=== PATIENT | male | born 1955 | race Caucasian/White ===

== ENCOUNTER 2019-09-29 13:28 | Outpatient (RCR) | payer MEDICARE, OTHER ==
[2019-09-24 11:40] LABS: BASOPHILS # (AUTO) 0.1 10^3/uL (0.0-0.1); BASOPHILS % (AUTO) 1 % (0-10); EOSINOPHILS # (AUTO) 0.4 10^3/uL (0.0-0.3); EOSINOPHILS % (AUTO) 4 % (0-10); HEMATOCRIT 41 % (40-54); HEMOGLOBIN 13.6 G/DL (13.3-17.7); LYMPHOCYTES # (AUTO) 1.7 X 10^3 (1.0-4.0); LYMPHOCYTES % (AUTO) 19 % (12-44); MEAN CORPUSCULAR HEMOGLOBIN 30 PG (25-34); MEAN CORPUSCULAR HGB CONC 33 G/DL (32-36); MEAN CORPUSCULAR VOLUME 91 FL (80-99); MEAN PLATELET VOLUME 9.2 FL (7.4-10.4); MONOCYTES # (AUTO) 0.7 X 10^3 (0.0-1.0); MONOCYTES % (AUTO) 8 % (0-12); NEUTROPHILS # (AUTO) 6.1 X 10^3 (1.8-7.8); NEUTROPHILS % (AUTO) 69 % (42-75); PLATELET COUNT 297 10^3/uL (130-400); RED CELL DISTRIBUTION WIDTH 13.4 % (10.0-14.5); WHITE BLOOD COUNT 8.9 10^3/uL (4.3-11.0)
[2019-09-24 12:05] LABS: ALANINE AMINOTRANSFERASE 25 U/L (0-55); ALBUMIN 3.8 GM/DL (3.2-4.5); ALKALINE PHOSPHATASE 77 U/L (40-136); BILIRUBIN,TOTAL 0.5 MG/DL (0.1-1.0); BUN/CREATININE RATIO 14; CALCIUM 9.1 MG/DL (8.5-10.1); CARBON DIOXIDE 26 MMOL/L (21-32); CHLORIDE 103 MMOL/L (98-107); CREATININE SERUM 0.88 MG/DL (0.60-1.30); GFR ESTIMATED > 60; GLUCOSE 97 MG/DL (70-105); POTASSIUM 4.1 MMOL/L (3.6-5.0); SODIUM 135 MMOL/L (135-145); TOTAL PROTEIN 7.2 GM/DL (6.4-8.2)
[~2019-09-29 13:28] MED LIST: ALBU8.5H4 IH; ALBUTEROL INHALER; AMOX-358 PO; ATEN-158 PO; BENZ200C25 PO; CEFD300C PO; IPRA4AER IH; LEVO500T69 PO; LISI10TA PO; MOME13HF2 IH; PRD20T PO
== END 2019-12-23 | disposition home or self-care (01) ==
LOC: ONC 13:28
PROVIDERS: ATTEND Internal Medicine Hematology & Oncology
DX: C34.11 Malignant neoplasm of upper lobe, right bronchus or lung (principal); J43.8 Other emphysema; I10 Essential (primary) hypertension; E03.9 Hypothyroidism, unspecified; Z79.899 Other long term (current) drug therapy; Z87.891 Personal history of nicotine dependence
CPT/HCPCS: 80053; 82378; 85025; 99213; 99214

== ENCOUNTER 2020-03-20 11:40 | Inpatient (IN) | payer MEDICARE, OTHER ==
[2020-03-20] VITALS (11 sets, daily range): BP systolic 93–126; BP diastolic 71–111
[~2020-03-20] VITALS: Ht 187.9 cm; Wt 97.2 kg
[2020-03-20] MEDS ORDERED: NS IV 1000 ML 1,000 ML IV ONE (12:26)
[2020-03-20] MEDS ORDERED: NS IV 1000 ML 1,000 ML IV SCH (12:26)
--- NOTE | 2020-03-20 12:39 | ED Syncope ---
General Stated Complaint: FALL - HEAD LAC Source of Information: Patient Exam Limitations: No Limitations History of Present Illness Date Seen by Provider: Mar 20, 2020 Time Seen by Provider: 12:10 Initial Comments The patient presents to ER by private conveyance from home with chief complaint that he was finishing up at the breakfast table when he stood up and passed out falling striking his right frontal forehead. He was only out for less than a minute according to his family. He has a history of atrial flutter paroxysmal type. He is not on blood thinners. He does take atenolol. He is not on Cardizem or other beta blockers. He has not been sick with anything but he is undergoing immunotherapy with his oncologist at [facility] for non-small cell lung cancer on the right side. He has a distant history of bowel resections for multiple flat polyps that were noncancerous. He denies any dysuria fever chills cough shortness of breath but he is having some pain in his right side midaxillary line ribs. The patient is a history of COPD and is presently on steroids for the past 10 days. Allergies and Home Medications Allergies Coded Allergies: No Known Drug Allergies (Unverified , 08/05/13) Home Medications Albuterol Sulfate 8.5 Gm Hfa.aer.ad, 8.5 GM IH QID Prescribed by: RYAN HESS on 08/05/132030 Atenolol 50 Mg Tab, 75 MG PO BID, (Reported) Cefdinir 300 Mg Capsule, 600 MG PO DAILY, (Reported) Ipratropium/Albuterol Sulfate 4 Gm Aer.w.adap, 4 GM IH Q6H, (Reported) Lisinopril 10 Mg Tablet, 10 MG PO BID, (Reported) Mometasone/Formoterol 13 Gm Hfa.aer.ad, 13 GM IH BID, (Reported) Prednisone 20 Mg Tab, 40 MG PO DAILY Prescribed by: RYAN HESS on 08/05/132030 Patient Home Medication List Home Medication List Reviewed: Yes Review of Systems Constitutional: No chills, No diaphoresis EENTM: No ear discharge, No ear pain Respiratory: No cough, No short of breath, No wheezing Cardiovascular: see HPI, chest pain; No edema, No Hx of Intervention, No palpitations; syncope Gastrointestinal: No abdominal pain, No constipation, No diarrhea, No nausea Genitourinary: No discharge, No dysuria Musculoskeletal: No back pain, No joint pain Skin: see HPI All Other Systems Reviewed Negative Unless Noted: Yes Past Bmncopw-Ghqssp-Ytiogq Hx Patient Social History Alcohol Use: Denies Use Recreational Drug Use: No Smoking Status: Never a Smoker Recent Foreign Travel: No Contact w/Someone Who Travel: No Immunizations Up To Date Date of Pneumonia Vaccine: Jun 15, 2009 Date of Influenza Vaccine: Apr 21, 2014 Past Medical History Abdominal COPD Hypertension Reproductive Disorders: No Polyps Hyperthyroidism Adverse Reaction/Blood Tranf: No Family Medical History COPD Physical Exam Vital Signs Vital Signs - First Documented 03/20/20 12:11 Temp 36.4 Pulse 152 Resp 18 B/P (MAP) 103/88 (93) Pulse Ox 98 Capillary Refill : Height, Weight, BMI Height: 6'2.00" Weight: 230lbs. 0.0oz. 104.883200ls; BMI Method:Stated General Appearance: No Apparent Distress, WD/WN HEENT: PERRL/EOMI, TMs Normal, Normal ENT Inspection, Pharynx Normal; No Moist Mucous Membranes (mildly dry); Other (negative for hemotympanum, joshua sign or raccoon eyes. Small abrasion and 1 cm hematoma over the right frontal forehead/scalp) Neck: Full Range of Motion, Normal Inspection, Non Tender, Supple Cardiovascular: Regular Rate, Rhythm, No Edema, Normal Peripheral Pulses Respiratory: Chest Non Tender, Lungs Clear, Normal Breath Sounds, No Accessory Muscle Use, No Respiratory Distress Gastrointestinal: Normal Bowel Sounds, No Organomegaly, Non Tender, Soft Back: Normal Inspection, No Vertebral Tenderness Extremities: Normal Capillary Refill, Normal Inspection, Normal Range of Motion, Non Tender, No Calf Tenderness Neurologic/Psychiatric: Alert, Oriented x3, No Motor/Sensory Deficits, Normal Mood/Affect Cranial Nerves: Normal Hearing, Normal Speech, PERRL Motor/Sensory: No Motor Deficit, No Sensory Deficit Skin: Other (superficial abrasion and hematoma 1-2 cm over her right forehead) Progress/Results/Core Measures Results/Orders Lab Results Laboratory Tests Test 03/20/20 12:27 03/20/20 14:17 Range/Units White Blood Count 21.6 H 4.3-11.0 10^3/uL Red Blood Count 4.41 4.35-5.85 10^6/uL Hemoglobin 13.8 13.3-17.7 G/DL Hematocrit 41 40-54 % Mean Corpuscular Volume 93 80-99 FL Mean Corpuscular Hemoglobin 31 25-34 PG Mean Corpuscular Hemoglobin Concent 34 32-36 G/DL Red Cell Distribution Width 12.7 10.0-14.5 % Platelet Count 266 130-400 10^3/uL Mean Platelet Volume 9.4 7.4-10.4 FL Neutrophils (%) (Auto) 90 H 42-75 % Lymphocytes (%) (Auto) 4 L 12-44 % Monocytes (%) (Auto) 7 0-12 % Eosinophils (%) (Auto) 0 0-10 % Basophils (%) (Auto) 0 0-10 % Neutrophils # (Auto) 19.3 H 1.8-7.8 X 10^3 Lymphocytes # (Auto) 0.8 L 1.0-4.0 X 10^3 Monocytes # (Auto) 1.4 H 0.0-1.0 X 10^3 Eosinophils # (Auto) 0.0 0.0-0.3 10^3/uL Basophils # (Auto) 0.0 0.0-0.1 10^3/uL Neutrophils % (Manual) 86 % Lymphocytes % (Manual) 2 % Monocytes % (Manual) 12 % Blood Morphology Comment NORMAL Sodium Level 135 135-145 MMOL/L Potassium Level 4.0 3.6-5.0 MMOL/L Chloride Level 101 98-107 MMOL/L Carbon Dioxide Level 21 21-32 MMOL/L Anion Gap 13 5-14 MMOL/L Blood Urea Nitrogen 27 H 7-18 MG/DL Creatinine 0.99 0.60-1.30 MG/DL Estimat Glomerular Filtration Rate > 60 BUN/Creatinine Ratio 27 Glucose Level 204 H 70-105 MG/DL Calcium Level 9.0 8.5-10.1 MG/DL Corrected Calcium 9.4 8.5-10.1 MG/DL Total Bilirubin 0.5 0.1-1.0 MG/DL Aspartate Amino Transf (AST/SGOT) 19 5-34 U/L Alanine Aminotransferase (ALT/SGPT) 27 0-55 U/L Alkaline Phosphatase 53 40-136 U/L Troponin I 0.034 H <0.028 NG/ML B-Type Natriuretic Peptide 642.5 H <100.0 PG/ML Total Protein 6.3 L 6.4-8.2 GM/DL Albumin 3.5 3.2-4.5 GM/DL Urine Color YELLOW Urine Clarity CLEAR Urine pH 6.0 5-9 Urine Specific Harrison 1.015 L 1.016-1.022 Urine Protein NEGATIVE NEGATIVE Urine Glucose (UA) TRACE H NEGATIVE Urine Ketones NEGATIVE NEGATIVE Urine Nitrite NEGATIVE NEGATIVE Urine Bilirubin NEGATIVE NEGATIVE Urine Urobilinogen 1.0 < = 1.0 MG/DL Urine Leukocyte Esterase NEGATIVE NEGATIVE Urine RBC (Auto) NEGATIVE NEGATIVE Urine RBC NONE /HPF Urine WBC NONE /HPF Urine Squamous Epithelial Cells RARE /HPF Urine Crystals NONE /LPF Urine Bacteria NEGATIVE /HPF Urine Casts NONE /LPF Urine Mucus SMALL H /LPF Urine Culture Indicated NO My Orders Orders - HUNG MISHRA Ct Head/Cervical Spine Wo (03/20/20 12:12) Troponin I (03/20/20 12:26) Ekg Tracing (03/20/20 12:26) Ed Iv/Invasive Line Start (03/20/20 12:26) Monitor-Rhythm Ecg Trace Only (03/20/20 12:) Cbc With Automated Diff (03/20/20 12:26) Comprehensive Metabolic Panel (03/20/20 12:26) BNP (03/20/20 12:) Ua Culture If Indicated (03/20/20 12:26) Ed Iv/Invasive Line Start (03/20/20 12:26) Ns Iv 1000 Ml (Sodium Chloride 0.9%) (03/20/20 12:26) Ns Iv 1000 Ml (Sodium Chloride 0.9%) (03/20/20 12:26) Diltiazem Injection (Cardizem Injection) (03/20/20 12:30) Diltiazem Drip Pre-Mix (Cardizem Drip Pr (03/20/20 12:30) Manual Differential (03/20/20 12:27) Ribs/Unilateral With Chest (03/20/20 12:26) Amiodarone Injection (Cordarone Injectio (03/20/20 14:45) Amiodarone Injection (Cordarone Injectio (03/20/20 14:45) Medications Given in ED Current Medications Medications Dose Ordered Sig/Silvana Route Start Time Stop Time Status Last Admin Dose Admin Sodium Chloride 1,000 ml @ 0 mls/hr Q0M ONCE IV 03/20/20 12:26 03/20/20 12:29 DC 03/20/20 12:44 1,000 MLS/HR Vital Signs/I&O 03/20/20 12:11 Temp 36.4 Pulse 152 Resp 18 B/P (MAP) 103/88 (93) Pulse Ox 98 Progress Progress Note #1: Time: 12:32 Progress Note 2 L of fluids, ribs x-ray, CT of the head and C-spine, labs urinalysis and Cardizem for his A. fib with RVR. Progress Note #2: Time: 14:36 Progress Note It's felt that the elevated white count is probably due to the prednisone. Progress Note #3: Time: 14:48 Progress Note Patient says that he had to be on amiodarone for short while after his partial bowel resections and a flutter. This caused a goiter and he had have a steroid taken out so he does not want to be on amiodarone. Discussed this with Dr. Quintero he says just keep him on the Cardizem drip. Initial ECG Impression Date: Mar 20, 2020 Initial ECG Impression Time: 12:14 Initial ECG Rate: 136 Initial ECG Rhythm: A Fib/Flutter Initial ECG Intervals: QT (530) Initial ECG Impression: Atrial Fibrillation w/RVR Comment Atrial flutter with rapid ventricular response. Right bundle prieto block. Diagnostic Imaging Diagonstic Imaging: Xray Plain Films/CT/US/NM/MRI: chest (right ribs) Comments NAME: SARA IRIZARRY [facility] REC#: [id number] PT STATUS: REG ER : 1955 PHYSICIAN: HUNG MISHRA MD ADMIT DATE: 03/20/20/ER Signed Date of Exam:03/20/20 RIBS/UNILATERAL WITH CHEST Patient History: Fall. Anterior rib pain.. Technique: 4 views of the chest and right ribs. Comparison: 09/25/2014. FINDINGS: No acute displaced right-sided rib fractures are seen. Patchy opacities are seen in the right upper lobe. A left port is seen with the tip overlying the low SVC. No large pleural effusion or pneumothorax. The cardiac silhouette is unremarkable. IMPRESSION: 1. No acute displaced right-sided rib fractures. 2. Patchy opacities in the right upper lobe, which may represent infection or atelectasis. 3. Left port with the tip overlying the low SVC. Dictated by: Dictated on workstation # [id number] Dict: 03/20/20 1320 Trans: 03/20/20 1327 [facility] [id number] Interpreted by: STUART ORO DO Electronically signed by: STUART ORO DO 03/20/20 1327 Reviewed: Reviewed by Me Diagonstic Imaging: CT Plain Films/CT/US/NM/MRI: c-spine, head Comments [facility] [place] NAME: SARA IRIZARRY [facility] REC#: [id number] PT STATUS: REG ER : 1955 PHYSICIAN: HUNG MISHRA MD ADMIT DATE: 03/20/20/ER Signed Date of Exam:03/20/20 CT HEAD/CERVICAL SPINE WO PROCEDURE: CT head and CT cervical spine without contrast. TECHNIQUE: Multiple contiguous axial images were obtained through the brain and cervical spine without the use of intravenous contrast. Sagittal and coronal reformations through the cervical spine were then performed. Auto Exposure Controls were utilized during the CT exam to meet ALARA standards for radiation dose reduction. INDICATION: Dizziness. Syncope. Fell and hit forehead. Scalp contusion. Neck pain. COMPARISON: None. FINDINGS: CT head: No large acute territorial ischemia, mass, or hemorrhage. No midline shift or mass effect. Decreased attenuation is seen in the periventricular and subcortical white matter. The ventricles and cortical sulci are prominent. The basilar cisterns are patent and unremarkable. The calvarium is intact. The visualized paranasal sinuses are clear. CT cervical spine: No acute fracture or dislocation is seen in the cervical spine. No focal osseous lesions. Vertebral body heights are well-maintained. The craniocervical junction is well-maintained. Moderate degenerative changes are seen in the cervical spine with disc osteophyte complexes and uncovertebral arthropathy. Soft tissues of the neck are unremarkable. IMPRESSION: 1. No hemorrhage or focal intra-axial mass. No CT evidence of large acute territorial ischemia. 2. No acute fracture or dislocation in the cervical spine. 3. Generalized parenchymal volume loss with chronic microvascular disease. Dictated by: Dictated on workstation # [id number] Dict: 03/20/20 1312 Trans: 03/20/20 1327 [facility] [id number] Interpreted by: STUART ORO DO Electronically signed by: STUART ORO DO 03/20/20 1327 Reviewed: Reviewed by Me Departure Communication (Admissions) Time/Spoke to Admitting Phy: 14:40 Discussed the case with Dr. Lynn and she agrees to admit the patient on amiodarone and Cardizem drip under the consult of cardiology, Dr. Quintero. She agrees with continuing prednisone starting Eliquis and getting labs. Time/Spoke to Consulting Phy: 14:31 Dr. Quintero would like anticoagulation, 2-D echo in the morning and a bolus of amiodarone and amiodarone drip overnight. He would plan to cardiovert if the patient does not typically cardiovert overnight. Impression Primary Impression: Atrial flutter with rapid ventricular response Additional Impression: History of lung cancer in adulthood Disposition: ADMITTED INPATIENT Condition: Stable Admissions Decision to Admit Reason: Admit from ER (General) Decision to Admit/Date: Mar 20, 2020 Time/Decision to Admit Time: 13:00 HUNG MISHRA Mar 20, 2020 12:39
[2020-03-20 12:42] LABS: BASOPHILS % (AUTO) 0 % (0-10); EOSINOPHILS % (AUTO) 0 % (0-10); HEMATOCRIT 41 % (40-54); HEMOGLOBIN 13.8 G/DL (13.3-17.7); LYMPHOCYTES # (AUTO) 0.8 X 10^3 (1.0-4.0); LYMPHOCYTES % (AUTO) 4 % (12-44); MEAN CORPUSCULAR HEMOGLOBIN 31 PG (25-34); MEAN CORPUSCULAR HGB CONC 34 G/DL (32-36); MEAN CORPUSCULAR VOLUME 93 FL (80-99); MEAN PLATELET VOLUME 9.4 FL (7.4-10.4); MONOCYTES # (AUTO) 1.4 X 10^3 (0.0-1.0); MONOCYTES % (AUTO) 7 % (0-12); NEUTROPHILS # (AUTO) 19.3 X 10^3 (1.8-7.8); NEUTROPHILS % (AUTO) 90 % (42-75); PLATELET COUNT 266 10^3/uL (130-400); WHITE BLOOD COUNT 21.6 10^3/uL (4.3-11.0)
--- NOTE | 2020-03-20 12:44 | NUR ---
FLUIDS STARTED GOING HOLD CARDIZEM DUE TO B/P SYSTOLIC 80 AND 90 Addendum: 03/20/20 at 1318 by PMCCLURE PATIENT TALKING WITH AND UDATING HER.
[2020-03-20 12:52] LABS: ALBUMIN 3.5 GM/DL (3.2-4.5); CHLORIDE 101 MMOL/L (98-107); SODIUM 135 MMOL/L (135-145)
[2020-03-20 12:55] LABS: GLUCOSE 204 MG/DL (70-105); TOTAL PROTEIN 6.3 GM/DL (6.4-8.2)
[2020-03-20 12:56] LABS: CARBON DIOXIDE 21 MMOL/L (21-32); LYMPHOCYTES % (MANUAL) 2 %; MONOCYTES % (MANUAL) 12 %; NEUTROPHILS % (MANUAL) 86 %; RBC MORPH NORMAL
[2020-03-20 12:57] LABS: BILIRUBIN,TOTAL 0.5 MG/DL (0.1-1.0)
[2020-03-20 12:58] LABS: ALKALINE PHOSPHATASE 53 U/L (40-136); CREATININE SERUM 0.99 MG/DL (0.60-1.30); GFR ESTIMATED > 60
[2020-03-20 12:59] LABS: BUN/CREATININE RATIO 27
[2020-03-20 13:01] LABS: ALANINE AMINOTRANSFERASE 27 U/L (0-55)
--- NOTE | 2020-03-20 13:22 | Diagnostic Imaging Report ---
PROCEDURE: CT head and CT cervical spine without contrast. TECHNIQUE: Multiple contiguous axial images were obtained through the brain and cervical spine without the use of intravenous contrast. Sagittal and coronal reformations through the cervical spine were then performed. Auto Exposure Controls were utilized during the CT exam to meet ALARA standards for radiation dose reduction. INDICATION: Dizziness. Syncope. Fell and hit forehead. Scalp contusion. Neck pain. COMPARISON: None. FINDINGS: CT head: No large acute territorial ischemia, mass, or hemorrhage. No midline shift or mass effect. Decreased attenuation is seen in the periventricular and subcortical white matter. The ventricles and cortical sulci are prominent. The basilar cisterns are patent and unremarkable. The calvarium is intact. The visualized paranasal sinuses are clear. CT cervical spine: No acute fracture or dislocation is seen in the cervical spine. No focal osseous lesions. Vertebral body heights are well-maintained. The craniocervical junction is well-maintained. Moderate degenerative changes are seen in the cervical spine with disc osteophyte complexes and uncovertebral arthropathy. Soft tissues of the neck are unremarkable. IMPRESSION: 1. No hemorrhage or focal intra-axial mass. No CT evidence of large acute territorial ischemia. 2. No acute fracture or dislocation in the cervical spine. 3. Generalized parenchymal volume loss with chronic microvascular disease. Dictated by: Dictated on workstation # [id number]
--- NOTE | 2020-03-20 13:24 | Diagnostic Imaging Report ---
Patient History: Fall. Anterior rib pain.. Technique: 4 views of the chest and right ribs. Comparison: 09/25/2014. FINDINGS: No acute displaced right-sided rib fractures are seen. Patchy opacities are seen in the right upper lobe. A left port is seen with the tip overlying the low SVC. No large pleural effusion or pneumothorax. The cardiac silhouette is unremarkable. IMPRESSION: 1. No acute displaced right-sided rib fractures. 2. Patchy opacities in the right upper lobe, which may represent infection or atelectasis. 3. Left port with the tip overlying the low SVC. Dictated by: Dictated on workstation # [id number]
[2020-03-20] MEDS: dilTIAZem DRIP PRE-MIX 125 ML IV SCH ×2 (13:25→22:15)
[2020-03-20 14:23] LABS: BILIRUBIN,URINE NEGATIVE (NEGATIVE); CLARITY,URINE CLEAR; COLOR,URINE YELLOW; GLUCOSE, URINE (UA) TRACE (NEGATIVE); KETONES,URINE NEGATIVE (NEGATIVE); LEUKOCYTE ESTERASE ,URINE NEGATIVE (NEGATIVE); NITRITE,URINE NEGATIVE (NEGATIVE); PROTEIN,URINE NEGATIVE (NEGATIVE)
[2020-03-20 14:43] LABS: BACTERIA,URINE NEGATIVE /HPF; SQUAMOUS EPITHELIAL CELL,UR RARE /HPF
[2020-03-20] MEDS ORDERED: AMIODARONE INJECTION 450 MG in D5W IV SOLUTION (EXCEL) 250 ML IV SCH (14:45)
[2020-03-20] MEDS ORDERED: AMIODARONE INJECTION 150 MG in D5W 100 ML IVPB 100 ML IV ONE ×2 (14:45→19:30)
--- NOTE | 2020-03-20 14:57 | NUR ---
PATIENT WNATS TO BE TRANSFER TO TO ONOCLOGY
--- NOTE | 2020-03-20 14:58 | NUR ---
DR MISHRA TO ROOM TO TALK WITH PATIENT.
--- NOTE | 2020-03-20 15:12 | NUR ---
DR TALKED TO PATIENT AND WILL STAY.
[2020-03-20] MEDS ORDERED: LACTATED RINGERS 1,000 ML IV ONE (15:25)
[2020-03-20] MEDS ORDERED: ACETAMINOPHEN 500 MG TAB (TYLENOL) PO PRN (15:45)
[2020-03-20] MEDS: LACTATED RINGERS 1,000 ML IV SCH ×2 (16:04→22:14)
[2020-03-20] MEDS ORDERED: RT-ALBUTEROL/IPRATROPIUM 3 ML (DUONEB) VIAL INH PRN (16:45)
--- NOTE | 2020-03-20 19:01 | Consultation-Cardiology ---
HPI-Cardiology Cardiology Consultation: Date of Consultation 03/20/20 Date of Admission Attending Physician Tisha Lynn MD Admitting Physician No,Local Physician Consulting Physician Navjot QUINTERO MD HPI: Time Seen by a Provider: 19:01 Chief Complaint: Syncope This is a 65-year-old gentleman who presented with syncope. Brief episode. He has history of atrial fibrillation/flutter. He also has history of possible hypertension on atenolol. Patient has previous history of smoking but quit quite a few years ago. He does have history of COPD. He has been diagnosed with non-small cell lung cancer in July 2019. He is on immunotherapy. Pertinent family history is negative. He does not remember whether he had any chest pain or shortness of breath before he passed out. He was sitting on the breakfast table and hit the floor. No jerky movements noted by the . Patient became conscious within a minute. Review of Systems-Cardiology Review of Systems Constitutional: As described under HPI; No As described under HPI, No no symptoms reported, No chills, No fever, No lightheadedness Eyes: No As described under HPI, No no symptoms reported, No blindness, No blurred vision, No contact lenses, No drainage, No decreased acuity, No foreign body sensation, No pain, No vision change Ears/Nose/Throat: No As described under HPI, No no symptoms reported, No chronic hearing loss, No ear discharge, No ear pain, No nasal drainage, No ulcerations Respiratory: No no symptoms reported; As described under HPI; No As described under HPI, No cough, No orthopnea, No shortness of breath, No SOB with excertion Cardiovascular: No no symptoms reported; As described under HPI; No As described under HPI, No chest pain, No edema, No irregular heart rate, No lightheadedness, No palpitations; syncope Gastrointestinal: No no symptoms reported, No As described under HPI, No abdomen distended, No abdominal pain, No blood streaked bowels, No constipation, No diarrhea, No nausea, No vomiting, No stool coloration changes Genitourinary: No As described under HPI, No burning, No dysuria, No discharge, No frequency, No flank pain, No hematuria, No urgency Skin: No rash, No skin related problems, No ulcerations Psychiatric/Neurological: No anxiety, No depression, No seizure, No focal weakness, No syncope Hematologic: No bleeding abnormalities All Other Systems Reviewed Negative Unless Noted: Yes HNV-Smrmem-Qerzod Hx Patient Social History Alcohol Use: Denies Use Recreational Drug Use: No Smoking Status: Former Smoker Recent Foreign Travel: No Recent Infectious Disease Expo: No Hospitalization with Isolation: Denies Physical Abuse Screen: No Sexual Abuse: No Immunizations Up To Date Date of Pneumonia Vaccine: Jun 15, 2009 Date of Influenza Vaccine: Apr 21, 2014 Past Medical History PMH As described under Assessment. Allergies and Home Medications Allergies Coded Allergies: No Known Drug Allergies (Unverified , 08/05/13) Home Medications Albuterol Sulfate 8.5 Gm Hfa.aer.ad, 8.5 GM IH QID Prescribed by: RYAN HESS on 08/05/132030 Atenolol 50 Mg Tab, 75 MG PO BID, (Reported) Cefdinir 300 Mg Capsule, 600 MG PO DAILY, (Reported) Ipratropium/Albuterol Sulfate 4 Gm Aer.w.adap, 4 GM IH Q6H, (Reported) Lisinopril 10 Mg Tablet, 10 MG PO BID, (Reported) Mometasone/Formoterol 13 Gm Hfa.aer.ad, 13 GM IH BID, (Reported) Prednisone 20 Mg Tab, 40 MG PO DAILY Prescribed by: RYAN HESS on 08/05/132030 Patient Home Medication List Home Medication List Reviewed: Yes Physical Exam-Cardiology Physical Exam Vital Signs/I&O 03/21/20 03/21/20 03/21/20 03/21/20 04:00 04:00 04:00 05:00 Temp 36.4 Pulse 140 138 Resp 29 B/P (MAP) 114/87 (96) 106/93 (97) Pulse Ox 95 94 O2 Delivery Room Air Room Air Room Air 03/21/20 03/21/20 03/21/20 03/21/20 06:00 07:00 07:24 08:00 Temp 36.8 Pulse 138 140 138 Resp 10 15 B/P (MAP) 119/77 (91) 109/76 (87) Pulse Ox 94 96 O2 Delivery Room Air Room Air Room Air 03/21/20 03/21/20 03/21/20 03/21/20 08:00 09:00 10:00 10:05 Pulse 90 54 Resp 21 6 B/P (MAP) 111/96 (101) 110/103 (105) 104/73 (83) Pulse Ox 96 95 98 O2 Delivery Room Air Room Air Room Air Room Air 03/21/20 03/21/20 03/21/20 03/21/20 11:00 11:12 11:13 12:00 Temp 36.8 36.8 Pulse 57 57 55 Resp 14 18 B/P (MAP) 118/79 (92) 114/80 (91) Pulse Ox 97 96 94 O2 Delivery Room Air Room Air FiO2 21 03/21/20 03/21/20 12:06 14:49 Pulse Ox 98 O2 Delivery Room Air Room Air 03/21/20 00:00 Intake Total 4228 ml Output Total 2000 ml Balance 2228 ml Capillary Refill : Less Than 3 Seconds Constitutional: appears stated age, AAO x 3; No apparent distress; well- developed, well-nourished HEENT: PERRL; No discharge; hearing is well preserved, oral hygience is good; No ulceration, No xanthelasmas are seen Neck: No carotid bruit; carotid pulses are 2 + bilaterally Respiratory: chest is bilaterally symmetric, lungs clear to auscultation Cardiovascular: irregularly irregular, tachycardia, S1 and S2 Gastrointestinal: soft, audible bowel sounds; No spleenomegaly Rectal: deferred Extremities: normal range of motion, non-tender, normal inspection; No clubbing, No cyanosis; no lower extremity edema bilateral; No significant edema Neurologic/Psychiatric: no motor/sensory deficits, alert, normal mood/affect, oriented x 3, power is 5/5 both on sides Skin: normal color, warm/dry; No rash, No ulcerations Data Review Labs Laboratory Tests 03/20/20 18:06: Troponin I 0.032H 03/21/20 01:22: Troponin I < 0.028, White Blood Count 16.4H, Red Blood Count 4.16L, Hemoglobin 13.1L, Hematocrit 39L, Mean Corpuscular Volume 93, Mean Corpuscular Hemoglobin 32, Mean Corpuscular Hemoglobin Concent 34, Red Cell Distribution Width 12.5, Platelet Count 246, Mean Platelet Volume 9.2, Neutrophils (%) (Auto) 90H, Lymphocytes (%) (Auto) 5L, Monocytes (%) (Auto) 6, Eosinophils (%) (Auto) 0, Basophils (%) (Auto) 0, Neutrophils # (Auto) 14.7H, Lymphocytes # (Auto) 0.7L, Monocytes # (Auto) 1.0, Eosinophils # (Auto) 0.0, Basophils # (Auto) 0.0, Sodium Level 133L, Potassium Level 4.2, Chloride Level 101, Carbon Dioxide Level 21, Anion Gap 11, Blood Urea Nitrogen 25H, Creatinine 0.91, Estimat Glomerular Filtr ation Rate > 60, BUN/Creatinine Ratio 27, Glucose Level 258H, Calcium Level 8.5, Phosphorus Level 3.9, Magnesium Level 2.0, Procalcitonin 0.03, Thyroid Stimulating Hormone (TSH) 0.37 03/21/20 11:11: Glucometer 128H ECG Impression ECG Comment Typical atrial flutter A/P-Cardiology Assessment/Admission Diagnosis Atrial fibrillation with RVR, Typical atrial flutter, Syncope, Borderline positive troponin, Non-small cell lung cancer Plan Atrial fibrillation with RVR, amiodarone infusion, Cardizem infusion. If patient does not convert to sinus rhythm, consider transesophageal echocardiogram assisted cardioversion. Informed consent taken. 1 percent risk of stroke in 1 percent risk of 45 damage was discussed and accepted by the patient if required. Patient will also be started on Eliquis therapy. Typical atrial flutter, typical atrial flutter ablation is recommended. We will arrange it as an outpatient. Syncope, unclear etiology. Due to borderline positive troponin, coronary angiography is recommended to rule out significant CAD. Also will need an event monitor. Also could be related to either very slow atrial fibrillation or atrial fibrillation with rapid ventricular rate. Borderline positive troponin, coronary angiography is recommended. Non-small cell lung cancer, we will defer to the oncologist. I'm told by the patient that the prognosis is reasonable. Thank you for your consultation. Please call me if you have any questions. Diana Quintero MD, FACP, FACC, FSCAI, FHRS, CCDS Interventional Cardiology Cardiac Electrophysiology Vascular Medicine and Endovascular Interventions Clinical Quality Measures DVT/VTE Risk/Contraindication: Risk Factor Score Per Nursin RFS Level Per Nursing on Admit: 4+=Very High Navjot QUINTERO MD Mar 20, 2020 19:01
[2020-03-20] MEDS ORDERED: D5W 100 ML IVPB 100 ML IV ONE (19:29)
[2020-03-20] MEDS ORDERED: AMIODARONE (OMNICELL DRIP KIT) 150 MG/3 ML IV ONE (19:30)
[2020-03-20] MEDS ORDERED: D5W IV SOLUTION (EXCEL) 250 ML IV ONE (19:45)
[2020-03-20] MEDS ORDERED: AMIODARONE 450 MG/9 ML (CORDARONE) VIAL IV ONE (19:45)
[2020-03-20] MEDS: AMIODARONE INJECTION 450 MG in D5W IV SOLUTION (EXCEL) 250 ML IV SCH (19:59)
[2020-03-20] MEDS: APIXABAN 5 MG (ELIQUIS) TABLET PO SCH (20:34)
[2020-03-20] MEDS: ATENOLOL 50 MG (TENORMIN) TAB PO SCH (20:34)
[2020-03-20] MEDS: RT-ALBUTEROL/IPRATROPIUM 3 ML (DUONEB) VIAL INH SCH ×2 (21:50→21:57)
--- NOTE | 2020-03-20 22:00 | NUR ---
VICTOR HUGO and Dr. Quintero notified of patient's heart rate maintaining in the 140s. Will await orders and continue to monitor.
[2020-03-21] VITALS (15 sets, daily range): BP systolic 97–129; BP diastolic 73–103
[2020-03-21] MEDS ORDERED: meTOprolol 5 MG/5 ML (LOPRESSOR) VIAL ONE (00:28)
--- NOTE | 2020-03-21 00:30 | NUR ---
EICU notified of patient's heart rate continuing in the 140s. Patient's only complaint is tiredness. Orders receive.
[2020-03-21] MEDS ORDERED: meTOprolol 5 MG/5 ML (LOPRESSOR) VIAL IV ONE (00:45)
[2020-03-21] MEDS ORDERED: PHENYLEPHRINE INJECTION 10 MG in NS (IVPB) 250 ML IV SCH (01:15)
--- NOTE | 2020-03-21 01:15 | NUR ---
Patient's blood pressure decreased after IV lopressor given. EICU doctor placed orders to keep blood pressure up. Will continue to monitor.
[2020-03-21 01:36] LABS: BASOPHILS % (AUTO) 0 % (0-10); EOSINOPHILS % (AUTO) 0 % (0-10); HEMATOCRIT 39 % (40-54); HEMOGLOBIN 13.1 G/DL (13.3-17.7); LYMPHOCYTES # (AUTO) 0.7 X 10^3 (1.0-4.0); LYMPHOCYTES % (AUTO) 5 % (12-44); MEAN CORPUSCULAR HEMOGLOBIN 32 PG (25-34); MEAN CORPUSCULAR HGB CONC 34 G/DL (32-36); MEAN CORPUSCULAR VOLUME 93 FL (80-99); MEAN PLATELET VOLUME 9.2 FL (7.4-10.4); MONOCYTES % (AUTO) 6 % (0-12); NEUTROPHILS # (AUTO) 14.7 X 10^3 (1.8-7.8); NEUTROPHILS % (AUTO) 90 % (42-75); PLATELET COUNT 246 10^3/uL (130-400); WHITE BLOOD COUNT 16.4 10^3/uL (4.3-11.0)
[2020-03-21 01:47] LABS: CHLORIDE 101 MMOL/L (98-107); POTASSIUM 4.2 MMOL/L (3.6-5.0); SODIUM 133 MMOL/L (135-145)
[2020-03-21 01:48] LABS: CALCIUM 8.5 MG/DL (8.5-10.1)
[2020-03-21 01:49] LABS: GLUCOSE 258 MG/DL (70-105)
[2020-03-21 01:50] LABS: CARBON DIOXIDE 21 MMOL/L (21-32)
[2020-03-21 01:52] LABS: PHOSPHORUS 3.9 MG/DL (2.3-4.7)
[2020-03-21 01:53] LABS: BUN/CREATININE RATIO 27; CREATININE SERUM 0.91 MG/DL (0.60-1.30); GFR ESTIMATED > 60
[2020-03-21] MEDS: RT-ALBUTEROL/IPRATROPIUM 3 ML (DUONEB) VIAL INH SCH ×3 (02:17→14:49)
[2020-03-21] MEDS: AMIODARONE INJECTION 450 MG in D5W IV SOLUTION (EXCEL) 250 ML IV SCH (04:18)
[2020-03-21] MEDS ORDERED: LEVOTHYROXINE 100 MCG (LEVOTHROID) TAB PO SCH (06:30)
[2020-03-21] MEDS: dilTIAZem DRIP PRE-MIX 125 ML IV SCH (06:30)
[2020-03-21] MEDS: LACTATED RINGERS 1,000 ML IV SCH ×2 (06:30→07:59)
[2020-03-21] MEDS ORDERED: predniSONE 20 MG TAB PO SCH (07:00)
--- NOTE | 2020-03-21 08:06 | Diagnostic Imaging Report ---
INDICATION: Dyspnea. Comparison made with prior examination from 03/20/2020. FINDINGS: There is cardiomegaly. There is persistent right suprahilar atelectasis and/or pneumonitis. There is no pleural effusion or pneumothorax. The mediastinum is unremarkable. IMPRESSION: Right suprahilar and upper lobe atelectasis and/or pneumonitis. Cardiomegaly. Dictated by: Dictated on workstation # [id number]
--- NOTE | 2020-03-21 08:08 | History & Physical-Hospitalist ---
History of Present Illness HPI/Chief Complaint patient is a 65-year-old male with a past medical history of stage II colon cancer, COPD, atrial fibrillation, hypertension, hypothyroidism presented to the ER due to syncope. He was sitting at his kitchen table drinking coffee and reading when he suddenly passed out. He had no prodromal symptoms. He has history of atrial fibrillation for which he takes atenolol. He has not had issues with this since he had abdominal surgery years ago but did require cardioversion. He states when he fell he hit his head and his ribs. His only pain today is his ribs where he fell. Cranial LC emergency room he was found to be in atrial flutter with rapid ventricular rate. He was admitted to the ICU on a Cardizem and amiodarone drip. This morning he has no specific complaints other than his rib pain. Source: patient, family Exam Limitations: no limitations Date Seen 03/21/20 Time Seen by a Provider: 08:03 Attending Physician Lori Lynn MD PCP No,Local Physician Referring Physician Date of Admission Mar 20, 2020 at 14:32 Home Medications & Allergies Home Medications Reviewed patient Home Medication Reconciliation performed by pharmacy medication reconciliations reliability technician and/or nursing. Patients Allergies have been reviewed. Allergies Allergies Coded Allergies No Known Drug Allergies (Unverified08/05/13) Past Obxwrfl-Qfmjof-Sjgokg Hx Past Med/Social Hx: Reviewed Nursing Past Med/Soc Hx Patient Social History Marrital Status: Employed/Student: retired Alcohol Use: Denies Use Recreational Drug Use: No Smoking Status: Former Smoker Physical Abuse Screen: No Sexual Abuse: No Recent Foreign Travel: No Contact w/other who traveled: No Recent Hopitalizations: No Recent Infectious Disease Expo: No Immunizations Up To Date Pediatric: No Date of Pneumonia Vaccine: Jun 15, 2009 Date of Influenza Vaccine: Apr 21, 2014 Seasonal Allergies Seasonal Allergies: Yes Past Medical History Surgeries: Abdominal port placement Respiratory: COPD Currently Using CPAP: Yes Currently Using BIPAP: No Cardiac: Hypertension Reproductive: No Gastrointestinal: Polyps Endocrine: Hypothyroidsim Cancer: Lung Did You Recieve Any Treatments: Yes What Type of Treatment Did You: Chemotherapy, Radiation Cancer: Currently on immunotherapy tx History of Blood Disorders: No Adverse Reaction to Blood [place]: No Family History Reviewed Nursing Family Hx COPD Review of Systems Constitutional: No chills, No fever EENTM: nose congestion Respiratory: short of breath, wheezing Cardiovascular: No chest pain; palpitations, syncope Musculoskeletal: other (rib pain) Skin: no symptoms reported Psychiatric/Neurological: No Symptoms Reported Physical Exam Physical Exam Vital Signs Vital Signs - First Documented 03/20/20 03/20/20 12:11 14:57 Temp 36.4 Pulse 152 Resp 18 B/P (MAP) 103/88 (93) Pulse Ox 98 O2 Delivery Room Air Capillary Refill : Less Than 3 Seconds Height, Weight, BMI Height: 6'2.00" Weight: 230lbs. 0.0oz. 104.984035tn; 28.04 BMI Method:Stated General Appearance: No Apparent Distress, WD/WN HEENT: PERRL/EOMI, Moist Mucous Membranes Neck: Normal Inspection, Supple Respiratory: No Accessory Muscle Use, No Respiratory Distress, Decreased Breath Sounds; No Wheezing Cardiovascular: No JVD, Normal Peripheral Pulses (ableit tachycardiac), Irregularly Irregular, Tachycardia Gastrointestinal: Normal Bowel Sounds, Non Tender, Soft Extremity: Normal Capillary Refill, No Calf Tenderness, No Pedal Edema Neurologic/Psychiatric: Alert, Oriented x3, Normal Mood/Affect Skin: Normal Color, Warm/Dry, Other (2-3cm thin laceration just above right eyebrow) Results Results/Procedures Labs Laboratory Tests 03/20/20 12:27 03/21/20 01:22 Patient resulted labs reviewed. Imaging: Reviewed Imaging Report Imaging [facility], [place] NAME: SARA IRIZARRY [facility] REC#: [id number] PT STATUS: REG ER : 1955 PHYSICIAN: HUNG MISHRA MD ADMIT DATE: 03/20/20/ER Signed Date of Exam:03/20/20 CT HEAD/CERVICAL SPINE WO PROCEDURE: CT head and CT cervical spine without contrast. TECHNIQUE: Multiple contiguous axial images were obtained through the brain and cervical spine without the use of intravenous contrast. Sagittal and coronal reformations through the cervical spine were then performed. Auto Exposure Controls were utilized during the CT exam to meet ALARA standards for radiation dose reduction. INDICATION: Dizziness. Syncope. Fell and hit forehead. Scalp contusion. Neck pain. COMPARISON: None. FINDINGS: CT head: No large acute territorial ischemia, mass, or hemorrhage. No midline shift or mass effect. Decreased attenuation is seen in the periventricular and subcortical white matter. The ventricles and cortical sulci are prominent. The basilar cisterns are patent and unremarkable. The calvarium is intact. The visualized paranasal sinuses are clear. CT cervical spine: No acute fracture or dislocation is seen in the cervical spine. No focal osseous lesions. Vertebral body heights are well-maintained. The craniocervical junction is well-maintained. Moderate degenerative changes are seen in the cervical spine with disc osteophyte complexes and uncovertebral arthropathy. Soft tissues of the neck are unremarkable. IMPRESSION: 1. No hemorrhage or focal intra-axial mass. No CT evidence of large acute territorial ischemia. 2. No acute fracture or dislocation in the cervical spine. 3. Generalized parenchymal volume loss with chronic microvascular disease. Dictated by: Dictated on workstation # [id number] Dict: 03/20/20 1312 Trans: 03/20/20 1327 [facility] [id number] Interpreted by: STUART ORO DO Electronically signed by: STUART ORO DO 03/20/20 1327 [facility], [place] NAME: SARA IRIZARRY [facility] REC#: [id number] PT STATUS: REG ER : 1955 PHYSICIAN: HUNG MISHRA MD ADMIT DATE: 03/20/20/ER Signed Date of Exam:03/20/20 RIBS/UNILATERAL WITH CHEST Patient History: Fall. Anterior rib pain.. Technique: 4 views of the chest and right ribs. Comparison: 09/25/2014. FINDINGS: No acute displaced right-sided rib fractures are seen. Patchy opacities are seen in the right upper lobe. A left port is seen with the tip overlying the low SVC. No large pleural effusion or pneumothorax. The cardiac silhouette is unremarkable. IMPRESSION: 1. No acute displaced right-sided rib fractures. 2. Patchy opacities in the right upper lobe, which may represent infection or atelectasis. 3. Left port with the tip overlying the low SVC. Dictated by: Dictated on workstation # [id number] Dict: 03/20/20 1320 Trans: 03/20/20 132 [facility] [id number] Interpreted by: STUART ORO DO Electronically signed by: STUART ORO DO 03/20/207 Assessment/Plan Admission Diagnosis Atrial flutter with RVR Admission Status: Inpatient Order (span 2 midnights) Reason for Inpatient Admission: see below Assessment and Plan Atrial flutter with RVR HTN Continue on Cardizem and amiodarone gtt as tolerated Was put on phenylephrine overnight due to hypotension Plan for cardiac cath and cardioversion today per RN Continue eliquis for stroke ppx Check TSH Hold home atenolol 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 COPD Rib pain s/p fall Follows with [facility] Was on immunotherapy but on hold due to URI symptoms Continue steroids (prednisone 40mg) Will consult pulm Rib X-ray negative for acute fracture IS ordered WIll check procal given elevated WBCs Hypothyroidism Continue home Synthroid Check TSH DVT ppx: Already on Eliquis Diagnosis/Problems Diagnosis/Problems (1) Atrial flutter with rapid ventricular response Status: Acute (2) COPD (chronic obstructive pulmonary disease) Status: Chronic Qualifiers: COPD type: unspecified COPD Qualified Codes: J44.9 - Chronic obstructive pulmonary disease, unspecified (3) Rib pain on right side Status: Acute (4) Essential (primary) hypertension Status: Chronic (5) Hyperglycemia Status: Acute (6) Hypothyroidism Status: Chronic Qualifiers: Hypothyroidism type: postoperative Qualified Codes: E89.0 - Postprocedural hypothyroidism (7) Syncope and collapse Status: Acute (8) Former tobacco use Status: Chronic (9) History of lung cancer in adulthood Status: Acute Clinical Quality Measures DVT/VTE Risk/Contraindication: Risk Factor Score Per Nursin RFS Level Per Nursing on Admit: 4+=Very High LORI LYNN MD Mar 21, 2020 08:08
[2020-03-21] MEDS ORDERED: UMECLIDINIUM BROMIDE (INCRUSE ELLIPTA) 7'S IH SCH (08:42)
[2020-03-21] MEDS: APIXABAN 5 MG (ELIQUIS) TABLET PO SCH (10:35)
[2020-03-21] MEDS: ATENOLOL 50 MG (TENORMIN) TAB PO SCH (10:35)
[2020-03-21] MEDS: inSUlin ASPART (NovoLOG) 1 UNIT/0.01 ML (CHARGE PER UNIT) SC SCH ×2 (11:27→18:13)
[2020-03-21] MEDS ORDERED: LIDOCAINE 1% INJ 20 ML 20 ML VIAL ONE (11:57)
[2020-03-21] MEDS ORDERED: MIDAZOLAM 5 MG/5 ML (VERSED) VIAL ONE (11:58)
[2020-03-21] MEDS ORDERED: NS IV 1000 ML 1,000 ML ONE (11:58)
[2020-03-21] MEDS ORDERED: fentaNYL INJECTION 100 MCG/2 ML AMP ONE (11:58)
[2020-03-21] MEDS ORDERED: HEParin (CATH LAB) 2,000 ML IV ONE (12:02)
[2020-03-21] MEDS ORDERED: NITRO DRIP 25000 MCG/D5W 250 ML IV ONE (12:26)
[2020-03-21] MEDS ORDERED: HEParin 1000 UNIT/ML (10ML VIAL) FOR BOLUS ONE (12:26)
[2020-03-21] MEDS ORDERED: VERAPAMIL 5 MG/2 ML (CALAN) VIAL IV ONE (12:26)
[2020-03-21] MEDS ORDERED: RT-ALBUTEROL/IPRATROPIUM 3 ML (DUONEB) VIAL INH PRN (13:00)
[2020-03-21] MEDS ORDERED: NS IV 1000 ML 1,000 ML IV SCH (13:07)
--- NOTE | 2020-03-21 13:07 | Cardiac Procedure Note-CS/ASA ---
Pre-Procedure Note Pre-Op Procedure Note H&P Reviewed The H&P was reviewed, patient examined and no changes noted. Date H&P Reviewed: Mar 21, 2020 Time H&P Reviewed: 12:00 Conscious Sedation Pre-Proced Time 12:00 ASA Score 3 For ASA 3 and 4: Consider anesthesia and medical clearance. Also, for patients with a history of failed moderate sedation consider anesthesia. Airway Lungs Heart ASA score ASA 1: a normal healthy patient ASA 2: a patient with a mild systemic disease (mid diabetes, controlled hypertension, obesity ASA 3: a patient with a severe systemic disease that limits activity (angina, COPD, prior Myocardial infarction) ASA 4: a patient with an incapacitating disease that is a constant threat to life (CHF, renal failure) ASA 5: a moribund patient not expected to survive 24 hrs. (ruptured aneurysm) ASA 6: a declared brain- patient whose organs are being harvested. For emergent operations, add the letter E after the classification Mallampati Classification Grade 1 Sedation Plan Analgesia, Amnesia, Plan communicated to team members, Discussed options with patient/fam, Discussed risks with patient/fam The patient is an appropriate candidate to undergo the planned procedure, sedation, and anesthesia. The patient immediately re-assessed prior to indication. Navjot HERNANDEZ MD Mar 21, 2020 13:07
--- NOTE | 2020-03-21 13:07 | Coronary Angiography Report ---
Coronary Angiography Report DATE OF PROCEDURE: 03/21/20 INDICATION: Syncope, borderline positive troponin. PREOPERATIVE DIAGNOSIS: Syncope, borderline positive troponin. POSTOPERATIVE DIAGNOSIS: One-vessel CAD in a small branch vessel. PCI not indicated. HISTORY: This is a 65-year-old gentleman who presented with syncope and borderline positive troponin. Atrial fibrillation/atrial flutter. History of non-small cell lung cancer. Previous history of active smoking. History of COPD. Therefore, the patient was scheduled for coronary angiography. PROCEDURES PERFORMED: 1.Coronary angiography. 2.Left heart catheterization. 3. Aortic arch angiogram; medical necessity: To rule out aortic aneurysm and dissection in a patient with no significant CAD. COMPLICATIONS: None. SPECIMENS: None. ESTIMATED BLOOD LOSS: 10 mL ANESTHESIA: Conscious sedation ANTICOAGULATION: IV heparin CONTRAST: 57 mL. FLUOROSCOPY: 4.6 minutes. FLOUROSCOPY DOSE: 566 mgy. PROCEDURE DETAILS: The patient is a 65 male and was brought to the laborer [place] after informed consent was taken. All the risks and complications were explained in detail; this included the risk of bleeding, vascular damage, stroke, MN and even . The patient was draped and prepped in the usual sterile fashion. Access was gained in the right radial artery with a 6 [place] sheath. Coronary angiography, aortic arch angiogram and left heart catheterization was performed with the [place] catheter. FINDINGS: 1.Left main: Patent. 2.LAD: Slow flow noted in all vessels. A small first diagonal artery has moderate to severe ostial disease. However diameter of this vessel is less than 1.5 mm. 3.Left circumflex artery: Mild disease noted. Slow flow noted. 4.RCA: Minimal disease. Slow flow noted. 5.Left heart catheterization: LV pressure 82/9 mmHg. LVEDP 17 mmHg. Aortic pressure 86/61 mmHg. borderline LV function with no wall motion abnormalities. No gradient across the aortic valve. 6. Aortic arch angiogram: No aortic aneurysm or dissection. Patent proximal segments of great arteries. CONCLUSIONS: 1. Small single vessel branch artery disease with diameter < 1.5mm - no suitable for PCI. 2. Slow flow noted in all three major arteries. NTG not given due to low BP. Diana Quintero MD, FACP, FACC, [facility] Interventional Cardiology Navjot QUINTERO MD Mar 21, 2020 13:07
[2020-03-21] MEDS ORDERED: PATIENT MAY USE OWN MEDS, ALL PO SCH (13:15)
--- NOTE | 2020-03-21 14:59 | Cardiology Progress Note ---
Cardiology SOAP Progress Note Subjective: Patient converted to sinus rhythm overnight. Objective: I&O/Vital Signs 03/21/20 03/21/20 03/21/20 03/21/20 04:00 04:00 04:00 05:00 Temp 36.4 Pulse 140 138 Resp 29 B/P (MAP) 114/87 (96) 106/93 (97) Pulse Ox 95 94 O2 Delivery Room Air Room Air Room Air 03/21/20 03/21/20 03/21/20 03/21/20 06:00 07:00 07:24 08:00 Temp 36.8 Pulse 138 140 138 Resp 10 15 B/P (MAP) 119/77 (91) 109/76 (87) Pulse Ox 94 96 O2 Delivery Room Air Room Air Room Air 03/21/20 03/21/20 03/21/20 03/21/20 08:00 09:00 10:00 10:05 Pulse 90 54 Resp 21 6 B/P (MAP) 111/96 (101) 110/103 (105) 104/73 (83) Pulse Ox 96 95 98 O2 Delivery Room Air Room Air Room Air Room Air 03/21/20 03/21/20 03/21/20 03/21/20 11:00 11:12 11:13 12:00 Temp 36.8 36.8 Pulse 57 57 55 Resp 14 18 B/P (MAP) 118/79 (92) 114/80 (91) Pulse Ox 97 96 94 O2 Delivery Room Air Room Air FiO2 21 03/21/20 03/21/20 12:06 14:49 Pulse Ox 98 O2 Delivery Room Air Room Air 03/21/20 00:00 Intake Total 4228 ml Output Total 2000 ml Balance 2228 ml Weight (Pounds): 230 Weight (Ounces): 0.0 Weight (Calculated Kilograms): 104.795804 Constitutional: AAO x 3 Respiratory: chest is bilaterally symmetric, lungs clear to auscultation Cardiovascular: regular rate-rhythm, S1 and S2 Gastrointestional: soft, audible bowel sounds Extremities: normal range of motion, non-tender, normal inspection, no lower extremity edema bilateral Neurologic/Psychiatric: no motor/sensory deficits, alert, normal mood/affect, oriented x 3 Skin: normal color, warm/dry Results/Procedures: Labs Laboratory Tests 03/20/20 18:06: Troponin I 0.032H 9/7/20 01:22: Troponin I < 0.028, White Blood Count 16.4H, Red Blood Count 4.16L, Hemoglobin 1 3.1L, Hematocrit 39L, Mean Corpuscular Volume 93, Mean Corpuscular Hemoglobin 32, Mean Corpuscular Hemoglobin Concent 34, Red Cell Distribution Width 12.5, Platelet Count 246, Mean Platelet Volume 9.2, Neutrophils (%) (Auto) 90H, Lymphocytes (%) (Auto) 5L, Monocytes (%) (Auto) 6, Eosinophils (%) (Auto) 0, Basophils (%) (Auto) 0, Neutrophils # (Auto) 14.7H, Lymphocytes # (Auto) 0.7L, Monocytes # (Auto) 1.0, Eosinophils # (Auto) 0.0, Basophils # (Auto) 0.0, Sodium Level 133L, Potassium Level 4.2, Chloride Level 101, Carbon Dioxide Level 21, Anion Gap 11, Blood Urea Nitrogen 25H, Creatinine 0.91, Estimat Glomerular Filtration Rate > 60, BUN/Creatinine Ratio 27, Glucose Level 258H, Calcium Level 8.5, Phosphorus Level 3.9, Magnesium Level 2.0, Procalcitonin 0.03, Thyroid Stimulating Hormone (TSH) 0.37 03/21/20 11:11: Glucometer 128H A/P: Assessment/Dx: Atrial fibrillation with RVR, Typical atrial flutter, Syncope, Borderline positive troponin, Non-small cell lung cancer Plan: Atrial fibrillation with RVR, amiodarone infusion, Cardizem infusion. Converted to sinus rhythm. Change Cardizem to by mouth, Cardizem CD 120 mg daily. DC amiodarone. Patient will also be started on Eliquis therapy. Typical atrial flutter, typical atrial flutter ablation is recommended. We will arrange it as an outpatient. Syncope, unclear etiology. Due to borderline positive troponin, coronary angiography is recommended to rule out significant CAD. Also will need an event monitor. Also could be related to either very slow atrial fibrillation or atrial fibrillation with rapid ventricular rate. Borderline positive troponin, coronary angiography is recommended. Non-small cell lung cancer, we will defer to the oncologist. I'm told by the patient that the prognosis is reasonable. Thank you for your consultation. Please call me if you have any questions. Diana Quintero MD, FACP, FACC, FSCAI, FHRS, CCDS Interventional Cardiology Cardiac Electrophysiology Vascular Medicine and Endovascular Interventions Navjot QUINTERO MD Mar 21, 2020 14:59
--- NOTE | 2020-03-21 17:10 | NUR ---
DR HERNANDEZ NOTIFIED THIS NURSE THAT THE PT MAY GO HOME TONIGHT AFTER HE RECOVERS FROM POST CATH. THIS NURSE UPDATED HIM ON PT CONDITION. THIS NURSE CLARIFIED WITH DR HERNANDEZ WHICH HOME MEDICATIONS HE WOULD LIKE THE PT GOING HOME ON. SEE MED REC. PT IS TO FOLLOW UP WITH DR HERNANDEZ SATURDAY. FOLLOW UP FAX SENT.
--- NOTE | 2020-03-21 17:15 | NUR ---
THIS NURSE NOTIFIED DR LATASHA HERNANDEZ IS OKAY WITH PT DC TONIGHT. THIS NURSE PUT IN MEDICATION ORDERS PER DR HERNANDEZ. DR PAGAN IS OKAY WITH DC. DR PAGAN WILL PUT IN DC ORDER.
[2020-03-21] MEDS ORDERED: APIX5TAB PO ×3 (17:27→19:28)
[2020-03-21] MEDS ORDERED: DILT120C82 PO ×3 (17:27→19:28)
[2020-03-21] MEDS ORDERED: AMLO5TAB9 PO (18:31)
[2020-03-21] MEDS ORDERED: TIOT4MIS2 IH (18:31)
[2020-03-21] MEDS ORDERED: LEVO100T7 PO (18:31)
[2020-03-21] MEDS ORDERED: BUDE10.2 IH (18:31)
[2020-03-21] MEDS ORDERED: PRD50T PO (18:39)
--- NOTE | 2020-03-21 18:40 | NUR ---
THIS NURSE NOTIFIED DR PAGAN MED REC IS UPDATED PER PT.
--- NOTE | 2020-03-21 18:45 | Discharge Inst-Simple/Standard ---
Discharge Inst-Standard Discharge Medications New, Converted or Re-Newed RX: Transmitted to Pharmacy Patient Instructions/Follow Up Plan of Care/Instructions/FU: Please continue to take your medications as written. [facility] and with Dr Quintero on Saturday as scheduled to follow up this hospital stay. Activity as Tolerated: Yes Discharge Diet: Cardiac Diet Return to The Hospital For: Chest pain, palpitations, shortness of breath, syncope, fever, if you feel you are getting worse. Planned Outpatient Orders/Ref. Pneu Vac Indicated: Yes LORI PAGAN MD Mar 21, 2020 18:45
--- NOTE | 2020-03-21 19:15 | NUR ---
THIS NURSE EDUCATED PT ON DISCHARGE INSTRUCTIONS AND HOME MEDICATIONS. PT STATED UNDERSTANDING.
== END 2020-03-21 17:40 | disposition home or self-care (01) | DRG 287 ==
LOC: EDUNIT# 11:40 → ER 11:41 → ICU 14:32
PROVIDERS: ADMIT Family Medicine; ATTEND Family Medicine
PROC: 4A023N7 Measurement of Cardiac Sampling and Pressure, Left Heart, Percutaneous Approach (ICD-10-PCS; principal; 2020-03-21)
PROC: B2111ZZ Fluoroscopy of Multiple Coronary Arteries using Low Osmolar Contrast (ICD-10-PCS; 2020-03-21)
PROC: B3101ZZ Fluoroscopy of Thoracic Aorta using Low Osmolar Contrast (ICD-10-PCS; 2020-03-21)
DX: I48.91 Unspecified atrial fibrillation (principal); C34.90 Malignant neoplasm of unspecified part of unspecified bronchus or lung; J44.9 Chronic obstructive pulmonary disease, unspecified; I10 Essential (primary) hypertension; E03.9 Hypothyroidism, unspecified; R07.81 Pleurodynia; R73.9 Hyperglycemia, unspecified; I25.10 Atherosclerotic heart disease of native coronary artery without angina pectoris; R55 Syncope and collapse; I48.3 Typical atrial flutter; Z87.891 Personal history of nicotine dependence
CPT/HCPCS: 36221; 36415; 70450; 71045; 71101; 72125; 80048; 80053; 81000; 82962; 83735; 83880; 84100; 84145; 84443; 84484; 85007; 85025; 85027; 87081; 93005; 93041; 93306; 93458; 94640; 94664

== ENCOUNTER 2020-03-24 08:30 | Day surgery (SDC) | payer MEDICARE, OTHER ==
[2020-03-24] VITALS (18 sets, daily range): BP systolic 106–159; BP diastolic 68–92
[~2020-03-24] VITALS: Ht 187 cm; Wt 104.0 kg
[2020-03-24 07:41] LABS: HEMOGLOBIN 13.5 G/DL (13.3-17.7); MEAN PLATELET VOLUME 9.1 FL (7.4-10.4); WHITE BLOOD COUNT 20.3 10^3/uL (4.3-11.0)
[2020-03-24 08:08] LABS: ALANINE AMINOTRANSFERASE 36 U/L (0-55); ALBUMIN 3.6 GM/DL (3.2-4.5); ALKALINE PHOSPHATASE 60 U/L (40-136); BILIRUBIN,TOTAL 0.5 MG/DL (0.1-1.0); BUN/CREATININE RATIO 26; CALCIUM 8.9 MG/DL (8.5-10.1); CARBON DIOXIDE 25 MMOL/L (21-32); CHLORIDE 104 MMOL/L (98-107); CREATININE SERUM 0.85 MG/DL (0.60-1.30); GFR ESTIMATED > 60; GLUCOSE 157 MG/DL (70-105); POTASSIUM 3.6 MMOL/L (3.6-5.0); SODIUM 138 MMOL/L (135-145); TOTAL PROTEIN 6.6 GM/DL (6.4-8.2)
[~2020-03-24 08:30] MED LIST changes: +AMLO5TAB9 PO; +APIX5TAB PO; +BUDE10.2 IH; +DILT120C82 PO; +HEParin (CATH LAB) 2,000 ML IV ONE; +ISOPROTERENOL 0.2 MG/D5W 50 ML IV ONE; +LEVO100T7 PO; +LIDOCAINE 1% INJ 20 ML 20 ML VIAL ONE; +MIDAZOLAM 2 MG/2 ML (VERSED) VIAL ONE; +NS IV 1000 ML 1,000 ML IV SCH; +NS IV 1000 ML 1,000 ML ONE; +ONDANSETRON 4 MG/2 ML (SDV) Z0FRAN ONE; +PRD50T PO; +ROCURONIUM 10 MG/ML 5 ML SYRINGE IV ONE; +TIOT4MIS2 IH; +fentaNYL INJECTION 100 MCG/2 ML AMP ONE; +proPOfol 200 MG/20 ML (DIPRIVAN) VIAL IV ONE
[2020-03-24 08:40] LABS: INR 1.5 (0.8-1.4); PROTHROMBIN TIME PATIENT 18.2 SEC (12.2-14.7)
[2020-03-24 08:41] LABS: PARTIAL THROMBOPLASTIN TIME > 200 SEC (24-35)
[2020-03-24] MEDS ORDERED: ROCURONIUM 10 MG/ML 5 ML SYRINGE IV ONE (09:20)
[2020-03-24] MEDS ORDERED: NS IV 1000 ML 1,000 ML ONE (10:24)
[2020-03-24] MEDS ORDERED: SEVOFLURANE (ULTANE) 15 ML INHAL SOLN ONE (10:28)
[2020-03-24] MEDS ORDERED: GLYCOPYRROLATE 0.2 MG/ML (ROBINUL) 2 ML VIAL ONE (10:39)
[2020-03-24] MEDS ORDERED: NEOSTIGMINE 3 MG/3 ML VIAL ONE (10:39)
[2020-03-24] MEDS ORDERED: HYDROmorphone 2 MG/ML VIAL (DILAUDID) IV ONE (11:00)
[2020-03-24] MEDS ORDERED: ONDANSETRON 4 MG/2 ML (SDV) Z0FRAN IVP PRN (11:00)
--- NOTE | 2020-03-24 11:08 | Electrophysiology Procedure ---
EP Procedure typical atrial flutter ablation operative report DATE OF SERVICE:03/24/20 CARDIAC ALODIZE MACHINE OPERATOR: Diana Quintero MD, [facility] INDICATION: Typical atrial flutter, paroxysmal atrial fibrillation PREOPERATIVE DIAGNOSIS: typical atrial flutter, paroxysmal atrial fibrillation POSTOPERATIVE DIAGNOSES: successful typical atrial flutter ablation. HISTORY: this is a 65-year-old gentleman who presented with typical atrial flutter, atrial fibrillation and RVR. The patient is planned for comprehensive EP study and ablation. PROCEDURE PERFORMED: 1. Comprehensive EP study with induction. 2. Fluoroscopy. 3. left atrial pacing and recording. 4. Drug infusion. 5. Ablation of typical atrial flutter. 6. Comprehensive 3D mapping with the carto system. COMPLICATION: None. ESTIMATED BLOOD LOSS: 10 mL. CONTRAST USED: None. FLUOROSCOPY TIME: 6.1 minutes. FLUOROSCOPY DOSE: 104 mgy. SPECIMENS: None. ANESTHESIA: Done by our anesthesia colleagues. ANTICOAGULATION: uninterrupted oral anticoagulation. PROCEDURE IN DETAIL: After informed consent was taken, the patient was brought to the EP lab. Anesthesia was provided by our anesthesia colleagues. The patient was draped and prepped in the usual sterile fashion. The patient presented to the EP lab in sinus rhythm. Access was gained in the right femoral vein with a 6-Cymraes and an 8-Cymraes sheath. High right atrial catheter was an ablation catheter and the CS catheter were also placed. A comprehensive EP study was done including left atrial pacing and recording. Typical atrial flutter was not induced with rapid atrial pacing with and without Isuprel infusion. left atrial pacing and recording ruled out left lateral bypass tract. Dual AV rony physiology was demonstrated. However no echoes or SVT Was induced. A 3D electroanatomic mapping was donewith the carto system. Ablation was performed in the cavotricuspid isthmus.CS pacing and pacing from the ablation catheter at different positions on the lateral side of the ablation line were used to verify bidirectional block. We then waited for 30 minutes and rechecked and confirmed bidirectional block.Isuprel was given post-procedure, however, we could not induce atrial flutter.The patienttolerated the procedure well and did not have any complication. The patientleft the lab in sinus rhythm. Total ablation time was 809 seconds. MEASUREMENTS/EP STUDY: AA interval 688 ms, AH interval 49 milliseconds, HIV interval 51 ms, WA interval 187 ms, QRS duration 52 ms, QT interval 369 ms, R-R interval 783 ms, atrial ERP 600/290ms, Retrograde ERP 600/320 ms, AV Wenckebach from left atrium was 340 ms, AV Wenckebach from right atrium was 330 ms, Retrograde Wenckebach was 420 ms. On Isuprel infusion: Atrial ERP was 500/270 ms, Retrograde ERP was 500/290 ms, AV Wenckebach 300 ms, Retrograde Wenckebach 340 ms. PLAN: The patient will be observed overnight and will be discharged home tomorrow with precise followup instructions. Diana Quintero MD, [facility] Cardiac Electrophysiology Navjot QUINTERO MD Mar 24, 2020 11:08
[2020-03-24] MEDS ORDERED: PATIENT MAY USE OWN MEDS, ALL PO SCH (11:15)
[2020-03-24] MEDS: NS IV 1000 ML 1,000 ML IV SCH ×2 (12:20→16:32)
--- NOTE | 2020-03-24 12:52 | NUR ---
VITAL SIGN MACHINE'S BATTERY MALFUNCTIONED DURING Q15 MIN VITAL SIGNS, UNABLE TO OBTAIN VS PREVIOUSLY TAKEN.
[2020-03-25] VITALS: BP 117/74
[2020-03-25 03:18] VITALS: BP 128/79
[2020-03-25 03:35] LABS: HEMOGLOBIN 11.3 G/DL (13.3-17.7); MEAN PLATELET VOLUME 9.4 FL (7.4-10.4); WHITE BLOOD COUNT 15.8 10^3/uL (4.3-11.0)
[2020-03-25 03:47] LABS: CHLORIDE 104 MMOL/L (98-107); POTASSIUM 4.1 MMOL/L (3.6-5.0); SODIUM 134 MMOL/L (135-145)
[2020-03-25 03:48] LABS: GLUCOSE 200 MG/DL (70-105)
[2020-03-25 03:50] LABS: CARBON DIOXIDE 20 MMOL/L (21-32)
[2020-03-25 03:52] LABS: CREATININE SERUM 0.76 MG/DL (0.60-1.30); GFR ESTIMATED > 60
[2020-03-25 03:53] LABS: BUN/CREATININE RATIO 29
--- NOTE | 2020-03-25 07:01 | Anesthesia-General Post-Op ---
General Patient Condition Mental Status/LOC: Same as Preop Cardiovascular: Satisfactory Nausea/Vomiting: Absent Respiratory: Satisfactory Pain: Controlled Complications: Absent Post Op Complications Complications None Follow Up Care/Instructions Patient Instructions None needed. Anesthesia/Patient Condition Patient Condition Patient is doing well, no complaints, stable vital signs, no apparent adverse anesthesia problems. No complications reported per nursing. D/C home per [facility] Criteria: Yes SURINDER CRAIG CRNA Mar 25, 2020 07:01
[2020-03-25 08:00] VITALS: BP 133/85
[2020-03-25] MEDS: NS IV 1000 ML 1,000 ML IV SCH (09:23)
--- NOTE | 2020-03-25 11:29 | Discharge Inst-Post CATH ---
Discharge Inst-CATH/EP Problems Reviewed?: Yes Final Diagnosis Typical atrial flutter, successful ablation Post Cardiac Cath/EP D/C Inst Follow Up/Plan Follow up in two weeks <b>CARDIAC CATH/EP PROCEDURE DISCHARGE INSTRUCTIONS</b> ACTIVITY * Go Home directly and rest. * Limit activity of the leg (or wrist if it was used) for 7 days including aerobics, swimming, jogging, bicycling, etc. * Restrict stair-climbing for 7 days if possible, if not, climb up with your non-cath leg, then bring together on the same step. * Avoid lifting, pushing, pulling or excessive movement of the affected extremity for 7 days. * Customary sexual activity may be resumed after 2 days-use caution not to use a position that strains or causes pain to the affected extremity. * No driving for 24 hours. * NO SMOKING. * Avoid straining for bowel movements for 7 days. * Gentle walking on level ground is allowed. * Returning to work will depend on the type of procedure and the results. Your doctor will discuss this with you. CALL YOUR DOCTOR FOR ANY OF THE FOLLOWING: *If bleeding from the puncture site occurs- Apply gentle pressure to site with clean cloth and call your doctor or EMS. * If a knot or lump forms under the skin, increases in size, or causes pain. * If bruising appears to be worsening or moving further down your leg instead of disappearing. * Temperature above 101 F. CARE OF YOUR GROIN INCISION; * Bruising or purple discoloration of the skin near the puncture site is common. * You may shower only, no bathtub bathing for 5 days. Be careful to avoid slipping as your leg may feel stiff. * If a closure device was used on your femoral artery, please see the attached guide regarding care of the device and your leg. * Leave dressing on FOR 24 hours. CARE OF YOUR WRIST INCISION; * Bruising or purple discoloration of the skin near the puncture site is common. * You may shower. * DO NOT submerge wrist. * Leave dressing on FOR 24 hours. Navjot HERNANDEZ MD Mar 25, 2020 11:29 am
--- NOTE | 2020-03-25 11:29 | Cardiology Discharge Summary ---
Diagnosis/Chief Complaint Date of Admission 03/24/2020 Date of Discharge 03/25/2020 Admission Diagnosis Typical atrial flutter, paroxysmal atrial fibrillation Final/Discharge Diagnosis Typical atrial flutter, paroxysmal atrial fibrillation, successful typical atrial flutter ablation Chief Complaint/HPI Chief Complaint/HPI This is a 65-year-old gentleman with history of paroxysmal atrial fibrillation. Typical atrial flutter. Discharge Summary Procedures Successful typical atrial flutter ablation. Discharge Physical Examination Normal cardiovascular examination Hospital Course Was the Problem List Reviewed?: Yes Unremarkable. Discussion & Recommendations Discussion Discharge took over 30 minutes to complete. The procedure was discussed at length with the patient and family. Future plan was discussed. Discharge instructions were discussed including restrictions. Patient will continue on all medications. I'll follow-up in 2 weeks. Follow up appt.: Dr. Quintero in 2 weeks. Dicharge Diet: Cardiac Diet Activity as Tolerated: Yes Home Medications Reviewed patient Home Medication Reconciliation performed by pharmacy medication reconciliations electroplating technician and/or nursing. Patients Allergies have been reviewed. Discharge Home Medications: Reviewed and agree with Discharge Medication list on patient's Discharge Instruction sheet Condition at discharge Stable. Instructions to patient/family Discussed with the patient and family. Navjot QUINTERO MD Mar 25, 2020 11:29
[2020-03-25 12:00] VITALS: BP 138/83
== END 2020-03-25 12:30 | disposition home or self-care (01) ==
LOC: CATH 08:30 → CSD 11:43 → CATH 03-25 12:30
PROVIDERS: ATTEND Internal Medicine Interventional Cardiology
DX: I48.3 Typical atrial flutter (principal); I48.0 Paroxysmal atrial fibrillation; I10 Essential (primary) hypertension; I25.10 Atherosclerotic heart disease of native coronary artery without angina pectoris; G47.33 Obstructive sleep apnea (adult) (pediatric); J44.9 Chronic obstructive pulmonary disease, unspecified; E03.9 Hypothyroidism, unspecified; C34.90 Malignant neoplasm of unspecified part of unspecified bronchus or lung; Z79.51 Long term (current) use of inhaled steroids; Z79.899 Other long term (current) drug therapy; Z87.891 Personal history of nicotine dependence
CPT/HCPCS: 80048; 80053; 85027 ×2; 85610; 85730; 87081; 93005 ×2; 93613; 93653; C1730 ×3; C1732; C1894 ×3; 36415

== ENCOUNTER 2020-04-05 19:08 | Inpatient (IN) | payer MEDICARE, OTHER ==
[~2020-04-05] VITALS: Ht 187.9 cm; Wt 101.2 kg
[2020-04-05] VITALS (8 sets, daily range): BP systolic 86–114; BP diastolic 67–93
[~2020-04-05 19:08] MED LIST changes: -HEParin (CATH LAB) 2,000 ML IV ONE; -ISOPROTERENOL 0.2 MG/D5W 50 ML IV ONE; -LIDOCAINE 1% INJ 20 ML 20 ML VIAL ONE; -MIDAZOLAM 2 MG/2 ML (VERSED) VIAL ONE; -NS IV 1000 ML 1,000 ML IV SCH; -NS IV 1000 ML 1,000 ML ONE; -ONDANSETRON 4 MG/2 ML (SDV) Z0FRAN ONE; -ROCURONIUM 10 MG/ML 5 ML SYRINGE IV ONE; -fentaNYL INJECTION 100 MCG/2 ML AMP ONE; -proPOfol 200 MG/20 ML (DIPRIVAN) VIAL IV ONE
[2020-04-05] MEDS ORDERED: ASPIRIN 325 MG (5 GR) TABLET ONE (19:25)
[2020-04-05] MEDS ORDERED: dilTIAZem DRIP PRE-MIX 125 ML IV ONE (19:26)
[2020-04-05] MEDS ORDERED: NS IV 1000 ML 1,000 ML IV SCH ×2 (19:27→20:09)
[2020-04-05] MEDS ORDERED: ASPIRIN 81 MG CHEW (CHILDREN'S ASA) PO ONE (19:30)
[2020-04-05] MEDS ORDERED: dilTIAZem DRIP PRE-MIX 125 ML IV SCH (19:30)
--- NOTE | 2020-04-05 19:40 | NUR ---
VERBAL ORDER READ BACK TO TITRATE IV CARDIZEM BY 5MG EVERY [address] HENSLEY UP TO 20 MG /HR.
[2020-04-05 19:42] LABS: BASOPHILS % (AUTO) 0 % (0-10); EOSINOPHILS % (AUTO) 0 % (0-10); HEMATOCRIT 41 % (40-54); HEMOGLOBIN 13.7 g/dL (13.3-17.7); LYMPHOCYTES # (AUTO) 0.4 10^3/uL (1.0-4.0); LYMPHOCYTES % (AUTO) 3 % (12-44); MEAN CORPUSCULAR HEMOGLOBIN 31 pg (25-34); MEAN CORPUSCULAR HGB CONC 33 g/dL (32-36); MEAN CORPUSCULAR VOLUME 94 fL (80-99); MEAN PLATELET VOLUME 9.2 fL (9.0-12.2); MONOCYTES # (AUTO) 0.5 10^3/uL (0.0-1.0); MONOCYTES % (AUTO) 5 % (0-12); NEUTROPHILS # (AUTO) 10.2 10^3/uL (1.8-7.8); NEUTROPHILS % (AUTO) 91 % (42-75); PLATELET COUNT 181 10^3/uL (130-400); WHITE BLOOD COUNT 11.2 10^3/uL (4.3-11.0)
[2020-04-05 19:58] LABS: INR 1.1 (0.8-1.4); PROTHROMBIN TIME PATIENT 14.4 SEC (12.2-14.7)
[2020-04-05 20:00] LABS: BAND NEUTROPHILS 1 %; BASOPHILS % (MANUAL) 0 %; EOSINOPHILS % (MANUAL) 0 %; LYMPHOCYTES % (MANUAL) 2 %; MONOCYTES % (MANUAL) 4 %; NEUTROPHILS % (MANUAL) 93 %
[2020-04-05 20:01] LABS: RBC MORPH NORMAL
[2020-04-05 20:05] LABS: ALANINE AMINOTRANSFERASE 19 U/L (0-55); ALBUMIN 3.3 GM/DL (3.2-4.5); ALKALINE PHOSPHATASE 88 U/L (40-136); BILIRUBIN,TOTAL 0.5 MG/DL (0.1-1.0); BUN/CREATININE RATIO 27; CALCIUM 8.2 MG/DL (8.5-10.1); CARBON DIOXIDE 22 MMOL/L (21-32); CHLORIDE 100 MMOL/L (98-107); CREATINE KINASE 26 U/L (30-200); CREATININE SERUM 0.91 MG/DL (0.60-1.30); GFR ESTIMATED > 60; GLUCOSE 369 MG/DL (70-105); MAGNESIUM 1.9 MG/DL (1.6-2.4); POTASSIUM 4.1 MMOL/L (3.6-5.0); SODIUM 134 MMOL/L (135-145); TOTAL PROTEIN 5.7 GM/DL (6.4-8.2)
[2020-04-05] MEDS ORDERED: DIGOXIN 0.25 MG/ML (LANOXIN) 2 ML AMP IV ONE (20:15)
[2020-04-05] MEDS ORDERED: FUROSEMIDE 40 MG/4 ML INJ (LASIX) IVP ONE (20:15)
[2020-04-05 20:25] LABS: CREATINE KINASE MB 1.2 NG/ML (<6.6); TSH (THYROID ANALYZER) 0.76 UIU/ML (0.35-4.94)
[2020-04-05] MEDS ORDERED: AMIODARONE (OMNICELL DRIP KIT) 150 MG/3 ML IV ONE (20:42)
[2020-04-05] MEDS ORDERED: AMIODARONE INJECTION 150 MG in D5W 100 ML IVPB 100 ML IV ONE (20:45)
--- NOTE | 2020-04-05 20:55 | ED Cardiac General ---
History of Present Illness General Chief Complaint: Cardiac/General Problems Stated Complaint: IRREGULAR HEART BEAT Nursing Triage Note: C/O IRREGULAR HEART BEAT AND RAPID OFF AND ON RATE, CAUSING SOME ADDITIONAL SHORTNESS OF BREATH. DENIES CHEST PAIN AT THIS TIME. RECENT CARDIAC STENTS AND ABLATION. Source: patient History of Present Illness Date Seen by Provider: Apr 05, 2020 Time Seen by Provider: 19:17 Initial Comments PT ARRIVES VIA POV FROM HOME STATES HIS HEART HAS BEEN BEATING IRREGULARLY AND FAST ALL WEEKEND STATES HE HAS HAD INCREASED SHORTNESS OF BREATH TODAY PT HAS ALSO HAD LEG SWELLING TODAY WELL NO CHEST PAIN NO SWEATS NO DIZZINESS OR SYNCOPE NO GI SYMPTOMS NO FEVER OR COUGH PT WAS RECENTLY DX WITH PNEUMONITIS, AND IS ON A TAPERING DOSE OF PREDNISONE SINCE 03/22/20. NO ANTIBIOTICS COVID TESTING WAS NEGATIVE LATE FEBRUARY. NO KNOWN SICK CONTACTS OR EXPOSURE TO COVID- PT HAS NON-SMALL CELL LUNG CANCER--IS BEING TREATED AT BY DR. HERNÁNDEZ. HAD BEEN ON IMMUNOTHERAPY, BUT THAT IS CURRENTLY BEING HELD. PT HAS HISTORY OF ATRIAL FIBRILLATION AND HAD A SUCCESSFUL CARDIAC ABLATION PROCEDURE DONE BY DR. HERNANDEZ ON 03/24/20, AND HAD A CARDIAC CATH 03/21/20--NO INTERVENTION PT IS ON ELIQUIS 5 MG BID, ATENOLOL 75 MG BID, DILTIAZEM 120 MG DAILY, LISINOPRIL 10 MG BID PT PCP: DR. MITTAL PARACHUTE ACCESSORIES ATTACHER: DR. HERNANDEZ Allergies and Home Medications Allergies Coded Allergies: No Known Drug Allergies (Unverified , 08/05/13) Home Medications Albuterol Sulfate 8.5 Gm Hfa.aer.ad, 8.5 GM IH QID Prescribed by: RYAN HESS on 08/05/132030 Apixaban 5 Mg Tablet, 5 MG PO BID Prescribed by: LORI PAGAN on 03/21/201927 Atenolol 50 Mg Tab, 75 MG PO BID, (Reported) Budesonide/Formoterol Fumarate 10.2 Gm Hfa.aer.ad, 1 PUFF IH BID, (Reported) Diltiazem HCl 120 Mg Cap.er.24h, 120 MG PO DAILY Prescribed by: LORI PAGAN on 03/21/201927 Levothyroxine Sodium 100 Mcg Tablet, 100 MCG PO DAILY, (Reported) Lisinopril 10 Mg Tablet, 10 MG PO BID, (Reported) Prednisone 50 Mg Tab, 100 MG PO DAILY, (Reported) Tiotropium [place] 4 Gm Mist.inhal, 2 PUFF IH DAILY, (Reported) Patient Home Medication List Home Medication List Reviewed: Yes Review of Systems Review of Systems Constitutional: no symptoms reported; No diaphoresis, No dizziness, No fever EENTM: No Symptoms Reported; No Nose Congestion, No Throat Pain Respiratory: See HPI; Denies Cough; Shortness of Air Cardiovascular: See HPI; Denies Chest Pain; Edema, Irregular Heart Rate; Denies Lightheadedness; Palpitations; Denies Syncope Gastrointestinal: No Symptoms Reported; Denies Abdominal Pain, Denies Nausea, Denies Vomiting Genitourinary: No Symptoms Reported Musculoskeletal: see HPI (LEG SWELLING) Skin: no symptoms reported Psychiatric/Neurological: No Symptoms Reported Endocrine: No Symptoms Reported Hematologic/Lymphatic: No Symptoms Reported Past Irvhpph-Rvtxwi-Eqetdh Hx Patient Social History Alcohol Use: Denies Use Recreational Drug Use: No Smoking Status: Former Smoker Type Used: Cigarettes Recent Foreign Travel: No Contact w/Someone Who Travel: No Recent Infectious Disease Expo: No Recent Hopitalizations: No Physical Abuse: No Sexual Abuse: No Mistreated: No Fear: No Immunizations Up To Date Tetanus Booster (TDap): Unknown PED Vaccines UTD: No Date of Pneumonia Vaccine: Jun 15, 2009 Date of Influenza Vaccine: Apr 21, 2014 Seasonal Allergies Seasonal Allergies: Yes Past Medical History Surgeries: Yes (COLON RESECTION/COLOSTOMY/TAKEDOWN;PORT L CHEST;C- SCOPES;CARDIAC ABLATION) Abdominal, Bowel Surgery, Cardiac, Coronary Stent, Thyroidectomy Respiratory: Yes (NON-SMALL CELL LUNG CANCER) COPD Currently Using CPAP: Yes (PT USES CPAP AT HOME ) Currently Using BIPAP: No Cardiac: Yes (DVT L ARM 09/2019 POST PORT PLACEMENT;AFIB/FLUTTER-S/P ABLATION 03/24/20) Atrial Fibrillation, Deep Vein Thrombosis, Hypertension, Irregular Heartbeat Neurological: No Reproductive Disorders: No Genitourinary: No Gastrointestinal: Yes (COLON RESECTION/COLOSTOMY/TAKEDOWN FOR BENIGN POLYPS) Polyps Musculoskeletal: No Endocrine: Yes (THYROIDECTOMY FOR BENIGN DISEASE) Hypothyroidsim HEENT: No Cancer: Yes (NON-SMALL CELL LUNG CANCER DX 07/2019--HAS BEEN ON IMMUNOTHERAPY) Lung Did You Recieve Any Treatments: Yes What Type of Treatment Did You: Chemotherapy, Radiation Psychosocial: No Integumentary: No Blood Disorders: No Adverse Reaction/Blood Tranf: No Family Medical History COPD SOCIAL HISTORY: -ETOH--DENIES -DRUGS--DENIES -SMOKING--SMOKED 1 PPD--QUIT A FEW YEARS AGO PAST SURGICAL HISTORY: -COLON RESECTION FOR MULTIPLE BENIGN POLYPS, REQUIRED COLOSTOMY AND LATER TAKEDOWN -THYROIDECTOMY FOR BENIGN GOITER -CARDIAC CATH 03/21/20--NO INTERVENTION. SLOW FLOW IN ALL VESSELS. SMALL FIRST DIAGONAL ARTERY HAS MODERATE TO SEVERE OSTIAL DISEASE--NOT AMENABLE TO INTERVENTION -CARDIAC ABLATION FOR ATRIAL FIBRILLATION 03/24/20 -MULTIPLE COLONOSCOPIES -PORT LEFT CHEST Physical Exam Vital Signs Vital Signs - First Documented 04/05/20 19:15 Temp 36.4 Pulse 110 Resp 22 B/P (MAP) 121/93 (102) Pulse Ox 96 Capillary Refill : Less Than 3 Seconds Height, Weight, BMI Height: 6'2.00" Weight: 230lbs. 0.0oz. 104.768465el; 29.00 BMI Method:Stated General Appearance: No Apparent Distress, WD/WN, Other (DOES NOT APPEAR TO BE IN ANY DISCOMFORT OR DISTRESS. 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 Norm as Tested Skin: Normal Color, Warm/Dry Progress/Results/Core Measures Results/Orders Lab Results Laboratory Tests Test 04/05/20 19:30 Range/Units White Blood Count 11.2 H 4.3-11.0 10^3/uL Red Blood Count 4.40 4.30-5.52 10^6/uL Hemoglobin 13.7 13.3-17.7 g/dL Hematocrit 41 40-54 % Mean Corpuscular Volume 94 80-99 fL Mean Corpuscular Hemoglobin 31 25-34 pg Mean Corpuscular Hemoglobin Concent 33 32-36 g/dL Red Cell Distribution Width 13.4 10.0-14.5 % Platelet Count 181 130-400 10^3/uL Mean Platelet Volume 9.2 9.0-12.2 fL Immature Granulocyte % (Auto) 1 % Neutrophils (%) (Auto) 91 H 42-75 % Lymphocytes (%) (Auto) 3 L 12-44 % Monocytes (%) (Auto) 5 0-12 % Eosinophils (%) (Auto) 0 0-10 % Basophils (%) (Auto) 0 0-10 % Neutrophils # (Auto) 10.2 H 1.8-7.8 10^3/uL Lymphocytes # (Auto) 0.4 L 1.0-4.0 10^3/uL Monocytes # (Auto) 0.5 0.0-1.0 10^3/uL Eosinophils # (Auto) 0.0 0.0-0.3 10^3/uL Basophils # (Auto) 0.0 0.0-0.1 10^3/uL Immature Granulocyte # (Auto) 0.1 0.0-0.1 10^3/uL Neutrophils % (Manual) 93 % Lymphocytes % (Manual) 2 % Monocytes % (Manual) 4 % Eosinophils % (Manual) 0 % Basophils % (Manual) 0 % Band Neutrophils 1 % Blood Morphology Comment NORMAL Prothrombin Time 14.4 12.2-14.7 SEC INR Comment 1.1 0.8-1.4 Activated Partial Thromboplast Time 45 H 24-35 SEC Sodium Level 134 L 135-145 MMOL/L Potassium Level 4.1 3.6-5.0 MMOL/L Chloride Level 100 98-107 MMOL/L Carbon Dioxide Level 22 21-32 MMOL/L Anion Gap 12 5-14 MMOL/L Blood Urea Nitrogen 25 H 7-18 MG/DL Creatinine 0.91 0.60-1.30 MG/DL Estimat Glomerular Filtration Rate > 60 BUN/Creatinine Ratio 27 Glucose Level 369 H 70-105 MG/DL Calcium Level 8.2 L 8.5-10.1 MG/DL Corrected Calcium 8.8 8.5-10.1 MG/DL Magnesium Level 1.9 1.6-2.4 MG/DL Total Bilirubin 0.5 0.1-1.0 MG/DL Aspartate Amino Transf (AST/SGOT) 9 5-34 U/L Alanine Aminotransferase (ALT/SGPT) 19 0-55 U/L Alkaline Phosphatase 88 40-136 U/L Total Creatine Kinase 26 L 30-200 U/L Creatine Kinase MB 1.2 <6.6 NG/ML Myoglobin 20.1 10.0-92.0 NG/ML Troponin I 0.034 H <0.028 NG/ML B-Type Natriuretic Peptide 561.6 H <100.0 PG/ML Total Protein 5.7 L 6.4-8.2 GM/DL Albumin 3.3 3.2-4.5 GM/DL Beta-Hydroxybutyrate (Chem panel) 0.17 0.00-0.27 MMOL/L TSH [place] Testing 0.76 0.35-4.94 UIU/ML My Orders Orders - SHIRA HENSLEY DO Ed Iv/Invasive Line Start (04/05/20 19:17) Ekg Tracing (04/05/20:) O2 (04/05/20:) Monitor-Rhythm Ecg Trace Only (04/05/20:) Chest 1 View, Ap/Pa Only (04/05/20 19:17) BNP (04/05/20 19:17) Cbc With Automated Diff (04/05/20:) Comprehensive Metabolic Panel (04/05/20:) Creatine Kinase (04/05/20:17) Creatine Kinase Mb (04/05/20:17) Magnesium (04/05/20:17) Protime With Inr (04/05/20:) Partial Thromboplastin Time (04/05/20:17) Thyroid Analyzer (04/05/20:17) Myoglobin Serum (04/05/20:17) Troponin I (04/05/20 19:17) Aspirin Chewable Tablet (Baby Aspirin Ch (04/05/20 19:30) Diltiazem Injection (Cardizem Injection) (04/05/20 19:30) Diltiazem Drip Pre-Mix (Cardizem Drip Pr (04/05/20 19:30) Ed Iv/Invasive Line Start (04/05/20 19:27) Ns Iv 1000 Ml (Sodium Chloride 0.9%) (04/05/20 19:27) Aspirin Tablet (Aspirin Tablet) (04/05/20 19:25) Diltiazem Drip Pre-Mix (Cardizem Drip Pr (04/05/20 19:26) Diltiazem Injection (Cardizem Injection) (04/05/20 19:26) Manual Differential (04/05/20 19:30) Ed Iv/Invasive Line Start (04/05/20 20:09) Ns Iv 1000 Ml (Sodium Chloride 0.9%) (04/05/20 20:09) Digoxin Injection (Lanoxin Injection) (04/05/20 20:15) Furosemide Injection (Lasix Injection) (04/05/20 20:15) Amiodarone Injection (Cordarone Injectio (04/05/20 20:45) Amiodarone Injection (Cordarone Injectio (04/05/20 20:45) Hemoglobin A1c (04/05/20 20:35) Beta Hydroxybutyrate (04/05/20 20:35) Amiodarone For Bolus (Cordarone Bolus) (04/05/20 20:42) Medications Given in ED Current Medications Medications Dose Ordered Sig/Silvana Route Start Time Stop Time Status Last Admin Dose Admin Amiodarone HCl 150 mg STK-MED ONCE IV 04/05/20 20:42 04/05/20 20:48 DC 04/05/20 20:50 150 MG Aspirin 324 mg ONCE ONCE PO 04/05/20 19:30 04/05/20 19:31 DC 04/05/20 19:39 324 MG Digoxin 0.25 mg ONCE ONCE IV 04/05/20 20:15 04/05/20 20:16 DC 04/05/20 20:16 0.25 MG Diltiazem HCl 20 mg ONCE ONCE IVP 04/05/20 19:30 04/05/20 19:31 DC 04/05/20 19:39 20 MG Furosemide 40 mg ONCE ONCE IVP 04/05/20 20:15 04/05/20 20:16 DC 04/05/20 20:25 40 MG Vital Signs/I&O 04/05/20 04/05/20 04/05/20 04/05/20 19:15 19:40 19:50 20:05 Temp 36.4 Pulse 110 152 130 137 Resp 22 B/P (MAP) 121/93 (102) 106/68 (81) 106/88 (94) 86/67 (73) Pulse Ox 96 04/05/20 04/05/20 04/05/20 04/05/20 20:15 20:25 20:50 21:00 Pulse 140 144 140 130 Resp 17 B/P (MAP) 103/92 (96) 105/86 (92) 105/94 112/92 Pulse Ox 95 04/06/20 00:00 Intake Total 1000 ml Output Total 800 ml Balance 200 ml Blood Pressure Mean: 92 Progress Progress Note : Progress Note GIVEN ASPIRIN GIVEN CARDIZEM BOLUS AND THEN PLACED ON CARDIZEM DRIP--NO IMPROVEMENT IN HEART RATE--DID CAUSE BP DROP, BUT GIVEN FLUIDS AND BP UP TO > 100 SYSTOLIC GIVEN DOSE OF DIGOXIN IV--NO CHANGE IN HEART RATE GIVEN AMIODARONE BOLUS AND PLACED ON DRIP--NO IMPROVEMENT IN HEART RATE. RATE REMAINED IN 120-140'S Initial ECG Impression Date: Apr 05, 2020 Initial ECG Impression Time: 19:21 Initial ECG Rate: 140 Initial ECG Rhythm: A Fib/Flutter (WITH RVR; RBBB, LAFB) Initial ECG Impression: Atrial Fibrillation w/RVR Initial ECG Comparisson: Unchanged Diagnostic Imaging Comments CXR-PER RADIOLOGIST REPORT FINDINGS: There is a left-sided port catheter with tip at the level of the cavoatrial junction. Heart size and mediastinal contours are unchanged. There is masslike appearing right upper lobe consolidation which is again noted and essentially unchanged. There is no identified pneumothorax. There is no large pleural effusion. IMPRESSION: 1. Masslike consolidation in the right upper lobe which is unchanged since the recent study on March 21, 2020. This potentially could relate to malignancy or other alveolar consolidative process. Further evaluation with CT chest with intravenous contrast is recommended if this is not of known etiology. Reviewed: Reviewed by Me Departure Communication (Admissions) 2025--SPOKE WITH DR. HERNANDEZ, ORDERS NOTED TO ADD AMIODARONE. WILL DO CARDIOVERSION TOMRROW IF PT DOES NOT CONVERT TONIGHT 2030--SPOKE WITH DR. RICHARDS, HOSPITALIST, ACCEPTS PT FOR ADMIT. Impression Primary Impression: Atrial fibrillation with rapid ventricular response Additional Impressions: CHF (congestive heart failure) Hyperglycemia Lung cancer RECENT PNEUMONITIS ON STEROID THERAPY COPD (chronic obstructive pulmonary disease) Disposition: ADMITTED INPATIENT Condition: Stable Admissions Decision to Admit Reason: Admit from ER (General) Decision to Admit/Date: Apr 05, 2020 Time/Decision to Admit Time: 20:30 Departure-Patient Inst. Referrals: ELLIE MITTAL DO (PCP/Family) Primary Care Physician SHIRA HENSLEY DO Apr 05, 2020 20:55
[2020-04-05] MEDS: AMIODARONE INJECTION 450 MG in D5W IV SOLUTION (EXCEL) 250 ML IV SCH (20:59)
--- NOTE | 2020-04-05 21:10 | Diagnostic Imaging Report ---
EXAMINATION: Chest radiograph, portable AP view. DATE: 04/05/2020 8:59 PM hours. INDICATION: 55-year-old male, palpitations. Shortness of breath. COMPARISON: March 21, 2020. FINDINGS: There is a left-sided port catheter with tip at the level of the cavoatrial junction. Heart size and mediastinal contours are unchanged. There is masslike appearing right upper lobe consolidation which is again noted and essentially unchanged. There is no identified pneumothorax. There is no large pleural effusion. IMPRESSION: 1. Masslike consolidation in the right upper lobe which is unchanged since the recent study on March 21, 2020. This potentially could relate to malignancy or other alveolar consolidative process. Further evaluation with CT chest with intravenous contrast is recommended if this is not of known etiology. Dictated by: Dictated on workstation # [id number]
--- NOTE | 2020-04-05 21:14 | NUR ---
AMIDERONE STARTED IN LEFT PORT, CARDIZEM AND SALINE MOVED TO 20 GUAGE IN LEFT AC
[2020-04-05] MEDS ORDERED: CATHETER FLUSH 10 ML SYR IV PRN (22:45)
[2020-04-06] VITALS (12 sets, daily range): BP systolic 96–124; BP diastolic 72–110
[2020-04-06 02:17] LABS: BASOPHILS % (AUTO) 0 % (0-10); EOSINOPHILS % (AUTO) 0 % (0-10); HEMATOCRIT 40 % (40-54); LYMPHOCYTES # (AUTO) 0.4 10^3/uL (1.0-4.0); LYMPHOCYTES % (AUTO) 4 % (12-44); MEAN CORPUSCULAR HEMOGLOBIN 31 pg (25-34); MEAN CORPUSCULAR HGB CONC 33 g/dL (32-36); MEAN CORPUSCULAR VOLUME 94 fL (80-99); MEAN PLATELET VOLUME 9.1 fL (9.0-12.2); MONOCYTES # (AUTO) 0.6 10^3/uL (0.0-1.0); MONOCYTES % (AUTO) 6 % (0-12); NEUTROPHILS # (AUTO) 8.4 10^3/uL (1.8-7.8); NEUTROPHILS % (AUTO) 89 % (42-75); PLATELET COUNT 171 10^3/uL (130-400); WHITE BLOOD COUNT 9.4 10^3/uL (4.3-11.0)
[2020-04-06 02:21] LABS: ALBUMIN 3.1 GM/DL (3.2-4.5); CHLORIDE 99 MMOL/L (98-107); POTASSIUM 3.5 MMOL/L (3.6-5.0); SODIUM 133 MMOL/L (135-145)
[2020-04-06 02:22] LABS: CALCIUM 7.5 MG/DL (8.5-10.1)
[2020-04-06 02:23] LABS: GLUCOSE 305 MG/DL (70-105)
[2020-04-06 02:24] LABS: TOTAL PROTEIN 5.4 GM/DL (6.4-8.2)
[2020-04-06 02:25] LABS: BILIRUBIN,TOTAL 0.6 MG/DL (0.1-1.0); CARBON DIOXIDE 23 MMOL/L (21-32)
[2020-04-06 02:27] LABS: ALKALINE PHOSPHATASE 78 U/L (40-136); CREATININE SERUM 0.85 MG/DL (0.60-1.30); GFR ESTIMATED > 60; PHOSPHORUS 3.2 MG/DL (2.3-4.7)
[2020-04-06 02:28] LABS: BUN/CREATININE RATIO 26
[2020-04-06 02:30] LABS: ALANINE AMINOTRANSFERASE 17 U/L (0-55); MAGNESIUM 1.8 MG/DL (1.6-2.4)
[2020-04-06] MEDS ORDERED: AMIODARONE 450 MG/9 ML (CORDARONE) VIAL IV ONE (05:04)
[2020-04-06] MEDS ORDERED: D5W IV SOLUTION (EXCEL) 250 ML IV ONE (05:05)
--- NOTE | 2020-04-06 05:08 | Pulmonary Consultation ---
History of Present Illness History of Present Illness Date Seen by Provider: Apr 06, 2020 Time Seen by Provider: 04:59 Date of Admission History of Present Illness 65yo with hx of NSCLC presented to ED secondary to palpitations, LE edema, and worsening SOB. Denied CP. Denies f/NS/C. Pt admitted to ICU with cardiology consult. Allergies and Home Medications Allergies Coded Allergies: No Known Drug Allergies (Unverified , 08/05/13) Home Medications Albuterol Sulfate 8.5 Gm Hfa.aer.ad, 8.5 GM IH QID Prescribed by: RYAN HESS on 08/05/132030 Apixaban 5 Mg Tablet, 5 MG PO BID Prescribed by: LORI PAGAN on 03/21/201927 Atenolol 50 Mg Tab, 75 MG PO BID, (Reported) Budesonide/Formoterol Fumarate 10.2 Gm Hfa.aer.ad, 1 PUFF IH BID, (Reported) Diltiazem HCl 120 Mg Cap.er.24h, 120 MG PO DAILY Prescribed by: LORI PAGAN on 03/21/201927 Levothyroxine Sodium 100 Mcg Tablet, 100 MCG PO DAILY, (Reported) Lisinopril 10 Mg Tablet, 10 MG PO BID, (Reported) Prednisone 50 Mg Tab, 100 MG PO DAILY, (Reported) Tiotropium [place] 4 Gm Mist.inhal, 2 PUFF IH DAILY, (Reported) Past Xbqicxk-Keeior-Ztrsbu Hx Patient Social History Alcohol Use: Denies Use Recreational Drug Use: No Smoking Status: Former Smoker Type Used: Cigarettes Recent Foreign Travel: No Contact w/Someone Who Travel: No Recent Infectious Disease Expo: No Recent Hopitalizations: No Physical Abuse: No Sexual Abuse: No Mistreated: No Fear: No Immunizations Up To Date Tetanus Booster (TDap): Unknown PED Vaccines UTD: No Date of Pneumonia Vaccine: Jun 15, 2009 Date of Influenza Vaccine: Apr 21, 2014 Seasonal Allergies Seasonal Allergies: Yes Past Medical History Surgeries: Yes (COLON RESECTION/COLOSTOMY/TAKEDOWN;PORT L CHEST;C- SCOPES;CARDIAC ABLATION) Abdominal, Bowel Surgery, Cardiac, Coronary Stent, Thyroidectomy Respiratory: Yes (NON-SMALL CELL LUNG CANCER) COPD Currently Using CPAP: Yes (PT USES CPAP AT HOME ) Currently Using BIPAP: No Cardiac: Yes (DVT L ARM 09/2019 POST PORT PLACEMENT;AFIB/FLUTTER-S/P ABLATION 03/24/20) Atrial Fibrillation, Deep Vein Thrombosis, Hypertension, Irregular Heartbeat Neurological: No Reproductive Disorders: No Genitourinary: No Gastrointestinal: Yes (COLON RESECTION/COLOSTOMY/TAKEDOWN FOR BENIGN POLYPS) Polyps Musculoskeletal: No Endocrine: Yes (THYROIDECTOMY FOR BENIGN DISEASE) Hypothyroidsim HEENT: No Cancer: Yes (NON-SMALL CELL LUNG CANCER DX 07/2019--HAS BEEN ON IMMUNOTHERAPY) Lung Did You Recieve Any Treatments: Yes What Type of Treatment Did You: Chemotherapy, Radiation Psychosocial: No Integumentary: No Blood Disorders: No Adverse Reaction/Blood Tranf: No Family Medical History COPD SOCIAL HISTORY: -ETOH--DENIES -DRUGS--DENIES -SMOKING--SMOKED 1 PPD--QUIT A FEW YEARS AGO PAST SURGICAL HISTORY: -COLON RESECTION FOR MULTIPLE BENIGN POLYPS, REQUIRED COLOSTOMY AND LATER TAKEDOWN -THYROIDECTOMY FOR BENIGN GOITER -CARDIAC CATH 03/21/20--NO INTERVENTION. SLOW FLOW IN ALL VESSELS. SMALL FIRST DIAGONAL ARTERY HAS MODERATE TO SEVERE OSTIAL DISEASE--NOT AMENABLE TO INTERVENTION -CARDIAC ABLATION FOR ATRIAL FIBRILLATION 03/24/20 -MULTIPLE COLONOSCOPIES -PORT LEFT CHEST Review of Systems Time Seen by Provider: 05:08 Constitutional: Weakness, Malaise; No: Fever, Chills, Sweats, Other Eyes: No: Pain, Vision change, Conjunctivae inflammation, Eyelid inflammation, Other, Redness ENT: No: Ear pain, Ear discharge, Nose pain, Nose discharge, Nose congestion, Mouth pain, Mouth swelling, Throat pain, Throat swelling, Other Respiratory: Cough, Dry, Shortness of breath, SOB with excertion; No: Wheezing, Hemoptysis, Pleuritic Pain, Sputum, Wheezing, Other Cardiovascular: Palpitations, Paroxysmal Noc. Dyspnea; No: Chest Pain, Orthopnea, Edema, Lt Headedness, Other Gastrointestinal: No: Nausea, Vomiting, Abdominal Pain, Diarrhea, Constipation, Melena, Hematochezia, Other Genitourinary: No Dysuria, No Frequency, No Incontinence, No Hematuria, No Retention, No Other Musculoskeletal: No: other, neck pain, shoulder pain, arm pain, back pain, hand pain, leg pain, foot pain Sepsis Event Evaluation Height, Weight, BMI Height: 6'2.00" Weight: 230lbs. 0.0oz. 104.161799ea; 28.49 BMI Method:Stated Exam Exam Vital Signs Date Time Temp Pulse Resp B/P (MAP) Pulse Ox O2 Delivery O2 Flow Rate FiO2 04/06/20 03:00 128 101/90 (94) 96 Room Air 04/06/20 02:00 118 106/75 (85) 96 Room Air 04/06/20 01:00 122 04/06/20 01:00 122 20 100/74 (83) 95 Room Air 04/06/20 00:35 46 04/06/20 00:30 125 105/73 (84) 96 Room Air 04/06/20 00:00 36.3 04/05/20 23:00 133 16 101/79 (86) 96 Room Air 04/05/20 22:05 149 14 114/93 (100) 97 Room Air 04/05/20 22:00 97 Room Air 04/05/20 21:51 67 04/05/20 21:45 36.0 144 20 97 Room Air 04/05/20 21:43 121 101/87 (92) 96 Room Air 04/05/20 21:00 130 17 112/92 95 04/05/20 20:50 140 105/94 04/05/20 20:25 144 105/86 (92) 04/05/20 20:15 140 103/92 (96) 04/05/20 20:05 137 86/67 (73) 04/05/20 19:50 130 106/88 (94) 04/05/20 19:40 152 106/68 (81) 04/05/20 19:15 36.4 110 22 121/93 (102) 96 I & O 04/06/20 07:00 Intake Total 1200 ml Output Total 1900 ml Balance -700 ml Height & Weight Height: 6'2.00" Weight: 230lbs. 0.0oz. 104.874909br; 28.49 BMI Method:Stated General Appearance: No Apparent Distress, WD/WN, Other (DOES NOT APPEAR TO BE IN ANY DISCOMFORT OR DISTRESS. TALKS NON-STOP AT GREAT LENGTH) Neck: Full Range of Motion, Normal Inspection, Non Tender, Supple; No JVD Respiratory: Normal Breath Sounds, No Accessory Muscle Use, No Respiratory Distress Cardiovascular: No JVD, No Murmur, Normal Peripheral Pulses, Irregularly Irregular, Tachycardia Capillary Refill: Less Than 3 Seconds Extremity: Normal Capillary Refill, Normal Range of Motion, Non Tender, No Calf Tenderness, Pedal Edema (1+ BILATERALLLY) Neurologic/Psychiatric: Alert, Oriented x3, No Motor/Sensory Deficits, Normal Mood/Affect, early childhood II-XII Norm as Tested Skin: Normal Color, Warm/Dry Results Lab Laboratory Tests 04/05/20 19:30 04/06/20 01:57 Assessment/Plan Assessment/Plan Afib RVR -Amiodarone gtt -Cardiology following Lung cancer COPD -[facility] -LEONARDO Sanderson DO Apr 06, 2020 05:08
[2020-04-06] MEDS ORDERED: POTASSIUM CL 10MEQ/50ML IVPB 100 ML IV ONE (05:09)
[2020-04-06] MEDS: AMIODARONE INJECTION 450 MG in D5W IV SOLUTION (EXCEL) 250 ML IV SCH (05:19)
[2020-04-06] MEDS: NS IV 1000 ML 1,000 ML IV SCH ×2 (05:19→05:29)
[2020-04-06] MEDS: POTASSIUM CL 10MEQ/50ML IVPB 50 ML IV SCH ×2 (05:28→06:50)
[2020-04-06] MEDS ORDERED: KCL 20 MEQ TAB (K-DUR) PO SCH (06:00)
[2020-04-06] MEDS ORDERED: POTASSIUM CL 10MEQ/50ML IVPB 50 ML IV SCH (06:00)
[2020-04-06] MEDS ORDERED: inSUlin ASPART (NovoLOG) 1 UNIT/0.01 ML (CHARGE PER UNIT) SC SCH (06:00)
[2020-04-06] MEDS ORDERED: MAGNESIUM 1 GM/100 ML IVPB 100 ML IV SCH (06:00)
[2020-04-06] MEDS ORDERED: dilTIAZem DRIP 125 MG/125 ML DRIP IV SCH (07:00)
[2020-04-06] MEDS ORDERED: AMIODARONE 450 MG/250 ML D5W EXCEL IV SCH ×2 (07:00)
[2020-04-06] MEDS ORDERED: FUROSEMIDE 40 MG/4 ML INJ (LASIX) IV SCH (07:00)
--- NOTE | 2020-04-06 07:42 | History & Physical-Hospitalist ---
History of Present Illness HPI/Chief Complaint Pt is a 65yoCM with a PMH of non small cell lung cancer, a-fib s/p recent ablation, hypothyroidism who presented to the ER due to irregular heart rate and lower extremity edema. He states that his symptoms started around 4-5 days ago but that it would improve with rest so he tried to manage it that way. Yesterday he noticed that his legs were swollen and he was actually unable to get his boots off. When he got home from work she was able to get them off and brought him to the ER. He was found to be in a-fib with RVR and was admitted to the ICU. This morning he reports feeling better but knows his heart is still "being squirrelly." Source: patient Exam Limitations: no limitations Date Seen 04/06/20 Time Seen by a Provider: 07:42 Attending Physician Adrienne Giron MD PCP Brett Galan DO Referring Physician Date of Admission Apr 05, 2020 at 21:14 Home Medications & Allergies Home Medications Reviewed patient Home Medication Reconciliation performed by pharmacy medication reconciliations business office technician and/or nursing. Patients Allergies have been reviewed. Allergies Allergies Coded Allergies No Known Drug Allergies (Unverified08/05/13) Past Pxrfhri-Uexbdv-Zcqjxq Hx Past Med/Social Hx: Reviewed Nursing Past Med/Soc Hx Patient Social History Marrital Status: Alcohol Use: Denies Use Recreational Drug Use: No Smoking Status: Former Smoker Type Used: Cigarettes Recent Foreign Travel: No Contact w/other who traveled: No Recent Hopitalizations: No Recent Infectious Disease Expo: No Immunizations Up To Date Tetanus Booster (TDap): Unknown Pediatric: No Date of Pneumonia Vaccine: Jun 15, 2009 Date of Influenza Vaccine: Apr 21, 2014 Seasonal Allergies Seasonal Allergies: Yes Past Medical History Surgeries: Abdominal, Bowel Surgery, Cardiac, Coronary Stent, Thyroidectomy port placement Respiratory: COPD Currently Using CPAP: Yes (PT USES CPAP AT HOME ) Currently Using BIPAP: No Cardiac: Atrial Fibrillation, Deep Vein Thrombosis, Hypertension, Irregular Heartbeat Reproductive: No Gastrointestinal: Polyps Endocrine: Hypothyroidsim Cancer: Lung Did You Recieve Any Treatments: Yes What Type of Treatment Did You: Chemotherapy, Radiation History of Blood Disorders: No Adverse Reaction to Blood [place]: No Family History Reviewed Nursing Family Hx COPD SOCIAL HISTORY: -ETOH--DENIES -DRUGS--DENIES -SMOKING--SMOKED 1 PPD--QUIT A FEW YEARS AGO PAST SURGICAL HISTORY: -COLON RESECTION FOR MULTIPLE BENIGN POLYPS, REQUIRED COLOSTOMY AND LATER TAKEDOWN -THYROIDECTOMY FOR BENIGN GOITER -CARDIAC CATH 03/21/20--NO INTERVENTION. SLOW FLOW IN ALL VESSELS. SMALL FIRST DIAGONAL ARTERY HAS MODERATE TO SEVERE OSTIAL DISEASE--NOT AMENABLE TO INTERVENTION -CARDIAC ABLATION FOR ATRIAL FIBRILLATION 03/24/20 -MULTIPLE COLONOSCOPIES -PORT LEFT CHEST Review of Systems Constitutional: No chills, No fever Respiratory: dyspnea on exertion, short of breath Cardiovascular: edema, Hx of Intervention, palpitations Gastrointestinal: No abdominal pain, No constipation, No nausea, No vomiting Genitourinary: No dysuria, No frequency Musculoskeletal: no symptoms reported Skin: no symptoms reported Psychiatric/Neurological: No Symptoms Reported Physical Exam Physical Exam Vital Signs Vital Signs - First Documented 04/05/20 04/05/20 19:15 21:43 Temp 36.4 Pulse 110 Resp 22 B/P (MAP) 121/93 (102) Pulse Ox 96 O2 Delivery Room Air Capillary Refill : Less Than 3 Seconds Height, Weight, BMI Height: 6'2.00" Weight: 230lbs. 0.0oz. [id number]; 28.49 BMI Method:Stated General Appearance: No Apparent Distress, WD/WN HEENT: PERRL/EOMI, Moist Mucous Membranes Respiratory: Lungs Clear, No Respiratory Distress Cardiovascular: Regular Rate, Rhythm, No Murmur Gastrointestinal: Normal Bowel Sounds, Non Tender, Soft Neurologic/Psychiatric: Alert, Oriented x3 Skin: Normal Color, Warm/Dry Results Results/Procedures Labs Laboratory Tests 04/05/20 19:30 04/06/20 01:57 Patient resulted labs reviewed. Imaging: Reviewed Imaging Report Imaging [facility] [place] NAME: SARA IRIZARRY [facility] REC#: [id number] PT STATUS: REG ER : 1955 PHYSICIAN: SHIRA HENSLEY DO ADMIT DATE: 04/05/20/ER Signed Date of Exam:04/05/20 CHEST 1 VIEW, AP/PA ONLY EXAMINATION: Chest radiograph, portable AP view. DATE: 04/05/2020 8:59 PM hours. INDICATION: 55-year-old male, palpitations. Shortness of breath. COMPARISON: March 21, 2020. FINDINGS: There is a left-sided port catheter with tip at the level of the cavoatrial junction. Heart size and mediastinal contours are unchanged. There is masslike appearing right upper lobe consolidation which is again noted and essentially unchanged. There is no identified pneumothorax. There is no large pleural effusion. IMPRESSION: 1. Masslike consolidation in the right upper lobe which is unchanged since the recent study on March 21, 2020. This potentially could relate to malignancy or other alveolar consolidative process. Further evaluation with CT chest with intravenous contrast is recommended if this is not of known etiology. Dictated by: Dictated on workstation # [id number] Dict: 04/05/202099 Trans: 04/05/202111 [facility] [id number] Interpreted by: VINCENT FERNANDES MD Electronically signed by: VINCENT FERNANDES MD 04/05/202111 Assessment/Plan Admission Diagnosis A-fib with RVR Admission Status: Inpatient Order (span 2 midnights) Assessment and Plan Atrial flutter with RVR HTN Acutely decompensated heart failure Continue on Cardizem and amiodarone gtt as tolerated Cardiology consulted, appreciate recs Continue eliquis for stroke ppx Continue Lasix Monitor i/os 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 COPD Rib pain s/p fall Follows with [facility] Was on immunotherapy but on hold currently Continue steroids (prednisone 20mg taper) IS ordered Hypothyroidism Continue home Synthroid DVT ppx: Already on Eliquis Clinical Quality Measures DVT/VTE Risk/Contraindication: Risk Factor Score Per Nursin RFS Level Per Nursing on Admit: 4+=Very High LORI PAGAN MD Apr 06, 2020 07:42
--- NOTE | 2020-04-06 07:48 | Diagnostic Imaging Report ---
INDICATION: Atrial fibrillation Upright chest shows normal heart size and vascularity. There remains right suprahilar density with some volume loss and/or scarring in the right upper lobe similar to the 04/05/2020 study. The right lower lung and the left lung are clear. There is no effusion or pneumothorax. Port-A-Cath tip is in the superior vena cava right atrial junction region. IMPRESSION: Stable chest. Dictated by: Dictated on workstation # [id number]
[2020-04-06] MEDS ORDERED: predniSONE 20 MG TAB PO NR (08:15)
[2020-04-06] MEDS ORDERED: PATIENT MAY USE OWN MEDS, ALL MC SCH (08:15)
[2020-04-06] MEDS ORDERED: APIXABAN 5 MG (ELIQUIS) TABLET PO SCH (09:30)
[2020-04-06] MEDS ORDERED: DRONEDARONE TABLET 400 MG TABLET PO SCH (12:30)
[2020-04-06] MEDS ORDERED: dilTIAZem120 MG (CARDIZEM CD) CAP PO SCH (12:30)
[2020-04-06] MEDS ORDERED: NPPH15OP OU (12:47)
[2020-04-06] MEDS ORDERED: APIX5TAB PO ×2 (12:47→15:35)
[2020-04-06] MEDS ORDERED: DILT-27 PO ×2 (12:47→15:35)
[2020-04-06] MEDS ORDERED: RT-ALBUINH INH (12:47)
[2020-04-06] MEDS ORDERED: LISI10TA2 PO (12:47)
[2020-04-06] MEDS ORDERED: ATEN50TA PO (12:47)
[2020-04-06] MEDS ORDERED: PRD20T PO (12:47)
--- NOTE | 2020-04-06 12:48 | NUR ---
SPOKE WITH THE PT (HAS HIS HOME MEDS IN THE ROOM) AND WENT THRU THE EXT MED HISTORY TO COMPLETE THE MED REC PREDNISONE- PT IS ON A TAPER DOSE AND IS CURRENTLY TAKING 20MG ONCE DAILY FOR 5 MORE DAYS (PT HAS ALREADY BEEN TAKING FOR 2 DAYS AND TO COMPLETE THIS PART OF THE TAPER REQUIRES A TOTAL OF 7 DAYS). AFTER 20MG DAILY X 7 DAYS IS COMPLETE THE PT WILL START TAKING 5MG DAILY X 7 DAYS AMLODIPINE IS LISTED ON THE EXT MED HISTORY HOWEVER THAT MED HAS BEEN DISCONTINUED OTC MEDS: NAPHCON DROPS
[2020-04-06] MEDS ORDERED: HEParin (CENTRAL IV FLUSH) 500 UNIT/5 ML SYR IV ONE (15:30)
[2020-04-06] MEDS ORDERED: DRON400T2 PO (15:35)
[2020-04-06] MEDS ORDERED: DRONEDARONE TABLET 400 MG TABLET PO ONE (16:27)
--- NOTE | 2020-04-06 16:48 | NUR ---
PT DISCHARGED TO HOME WITH NIGHT DOSE OF MULTAQ PATIENT PHARMACY DID NOT HAVE MED TO GIVE HIM FOR TONIGHT. PORT PACKED WITH HEPARIN. EVENT MONITOR IN PLACE BY [facility].
--- NOTE | 2020-04-06 17:19 | Consultation-Cardiology ---
HPI-Cardiology Cardiology Consultation: Date of Consultation 04/06/20 Date of Admission Attending Physician Adrienne Giron MD Admitting Physician Brett Galan DO Consulting Physician Navjot QUINTERO MD HPI: Time Seen by a Provider: 12:00 This is a 65-year-old gentleman with history of mild CAD. Typical atrial flutter, status post atrial flutter ablation on 03/24/2020. Paroxysmal atrial fibrillation. Non-small cell lung cancer being treated at . He presents with complains of palpitations and irregular heart rhythm. More shortness of breath. He denied chest pain, dizziness, syncope, near-syncope. Recent history of pneumonitis requiring prednisone. Coronary angiography on 03/21/2020. No PCI recommended. Patient is on oral anticoagulation. Patient denies active smoking. Pertinent family history is negative. Review of Systems-Cardiology Review of Systems Constitutional: As described under HPI; No As described under HPI, No no symptoms reported, No chills, No fever, No lightheadedness Eyes: No As described under HPI, No no symptoms reported, No blindness, No blurred vision, No contact lenses, No drainage, No decreased acuity, No foreign body sensation, No pain, No vision change Ears/Nose/Throat: No As described under HPI, No no symptoms reported, No chronic hearing loss, No ear discharge, No ear pain, No nasal drainage, No ulcerations Respiratory: No no symptoms reported; As described under HPI; No As described under HPI, No cough, No orthopnea, No shortness of breath, No SOB with excertion Cardiovascular: No no symptoms reported; As described under HPI; No As described under HPI, No chest pain, No edema, No irregular heart rate, No lightheadedness; palpitations Gastrointestinal: No no symptoms reported, No As described under HPI, No abdomen distended, No abdominal pain, No blood streaked bowels, No constipation, No diarrhea, No nausea, No vomiting, No stool coloration changes Genitourinary: No As described under HPI, No burning, No dysuria, No discharge, No frequency, No flank pain, No hematuria, No urgency Skin: No rash, No skin related problems, No ulcerations Psychiatric/Neurological: No anxiety, No depression, No seizure, No focal weakness, No syncope Hematologic: No bleeding abnormalities BDG-[id number]-Hqbdiv Hx Patient Social History Marrital Status: Alcohol Use: Denies Use Recreational Drug Use: No Smoking Status: Former Smoker Type Used: Cigarettes Recent Foreign Travel: No Recent Infectious Disease Expo: No Immunizations Up To Date Tetanus Booster (TDap): Unknown Date of Pneumonia Vaccine: Jun 15, 2009 Date of Influenza Vaccine: Apr 21, 2014 Past Medical History PMH As described under Assessment. Allergies and Home Medications Allergies Coded Allergies: No Known Drug Allergies (Unverified , 08/05/13) Home Medications Albuterol Sulfate 1 Puff Puff, 2 PUFF INH Q4H PRN for SHORTNESS OF BREATH, (Reported) Apixaban 5 Mg Tablet, 5 MG PO BID, (Reported) Atenolol 50 Mg Tablet, 75 MG PO BID, (Reported) TAKES 1 & OF A 50MG TAB Budesonide/Formoterol Fumarate 10.2 Gm Hfa.aer.ad, 1 PUFF IH BID, (Reported) Diltiazem HCl 120 Mg Cap.er.24h, 120 MG PO DAILY, (Reported) Dronedarone HCl 400 Mg Tablet, 400 MG PO BID, (Reported) Levothyroxine Sodium 100 Mcg Tablet, 100 MCG PO DAILY, (Reported) Lisinopril 10 Mg Tablet, 10 MG PO BID, (Reported) Naphazoline/Pheniramine 15 Ml Soln, 2 DROPS OU PRN PRN for DRY EYES, (Reported) Prednisone 20 Mg Tab, 20 MG PO DAILY, (Reported) ON A TAPER DOSE- HAS 1 DAY LEFT OF THIS DOSE AND THEN WILL TAKE 5MG X 7 DAYS Tiotropium [place] 4 Gm Mist.inhal, 2 PUFF IH DAILY, (Reported) Patient Home Medication List Home Medication List Reviewed: Yes Physical Exam-Cardiology Physical Exam Vital Signs/I&O Capillary Refill : Less Than 3 Seconds Constitutional: appears stated age; No apparent distress; well-developed, well- nourished HEENT: PERRL; No discharge; hearing is well preserved, oral hygience is good; No ulceration, No xanthelasmas are seen Neck: No carotid bruit; carotid pulses are 2 + bilaterally Respiratory: chest is bilaterally symmetric, lungs clear to auscultation Cardiovascular: irregularly irregular, S1 and S2 Gastrointestinal: soft, audible bowel sounds; No spleenomegaly Extremities: normal range of motion, non-tender, normal inspection; No clubbing, No cyanosis; no lower extremity edema bilateral; No significant edema Neurologic/Psychiatric: no motor/sensory deficits, alert, normal mood/affect, oriented x 3, power is 5/5 both on sides Skin: No rash, No ulcerations Data Review Labs Microbiology 04/05/20 MRSA Screen - Final, Complete MRSA not isolated ECG Impression ECG Initial ECG Impression: Atrial Fibrillation w/RVR A/P-Cardiology Assessment/Admission Diagnosis Mild CAD, Typical atrial flutter, recent ablation, Atrial fibrillation with rapid ventricular rate, Non-small cell lung cancer, Acute diastolic congestive heart failure Plan Mild CAD, no active issues. Typical atrial flutter, recent ablation, no recurrence. Atrial fibrillation with rapid ventricular rate, converted to sinus rhythm. On Xarelto. Non-small cell lung cancer, oncologist at . Acute diastolic congestive heart failure, no florid congestive heart failure. Echocardiogram. Thank you for your consultation. Please call me if you have any questions. Diana Quintero MD, FACP, FACC, FSCAI, FHRS, CCDS Interventional Cardiology Cardiac Electrophysiology Vascular Medicine and Endovascular Interventions Clinical Quality Measures DVT/VTE Risk/Contraindication: Risk Factor Score Per Nursin RFS Level Per Nursing on Admit: 4+=Very High Navjot QUINTERO MD Apr 06, 2020 17:19
[2020-04-07] MEDS ORDERED: predniSONE 20 MG TAB PO SCH (07:00)
--- NOTE | 2020-04-08 15:37 | Physician Query Clarification ---
PQ-CHF Specificity Admission Date: Apr 05, 2020 at 21:14 Discharge Date: Apr 06, 2020 at 15:44 The medical record reflects the following clinical scenario: History/Risk Factors: HTN, CHF, AFIB Clinical Findings: BUN 25, Creatinine .91 Treatment: IV Lasix Question: Can you further specify the acuity &/or type of CHF per the clinical indicators above? Please document a response in the Progress Notes or Discharge Summary. 1. Acuity: Acute, Chronic or Acute on Chronic 2. Type: Systolic, Diastolic or Systolic & Diastolic 3. Unspecified: CHF cannot be further specified regarding type or acuity 4. Other, with explanation of clinical findings 5. Clinically undetermined, no explanation for clinical findings PHYSICIAN RESPONSE Acuity: Acute on Chronic Type: Systolic Please remember a lack of response to the above will prompt a phone page by CDI/Coding staff. In responding to this query, please exercise your independent professional judgment. The purpose of this communication is to more accurately reflect the complexity of your patients condition. The fact that a question is asked does not imply that any particular answer is desired or expected. Thank you for your timely response to this clarification. Requestors name: Celeste THIS PHYSICIAN QUERY FORM IS A PERMANENT PART OF THE MEDICAL RECORD CELESTE WHITLEY Apr 08, 2020 15:37 LORI PAGAN MD Apr 08, 2020 21:10
== END 2020-04-06 15:44 | disposition home or self-care (01) | DRG 308 ==
LOC: EDUNIT# 19:08 → ER 19:09 → ICU 21:14
PROVIDERS: ADMIT Internal Medicine; ATTEND Internal Medicine
DX: I48.92 Unspecified atrial flutter (principal); I50.23 Acute on chronic systolic (congestive) heart failure; C34.90 Malignant neoplasm of unspecified part of unspecified bronchus or lung; I11.0 Hypertensive heart disease with heart failure; I48.91 Unspecified atrial fibrillation; J44.9 Chronic obstructive pulmonary disease, unspecified; E89.0 Postprocedural hypothyroidism; R73.9 Hyperglycemia, unspecified; R07.81 Pleurodynia; W19.XXXA Unspecified fall, initial encounter; Z95.5 Presence of coronary angioplasty implant and graft; Z86.718 Personal history of other venous thrombosis and embolism; Z86.010 Personal history of colon polyps; Z92.21 Personal history of antineoplastic chemotherapy; Z92.3 Personal history of irradiation; Z87.891 Personal history of nicotine dependence; Z79.01 Long term (current) use of anticoagulants; Z87.01 Personal history of pneumonia (recurrent)
CPT/HCPCS: 36415; 71045; 80053; 82010; 82550; 82553; 82962; 83036; 83735; 83874; 83880; 84100; 84443; 84484; 85007; 85025; 85027; 85610; 85730; 87081; 93005; 93041; 93306

== ENCOUNTER 2020-04-06 15:48 | Outpatient (RCR) | payer MEDICARE, OTHER ==
[~2020-04-06 15:48] MED LIST changes: +AMLO-250 PO; -AMLO5TAB9 PO; +ATEN50TA PO; +DILT-27 PO; +DRON400T2 PO; +LISI10TA2 PO; +NPPH15OP OU; +RT-ALBUINH INH
[2020-04-12] MEDS ORDERED: APIX5TAB PO (10:08)
[2020-04-12] MEDS ORDERED: DILT-27 PO (10:08)
[2020-04-12] MEDS ORDERED: DRON400T2 PO (10:08)
[2020-04-12] MEDS ORDERED: LEVO100T7 PO (10:09)
== END 2020-07-05 ==
LOC: CARD 15:48
PROVIDERS: ATTEND Internal Medicine Interventional Cardiology
DX: I48.21 Permanent atrial fibrillation (principal)

== ENCOUNTER 2020-04-11 10:51 | Inpatient (IN) | payer MEDICARE, OTHER ==
[~2020-04-11] VITALS: Ht 187.9 cm; Wt 102.0 kg
[~2020-04-11 10:51] MED LIST changes: -AMLO-250 PO; +AMLO5TAB9 PO
[2020-04-11 11:50] LABS: BASOPHILS % (AUTO) 0 % (0-10); EOSINOPHILS % (AUTO) 0 % (0-10); HEMATOCRIT 41 % (40-54); HEMOGLOBIN 13.7 g/dL (13.3-17.7); LYMPHOCYTES # (AUTO) 0.3 10^3/uL (1.0-4.0); LYMPHOCYTES % (AUTO) 3 % (12-44); MEAN CORPUSCULAR HEMOGLOBIN 31 pg (25-34); MEAN CORPUSCULAR HGB CONC 33 g/dL (32-36); MEAN CORPUSCULAR VOLUME 92 fL (80-99); MONOCYTES # (AUTO) 0.5 10^3/uL (0.0-1.0); MONOCYTES % (AUTO) 5 % (0-12); NEUTROPHILS # (AUTO) 8.7 10^3/uL (1.8-7.8); NEUTROPHILS % (AUTO) 91 % (42-75); PLATELET COUNT 156 10^3/uL (130-400); WHITE BLOOD COUNT 9.6 10^3/uL (4.3-11.0)
--- NOTE | 2020-04-11 11:50 | ED General ---
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 SOB increased today. Nursing Sepsis Screen: Possible Severe Sepsis Risk Source of Information: Patient Exam Limitations: No Limitations History of Present Illness Date Seen by Provider: Apr 11, 2020 Time Seen by Provider: 11:18 Initial Comments Here with report of fever that started last night as well as shortness of air that has worsened today. Patient does have history of lung cancer and currently is on immunotherapy but had to stop due to pneumonitis. Lung cancer mixed relate d to asbestos exposure but also did have 25 year smoking history and does have COPD. Denies any COVID contacts but does have to go between [facility] [place] or [facility]. States he does not stop anywhere and only is going between home and the centers for cancer treatment. Has had multiple COVID test due to the therapy and all have been negative. Aside from cough, shortness of air and fever, patient has no upper respiratory symptoms or body aches. Does feel fatigued but may be related to the cancer and cancer therapy. Timing/Duration: 24 Hours Severity: Moderate Associated Systoms: No Chest Pain; Cough, Fever/Chills; No Headaches, No Nausea/Vomiting; Shortness of Air, Weakness Allergies and Home Medications Allergies Coded Allergies: No Known Drug Allergies (Unverified , 08/05/13) Home Medications Albuterol Sulfate 1 Puff Puff, 2 PUFF INH Q4H PRN for SHORTNESS OF BREATH, (Reported) 1 PUFF = 90 MCG Apixaban 5 Mg Tablet, 5 MG PO BID Prescribed by: WYATT BARCLAY on 04/06/201534 Atenolol 50 Mg Tablet, 75 MG PO BID, (Reported) TAKES 1 & OF A 50MG TAB Budesonide/Formoterol Fumarate 10.2 Gm Hfa.aer.ad, 1 PUFF IH BID, (Reported) Diltiazem HCl 120 Mg Cap.er.24h, 120 MG PO DAILY Prescribed by: WYATT BARCLAY on 04/06/201534 Dronedarone HCl 400 Mg Tablet, 400 MG PO BID Prescribed by: WYATT BARCLAY on 04/06/201534 Levothyroxine Sodium 100 Mcg Tablet, 100 MCG PO DAILY, (Reported) Lisinopril 10 Mg Tablet, 10 MG PO BID, (Reported) Naphazoline/Pheniramine 15 Ml Soln, 2 DROPS OU PRN PRN for DRY EYES, (Reported) Prednisone 20 Mg Tab, 20 MG PO DAILY, (Reported) ON A TAPER DOSE- HAS 5 DAYS LEFT OF THIS DOSE Tiotropium Effie 4 Gm Mist.inhal, 2 PUFF IH DAILY, (Reported) Patient Home Medication List Home Medication List Reviewed: Yes Review of Systems Review of Systems Constitutional: see HPI; No chills; fever, malaise EENTM: No nose congestion, No throat pain Respiratory: cough, short of breath Cardiovascular: No chest pain, No edema Gastrointestinal: No abdominal pain, No nausea, No vomiting Genitourinary: No dysuria, No pain Musculoskeletal: no symptoms reported Skin: No change in color, No lesions Psychiatric/Neurological: See HPI; Denies Headache Hematologic/Lymphatic: No Symptoms Reported All Other Systems Reviewed Negative Unless Noted: Yes Past Tsqljfu-Rlexux-Rxqcln Hx Past Med/Social Hx: Reviewed Nursing Past Med/Soc Hx Patient Social History Alcohol Use: Denies Use Recreational Drug Use: No Smoking Status: Former Smoker Type Used: Cigarettes Recent Foreign Travel: No Contact w/Someone Who Travel: No Recent Infectious Disease Expo: No Recent Hopitalizations: No Immunizations Up To Date Tetanus Booster (TDap): Unknown PED Vaccines UTD: No Date of Pneumonia Vaccine: Jun 15, 2009 Date of Influenza Vaccine: Apr 21, 2014 Seasonal Allergies Seasonal Allergies: Yes Past Medical History Surgeries: Yes (COLON RESECTION/COLOSTOMY/[place];PORT L CHEST;C- SCOPES;CARDIAC ABLATION) Abdominal, Bowel Surgery, Cardiac, Coronary Stent, Thyroidectomy Respiratory: Yes (NON-SMALL CELL LUNG CANCER) COPD Currently Using CPAP: Yes (PT USES CPAP AT HOME ) Currently Using BIPAP: No Cardiac: Yes (DVT L ARM 09/2019 POST PORT PLACEMENT;AFIB/FLUTTER-S/P ABLATION 03/24/20) Atrial Fibrillation, Deep Vein Thrombosis, Hypertension, Irregular Heartbeat Neurological: No Reproductive Disorders: No Genitourinary: No Gastrointestinal: Yes (COLON RESECTION/COLOSTOMY/TAKEDOWN FOR BENIGN POLYPS) Polyps Musculoskeletal: No Endocrine: Yes (THYROIDECTOMY FOR BENIGN DISEASE) Hypothyroidsim HEENT: No Cancer: Yes (NON-SMALL CELL LUNG CANCER DX 07/2019--HAS BEEN ON IMMUNOTHERAPY) Lung Did You Recieve Any Treatments: Yes What Type of Treatment Did You: Chemotherapy, Radiation Psychosocial: No Integumentary: No Blood Disorders: No Adverse Reaction/Blood Tranf: No Family Medical History Reviewed Nursing Family Hx COPD SOCIAL HISTORY: -ETOH--DENIES -DRUGS--DENIES -SMOKING--SMOKED 1 PPD--QUIT A FEW YEARS AGO PAST SURGICAL HISTORY: -COLON RESECTION FOR MULTIPLE BENIGN POLYPS, REQUIRED COLOSTOMY AND LATER TAKEDOWN -THYROIDECTOMY FOR BENIGN GOITER -CARDIAC CATH 03/21/20--NO INTERVENTION. SLOW FLOW IN ALL VESSELS. SMALL FIRST DIAGONAL ARTERY HAS MODERATE TO SEVERE OSTIAL DISEASE--NOT AMENABLE TO INTERVENTION -CARDIAC ABLATION FOR ATRIAL FIBRILLATION 03/24/20 -MULTIPLE COLONOSCOPIES -PORT LEFT CHEST Physical Exam-Suspected Sepsis Physical Exam Vital Signs Vital Signs - First Documented 04/11/20 13:07 Temp 36.6 O2 Flow Rate 2.00 Capillary Refill : Less Than 3 Seconds Blood Pressure Mean: 96 Height, Weight, BMI Height: 6'2.00" Weight: 230lbs. 0.0oz. 104.512578od; 28.00 BMI Method:Stated General Appearance: No Apparent Distress, WD/WN HEENT: PERRL/EOMI, Pharynx Normal Neck: Non Tender, Supple Respiratory: No Respiratory Distress, Crackles (bilateral bases) Cardiovascular: Regular Rate, Rhythm, No Murmur Gastrointestinal: Non Tender, Soft Back: Normal Inspection, No CVA Tenderness, No Vertebral Tenderness Extremity: Normal Range of Motion, Non Tender Neurologic/Psychiatric: Alert, Oriented x3 Skin: normal color, warm/dry Focused Exam Lactate Level 04/11/20 11:35: Lactic Acid Level 1.05 Lactic Acid Level Laboratory Tests Test 04/11/20 11:35 Lactic Acid Level 1.05 MMOL/L (0.50-2.00) Progress/Results/Core Measures Suspected Sepsis Recent Fever Within 48 Hours: Yes Infection Criteria Present: Suspected New Infection New/Unexplained Altered Menta: No Sepsis Screen: Possible Severe Sepsis Risk SIRS Temperature: Pulse: 74 Respiratory Rate: 22 Laboratory Tests 04/11/20 11:35: White Blood Count 9.6 Blood Pressure 125 /81 Mean: 96 04/11/20 11:35: Lactic Acid Level 1.05 Laboratory Tests 04/11/20 11:35: Creatinine 0.82, INR Comment 1.4, Platelet Count 156, Total Bilirubin 1.5H Results/Orders Lab Results Laboratory Tests Test 04/11/20 11:35 04/11/20 11:59 04/11/20 13:00 Range/Units White Blood Count 9.6 4.3-11.0 10^3/uL Red Blood Count 4.47 4.30-5.52 10^6/uL Hemoglobin 13.7 13.3-17.7 g/dL Hematocrit 41 40-54 % Mean Corpuscular Volume 92 80-99 fL Mean Corpuscular Hemoglobin 31 25-34 pg Mean Corpuscular Hemoglobin Concent 33 32-36 g/dL Red Cell Distribution Width 13.4 10.0-14.5 % Platelet Count 156 130-400 10^3/uL Mean Platelet Volume 9.0 9.0-12.2 fL Immature Granulocyte % (Auto) 1 % Neutrophils (%) (Auto) 91 H 42-75 % Lymphocytes (%) (Auto) 3 L 12-44 % Monocytes (%) (Auto) 5 0-12 % Eosinophils (%) (Auto) 0 0-10 % Basophils (%) (Auto) 0 0-10 % Neutrophils # (Auto) 8.7 H 1.8-7.8 10^3/uL Lymphocytes # (Auto) 0.3 L 1.0-4.0 10^3/uL Monocytes # (Auto) 0.5 0.0-1.0 10^3/uL Eosinophils # (Auto) 0.0 0.0-0.3 10^3/uL Basophils # (Auto) 0.0 0.0-0.1 10^3/uL Immature Granulocyte # (Auto) 0.1 0.0-0.1 10^3/uL Neutrophils % (Manual) 90 % Lymphocytes % (Manual) 2 % Monocytes % (Manual) 1 % Eosinophils % (Manual) 1 % Basophils % (Manual) 0 % Band Neutrophils 6 % Blood Morphology Comment NORMAL Prothrombin Time 17.2 H 12.2-14.7 SEC INR Comment 1.4 0.8-1.4 Activated Partial Thromboplast Time 36 H 24-35 SEC Sodium Level 131 L 135-145 MMOL/L Potassium Level 3.8 3.6-5.0 MMOL/L Chloride Level 98 98-107 MMOL/L Carbon Dioxide Level 23 21-32 MMOL/L Anion Gap 10 5-14 MMOL/L Blood Urea Nitrogen 15 7-18 MG/DL Creatinine 0.82 0.60-1.30 MG/DL Estimat Glomerular Filtration Rate > 60 BUN/Creatinine Ratio 18 Glucose Level 178 H 70-105 MG/DL Lactic Acid Level 1.05 0.50-2.00 MMOL/L Calcium Level 8.6 8.5-10.1 MG/DL Corrected Calcium 9.1 8.5-10.1 MG/DL Total Bilirubin 1.5 H 0.1-1.0 MG/DL Aspartate Amino Transf (AST/SGOT) 17 5-34 U/L Alanine Aminotransferase (ALT/SGPT) 23 0-55 U/L Alkaline Phosphatase 69 40-136 U/L C-Reactive Protein High Sensitivity 8.09 H 0.00-0.50 MG/DL Total Protein 6.2 L 6.4-8.2 GM/DL Albumin 3.4 3.2-4.5 GM/DL Urine Color YELLOW Urine Clarity CLEAR Urine pH 6.5 5-9 Urine Specific [place] 1.020 1.016-1.022 Urine Protein NEGATIVE NEGATIVE Urine Glucose (UA) TRACE H NEGATIVE Urine Ketones TRACE H NEGATIVE Urine Nitrite NEGATIVE NEGATIVE Urine Bilirubin NEGATIVE NEGATIVE Urine Urobilinogen 4.0 < = 1.0 MG/DL Urine Leukocyte Esterase NEGATIVE NEGATIVE Urine RBC (Auto) TRACE-I NEGATIVE Urine RBC 10-25 H /HPF Urine WBC RARE /HPF Urine Squamous Epithelial Cells RARE /HPF Urine Crystals NONE /LPF Urine Bacteria NEGATIVE /HPF Urine Casts NONE /LPF Urine Mucus NEGATIVE /LPF Urine Culture Indicated NO My Orders Orders - MISAEL TAMAYO MD Cbc With Automated Diff (04/11/20 11:27) Comprehensive Metabolic Panel (04/11/20 11:27) Blood Culture (04/11/20 11:27) Sputum Culture (04/11/20 11:27) Urinalysis (04/11/20 11:27) Urine Culture (04/11/20 11:27) Protime With Inr (04/11/20 11:27) Partial Thromboplastin Time (04/11/20 11:27) Chest 1 View, Ap/Pa Only (04/11/20 11:27) Ed Iv/Invasive Line Start (04/11/20 11:27) Vital Signs Adult Sepsis Patie Q15M (04/11/20 11:27) O2 (04/11/20 11:27) Remove Rings In Anticipation O (04/11/20 11:27) Lactic Acid Analyzer (04/11/20 11:27) Hs C Reactive Protein (04/11/20 11:27) Coronavirus Sars-Cov-2 So 2019 (04/11/20 11:27) Manual Differential (04/11/20 11:35) Lactated Ringers (Lr 1000 Ml Iv Solution (04/11/20 12:54) Cefepime Injection (Maxipime Injection) (04/11/20 13:15) Medications Given in ED Current Medications Medications Dose Ordered Sig/Silvana Route Start Time Stop Time Status Last Admin Dose Admin Cefepime HCl 1000 mg/Sterile Water 10 ml @ 200 mls/hr ONCE ONCE IV 04/11/20 13:15 04/11/20 13:17 DC 04/11/20 13:14 200 MLS/HR Lactated Ringer's 1,000 ml @ 0 mls/hr Q0M ONCE IV 04/11/20 12:54 04/11/20 12:55 DC 04/11/20 13:06 1,000 MLS/HR Vital Signs/I&O 04/11/20 04/11/20 04/11/20 04/11/20 11:09 11:09 11:35 13:07 Temp 36.6 Pulse 74 74 78 Resp 22 22 20 B/P (MAP) 125/81 (96) 125/81 116/88 (97) Pulse Ox 93 93 97 93 O2 Delivery Room Air Nasal Cannula Nasal Cannula O2 Flow Rate 2.00 Capillary Refill : Less Than 3 Seconds Blood Pressure Mean: 96 Progress Note : Progress Note Seen and evaluated. Concerns for pneumonia. Sepsis protocol initiated. We will go ahead and get COVID swab due to travel history. Monitor patient. 1225: Patient does have x-ray findings that appears stable but I do believe that there is concerns for pneumonia given the fever and his history. We're pending UA. I have discussed the case with Dr. Dawkins. He accepts patient for admission, inpatient status for concern for pneumonia. If UA is positive it will be treated with the same antibiotics. We will initiate cefepime 1 g IV after UA complete. 1315: UA obtained. Cefepime 1 g IV being administered. Admit, inpatient status. Patient agrees with plan. Diagnostic Imaging Diagonstic Imaging: Xray Plain Films/CT/US/NM/MRI: chest Comments [facility]. [place], [place] NAME: SARA IRIZARRY [employer] REC#: [id number] PT STATUS: REG ER : 1955 PHYSICIAN: MISAEL TAMAYO MD ADMIT DATE: 04/11/20/ER Draft Date of Exam:04/11/20 CHEST 1 VIEW, AP/PA ONLY Portable erect AP chest at 1215 hours. INDICATION: Shortness of breath. FINDINGS: The heart size is within normal limits and stable when compared to 04/06/2020. The abnormal density involving the right upper lung seen on the prior study is again evident and not significantly changed. The lungs are otherwise generally clear. The mediastinum is not widened. The osseous structures are intact. The left-sided central venous catheter noted on the prior exam is unchanged in position. There is now an electronic device overlying the left upper lung. IMPRESSION: Aside from the presence of the new electronic device overlying the left upper lung, there has been no significant change since the prior study. A follow-up exam would be recommended for continued evaluation. Dictated on workstation # [id number] Dict: 04/11/20 1212 Trans: 04/11/20 1216 [id number] Interpreted by: MISTI SON MD Electronically signed by: Reviewed: Reviewed by Me Departure Communication (Admissions) Time/Spoke to Admitting Phy: 12:25 Impression Primary Impression: Pneumonia Qualified Codes: J18.9 - Pneumonia, unspecified organism Additional Impressions: Person under investigation for severe acute respiratory syndrome coronavirus 2 (SARS-CoV-2) infection Lung cancer Qualified Codes: C34.11 - Malignant neoplasm of upper lobe, right bronchus or lung Disposition: ADMITTED INPATIENT Condition: Stable Admissions Decision to Admit Reason: Admit from ER (General) Decision to Admit/Date: Apr 11, 2020 Time/Decision to Admit Time: 12:25 Departure-Patient Inst. Referrals: ELLIE MITTAL DO (PCP/Family) Primary Care Physician MISAEL TAMAYO MD Apr 11, 2020 11:50
[2020-04-11 11:59] LABS: ALBUMIN 3.4 GM/DL (3.2-4.5); CHLORIDE 98 MMOL/L (98-107); POTASSIUM 3.8 MMOL/L (3.6-5.0); SODIUM 131 MMOL/L (135-145)
[2020-04-11 12:01] LABS: CALCIUM 8.6 MG/DL (8.5-10.1)
[2020-04-11 12:02] LABS: GLUCOSE 178 MG/DL (70-105); INR 1.4 (0.8-1.4); PROTHROMBIN TIME PATIENT 17.2 SEC (12.2-14.7); TOTAL PROTEIN 6.2 GM/DL (6.4-8.2)
[2020-04-11 12:03] LABS: CARBON DIOXIDE 23 MMOL/L (21-32)
[2020-04-11 12:04] LABS: BILIRUBIN,TOTAL 1.5 MG/DL (0.1-1.0)
[2020-04-11 12:05] LABS: ALKALINE PHOSPHATASE 69 U/L (40-136); CREATININE SERUM 0.82 MG/DL (0.60-1.30); GFR ESTIMATED > 60
[2020-04-11 12:06] LABS: BUN/CREATININE RATIO 18
[2020-04-11 12:08] LABS: ALANINE AMINOTRANSFERASE 23 U/L (0-55)
--- NOTE | 2020-04-11 12:16 | Diagnostic Imaging Report ---
Portable erect AP chest at 1215 hours. INDICATION: Shortness of breath. FINDINGS: The heart size is within normal limits and stable when compared to 04/06/2020. The abnormal density involving the right upper lung seen on the prior study is again evident and not significantly changed. The lungs are otherwise generally clear. The mediastinum is not widened. The osseous structures are intact. The left-sided central venous catheter noted on the prior exam is unchanged in position. There is now an electronic device overlying the left upper lung. IMPRESSION: Aside from the presence of the new electronic device overlying the left upper lung, there has been no significant change since the prior study. A follow-up exam would be recommended for continued evaluation. Dictated by: Dictated on workstation # [id number]
[2020-04-11 12:35] LABS: BAND NEUTROPHILS 6 %; BASOPHILS % (MANUAL) 0 %; EOSINOPHILS % (MANUAL) 1 %; LYMPHOCYTES % (MANUAL) 2 %; MONOCYTES % (MANUAL) 1 %; NEUTROPHILS % (MANUAL) 90 %; RBC MORPH NORMAL
--- NOTE | 2020-04-11 12:40 | NUR ---
distribution engineering technologist at bedside for 2nd BC. pt still unable to urinate.
[2020-04-11] MEDS ORDERED: LACTATED RINGERS 1,000 ML IV ONE (12:54)
[2020-04-11 13:07] VITALS: BP 116/88
[2020-04-11] MEDS ORDERED: CEFEPIME INJECTION 1,000 MG in WATER (STERILE) FOR INJECTION 10 ML IV ONE (13:15)
[2020-04-11 13:16] LABS: BILIRUBIN,URINE NEGATIVE (NEGATIVE); CLARITY,URINE CLEAR; COLOR,URINE YELLOW; GLUCOSE, URINE (UA) TRACE (NEGATIVE); KETONES,URINE TRACE (NEGATIVE); LEUKOCYTE ESTERASE ,URINE NEGATIVE (NEGATIVE); NITRITE,URINE NEGATIVE (NEGATIVE); PH,URINE 6.5 (5-9); PROTEIN,URINE NEGATIVE (NEGATIVE)
[2020-04-11 13:35] LABS: BACTERIA,URINE NEGATIVE /HPF; SQUAMOUS EPITHELIAL CELL,UR RARE /HPF; WBC,URINE RARE /HPF
--- NOTE | 2020-04-11 13:59 | NUR ---
Report to Agued[facility] ALAN[facility] 4th floor.
--- NOTE | 2020-04-11 14:00 | NUR ---
SARA IRIZARRY Richie admitted to room 424-1, with an admitting diagnosis of pna, lung cancer, on 04/11/20 from [facility] ED via wheelchair, accompanied by staff. SARA IRIZARRY introduced to surroundings, call light, bed controls, phone, TV, temperature control, lights, meal times, smoking policy, visitor policy, side rail policy, bathrooms and showers. Patient Rights given to patient in the handbook. SARA IRIZARRY verbalizes understanding that [facility] is not responsible for the loss or damage to any personal effects or valuables that are kept in the patients possession during their hospitalization. The following Patient Care Plans were discussed with the patient: Discharge Planning, pain management, dehydration, and medications. SARA IRIZARRY verbalizes understanding of Interdisciplinary Patient Education. Patient and/or family were informed about the Rapid Response Team and its purpose.
[2020-04-11] MEDS ORDERED: CATHETER FLUSH 10 ML SYR IV PRN (14:30)
[2020-04-11] MEDS ORDERED: ONDANSETRON 4 MG/2 ML (SDV) Z0FRAN IV PRN ×2 (14:30→17:15)
[2020-04-11 14:38] VITALS: BP 125/76
[2020-04-11] MEDS ORDERED: ONDANSETRON 4 MG/2 ML (SDV) Z0FRAN IVP PRN (15:15)
[2020-04-11 15:36] VITALS: BP 112/73
[2020-04-11 16:28] VITALS: BP 125/81
[2020-04-11] MEDS ORDERED: RT-ALBUTEROL INHALER HFA (VENTOLIN HFA) 18 GM IH PRN (16:45)
[2020-04-11] MEDS ORDERED: ENOXAPARIN 40 MG/0.4 ML (LOVENOX) SYR SC SCH ×2 (17:00→17:30)
[2020-04-11] MEDS ORDERED: BISACODYL 10 MG SUPP (DULCOLAX) PR PRN (17:15)
[2020-04-11] MEDS ORDERED: MELATONIN 3 MG TABLET PO PRN (17:15)
[2020-04-11] MEDS ORDERED: polyethylene glycoL POWDER 17 GM (MIRALAX) PACK PO PRN (17:15)
[2020-04-11] MEDS ORDERED: ONDANSETRON 4 MG (ZOFRAN) ORAL DISSOLVE TAB PO PRN (17:15)
[2020-04-11] MEDS ORDERED: diphenhydrAMINE 25 MG TAB (BENADRYL) PO PRN (17:15)
[2020-04-11] MEDS ORDERED: ACETAMINOPHEN 325 MG TABLET PO PRN (17:15)
[2020-04-11] MEDS ORDERED: ANTACID SUSP 30 ML UDC (MYLANTA) PO PRN (17:15)
[2020-04-11 19:04] VITALS: BP 107/70
[2020-04-11] MEDS: CEFEPIME 1,000 MG/SWFI 10 ML IV PUSH IV SCH ×2 (20:09)
[2020-04-11] MEDS: inSUlin ASPART (NovoLOG) 1 UNIT/0.01 ML (CHARGE PER UNIT) SC SCH (20:23)
[2020-04-11] MEDS: DOCUSATE SODIUM 100 MG (COLACE) CAP PO SCH (20:25)
[2020-04-11] MEDS: SENNOSIDES 8.6 MG (SENOKOT) TAB PO SCH (20:25)
[2020-04-11] MEDS: CATHETER FLUSH 10 ML SYR IV SCH (21:52)
[2020-04-11] MEDS: RT-ALBUTEROL INHALER HFA (VENTOLIN HFA) 18 GM IH SCH (22:10)
[2020-04-12] MEDS: RT-ALBUTEROL INHALER HFA (VENTOLIN HFA) 18 GM IH SCH ×4 (00:53→10:33)
[2020-04-12 01:14] VITALS: BP 115/77
[2020-04-12] MEDS: CEFEPIME 1,000 MG/SWFI 10 ML IV PUSH IV SCH ×4 (01:18→08:25)
[2020-04-12 03:03] VITALS: BP 122/85
[2020-04-12 05:34] LABS: BASOPHILS % (AUTO) 0 % (0-10); EOSINOPHILS % (AUTO) 0 % (0-10); HEMATOCRIT 38 % (40-54); HEMOGLOBIN 12.8 g/dL (13.3-17.7); LYMPHOCYTES # (AUTO) 0.3 10^3/uL (1.0-4.0); LYMPHOCYTES % (AUTO) 3 % (12-44); MEAN CORPUSCULAR HEMOGLOBIN 31 pg (25-34); MEAN CORPUSCULAR HGB CONC 34 g/dL (32-36); MEAN CORPUSCULAR VOLUME 91 fL (80-99); MEAN PLATELET VOLUME 8.8 fL (9.0-12.2); MONOCYTES # (AUTO) 0.2 10^3/uL (0.0-1.0); MONOCYTES % (AUTO) 2 % (0-12); NEUTROPHILS # (AUTO) 7.9 10^3/uL (1.8-7.8); NEUTROPHILS % (AUTO) 93 % (42-75); PLATELET COUNT 132 10^3/uL (130-400); WHITE BLOOD COUNT 8.5 10^3/uL (4.3-11.0)
[2020-04-12 05:57] LABS: ALBUMIN 3.2 GM/DL (3.2-4.5); CHLORIDE 102 MMOL/L (98-107); POTASSIUM 4.1 MMOL/L (3.6-5.0); SODIUM 133 MMOL/L (135-145)
[2020-04-12 05:59] LABS: CALCIUM 8.5 MG/DL (8.5-10.1)
[2020-04-12 06:00] LABS: GLUCOSE 255 MG/DL (70-105); TOTAL PROTEIN 5.7 GM/DL (6.4-8.2)
[2020-04-12 06:01] LABS: CARBON DIOXIDE 23 MMOL/L (21-32)
[2020-04-12 06:02] LABS: BILIRUBIN,TOTAL 0.7 MG/DL (0.1-1.0)
[2020-04-12 06:03] LABS: ALKALINE PHOSPHATASE 70 U/L (40-136); CREATININE SERUM 0.76 MG/DL (0.60-1.30); GFR ESTIMATED > 60
[2020-04-12 06:04] LABS: BUN/CREATININE RATIO 17
[2020-04-12 06:06] LABS: ALANINE AMINOTRANSFERASE 22 U/L (0-55)
[2020-04-12] MEDS: CATHETER FLUSH 10 ML SYR IV SCH (06:08)
[2020-04-12] MEDS: inSUlin ASPART (NovoLOG) 1 UNIT/0.01 ML (CHARGE PER UNIT) SC SCH ×2 (06:10→11:16)
--- NOTE | 2020-04-12 06:20 | NUR ---
Notified Dr. Stuart that Pt Covid screen negative, new orders to take out of isolation.
[2020-04-12 08:00] VITALS: BP 137/81
[2020-04-12] MEDS: SENNOSIDES 8.6 MG (SENOKOT) TAB PO SCH ×2 (08:25→09:46)
[2020-04-12] MEDS: DOCUSATE SODIUM 100 MG (COLACE) CAP PO SCH ×2 (08:25→09:46)
[2020-04-12] MEDS ORDERED: amLODIPine 5 MG (NORVASC) TAB PO ONE (09:45)
[2020-04-12] MEDS ORDERED: UMECLIDINIUM BROMIDE (INCRUSE ELLIPTA) 7'S IH SCH (09:49)
[2020-04-12] MEDS: predniSONE 20 MG TAB PO ONE ×2 (09:59→10:31)
[2020-04-12] MEDS ORDERED: APIX5TAB PO (10:08)
[2020-04-12] MEDS ORDERED: DILT-27 PO (10:08)
[2020-04-12] MEDS ORDERED: DRON400T2 PO (10:08)
[2020-04-12] MEDS ORDERED: LEVO100T7 PO (10:09)
--- NOTE | 2020-04-12 10:11 | NUR ---
SPOKE WITH THE PT (HIS MEDS ARE IN THE ROOM) AND WENT THRU THE EXT MED HISTORY TO COMPLETE THE MED REC PT WAS ABLE TO TELL ME HOW/WHEN HE TAKES EACH MED- HIS INFORMATION MATCHED THE EXT MED HISTORY/BOTTLES PT IS ON A PREDNISONE TAPER- HE ONLY HAS 1 DAY LEFT OF THE 20MG AND THEN WILL DECREASE DOWN TO 5MG X 7 DAYS OTC MEDS: NAPHCON-A
[2020-04-12 12:00] VITALS: BP 123/62
[2020-04-12 13:15] VITALS: BP 123/62
--- NOTE | 2020-04-12 13:15 | NUR ---
SARA IRIZARRY demonstrates understanding of discharge instructions and accurately returns instructions upon questioning. Copy of Post-Discharge Instructions and Medication Discharge Instructions given to PT. SARA IRIZARRY is able to manage continuing needs after discharge. Patients belongings returned to PT. Skin dry and intact; no breakdown noted. Patient discharged from 424-1 on at 1315. SARA IRIZARRY left floor via WC, accompanied by STAFF.
--- NOTE | 2020-04-12 13:22 | Discharge Summary ---
Discharge Summary Hospital Course Was the Problem List Reviewed?: Yes Problems/Dx: (1) Pneumonitis Status: Acute (2) Shortness of breath Status: Acute Hospital Course Date of Admission: Apr 11, 2020 at 13:29 Admission Diagnosis : Pneumonia Family Physician/Provider: Ellie Galan DO Date of Discharge: 04/12/20 Discharge Diagnosis: Pneumonitis Hospital Course: Geo Hernandez is a 65-year-old male with past medical history of non-small cell lung cancer stage III s/p radiation and recently undergoing Nivolumab immunotherapy who presented with shortness of breath. He was recently diagnosed with pneumonitis which was thought to be due to the immunotherapy or possibly the radiation. He was started on high-dose steroids and is currently completing a steroid taper. He was tested for COVID-19 and was negative. His workup revealed no evidence of pneumonia. He was initially requiring a small amount of supplemental oxygen but this requirement resolved. His case is discussed with his oncologist, Dr. Tomas, who recommended performing a CT chest and giving Solu-Medrol/prednisone 2 mg/kg if his presentation was due to worsening pneumonitis. Further imaging and increased steroid dosing was deferred as his clinical status stabilized. He should follow-up with Dr. Tomas in about a week. Labs and Pending Lab Test: Laboratory Tests 04/11/20 20:19: Glucometer 320H 04/12/20 05:25: White Blood Count 8.5, Red Blood Count 4.16L, Hemoglobin 12.8L, Hematocrit 38L, Mean Corpuscular Volume 91, Mean Corpuscular Hemoglobin 31, Mean Corpuscular Hemoglobin Concent 34, Red Cell Distribution Width 13.0, Platelet Count 132, Mean Platelet Volume 8.8L, Immature Granulocyte % (Auto) 1, Neutrophils (%) (Auto) 93H, Lymphocytes (%) (Auto) 3L, Monocytes (%) (Auto) 2, Eosinophils (%) (Auto) 0, Basophils (%) (Auto) 0, Neutrophils # (Auto) 7.9H, Lymphocytes # (Auto) 0.3L, Monocytes # (Auto) 0.2, Eosinophils # (Auto) 0.0, Basophils # (Auto) 0.0, Immature Granulocyte # (Auto) 0.1, Sodium Level 133L, Potassium Level 4.1, Chloride Level 102, Carbon Dioxide Level 23, Anion Gap 8, Blood Urea Nitrogen 13, Creatinine 0.76, Estimat Glomerular Filtration Rate > 60, BUN/Creatinine Ratio 17, Glucose Level 255H, Calcium Level 8.5, Corrected Calcium 9.1, Total Bilirubin 0.7, Aspartate Amino Transf (AST/SGOT) 12, Alanine Aminotransferase (ALT/SGPT) 22, Alkaline Phosphatase 70, Total Protein 5.7L, Albumin 3.2, Procalcitonin 0.04 04/12/20 10:57: Glucometer 245H Microbiology 04/11/20 Urine Culture - Final, Complete 3 or more isolates Home Meds Active Reported Levothyroxine Sodium 100 Mcg Tablet 100 Mcg PO DAILY Eliquis (Apixaban) 5 Mg Tablet 5 Mg PO BID Diltiazem 24Hr ER (Diltiazem HCl) 120 Mg Cap.er.24h 120 Mg PO DAILY Multaq (Dronedarone HCl) 400 Mg Tablet 400 Mg PO BID Naphcon-A Eye Drops (Naphazoline/Pheniramine) 15 Ml Soln 2 Drops OU PRN PRN Ventolin Hfa (Albuterol Sulfate) 1 Puff Puff 2 Puff INH Q4H PRN Atenolol 50 Mg Tablet 75 Mg PO BID TAKES 1 & OF A 50MG TAB Lisinopril 10 Mg Tablet 10 Mg PO BID Prednisone 20 Mg Tab 20 Mg PO DAILY 5 Days ON A TAPER DOSE- HAS 1 DAY LEFT OF THIS DOSE AND THEN WILL TAKE 5MG X 7 DAYS Symbicort 160-4.5 Mcg Inhaler (Budesonide/Formoterol Fumarate) 10.2 Gm Hfa.aer.ad 1 Puff IH BID Spiriva Respimat 2.5MCG/ACTUATION (Tiotropium Frederica) 4 Gm Mist.inhal 2 Puff IH DAILY Assessment/Pt Instructions Take medications as prescribed. Continue her taper of steroids. Follow-up with your oncologist, Dr. Tomas. Discharge Planning: <30 minutes discharge planning Discharge Instructions Discharge Diet: No Restrictions Activity as Tolerated: Yes Discharge Physical Examination Vital Signs Vital Signs Date Time Temp Pulse Resp B/P (MAP) Pulse Ox O2 Delivery O2 Flow Rate FiO2 04/12/20 12:00 36.4 57 16 123/62 (82) 94 Nasal Cannula 2.00 04/11/20 16:28 21 General Appearance: No Apparent Distress, WD/WN Respiratory: Lungs Clear, Normal Breath Sounds, No Respiratory Distress Cardiovascular: Regular Rate, Rhythm, No Edema, No Murmur Gastrointestinal: Normal Bowel Sounds, Non Tender, Soft Extremity: Normal Inspection, Non Tender, No Pedal Edema Neurologic/Psychiatric: Alert, Oriented x3, No Motor/Sensory Deficits, Normal Mood/Affect Allergies: Coded Allergies: No Known Drug Allergies (Unverified , 08/05/13) Copy Copies To 1: ELLIE GALAN DO Discharge Summary Date of Admission Apr 11, 2020 at 13:29 Date of Discharge Discharge Date: Apr 12, 2020 Discharge Time: 13:20 Admission Diagnosis Pneumonia Discharge Diagnosis (1) Pneumonitis Status: Acute (2) Shortness of breath Status: Acute Clinical Quality Measures DVT/VTE Risk/Contraindication: Risk Factor Score Per Nursin RFS Level Per Nursing on Admit: 4+=Very High CONNIE DUNN MD Apr 12, 2020 13:20
[2020-04-12] MEDS ORDERED: RIVAROXABAN 20 MG TABLET (XARELTO) PO SCH (17:00)
[2020-04-13] MEDS ORDERED: predniSONE 20 MG TAB PO SCH (07:00)
[2020-04-13] MEDS ORDERED: amLODIPine 5 MG (NORVASC) TAB PO SCH (09:00)
--- NOTE | 2020-04-15 07:54 | Physician Query Clarification ---
PQ-Further Specificity Admission/Discharge Admission Date: Apr 11, 2020 at 13:29 Discharge Date: Apr 12, 2020 at 13:15 Dr. Dunn, The medical record reflects the following clinical scenario: History/Risk Factors: RUL Lung Ca, COPD, Atrial fibrillation Clinical Findings: Fever 36.0, SOB, WBC 9.6, His workup revealed no evidence of pneumonia. Treatment: IV Cefepime, Albuterol, IV Decadron, Prednisone PO Question: Can you further specify pneumonitis per the clinical indicators above? Please document a response in the Progress Notes or Discharge Summary. 1. pneumonitis d/t Nivolumab immunotherapy 2. pneumonitis as stated (codes to pneumonia) 3. Other, with explanation of the clinical findings. 4. Clinically undetermined, no explanation for the clinical findings. PHYSICIAN RESPONSE Can you specify per above: 1 Please remember a lack of response to the above will prompt a phone page by CDI/Coding staff. In responding to this query, please exercise your independent professional judgment. The purpose of this communication is to more accurately reflect the complexity of your patients condition. The fact that a question is asked does not imply that any particular answer is desired or expected. Thank you for your timely response to this clarification. Requestors name: Junie THIS PHYSICIAN QUERY FORM IS A PERMANENT PART OF THE MEDICAL RECORD JUNIE GALINDO Apr 15, 2020 07:54 CONNIE DUNN MD Apr 25, 2020 16:16
== END 2020-04-12 13:15 | disposition home or self-care (01) | DRG 206 ==
LOC: EDUNIT# 10:51 → ER 10:53 → 4TH 13:29
PROVIDERS: ADMIT Internal Medicine; ATTEND Internal Medicine
DX: J70.4 Drug-induced interstitial lung disorders, unspecified (principal); C34.11 Malignant neoplasm of upper lobe, right bronchus or lung; T45.1X5A Adverse effect of antineoplastic and immunosuppressive drugs, initial encounter; I48.91 Unspecified atrial fibrillation; J44.9 Chronic obstructive pulmonary disease, unspecified; Z20.828 Contact with and (suspected) exposure to other viral communicable diseases; Z87.891 Personal history of nicotine dependence; Z95.5 Presence of coronary angioplasty implant and graft; Z86.718 Personal history of other venous thrombosis and embolism; E89.0 Postprocedural hypothyroidism; Z90.49 Acquired absence of other specified parts of digestive tract
CPT/HCPCS: 36415; 71045; 80053; 81000; 82962; 83605; 84145; 85007; 85025; 85027; 85610; 85730; 86141; 87040; 87088; 87635; 94640; 94664; 94760; 96374

== ENCOUNTER 2020-12-20 12:35 | Observation (INO) | payer MEDICARE, OTHER ==
[~2020-12-20] VITALS: Ht 187.9 cm; Wt 92.9 kg
[~2020-12-20 12:35] MED LIST changes: +AMLO-250 PO; -AMLO5TAB9 PO; -DRON400T2 PO; +DRON400T6 PO; -LISI10TA2 PO; +LISI10TA25 PO
--- NOTE | 2020-12-20 12:55 | ED Cardiac General ---
History of Present Illness General Chief Complaint: Cardiac/General Problems Stated Complaint: POSSIBLE HEART ATTACK Nursing Triage Note: PT TO ED IN WHEELCHAIR, SENT FROM DR. GALAN'S OFFICE. PT'S REPORTS LOW BP TODAY, WEAKNESS AND NEAR SYNCOPAL EPISODE. PT DENIES CHEST PAIN. REPORTS LOW URINARY OUTPUT TODAY. Source: patient, family, old records Exam Limitations: no limitations History of Present Illness Date Seen by Provider: Dec 20, 2020 Time Seen by Provider: 12:35 Initial Comments This is a 65-year-old male who presented to the ER via POV with his spouse per his primary care physician Dr. Galan. States that he woke this morning and felt very weak, sweaty, and almost passed out at home. He presented to his primary care provider office for complaints and was referred to the emergency department for further workup due to orthostatic hypotension and subtle EKG changes. At this time he is denying chest pain, diaphoresis, shortness of breath, nausea, vomiting. States that he had a TURP procedure couple weeks ago by Dr. Nova in [place]. States that he has been off his Eliquis for 2 to 3 weeks for the procedure. However, this morning he noted a little bit of blood in his catheter bag and has not had any output out. States that his output over the past couple days has been mathew yellow. States that he did have a infection post procedure and was hospitalized for 3 days. However has been doing well since. Concern is also for another urinary tract infection. He denies fever, chills, flank pain, suprapubic pain. States feels like he needs to urinate. Allergies and Home Medications Allergies Coded Allergies: chlorthalidone (Verified Allergy, Unknown, 12/20/20) DIZZINESS Home Medications Albuterol Sulfate 1 Puff Puff, 2 PUFF INH Q4H PRN for SHORTNESS OF BREATH, (Reported) Apixaban 5 Mg Tablet, 5 MG PO BID, (Reported) Atenolol 50 Mg Tablet, 75 MG PO BID, (Reported) TAKES 1 & OF A 50MG TAB Budesonide/Formoterol Fumarate 10.2 Gm Hfa.aer.ad, 1 PUFF IH BID, (Reported) Diltiazem HCl 120 Mg Cap.er.24h, 120 MG PO DAILY, (Reported) Dronedarone HCl 400 Mg Tablet, 400 MG PO BID, (Reported) Levothyroxine Sodium 100 Mcg Tablet, 100 MCG PO DAILY, (Reported) Lisinopril 10 Mg Tablet, 10 MG PO BID, (Reported) Naphazoline/Pheniramine 15 Ml Soln, 2 DROPS OU PRN PRN for DRY EYES, (Reported) Prednisone 20 Mg Tab, 20 MG PO DAILY, (Reported) ON A TAPER DOSE- HAS 1 DAY LEFT OF THIS DOSE AND THEN WILL TAKE 5MG X 7 DAYS Tiotropium [place] 4 Gm Mist.inhal, 2 PUFF IH DAILY, (Reported) Patient Home Medication List Home Medication List Reviewed: Yes Review of Systems Review of Systems Constitutional: No chills; diaphoresis, dizziness; No fever EENTM: See HPI Respiratory: No Symptoms Reported Cardiovascular: No Symptoms Reported Gastrointestinal: No Symptoms Reported Genitourinary: See HPI Musculoskeletal: no symptoms reported Skin: other (pale ) Psychiatric/Neurological: No Symptoms Reported Endocrine: No Symptoms Reported Hematologic/Lymphatic: No Symptoms Reported Past Ppcrazq-Xsspql-Dmvjkf Hx Patient Social History Alcohol Use: Denies Use Type Used: Cigarettes Former Smoker, Quit: Mar 20, 2020 2nd Hand Smoke Exposure: No Recent Infectious Disease Expo: No Recent Hopitalizations: No Immunizations Up To Date Tetanus Booster (TDap): Unknown PED Vaccines UTD: No Date of Pneumonia Vaccine: Jun 15, 2009 Date of Influenza Vaccine: Apr 21, 2014 Seasonal Allergies Seasonal Allergies: Yes Past Medical History Surgeries: Yes (COLON RESECTION/COLOSTOMY/TAKEDOWN;PORT L CHEST;C- SCOPES;CARDIAC ABLATION) Abdominal, Bowel Surgery, Cardiac, Coronary Stent, Thyroidectomy Respiratory: Yes (NON-SMALL CELL LUNG CANCER) COPD Currently Using CPAP: Yes (PT USES CPAP AT HOME ) Currently Using BIPAP: No Cardiac: Yes (DVT L ARM 09/2019 POST PORT PLACEMENT;AFIB/FLUTTER-S/P ABLATION 03/24/20) Atrial Fibrillation, Deep Vein Thrombosis, Hypertension, Irregular Heartbeat Neurological: No Reproductive Disorders: No Sexually Transmitted Disease: No HIV/AIDS: No Genitourinary: No Gastrointestinal: Yes (COLON RESECTION/COLOSTOMY/[place]KEDOWN FOR BENIGN POLYPS) Polyps Musculoskeletal: No Endocrine: Yes (THYROIDECTOMY FOR BENIGN DISEASE) Hypothyroidsim HEENT: No Cancer: Yes (NON-SMALL CELL LUNG CANCER DX 07/2019--HAS BEEN ON IMMUNOTHERAPY) Lung Did You Recieve Any Treatments: Yes What Type of Treatment Did You: Chemotherapy, Radiation Psychosocial: No Integumentary: No Blood Disorders: No Adverse Reaction/Blood Tranf: No Family Medical History COPD SOCIAL HISTORY: -ETOH--DENIES -DRUGS--DENIES -SMOKING--SMOKED 1 PPD--QUIT A FEW YEARS AGO PAST SURGICAL HISTORY: -COLON RESECTION FOR MULTIPLE BENIGN POLYPS, REQUIRED COLOSTOMY AND LATER TAKEDOWN -THYROIDECTOMY FOR BENIGN GOITER -CARDIAC CATH 03/21/20--NO INTERVENTION. SLOW FLOW IN ALL VESSELS. SMALL FIRST DIAGONAL ARTERY HAS MODERATE TO SEVERE OSTIAL DISEASE--NOT AMENABLE TO INTERVENTION -CARDIAC ABLATION FOR ATRIAL FIBRILLATION 03/24/20 -MULTIPLE COLONOSCOPIES -PORT LEFT CHEST Physical Exam Vital Signs Vital Signs - First Documented 12/20/20 12:38 Temp 36.1 Pulse 70 Resp 12 B/P (MAP) 133/80 (97) Pulse Ox 97 O2 Delivery Room Air Capillary Refill : Less Than 3 Seconds Height, Weight, BMI Height: 6'2.00" Weight: 230lbs. 0.0oz. [id number]; 26.00 BMI Method:Stated General Appearance: No Apparent Distress, WD/WN HEENT: PERRL/EOMI, Normal ENT Inspection, Pharynx Normal Neck: Full Range of Motion, Normal Inspection Respiratory: Lungs Clear, Normal Breath Sounds, No Accessory Muscle Use, No Respiratory Distress Cardiovascular: Regular Rate, Rhythm, No Edema, No Murmur, Normal Peripheral Pulses Gastrointestinal: Normal Bowel Sounds, No Organomegaly, Distended, Tenderness, Other (suprapubic tenderness ) Neurologic/Psychiatric: Alert, Oriented x3, No Motor/Sensory Deficits, Normal Mood/Affect Skin: Warm/Dry, Pallor; No Rash Focused Exam Lactate Level 12/20/20 12:50: Lactic Acid Level 3.42*H Lactic Acid Level Laboratory Tests Test 12/20/20 12:50 Lactic Acid Level 3.42 MMOL/L (0.50-2.00) *H Progress/Results/Core Measures Results/Orders Lab Results Laboratory Tests Test 12/20/20 12:50 12/20/20 13:49 Range/Units White Blood Count 7.4 4.3-11.0 10^3/uL Red Blood Count 3.41 L 4.30-5.52 10^6/uL Hemoglobin 9.8 L 13.3-17.7 g/dL Hematocrit 31 L 40-54 % Mean Corpuscular Volume 91 80-99 fL Mean Corpuscular Hemoglobin 29 25-34 pg Mean Corpuscular Hemoglobin Concent 32 32-36 g/dL Red Cell Distribution Width 14.7 H 10.0-14.5 % Platelet Count 166 130-400 10^3/uL Mean Platelet Volume 9.0 9.0-12.2 fL Immature Granulocyte % (Auto) 0 % Neutrophils (%) (Auto) 84 H 42-75 % Lymphocytes (%) (Auto) 7 L 12-44 % Monocytes (%) (Auto) 8 0-12 % Eosinophils (%) (Auto) 0 0-10 % Basophils (%) (Auto) 0 0-10 % Neutrophils # (Auto) 6.2 1.8-7.8 10^3/uL Lymphocytes # (Auto) 0.5 L 1.0-4.0 10^3/uL Monocytes # (Auto) 0.6 0.0-1.0 10^3/uL Eosinophils # (Auto) 0.0 0.0-0.3 10^3/uL Basophils # (Auto) 0.0 0.0-0.1 10^3/uL Immature Granulocyte # (Auto) 0.0 0.0-0.1 10^3/uL Neutrophils % (Manual) 90 % Lymphocytes % (Manual) 4 % Monocytes % (Manual) 3 % Eosinophils % (Manual) 2 % Basophils % (Manual) 1 % Band Neutrophils 0 % Elliptocytes SLIGHT Prothrombin Time 14.6 12.2-14.7 SEC INR Comment 1.1 0.8-1.4 Activated Partial Thromboplast Time 29 24-35 SEC Sodium Level 137 135-145 MMOL/L Potassium Level 3.6 3.6-5.0 MMOL/L Chloride Level 102 98-107 MMOL/L Carbon Dioxide Level 21 21-32 MMOL/L Anion Gap 14 5-14 MMOL/L Blood Urea Nitrogen 16 7-18 MG/DL Creatinine 0.81 0.60-1.30 MG/DL Estimat Glomerular Filtration Rate > 60 BUN/Creatinine Ratio 20 Glucose Level 130 H 70-105 MG/DL Lactic Acid Level 3.42 *H 0.50-2.00 MMOL/L Calcium Level 9.0 8.5-10.1 MG/DL Corrected Calcium 9.4 8.5-10.1 MG/DL Magnesium Level 1.7 1.6-2.4 MG/DL Total Bilirubin 0.6 0.1-1.0 MG/DL Aspartate Amino Transf (AST/SGOT) 13 5-34 U/L Alanine Aminotransferase (ALT/SGPT) 14 0-55 U/L Alkaline Phosphatase 67 40-136 U/L Myoglobin 58.8 10.0-92.0 NG/ML Troponin I < 0.028 <0.028 NG/ML Total Protein 6.0 L 6.4-8.2 GM/DL Albumin 3.5 3.2-4.5 GM/DL Urine Color YELLOW Urine Clarity CLEAR Urine pH 7.0 5-9 Urine Specific [place] 1.020 1.016-1.022 Urine Protein 3+ H NEGATIVE Urine Glucose (UA) NEGATIVE NEGATIVE Urine Ketones 1+ H NEGATIVE Urine Nitrite POSITIVE H NEGATIVE Urine Bilirubin NEGATIVE NEGATIVE Urine Urobilinogen 2.0 < = 1.0 MG/DL Urine Leukocyte Esterase 2+ H NEGATIVE Urine RBC (Auto) 3+ H NEGATIVE Urine RBC TNTC H /HPF Urine WBC 2-5 /HPF Urine Crystals NONE /LPF Urine Bacteria NEGATIVE /HPF Urine Casts NONE /LPF Urine Mucus NEGATIVE /LPF Urine Culture Indicated CULTURE PENDING My Orders Orders - ROSLYN TORRES HAND SPRAY OPERATOR Cbc With Automated Diff (12/20/20 12:46) Magnesium (12/20/20 12:46) Chest 1 View, Ap/Pa Only (12/20/20 12:46) Ekg Tracing (12/20/20 12:46) Comprehensive Metabolic Panel (12/20/20 12:46) Myoglobin Serum (12/20/20 12:46) Protime With Inr (12/20/20 12:46) Partial Thromboplastin Time (12/20/20 12:46) O2 (12/20/20 12:46) Ed Iv/Invasive Line Start (12/20/20 12:46) Troponin I (12/20/20 12:46) Blood Culture (12/20/20 12:46) Urinalysis (12/20/20 12:46) Urine Culture (12/20/20 12:46) Lactic Acid Analyzer (12/20/20 12:46) Urinary Catheter: Hand Irrigat (12/20/20 12:46) Manual Differential (12/20/20 12:50) Lidocaine 2% (Urojet) (Xylocaine Urojet) (12/20/20 13:30) Lactated Ringers (Lr 1000 Ml Iv Solution (12/20/20 13:30) Medications Given in ED Current Medications Medications Dose Ordered Sig/Silvana Route Start Time Stop Time Status Last Admin Dose Admin Lactated Ringer's 1,000 ml @ 0 mls/hr Q0M ONCE IV 12/20/20 13:30 12/20/20 13:32 DC 12/20/20 13:53 1,000 MLS/HR Lidocaine HCl 10 ml ONCE ONCE TOP 12/20/20 13:30 12/20/20 13:31 DC 12/20/20 13:22 10 ML Vital Signs/I&O 12/20/20 12:38 Temp 36.1 Pulse 70 Resp 12 B/P (MAP) 133/80 (97) Pulse Ox 97 O2 Delivery Room Air Blood Pressure Mean: 97 Progress Progress Note : Progress Note Patient examined and in no acute distress. No active chest pain. States that he has an urgent need to urinate and has not been able to urinate. Orders placed to irrigate Manriquez catheter as he likely has a blood clot preventing him from emptying. Additionally does have history of urinary tract infection and risk of infection due to catheter. With his recent syncope and hypotension orders placed for cardiac work-up and sepsis work-up. Call Dr. Nova's office as nurses were able to instill sterile water but not able to aspirate any urine or water instilled. Spoke with nurse Sandoval and states that Dr. Nova will be acceptable with us replacing with a [address]. Nursing staff able to place w/o issue. Immediate return of dark red urine, apx. 1000ml immediate output, with multiple clots. Labs reviewed. Elevated lactic at 3.42.Orders given for 2 L LR and CBI in ED, repeat lactic. Will order Rocephin 1gm IV q24 hours for UTI. Discussed case with Dr. Brady, requested nursing staff to hand irrigate Manriquez catheter as needed blood clots. Reviewed plan of care with patient and spouse, both are agreeable with plan. Initial ECG Impression Date: Dec 20, 2020 Initial ECG Impression Time: 12:35 Initial ECG Rate: 66 Initial ECG Rhythm: Normal Sinus Initial ECG Intervals SR, rate 66. RBBB and LAFB. Initial ECG Impression: Normal Initial ECG Comparisson: Unchanged Diagnostic Imaging Diagonstic Imaging: Xray Plain Films/CT/US/NM/MRI: chest Comments [facility] [place], [place] NAME: SARA IRIZARRY [facility] REC#: [id number] PT STATUS: REG ER : 1955 PHYSICIAN: ROSLYN TORRES HAND SPRAY OPERATOR ADMIT DATE: 12/20/20/ER Draft Date of Exam:12/20/20 CHEST 1 VIEW, AP/PA ONLY Portable erect AP chest at 114 hours. INDICATION: Chest pain. FINDINGS: The heart size is within normal limits and stable when compared to 04/11/2020. The previous study did note an area of abnormal density involving the right upper lobe. On this exam, the right upper lobe does seem better aerated. However, there is some thickening of the superior mediastinum on the right. There also appears to be a band of atelectasis/scar formation overlying the right hilum. The lungs are otherwise clear. The osseous structures are intact. The central venous catheter seen previously is again evident. However, the radiopaque electronic device overlying the left upper lung noted on the prior study are no longer evident. IMPRESSION: 1. The appearance of the chest has improved as the right upper lung does seem better aerated. However, there does seem to be thickening of the superior mediastinum on the right. If further imaging is desired, then CT chest would be recommended. 2. There is no acute cardiopulmonary abnormality noted otherwise. Dictated on workstation # [id number] Dict: 12/20/20 1313 Trans: 12/20/20 1327 [id number] Interpreted by: MISTI SON MD Electronically signed by: Reviewed: Other (Has history of right lung cancer.) Departure Communication (Admissions) Time/Spoke to Admitting Phy: 13:57 Dr. Dawkins Time/Spoke to Consulting Phy: 13:51 Dr. Brady. Request repeat CBC in the morning and nursing staff to hand irrigate as needed blood clots. Impression Primary Impression: Complication, blocked Manriquez catheter Additional Impressions: Gross hematuria History of transurethral resection of prostate UTI (urinary tract infection) Disposition: 09 ADMITTED INPATIENT Condition: Stable Admissions Decision to Admit Reason: Admit from ER (General) Decision to Admit/Date: Dec 20, 2020 Time/Decision to Admit Time: 13:48 Departure-Patient Inst. Referrals: ELLIE GALAN DO (PCP/Family) Primary Care Physician ROSLYN TORRES APRN Dec 20, 2020 12:55
[2020-12-20 13:01] LABS: BASOPHILS % (AUTO) 0 % (0-10); EOSINOPHILS % (AUTO) 0 % (0-10); HEMATOCRIT 31 % (40-54); HEMOGLOBIN 9.8 g/dL (13.3-17.7); LYMPHOCYTES # (AUTO) 0.5 10^3/uL (1.0-4.0); LYMPHOCYTES % (AUTO) 7 % (12-44); MEAN CORPUSCULAR HEMOGLOBIN 29 pg (25-34); MEAN CORPUSCULAR HGB CONC 32 g/dL (32-36); MEAN CORPUSCULAR VOLUME 91 fL (80-99); MONOCYTES # (AUTO) 0.6 10^3/uL (0.0-1.0); MONOCYTES % (AUTO) 8 % (0-12); NEUTROPHILS # (AUTO) 6.2 10^3/uL (1.8-7.8); NEUTROPHILS % (AUTO) 84 % (42-75); PLATELET COUNT 166 10^3/uL (130-400); WHITE BLOOD COUNT 7.4 10^3/uL (4.3-11.0)
[2020-12-20 13:14] LABS: ALBUMIN 3.5 GM/DL (3.2-4.5); CHLORIDE 102 MMOL/L (98-107); POTASSIUM 3.6 MMOL/L (3.6-5.0); SODIUM 137 MMOL/L (135-145)
[2020-12-20 13:15] LABS: INR 1.1 (0.8-1.4); PROTHROMBIN TIME PATIENT 14.6 SEC (12.2-14.7)
[2020-12-20 13:17] LABS: GLUCOSE 130 MG/DL (70-105)
[2020-12-20 13:18] LABS: BILIRUBIN,TOTAL 0.6 MG/DL (0.1-1.0); CARBON DIOXIDE 21 MMOL/L (21-32)
[2020-12-20 13:20] LABS: ALKALINE PHOSPHATASE 67 U/L (40-136); CREATININE SERUM 0.81 MG/DL (0.60-1.30); GFR ESTIMATED > 60
[2020-12-20 13:21] LABS: BUN/CREATININE RATIO 20
[2020-12-20 13:23] LABS: ALANINE AMINOTRANSFERASE 14 U/L (0-55); MAGNESIUM 1.7 MG/DL (1.6-2.4)
--- NOTE | 2020-12-20 13:28 | Diagnostic Imaging Report ---
Portable erect AP chest at 114 hours. INDICATION: Chest pain. FINDINGS: The heart size is within normal limits and stable when compared to 04/11/2020. The previous study did note an area of abnormal density involving the right upper lobe. On this exam, the right upper lobe does seem better aerated. However, there is some thickening of the superior mediastinum on the right. There also appears to be a band of atelectasis/scar formation overlying the right hilum. The lungs are otherwise clear. The osseous structures are intact. The central venous catheter seen previously is again evident. However, the radiopaque electronic device overlying the left upper lung noted on the prior study are no longer evident. IMPRESSION: 1. The appearance of the chest has improved as the right upper lung does seem better aerated. However, there does seem to be thickening of the superior mediastinum on the right. If further imaging is desired, then CT chest would be recommended. 2. There is no acute cardiopulmonary abnormality noted otherwise. Dictated by: Dictated on workstation # [id number]
[2020-12-20 13:30] LABS: BAND NEUTROPHILS 0 %; BASOPHILS % (MANUAL) 1 %; ELLIPT/OVALOCYTES SLIGHT; EOSINOPHILS % (MANUAL) 2 %; LYMPHOCYTES % (MANUAL) 4 %; MONOCYTES % (MANUAL) 3 %; NEUTROPHILS % (MANUAL) 90 %
[2020-12-20] MEDS ORDERED: LIDOCAINE UROJET 2% GEL 10 ML PKG TOP ONE (13:30)
[2020-12-20] MEDS ORDERED: LACTATED RINGERS 1,000 ML IV ONE ×2 (13:30→14:45)
[2020-12-20 13:54] LABS: BILIRUBIN,URINE NEGATIVE (NEGATIVE); CLARITY,URINE CLEAR; COLOR,URINE YELLOW; GLUCOSE, URINE (UA) NEGATIVE (NEGATIVE); KETONES,URINE 1+ (NEGATIVE); LEUKOCYTE ESTERASE ,URINE 2+ (NEGATIVE); NITRITE,URINE POSITIVE (NEGATIVE); PROTEIN,URINE 3+ (NEGATIVE)
[2020-12-20 14:02] LABS: BACTERIA,URINE NEGATIVE /HPF; RBC,URINE TNTC /HPF
[2020-12-20] MEDS ORDERED: ONDANSETRON 4 MG/2 ML (SDV) Z0FRAN IV PRN (16:45)
[2020-12-20] MEDS ORDERED: CATHETER FLUSH 10 ML SYR IV PRN (17:00)
[2020-12-20] MEDS ORDERED: ACETAMINOPHEN 325 MG TABLET PO PRN (17:00)
[2020-12-20] MEDS: LACTATED RINGERS 1,000 ML IV SCH (17:41)
[2020-12-20] MEDS ORDERED: MELATONIN 3 MG TABLET PO PRN (18:15)
[2020-12-20] MEDS ORDERED: diphenhydrAMINE 25 MG TAB (BENADRYL) PO PRN (18:15)
[2020-12-20] MEDS ORDERED: ANTACID SUSP 30 ML UDC (MYLANTA) PO PRN (18:15)
[2020-12-20] MEDS ORDERED: MILK OF MAGNESIA 400 MG/5 ML 30 ML UDC PO PRN (18:15)
[2020-12-20] MEDS ORDERED: polyethylene glycoL POWDER 17 GM (MIRALAX) PACK PO PRN (18:15)
[2020-12-20 19:57] VITALS: BP 139/74
[2020-12-21 00:11] VITALS: BP 129/78
[2020-12-21 04:34] LABS: BASOPHILS % (AUTO) 1 % (0-10); EOSINOPHILS % (AUTO) 0 % (0-10); HEMATOCRIT 29 % (40-54); HEMOGLOBIN 9.1 g/dL (13.3-17.7); LYMPHOCYTES # (AUTO) 0.6 10^3/uL (1.0-4.0); LYMPHOCYTES % (AUTO) 9 % (12-44); MEAN CORPUSCULAR HEMOGLOBIN 29 pg (25-34); MEAN CORPUSCULAR HGB CONC 32 g/dL (32-36); MEAN CORPUSCULAR VOLUME 91 fL (80-99); MEAN PLATELET VOLUME 8.9 fL (9.0-12.2); MONOCYTES # (AUTO) 0.6 10^3/uL (0.0-1.0); MONOCYTES % (AUTO) 10 % (0-12); NEUTROPHILS # (AUTO) 4.9 10^3/uL (1.8-7.8); NEUTROPHILS % (AUTO) 80 % (42-75); PLATELET COUNT 165 10^3/uL (130-400); WHITE BLOOD COUNT 6.1 10^3/uL (4.3-11.0)
[2020-12-21 04:35] VITALS: BP 134/74
[2020-12-21 04:46] LABS: ALBUMIN 3.2 GM/DL (3.2-4.5); CHLORIDE 105 MMOL/L (98-107); POTASSIUM 3.3 MMOL/L (3.6-5.0); SODIUM 140 MMOL/L (135-145)
[2020-12-21 04:47] LABS: CALCIUM 8.4 MG/DL (8.5-10.1)
[2020-12-21 04:48] LABS: GLUCOSE 92 MG/DL (70-105); TOTAL PROTEIN 5.4 GM/DL (6.4-8.2)
[2020-12-21 04:50] LABS: BILIRUBIN,TOTAL 0.5 MG/DL (0.1-1.0); CARBON DIOXIDE 25 MMOL/L (21-32)
[2020-12-21 04:52] LABS: ALKALINE PHOSPHATASE 54 U/L (40-136); GFR ESTIMATED > 60
[2020-12-21 04:53] LABS: BUN/CREATININE RATIO 16
[2020-12-21 04:55] LABS: ALANINE AMINOTRANSFERASE 13 U/L (0-55)
[2020-12-21] MEDS: LACTATED RINGERS 1,000 ML IV SCH ×2 (06:35→15:00)
[2020-12-21 07:10] VITALS: BP 140/81
[2020-12-21] MEDS ORDERED: AMIO200T6 PO (10:54)
[2020-12-21] MEDS ORDERED: TMSL.4C PO (10:54)
[2020-12-21] MEDS ORDERED: METO-333 PO (10:54)
[2020-12-21] MEDS ORDERED: MONT10TA32 PO (10:54)
[2020-12-21] MEDS ORDERED: POLY17PO6 PO (10:54)
[2020-12-21] MEDS ORDERED: ATOR10TA66 PO (10:54)
[2020-12-21] MEDS ORDERED: METF-397 PO (10:54)
[2020-12-21] MEDS ORDERED: GUAI-365 PO (10:54)
--- NOTE | 2020-12-21 11:26 | History & Physical-Hospitalist ---
History of Present Illness HPI/Chief Complaint Geo Hernandez is a 65-year-old male with past medical history of hypertension, hyperlipidemia, type 2 diabetes mellitus, hypothyroidism, COPD, lung cancer, BPH status post TURP, who presented with urinary retention. Upon arrival to the ER his Manriquez was found to be blocked. It was replaced and he had gross hematuria. He was started on continuous bladder irrigation. He was admitted to the hospitalist service and urology will consult. Upon my examination, he has no complaints or concerns. He denies fevers and chills. He denies shortness of breath and cough. He denies chest pain. He denies abdominal pain, nausea, vomiting, and diarrhea. Source: patient Exam Limitations: no limitations Date Seen 12/21/20 Time Seen by a Provider: 09:45 Attending Physician Connie Dunn MD PCP Brett Galan DO Referring Physician Date of Admission Dec 20, 2020 at 14:06 Home Medications & Allergies Home Medications Reviewed patient Home Medication Reconciliation performed by pharmacy medication reconciliations science technicians and/or nursing. Patients Allergies have been reviewed. Allergies Allergies Coded Allergies chlorthalidone (Verified Allergy, Unknown, 12/20/20) DIZZINESS Past Xtdsvux-Yxeeyf-Duxrnv Hx Patient Social History Tobacco Use?: No Smoking Status: Never a Smoker Use of E-Cig and/or Vaping dev: No Substance use?: No Alcohol Use?: No Pt feels they are or have been: No Immunizations Up To Date Date of Influenza Vaccine: Apr 21, 2014 Tetanus Booster (TDap): Unknown Hepatitis A: No Hepatitis B: No PED Vaccines UTD: No Date of Pneumonia Vaccine: Jun 15, 2009 Seasonal Allergies Seasonal Allergies: Yes Current Status Advance Directives: No Communicates: Verbally Primary Language: Citizen Of [place] Preferred Spoken Language: Citizen Of [place] Is interpretation needed?: No Sensory deficits: Vision impairment Implanted or Applied Medical D: None Past Medical History Surgeries: Abdominal, Bowel Surgery, Cardiac, Coronary Stent, Thyroidectomy COPD Currently Using CPAP: Yes (PT USES CPAP AT HOME ) Currently Using BIPAP: No Atrial Fibrillation, Deep Vein Thrombosis, Hypertension, Irregular Heartbeat Sexually Transmitted Disease: No HIV/AIDS: No Prostate Problems Polyps Hypothyroidsim Lung Did You Recieve Any Treatments: Yes What Type of Treatment Did You: Chemotherapy, Radiation Blood Disorders: No Adverse Reaction/Blood Tranf: No Family Medical History COPD SOCIAL HISTORY: -ETOH--DENIES -DRUGS--DENIES -SMOKING--SMOKED 1 PPD--QUIT A FEW YEARS AGO PAST SURGICAL HISTORY: -COLON RESECTION FOR MULTIPLE BENIGN POLYPS, REQUIRED COLOSTOMY AND LATER TAKEDOWN -THYROIDECTOMY FOR BENIGN GOITER -CARDIAC CATH 03/21/20--NO INTERVENTION. SLOW FLOW IN ALL VESSELS. SMALL FIRST DIAGONAL ARTERY HAS MODERATE TO SEVERE OSTIAL DISEASE--NOT AMENABLE TO INTERVENTION -CARDIAC ABLATION FOR ATRIAL FIBRILLATION 03/24/20 -MULTIPLE COLONOSCOPIES -PORT LEFT CHEST Review of Systems Constitutional: no symptoms reported EENTM: no symptoms reported Respiratory: no symptoms reported Cardiovascular: no symptoms reported Gastrointestinal: no symptoms reported Genitourinary: no symptoms reported Musculoskeletal: no symptoms reported Skin: no symptoms reported Psychiatric/Neurological: No Symptoms Reported Physical Exam Physical Exam Vital Signs Vital Signs - First Documented 12/20/20 12:38 Temp 36.1 Pulse 70 Resp 12 B/P (MAP) 133/80 (97) Pulse Ox 97 O2 Delivery Room Air Capillary Refill : Less Than 3 Seconds Height, Weight, BMI Height: 6'2.00" Weight: 230lbs. 0.0oz. [id number]; 26.31 BMI Method:Stated General Appearance: No Apparent Distress, WD/WN HEENT: PERRL/EOMI, Pharynx Normal Neck: Normal Inspection, Supple Respiratory: Lungs Clear, Normal Breath Sounds, No Respiratory Distress Cardiovascular: Regular Rate, Rhythm, No Edema, No Murmur Gastrointestinal: Normal Bowel Sounds, Non Tender, Soft Extremity: Normal Inspection, Non Tender, No Pedal Edema Neurologic/Psychiatric: Alert, Oriented x3, No Motor/Sensory Deficits, Normal Mood/Affect Skin: Normal Color, Warm/Dry Results Results/Procedures Labs Laboratory Tests 12/20/20 12:50 12/21/20 04:25 Patient resulted labs reviewed. Imaging: Reviewed Imaging Report Assessment/Plan Admission Diagnosis Urinary retention Admission Status: Observation Assessment and Plan Urinary retention Manriquez catheter blocked Gross hematuria BPH s/p TURP Lactic acidosis Urology consulted Continuous bladder irrigation IV fluids Hgb stable UA with yeast Give one dose of Fluconazole Diagnosis/Problems Diagnosis/Problems (1) Urinary retention Status: Acute (2) Complication, blocked Manriquez catheter Status: Acute (3) Gross hematuria Status: Acute (4) BPH (benign prostatic hyperplasia) Status: Chronic (5) History of transurethral resection of prostate Status: Chronic CONNIE DUNN MD Dec 21, 2020 11:26
[2020-12-21 11:50] VITALS: BP 131/65
--- NOTE | 2020-12-21 13:17 | CONSULTATION REPORT ---
DATE OF SERVICE: 12/21/2020 ATTENDING PHYSICIAN: , hospitalist. SUMMARY: After reviewing the patient's record, interviewing him, this is a 65-year-old white man who recently had a TURP by Dr. Nova in [place] for urinary retention and history of prostatitis. Surgery was complicated with episodes of retention, also hematuria, also urinary tract infections and he presented to the emergency room yesterday, was catheter secondary to hematuria and clots. This was replaced. ER called me and I told them to put a 3-way catheter and starts CBI, continuous irrigation and to do hand irrigation p.r.n. The patient also was given a choice to go home, but he elected to be admitted, which is the proper way. His urine today is still bloody, but the CBI is not running and apparently the nurses got instructed to just do hand irrigation, probably lack of communication between different departments. Patient is not on Eliquis anymore with his hematuria episodes, but he is taking aspirin every day. IMPRESSION: Gross hematuria post-TURP. PLAN: 1. Resume CBI to clear with hand irrigation p.r.n. 2. Hold aspirin. 3. Manage accordingly. Job ID: [id number] DocumentID: [id number] Dictated Date: 12/21/2020 08:48:46 Nut Roaster Date: 12/21/2020 13:16:23 Dictated By: JUANCHO TOBAR MD
[2020-12-21] MEDS ORDERED: RT-ALBUTEROL SULF 2.5 MG/3 ML PRE-MIX VIAL INH PRN (15:15)
[2020-12-21] MEDS ORDERED: polyethylene glycoL POWDER 17 GM (MIRALAX) PACK PO PRN (15:15)
[2020-12-21] MEDS ORDERED: [UNRECOGNIZED DRUG - OTHER] PO SCH (15:15)
[2020-12-21 16:00] VITALS: BP 157/80
[2020-12-21 20:13] VITALS: BP 142/68
[2020-12-21] MEDS: TAMSULOSIN 0.4 MG (FLOMAX) CAP PO SCH (20:21)
[2020-12-21] MEDS: guaiFENesin (MUCINEX) 600 MG TAB PO SCH (20:21)
[2020-12-21] MEDS: MONTELUKAST 10 MG (SINGULAIR) TAB PO SCH (20:21)
[2020-12-21] MEDS: metFORMIN 500 MG (GLUCOPHAGE) TAB PO SCH (20:21)
[2020-12-21] MEDS: meTOprolol TARTRATE 25 MG (LOPRESSOR) TABLET PO SCH (20:21)
[2020-12-21] MEDS ORDERED: NON-FORMULARY MEDICATION 1 EA EA (Budesonide/Formoterol Fumarate (Symbicort 160-4.5 Mcg In IH SCH (21:00)
[2020-12-21] MEDS: RT--FLUTICASONE/SALMETEROL 232-14 (AIRDUO RespiCLICK) IH SCH (21:10)
[2020-12-22 00:27] VITALS: BP 136/70
[2020-12-22] MEDS: LACTATED RINGERS 1,000 ML IV SCH (02:33)
[2020-12-22 04:13] VITALS: BP 146/78
[2020-12-22] MEDS: UMECLIDINIUM BROMIDE (INCRUSE ELLIPTA) 7'S IH SCH (06:33)
[2020-12-22] MEDS: RT--FLUTICASONE/SALMETEROL 232-14 (AIRDUO RespiCLICK) IH SCH ×2 (06:33→20:41)
[2020-12-22 08:22] VITALS: BP 122/63
[2020-12-22] MEDS: AMIODARONE 200 MG (CORDARONE) TAB PO SCH (09:03)
[2020-12-22] MEDS: metFORMIN 500 MG (GLUCOPHAGE) TAB PO SCH ×2 (09:03→20:41)
[2020-12-22] MEDS: LEVOTHYROXINE 100 MCG (LEVOTHROID) TAB PO SCH (09:03)
[2020-12-22] MEDS: ATORVASTATIN 10 MG TABLET PO SCH (09:03)
[2020-12-22] MEDS: guaiFENesin (MUCINEX) 600 MG TAB PO SCH ×2 (09:03→20:41)
[2020-12-22] MEDS: fluCOnazole (DIFLUCAN) 100 MG TAB PO SCH (09:03)
[2020-12-22] MEDS: meTOprolol TARTRATE 25 MG (LOPRESSOR) TABLET PO SCH ×2 (09:04→20:41)
[2020-12-22 09:27] LABS: BASOPHILS % (AUTO) 0 % (0-10); EOSINOPHILS % (AUTO) 0 % (0-10); HEMATOCRIT 29 % (40-54); HEMOGLOBIN 9.2 g/dL (13.3-17.7); LYMPHOCYTES # (AUTO) 0.5 10^3/uL (1.0-4.0); LYMPHOCYTES % (AUTO) 10 % (12-44); MEAN CORPUSCULAR HEMOGLOBIN 29 pg (25-34); MEAN CORPUSCULAR HGB CONC 31 g/dL (32-36); MEAN CORPUSCULAR VOLUME 91 fL (80-99); MEAN PLATELET VOLUME 9.3 fL (9.0-12.2); MONOCYTES # (AUTO) 0.6 10^3/uL (0.0-1.0); MONOCYTES % (AUTO) 11 % (0-12); NEUTROPHILS # (AUTO) 4.4 10^3/uL (1.8-7.8); NEUTROPHILS % (AUTO) 79 % (42-75); PLATELET COUNT 164 10^3/uL (130-400); WHITE BLOOD COUNT 5.6 10^3/uL (4.3-11.0)
[2020-12-22 09:47] LABS: BUN/CREATININE RATIO 10; CALCIUM 8.4 MG/DL (8.5-10.1); CARBON DIOXIDE 26 MMOL/L (21-32); CHLORIDE 105 MMOL/L (98-107); CREATININE SERUM 0.86 MG/DL (0.60-1.30); GFR ESTIMATED > 60; GLUCOSE 140 MG/DL (70-105); MAGNESIUM 1.6 MG/DL (1.6-2.4); POTASSIUM 3.3 MMOL/L (3.6-5.0); SODIUM 138 MMOL/L (135-145)
--- NOTE | 2020-12-22 10:17 | Progress Note - Urology ---
Progress Note-Urology Progress Notes/Assess & Plan Progress/Assessment & Plan URINE CLEARING. IF TOMORROW, LINDY AND CLEAR, WE WILL DC ALLEN AND GIVE TOV Final Diagnosis GROSS HEMATURIA JUANCHO TOBAR MD Dec 22, 2020 10:17
--- NOTE | 2020-12-22 11:27 | Progress Note - Hospitalist ---
Subjective HPI/CC On Admission Date Seen by Provider: Dec 22, 2020 Time Seen by Provider: 09:40 Geo Hernandez is a 65-year-old male with past medical history of hypertension, hyperlipidemia, type 2 diabetes mellitus, hypothyroidism, COPD, lung cancer, BPH status post TURP, who presented with urinary retention. Upon arrival to the ER his Manriquez was found to be blocked. It was replaced and he had gross hematuria. He was started on continuous bladder irrigation. He was admitted to the hospitalist service and urology will consult. Upon my examination, he has no complaints or concerns. He denies fevers and chills. He denies shortness of breath and cough. He denies chest pain. He denies abdominal pain, nausea, vomiting, and diarrhea. Subjective/Events-last exam He is feeling well today. He denies any lightheadedness or dizziness. He denies any chest pain or shortness of breath. He has no other complaints or concerns. Focused Exam Lactate Level 12/20/20 15:25: Lactic Acid Level 3.09*H 12/20/20 18:30: Lactic Acid Level 2.69*H 12/20/20 20:50: Lactic Acid Level 1.68 Objective Exam Vital Signs Vital Signs Date Time Temp Pulse Resp B/P (MAP) Pulse Ox O2 Delivery O2 Flow Rate FiO2 12/22/20 08:22 36.9 69 20 122/63 (82) 95 Room Air Capillary Refill : Less Than 3 Seconds General Appearance: No Apparent Distress, WD/WN Respiratory: Lungs Clear, Normal Breath Sounds, No Respiratory Distress Cardiovascular: Regular Rate, Rhythm, No Edema, No Murmur Gastrointestinal: Normal Bowel Sounds, Non Tender, Soft Extremity: Normal Inspection, Non Tender, No Pedal Edema Neurologic/Psychiatric: Alert, Oriented x3, No Motor/Sensory Deficits, Normal Mood/Affect Skin: Normal Color, Warm/Dry Results/Procedures Lab Laboratory Tests 12/22/20 09:10 Patient resulted labs reviewed. Imaging: Reviewed Imaging Report Assessment/Plan Assessment and Plan Assess & Plan/Chief Complaint Urinary retention Manriquez catheter blocked Gross hematuria BPH s/p TURP Urology consulted Continuous bladder irrigation IV fluids Hgb stable UA with yeast Started on Fluconazole Lactic acidosis, resolved Diagnosis/Problems Diagnosis/Problems (1) Urinary retention Status: Acute (2) Complication, blocked Manriquez catheter Status: Acute (3) Gross hematuria Status: Acute (4) BPH (benign prostatic hyperplasia) Status: Chronic (5) History of transurethral resection of prostate Status: Chronic CONNIE DUNN MD Dec 22, 2020 11:27
[2020-12-22 11:41] VITALS: BP 138/80
[2020-12-22] MEDS: MAGNESIUM 1 GM/100 ML IVPB 100 ML IV SCH ×3 (12:24→14:46)
[2020-12-22] MEDS ORDERED: KCL 20 MEQ TAB (K-DUR) PO NR (14:00)
[2020-12-22 15:45] VITALS: BP 126/76
[2020-12-22 19:41] VITALS: BP 122/69
[2020-12-22] MEDS: TAMSULOSIN 0.4 MG (FLOMAX) CAP PO SCH (20:41)
[2020-12-22] MEDS: MONTELUKAST 10 MG (SINGULAIR) TAB PO SCH (20:41)
[2020-12-23 00:13] VITALS: BP 131/80
[2020-12-23 03:47] VITALS: BP 139/74
[2020-12-23 08:00] VITALS: BP 152/78
[2020-12-23] MEDS: guaiFENesin (MUCINEX) 600 MG TAB PO SCH (08:37)
[2020-12-23] MEDS: fluCOnazole (DIFLUCAN) 100 MG TAB PO SCH (08:37)
[2020-12-23] MEDS: AMIODARONE 200 MG (CORDARONE) TAB PO SCH (08:37)
[2020-12-23] MEDS: ATORVASTATIN 10 MG TABLET PO SCH (08:37)
[2020-12-23] MEDS: meTOprolol TARTRATE 25 MG (LOPRESSOR) TABLET PO SCH (08:37)
[2020-12-23] MEDS: metFORMIN 500 MG (GLUCOPHAGE) TAB PO SCH (08:38)
[2020-12-23] MEDS: LEVOTHYROXINE 100 MCG (LEVOTHROID) TAB PO SCH (08:38)
--- NOTE | 2020-12-23 09:47 | Progress Note - Urology ---
Progress Note-Urology Progress Notes/Assess & Plan Progress/Assessment & Plan URINE CLEAR. DC ALLEN, REINSERT IF UNABLE TO VOID. MAY DISCHARGE ONCE THAT IS ACHIEVED AND FOLOOW UP WITH DR BLOUNT Final Diagnosis GROSS HEMATURIA JUANCHO TOBAR MD Dec 23, 2020 09:47
[2020-12-23] MEDS: RT--FLUTICASONE/SALMETEROL 232-14 (AIRDUO RespiCLICK) IH SCH (11:05)
[2020-12-23] MEDS: UMECLIDINIUM BROMIDE (INCRUSE ELLIPTA) 7'S IH SCH (11:05)
[2020-12-23 12:13] VITALS: BP 137/78
--- NOTE | 2020-12-23 12:47 | Discharge Summary ---
Discharge Summary Hospital Course Problems/Dx: (1) Urinary retention Status: Acute (2) Complication, blocked Dean catheter Status: Acute (3) Gross hematuria Status: Acute (4) BPH (benign prostatic hyperplasia) Status: Chronic (5) History of transurethral resection of prostate Status: Chronic Hospital Course Date of Admission: Dec 20, 2020 at 14:06 Admission Diagnosis : Urinary retention due to blocked dean catheter, gross hematuria Family Physician/Provider: Ellie Galan DO Date of Discharge: 12/23/20 Discharge Diagnosis: Urinary retention due to blocked dean catheter, gross hematuria Hospital Course: Geo Hernandez is a 65-year-old male with past medical history of BPH status post TURP with chronic indwelling Dean catheter who presented with urinary retention. His Dean catheter was replaced and he had gross hematuria but his obstruction was resolved. Urology was consulted and he was placed on continuous bladder irrigation. His urine cleared and the bladder irrigation was discontinued. He was discharged home in stable condition. He will follow up with his urologist. Labs and Pending Lab Test: Microbiology 12/20/20 Urine Culture - Final, Complete YEAST 12/20/20 Blood Culture - Preliminary, Resulted No growth Home Meds Active Reported Miralax (Polyethylene Glycol 3350) 17 Gm Powd.pack 17 Gm PO DAILY PRN Mucinex D ER 1,200-120 mg Tab (Guaifenesin/Pseudoephedrne HCl) 1 Each Tab.er.12h 1 Each PO Q12H Amiodarone HCl 200 Mg Tablet 400 Mg PO DAILY TAKES 2 (200MG)TABS Flomax (Tamsulosin HCl) 0.4 Mg Cap 0.8 Mg PO HS TAKES 2 (0.4MG) CAPS Atorvastatin Calcium 10 Mg Tablet 10 Mg PO DAILY Metoprolol Tartrate 25 Mg Tablet 12.5 Mg PO BID TAKES OF A 25MG TAB Montelukast Sodium 10 Mg Tablet 10 Mg PO HS Metformin HCl 500 Mg Tablet 500 Mg PO BID Levothyroxine Sodium 100 Mcg Tablet 100 Mcg PO DAILY Ventolin Hfa (Albuterol Sulfate) 1 Puff Puff 2 Puff INH Q4H PRN Symbicort 160-4.5 Mcg Inhaler (Budesonide/Formoterol Fumarate) 10.2 Gm Hfa.aer.ad 2 Puff IH BID Spiriva Respimat 2.5MCG/ACTUATION (Tiotropium [place]) 4 Gm Mist.inhal 2 Puff IH DAILY Assessment/Pt Instructions Take medications as prescribed. Follow-up with your urologist. Return with worsening symptoms. Discharge Planning: <30 minutes discharge planning Discharge Instructions Discharge Diet: No Restrictions Activity as Tolerated: Yes Consultations Urology Discharge Physical Examination Vital Signs Vital Signs Date Time Temp Pulse Resp B/P (MAP) Pulse Ox O2 Delivery O2 Flow Rate FiO2 12/23/20 08:00 36.2 67 20 152/78 (102) 94 Room Air General Appearance: No Apparent Distress, WD/WN Respiratory: Lungs Clear, Normal Breath Sounds, No Respiratory Distress Cardiovascular: Regular Rate, Rhythm, No Edema, No Murmur Gastrointestinal: Normal Bowel Sounds, Non Tender, Soft Extremity: Normal Inspection, Non Tender, No Pedal Edema Skin: Normal Color, Warm/Dry Neurologic/Psychiatric: Alert, Oriented x3, No Motor/Sensory Deficits, Normal Mood/Affect Allergies: Coded Allergies: chlorthalidone (Verified Allergy, Unknown, 12/20/20) DIZZINESS Copy Copies To 1: ELLIE GALAN DO Discharge Summary Date of Admission Dec 20, 2020 at 14:06 Date of Discharge Discharge Date: Dec 23, 2020 Discharge Time: 12:46 Admission Diagnosis Urinary retention Consults/Procedures Consulations Urology Discharge Diagnosis Urinary retention Dean catheter blocked Gross hematuria BPH s/p TURP (1) Urinary retention Status: Acute (2) Complication, blocked Dean catheter Status: Acute (3) Gross hematuria Status: Acute (4) BPH (benign prostatic hyperplasia) Status: Chronic (5) History of transurethral resection of prostate Status: Chronic CONNIE DUNN MD Dec 23, 2020 12:46
== END 2020-12-23 14:25 | disposition home or self-care (01) ==
LOC: EDUNIT# 12:35 → ER 12:36 → 4TH 14:06 → UNDODISOB 12-22 16:15
PROVIDERS: ADMIT Internal Medicine; ATTEND Internal Medicine
DX: R31.0 Gross hematuria (principal); T83.098A Other mechanical complication of other urinary catheter, initial encounter; R33.8 Other retention of urine; I48.91 Unspecified atrial fibrillation; I10 Essential (primary) hypertension; I95.1 Orthostatic hypotension; I82.409 Acute embolism and thrombosis of unspecified deep veins of unspecified lower extremity; E03.9 Hypothyroidism, unspecified; Z85.118 Personal history of other malignant neoplasm of bronchus and lung; Z92.21 Personal history of antineoplastic chemotherapy; Z92.3 Personal history of irradiation; N39.0 Urinary tract infection, site not specified; Z90.79 Acquired absence of other genital organ(s); Z79.890 Hormone replacement therapy; Z79.899 Other long term (current) drug therapy; Z87.891 Personal history of nicotine dependence; Z90.89 Acquired absence of other organs
CPT/HCPCS: 51702; 71045; 80048; 80053 ×2; 81000; 83605; 83735 ×2; 83874; 84484; 85007; 85025 ×2; 85027; 85610; 85730; 87040; 87088; 93005; 94640 ×3; 94760; 96360; 96361; 99284; G0378; 36415

== ENCOUNTER 2020-12-25 21:18 | Emergency (ER) | payer MEDICARE, OTHER ==
[~2020-12-25] VITALS: Ht 183 cm; Wt 92.9 kg
[~2020-12-25 21:18] MED LIST changes: +AMIO200T6 PO; +ATOR10TA66 PO; +GUAI-365 PO; +METF-397 PO; +METO-333 PO; +MONT10TA32 PO; +POLY17PO6 PO; +TMSL.4C PO
--- NOTE | 2020-12-25 21:44 | ED GU-Male ---
General Chief Complaint: - Urinary Stated Complaint: CLOGGED CATHETER Nursing Triage Note: patient reports not having output since 1600 with indwelling allen Source: patient History of Present Illness Date Seen by Provider: Dec 25, 2020 Time Seen by Provider: 21:35 Initial Comments PT ARRIVES VIA POV FROM HOME WITH PT WITH BLOCKED ALLEN CATHETER PT HAS HAD ALLEN IN PLACE SINCE SEPTEMBER HAS HAD ONGOING ISSUES WITH CATHETER GETTING BLOCKED, AND WAS ADMITTED 12/20- 12/23/20 FOR THE SAME AND HAD CONTINUOUS BLADDER IRRIGATION AT THAT TIME, URINE CULTURE GREW OUT YEAST. PT STATES HE HAD ONE OR POSSIBLY 2 PILLS OF DIFLUCAN WHILE IN HOSPITAL, BUT WAS NOT DISMISSED HOME WITH ANY PRESCRIPTIONS PT STATES THAT THE CATHETER WAS BLOCKED THIS AM, BUT SPONTANEOUSLY GOT "UNCLOGGED" AND WAS DRAINING FINE EMPTIED THE BAG AROUND 1600, AND HAD APPROXIMATELY 1 LITER AT THAT TIME IN THE BAG. HOWEVER, IT HAS NOT DRAINED SINCE THEN NO FEVER NO NAUSEA/VOMITING PT HAS HAD PRIOR TURP, HAS HAD FREQUENT UTI'S AND RENAL FAILURE IN THE PAST SEES DR. BLOUNT, IN [place], FOR UROLOGY. NEXT APPOINTMENT IS 01/04/21 Allergies and Home Medications Allergies Coded Allergies: chlorthalidone (Verified Allergy, Unknown, 12/20/20) DIZZINESS Home Medications Albuterol Sulfate 1 Puff Puff, 2 PUFF INH Q4H PRN for SHORTNESS OF BREATH, (Reported) Amiodarone HCl 200 Mg Tablet, 400 MG PO DAILY, (Reported) TAKES 2 (200MG)TABS Atorvastatin Calcium 10 Mg Tablet, 10 MG PO DAILY, (Reported) Budesonide/Formoterol Fumarate 10.2 Gm Hfa.aer.ad, 2 PUFF IH BID, (Reported) Fluconazole 200 Mg Tablet, 200 MG PO DAILY Prescribed by: SHIRA HENSLEY on 12/25/202146 Guaifenesin/Pseudoephedrne HCl 1 Each Tab.er.12h, 1 EACH PO Q12H, (Reported) Levothyroxine Sodium 100 Mcg Tablet, 100 MCG PO DAILY, (Reported) Metformin HCl 500 Mg Tablet, 500 MG PO BID, (Reported) Metoprolol Tartrate 25 Mg Tablet, 12.5 MG PO BID, (Reported) TAKES OF A 25MG TAB Montelukast Sodium 10 Mg Tablet, 10 MG PO HS, (Reported) Polyethylene Glycol 3350 17 Gm Powd.pack, 17 GM PO DAILY PRN for CONSTIPATION- 2ND LINE, (Reported) Tamsulosin HCl 0.4 Mg Cap, 0.8 MG PO HS, (Reported) TAKES 2 (0.4MG) CAPS Tiotropium [place] 4 Gm Mist.inhal, 2 PUFF IH DAILY, (Reported) Patient Home Medication List Home Medication List Reviewed: Yes Review of Systems Review of Systems Constitutional: no symptoms reported Gastrointestinal: see HPI, abdominal pain Genitourinary: see HPI Past Fyxohwq-Msglog-Alsgpv Hx Past Med/Social Hx: Reviewed and Corrections made Patient Social History Alcohol Use: Denies Use Type Used: Cigarettes Former Smoker, Quit: Mar 20, 2020 2nd Hand Smoke Exposure: No Recent Infectious Disease Expo: No Recent Hopitalizations: No Immunizations Up To Date Tetanus Booster (TDap): Unknown PED Vaccines UTD: No Date of Pneumonia Vaccine: Jun 15, 2009 Date of Influenza Vaccine: Apr 21, 2014 Seasonal Allergies Seasonal Allergies: Yes Past Medical History Surgeries: Yes (COLON RESECTION/COLOSTOMY/TAKEDOWN;PORT L CHEST;C- SCOPES;CARDIAC ABLATION) Abdominal, Bowel Surgery, Cardiac, Coronary Stent, Thyroidectomy Respiratory: Yes (NON-SMALL CELL LUNG CANCER) COPD Currently Using CPAP: Yes (PT USES CPAP AT HOME ) Currently Using BIPAP: No Cardiac: Yes (DVT L ARM 09/2019 POST PORT PLACEMENT;AFIB/FLUTTER-S/P ABLATION 03/24/20) Atrial Fibrillation, Deep Vein Thrombosis, Hypertension, Irregular Heartbeat Neurological: No Reproductive Disorders: No Sexually Transmitted Disease: No HIV/AIDS: No Genitourinary: Yes (TURP) Prostate Problems, Renal Failure, UTI-Chronic Gastrointestinal: Yes (COLON RESECTION/COLOSTOMY/TAKEDOWN FOR BENIGN POLYPS) Polyps Musculoskeletal: No Endocrine: Yes (THYROIDECTOMY FOR BENIGN DISEASE) Hypothyroidsim HEENT: No Cancer: Yes (NON-SMALL CELL LUNG CANCER DX 07/2019--HAS BEEN ON IMMUNOTHERAPY) Lung Did You Recieve Any Treatments: Yes What Type of Treatment Did You: Chemotherapy, Radiation Psychosocial: No Integumentary: No Blood Disorders: No Adverse Reaction/Blood Tranf: No Family Medical History COPD SOCIAL HISTORY: -ETOH--DENIES -DRUGS--DENIES -SMOKING--SMOKED 1 PPD--QUIT A FEW YEARS AGO PAST SURGICAL HISTORY: -COLON RESECTION FOR MULTIPLE BENIGN POLYPS, REQUIRED COLOSTOMY AND LATER TAKEDOWN -THYROIDECTOMY FOR BENIGN GOITER -CARDIAC CATH 03/21/20--NO INTERVENTION. SLOW FLOW IN ALL VESSELS. SMALL FIRST DIAGONAL ARTERY HAS MODERATE TO SEVERE OSTIAL DISEASE--NOT AMENABLE TO INTERVENTION -CARDIAC ABLATION FOR ATRIAL FIBRILLATION 03/24/20 -MULTIPLE COLONOSCOPIES -PORT LEFT CHEST Physical Exam Vital Signs Vital Signs - First Documented 12/25/20 12/25/20 21:34 21:58 Temp 37.0 Pulse 72 Resp 18 B/P (MAP) 138/70 (92) Pulse Ox 100 Capillary Refill : Less Than 3 Seconds Height, Weight, BMI Height: 6'2.00" Weight: 230lbs. 0.0oz. 104.629239hw; 27.00 BMI Method:Stated General Appearance: WD/WN, no apparent distress Gastrointestinal: other (BLADDER DISTENDED AND TENDER) Neurologic/Psychiatric: alert, normal mood/affect, oriented x 3 Skin: warm/dry, pallor Progress/Results/Core Measures Suspected Sepsis Recent Fever Within 48 Hours: No Infection Criteria Present: None New/Unexplained Altered Menta: No Sepsis Screen: No Definite Risk SIRS Temperature: Pulse: 72 Respiratory Rate: 18 Blood Pressure 138 /70 Mean: 92 Results/Orders My Orders Orders - SHIRA HENSLEY DO Fluconazole Tablet (Diflucan Tablet) (12/25/20 21:45) Fluconazole Tablet (Ed Only) (Diflucan T (12/25/20 22:00) Medications Given in ED Current Medications Medications Dose Ordered Sig/Silvana Route Start Time Stop Time Status Last Admin Dose Admin Fluconazole 150 mg ONCE ONCE PO 12/25/20 22:00 12/25/20 21:58 DC 12/25/20 21:58 150 MG Vital Signs/I&O 12/25/20 12/25/20 21:34 21:58 Temp 37.0 37.0 Pulse 72 72 Resp 18 18 B/P (MAP) 138/70 (92) 138/70 (92) Pulse Ox 100 Capillary Refill : Less Than 3 Seconds Blood Pressure Mean: 92 Progress Note : Progress Note ALLEN IRRIGATED BY RN WITH IMMEDIATE RETURN OF OVER 1300 ML URINE, AND URINE CONTINUES TO FREELY FLOW FROM CATHETER IMMEDIATE RELIEF OF SYMPTOMS Departure Impression Primary Impression: Complication, blocked Allen catheter Additional Impression: Yeast UTI Disposition: 01 HOME, SELF-CARE Condition: Improved Departure-Patient Inst. Decision time for Depature: 21:45 Referrals: ELLIE MITTAL DO (PCP/Family) Primary Care Physician Patient Instructions: How to Care for Your Allen Catheter, Male Add. Discharge Instructions: LOTS OF FLUIDS FOLLOW UP WITH DR. BLOUNT THIS WEEK FOR FURTHER CARE All discharge instructions reviewed with patient and/or family. Voiced understanding. Scripts Fluconazole (Diflucan) 200 Mg Tablet 200 MG PO DAILY, #5 TAB Prov: SHIRA HENSLEY DO 12/25/20 SHIRA HENSLEY DO Dec 25, 2020 21:44
[2020-12-25] MEDS ORDERED: fluCOnazole (DIFLUCAN) 100 MG TAB PO ONE (21:45)
[2020-12-25] MEDS ORDERED: FLUC200T PO (21:47)
[2020-12-25] MEDS ORDERED: FLUCONAZOLE 150 MG TABLET (ED ONLY) ONE (21:51)
[2020-12-25 21:58] VITALS: BP 138/70
[2020-12-25] MEDS ORDERED: FLUCONAZOLE 150 MG TABLET (ED ONLY) PO ONE (22:00)
== END 2020-12-25 21:58 | disposition home or self-care (01) ==
LOC: EDUNIT# 21:18 → ER 21:19
DX: T83.098A Other mechanical complication of other urinary catheter, initial encounter (principal); B37.49 Other urogenital candidiasis; I10 Essential (primary) hypertension; J44.9 Chronic obstructive pulmonary disease, unspecified; E89.0 Postprocedural hypothyroidism; I48.91 Unspecified atrial fibrillation; Z99.89 Dependence on other enabling machines and devices; Z95.5 Presence of coronary angioplasty implant and graft; Z87.891 Personal history of nicotine dependence; Z79.51 Long term (current) use of inhaled steroids; Z79.890 Hormone replacement therapy; Z79.899 Other long term (current) drug therapy
CPT/HCPCS: 99281

== ENCOUNTER 2020-12-28 03:09 | Emergency (ER) | payer MEDICARE, OTHER ==
[~2020-12-28] VITALS: Ht 178 cm; Wt 70.0 kg
[~2020-12-28 03:09] MED LIST changes: +FLUC200T PO
--- NOTE | 2020-12-28 03:24 | ED GU-Male ---
General Stated Complaint: CATHETER CLOGGED Source: patient Exam Limitations: no limitations History of Present Illness Date Seen by Provider: Dec 28, 2020 Time Seen by Provider: 03:12 Initial Comments Patient and his significant other report to the ER by private conveyance chief complaint of blocked urinary catheter. He is had a since September because of a T URP by Dr. Blount. He says he had come in last weekend to have this flushed. He is not passing any blood clots or bloody urine. He denies any fevers or chills. He was on antibiotics until last week when they started him on Diflucan. Also has a history of lung cancer in remission, on tamsulosin and atrial fibrillation as well as COPD. He is not on blood thinners at this time. Allergies and Home Medications Allergies Coded Allergies: chlorthalidone (Verified Allergy, Unknown, 12/20/20) DIZZINESS Home Medications Albuterol Sulfate 1 Puff Puff, 2 PUFF INH Q4H PRN for SHORTNESS OF BREATH, (Reported) Amiodarone HCl 200 Mg Tablet, 400 MG PO DAILY, (Reported) TAKES 2 (200MG)TABS Atorvastatin Calcium 10 Mg Tablet, 10 MG PO DAILY, (Reported) Budesonide/Formoterol Fumarate 10.2 Gm Hfa.aer.ad, 2 PUFF IH BID, (Reported) Fluconazole 200 Mg Tablet, 200 MG PO DAILY Prescribed by: SHIRA HENSLEY on 12/25/202146 Guaifenesin/Pseudoephedrne HCl 1 Each Tab.er.12h, 1 EACH PO Q12H, (Reported) Levothyroxine Sodium 100 Mcg Tablet, 100 MCG PO DAILY, (Reported) Metformin HCl 500 Mg Tablet, 500 MG PO BID, (Reported) Metoprolol Tartrate 25 Mg Tablet, 12.5 MG PO BID, (Reported) TAKES OF A 25MG TAB Montelukast Sodium 10 Mg Tablet, 10 MG PO HS, (Reported) Polyethylene Glycol 3350 17 Gm Powd.pack, 17 GM PO DAILY PRN for CONSTIPATION- 2ND LINE, (Reported) Tamsulosin HCl 0.4 Mg Cap, 0.8 MG PO HS, (Reported) TAKES 2 (0.4MG) CAPS Tiotropium [place] 4 Gm Mist.inhal, 2 PUFF IH DAILY, (Reported) Patient Home Medication List Home Medication List Reviewed: Yes Review of Systems Review of Systems Constitutional: No chills, No fever EENTM: No ear discharge, No ear pain Respiratory: No cough, No short of breath Cardiovascular: No chest pain, No palpitations Gastrointestinal: No abdominal pain, No constipation, No diarrhea, No nausea Genitourinary: see HPI All Other Systemes Reviewed Negative Unless Noted: Yes Past Vtdjzjf-Kxvdkk-Cphufa Hx Patient Social History Alcohol Use: Past History Drug of Choice: Denies Smoking Status: Former Smoker Type Used: Cigarettes Former Smoker, Quit: Mar 20, 2020 2nd Hand Smoke Exposure: No Recent Hopitalizations: No Immunizations Up To Date Tetanus Booster (TDap): Unknown PED Vaccines UTD: No Date of Pneumonia Vaccine: Jun 15, 2009 Date of Influenza Vaccine: Apr 21, 2014 Seasonal Allergies Seasonal Allergies: Yes Past Medical History Surgeries: Yes (COLON RESECTION/COLOSTOMY/TAKEDOWN;PORT L CHEST;C- SCOPES;CARDIAC ABLATION) Abdominal, Bowel Surgery, Cardiac, Coronary Stent, Thyroidectomy Respiratory: Yes (NON-SMALL CELL LUNG CANCER) COPD Currently Using CPAP: Yes (PT USES CPAP AT HOME ) Currently Using BIPAP: No Cardiac: Yes (DVT L ARM 09/2019 POST PORT PLACEMENT;AFIB/FLUTTER-S/P ABLATION 03/24/20) Atrial Fibrillation, Deep Vein Thrombosis, Hypertension, Irregular Heartbeat Neurological: No Reproductive Disorders: No Sexually Transmitted Disease: No HIV/AIDS: No Genitourinary: Yes (TURP) Prostate Problems, Renal Failure, UTI-Chronic Gastrointestinal: Yes (COLON RESECTION/COLOSTOMY/TAKEDOWN FOR BENIGN POLYPS) Polyps Musculoskeletal: No Endocrine: Yes (THYROIDECTOMY FOR BENIGN DISEASE) Hypothyroidsim HEENT: No Cancer: Yes (NON-SMALL CELL LUNG CANCER DX 07/2019--HAS BEEN ON IMMUNOTHERAPY) Lung Did You Recieve Any Treatments: Yes What Type of Treatment Did You: Chemotherapy, Radiation Psychosocial: No Integumentary: No Blood Disorders: No Adverse Reaction/Blood Tranf: No Family Medical History COPD SOCIAL HISTORY: -ETOH--DENIES -DRUGS--DENIES -SMOKING--SMOKED 1 PPD--QUIT A FEW YEARS AGO PAST SURGICAL HISTORY: -COLON RESECTION FOR MULTIPLE BENIGN POLYPS, REQUIRED COLOSTOMY AND LATER TAKEDOWN -THYROIDECTOMY FOR BENIGN GOITER -CARDIAC CATH 03/21/20--NO INTERVENTION. SLOW FLOW IN ALL VESSELS. SMALL FIRST DIAGONAL ARTERY HAS MODERATE TO SEVERE OSTIAL DISEASE--NOT AMENABLE TO INTERVENTION -CARDIAC ABLATION FOR ATRIAL FIBRILLATION 03/24/20 -MULTIPLE COLONOSCOPIES -PORT LEFT CHEST Physical Exam Vital Signs Capillary Refill : Height, Weight, BMI Height: 6'2.00" Weight: 230lbs. 0.0oz. 104.667486mz; 27.00 BMI Method:Stated General Appearance: WD/WN, mild distress HEENT: PERRL/EOMI, pharynx normal Cardiovascular: normal peripheral pulses, regular rate, rhythm Respiratory: no respiratory distress, no accessory muscle use Gastrointestinal: non tender, soft Extremities: normal range of motion, normal inspection, normal capillary refill Neurologic/Psychiatric: alert, normal mood/affect, oriented x 3 Skin: normal color, warm/dry Progress/Results/Core Measures Suspected Sepsis SIRS Temperature: Pulse: Respiratory Rate: Blood Pressure / Mean: Results/Orders My Orders Orders - HUNG MISHRA Ua Culture If Indicated (12/28/20 03:31) Vital Signs/I&O Capillary Refill : Progress Note #1: Time: 03:22 Progress Note Plan to flush his catheter with 30 mL aliquots to see if we can get it flowing again. Progress Note #2: Time: 03:37 Progress Note Catheter was flushed and is flowing again. He is feeling better. Education was given. Departure Impression Primary Impression: Complication, blocked Manriquez catheter Qualified Codes: T83.091A - Other mechanical complication of indwelling urethral catheter, initial encounter Disposition: 01 HOME, SELF-CARE Condition: Stable Departure-Patient Inst. Decision time for Depature: 03:37 Referrals: Eddi BLOUNT MD, WILLIAM J DO (PCP/Family) Primary Care Physician Patient Instructions: How to Care for Your Manriquez Catheter, Male Add. Discharge Instructions: 30 mL flushes at a time to try and break blockage up. Return to the ER or to your urologist clinic if you are having difficulty chuck ining your Manriquez catheter. Drink plenty of water. HUNG MISHRA Dec 28, 2020 03:24
[2020-12-28 03:41] VITALS: BP 139/90
== END 2020-12-28 03:45 | disposition home or self-care (01) ==
LOC: EDUNIT# 03:09 → ER 03:11
DX: T83.098A Other mechanical complication of other urinary catheter, initial encounter (principal); J44.9 Chronic obstructive pulmonary disease, unspecified; I10 Essential (primary) hypertension; I48.91 Unspecified atrial fibrillation; E03.9 Hypothyroidism, unspecified; Z87.891 Personal history of nicotine dependence; Z79.890 Hormone replacement therapy; Z79.899 Other long term (current) drug therapy
CPT/HCPCS: 99281

== ENCOUNTER 2021-02-15 20:35 | Observation (INO) | payer MEDICARE, OTHER ==
[~2021-02-15] VITALS: Ht 187 cm; Wt 93.8 kg
[2021-02-15 21:02] LABS: BASOPHILS % (AUTO) 0 % (0-10); EOSINOPHILS % (AUTO) 0 % (0-10); HEMATOCRIT 34 % (40-54); HEMOGLOBIN 10.7 g/dL (13.3-17.7); LYMPHOCYTES # (AUTO) 0.5 10^3/uL (1.0-4.0); LYMPHOCYTES % (AUTO) 7 % (12-44); MEAN CORPUSCULAR HEMOGLOBIN 26 pg (25-34); MEAN CORPUSCULAR HGB CONC 31 g/dL (32-36); MEAN CORPUSCULAR VOLUME 84 fL (80-99); MEAN PLATELET VOLUME 9.3 fL (9.0-12.2); MONOCYTES # (AUTO) 0.8 10^3/uL (0.0-1.0); MONOCYTES % (AUTO) 11 % (0-12); NEUTROPHILS # (AUTO) 5.9 10^3/uL (1.8-7.8); NEUTROPHILS % (AUTO) 82 % (42-75); PLATELET COUNT 197 10^3/uL (130-400); WHITE BLOOD COUNT 7.2 10^3/uL (4.3-11.0)
[2021-02-15] MEDS ORDERED: NS IV 1000 ML 1,000 ML IV SCH (21:15)
[2021-02-15 21:28] LABS: ALBUMIN 3.7 GM/DL (3.2-4.5); BAND NEUTROPHILS 0 %; BASOPHILS % (MANUAL) 0 %; BILIRUBIN,TOTAL 0.4 MG/DL (0.1-1.0); CALCIUM 9.5 MG/DL (8.5-10.1); CREATININE SERUM 1.2 MG/DL (0.60-1.30); ELLIPT/OVALOCYTES SLIGHT; EOSINOPHILS % (MANUAL) 0 %; LYMPHOCYTES % (MANUAL) 5 %; MONOCYTES % (MANUAL) 8 %; NEUTROPHILS % (MANUAL) 87 %; POTASSIUM 3.6 MMOL/L (3.6-5.0); TOTAL PROTEIN 6.7 GM/DL (6.4-8.2)
--- NOTE | 2021-02-15 21:48 | ED Neurological Problem ---
General Chief Complaint: Altered Mental Status Stated Complaint: UTI Source: patient, family Exam Limitations: no limitations (ROSA WHITESIDE,MED STUDENT) History of Present Illness Date Seen by Provider: Feb 15, 2021 Time Seen by Provider: 20:41 Initial Comments Sara Irizarry is a 65yo M with PMH of lung cancer who presents with CC of AMS. His reports that 2 days ago Sara was noted to be febrile and was diagnosed with a UTI, and that levofloxacin was started. He had taken two doses of this prior to visiting the ED. The following day at approximately 15:00 he went into his office and would not come out, stating that he was "working on new spreadsheets and developing an kimberly". He did not sleep that night, and states that he feels "the best he ever has". Today he had a minor fall as well, which he attributes to weakness. His states that he has not eaten or drank anything today, and only urinated a small amount. He denies LOC, dysuria, chest pain, SOB, headache, or n/v/d. Timing/Duration: increasing Severity: moderate Associated Symptoms: confusion (ROSA WHITESIDE,MED STUDENT) Initial Comments Patient was seen and examined by me as well during initial assessment. He appears to have no focal motor deficits. His speech is rather odd and he is trying to speak in algebra and [employer] terms to communicate. He seems to comprehend statements and questions and will follow instructions. His NIH score was 1 because of inability or unwillingness to read. states he has never had an episode like this in the past. Other than Levaquin he has not started any new medications and he has taken Levaquin in the past. During the course of conversation he increasingly uses pointing and gestures during communication as well. His lung cancer is currently in remission. He has cardiac history including atrial fibrillation and takes Eliquis and amiodarone. He recently had complications from TURP requiring Manriquez catheter placement for obstruction. He recently has been performing straight caths after voids at home to ensure he completely empties his bladder. (TADEO BLOOD MD) Allergies and Home Medications Allergies Coded Allergies: chlorthalidone (Verified Allergy, Unknown, 12/20/20) DIZZINESS Home Medications Albuterol Sulfate 1 Puff Puff, 2 PUFF INH Q4H PRN for SHORTNESS OF BREATH, (Reported) Amiodarone HCl 200 Mg Tablet, 400 MG PO DAILY, (Reported) TAKES 2 (200MG)TABS Atorvastatin Calcium 10 Mg Tablet, 10 MG PO DAILY, (Reported) Budesonide/Formoterol Fumarate 10.2 Gm Hfa.aer.ad, 2 PUFF IH BID, (Reported) Fluconazole 200 Mg Tablet, 200 MG PO DAILY Prescribed by: SHIRA HENSLEY on 12/25/202146 Guaifenesin/Pseudoephedrne HCl 1 Each Tab.er.12h, 1 EACH PO Q12H, (Reported) Levothyroxine Sodium 100 Mcg Tablet, 100 MCG PO DAILY, (Reported) Metformin HCl 500 Mg Tablet, 500 MG PO BID, (Reported) Metoprolol Tartrate 25 Mg Tablet, 12.5 MG PO BID, (Reported) TAKES OF A 25MG TAB Montelukast Sodium 10 Mg Tablet, 10 MG PO HS, (Reported) Polyethylene Glycol 3350 17 Gm Powd.pack, 17 GM PO DAILY PRN for CONSTIPATION- 2ND LINE, (Reported) Tamsulosin HCl 0.4 Mg Cap, 0.8 MG PO HS, (Reported) TAKES 2 (0.4MG) CAPS Tiotropium [place] 4 Gm Mist.inhal, 2 PUFF IH DAILY, (Reported) Patient Home Medication List Home Medication List Reviewed: Yes (TADEO BLOOD MD) Review of Systems Review of Systems Constitutional: no symptoms reported, see HPI Eyes: No Symptoms Reported Ears, Nose, Mouth, Throat: no symptoms reported Respiratory: no symptoms reported Cardiovascular: no symptoms reported Gastrointestinal: no symptoms reported Genitourinary: no symptoms reported Musculoskeletal: joint swelling (R elbow) Skin: no symptoms reported Psychiatric/Neurological: See HPI Endocrine: No Symptoms Reported Hematologic/Lymphatic: No Symptoms Reported (ROSA WHITESIDE,MED STUDENT) Past Jodhoxv-Zxxdyp-Geyhmn Hx Patient Social History Tobacco Use?: No Use of E-Cig and/or Vaping dev: No Substance use?: No Alcohol Use?: No Pt feels they are or have been: No (ROSA WHITESIDE,MED STUDENT) Immunizations Up To Date Tetanus Booster (TDap): Unknown PED Vaccines UTD: No Influenza Vaccine Up-to-Date: No; Not Current First/Initial COVID19 Vaccinat: Second COVID19 Vaccination Rodo: (ROSA WHITESIDE,MED STUDENT) Seasonal Allergies Seasonal Allergies: Yes (ROSA WHITESIDE,MED STUDENT) Past Medical History Surgeries: Yes (COLON RESECTION/COLOSTOMY/TAKEDOWN;PORT L CHEST;C- SCOPES;CARDIAC ABLATION) Abdominal, Bowel Surgery, Cardiac, Coronary Stent, Thyroidectomy Respiratory: Yes (NON-SMALL CELL LUNG CANCER) COPD Currently Using CPAP: Yes (PT USES CPAP AT HOME ) Currently Using BIPAP: No Cardiac: Yes (DVT L ARM 09/2019 POST PORT PLACEMENT;AFIB/FLUTTER-S/P ABLATION 03/24/20) Atrial Fibrillation, Deep Vein Thrombosis, Hypertension, Irregular Heartbeat Neurological: No Reproductive Disorders: No Sexually Transmitted Disease: No HIV/AIDS: No Genitourinary: Yes (TURP) Prostate Problems, Renal Failure, UTI-Chronic Gastrointestinal: Yes (COLON RESECTION/COLOSTOMY/TAKEDOWN FOR BENIGN POLYPS) Polyps Musculoskeletal: No Endocrine: Yes (THYROIDECTOMY FOR BENIGN DISEASE) Hypothyroidsim HEENT: No Cancer: Yes (NON-SMALL CELL LUNG CANCER DX 07/2019--HAS BEEN ON IMMUNOTHERAPY) Lung Did You Recieve Any Treatments: Yes What Type of Treatment Did You: Chemotherapy, Radiation Psychosocial: No Integumentary: No Blood Disorders: No Adverse Reaction/Blood Tranf: No (ROSA WHITESIDE,MED STUDENT) Family Medical History COPD SOCIAL HISTORY: -ETOH--DENIES -DRUGS--DENIES -SMOKING--SMOKED 1 PPD--QUIT A FEW YEARS AGO PAST SURGICAL HISTORY: -COLON RESECTION FOR MULTIPLE BENIGN POLYPS, REQUIRED COLOSTOMY AND LATER TAKEDOWN -THYROIDECTOMY FOR BENIGN GOITER -CARDIAC CATH 03/21/20--NO INTERVENTION. SLOW FLOW IN ALL VESSELS. SMALL FIRST DIAGONAL ARTERY HAS MODERATE TO SEVERE OSTIAL DISEASE--NOT AMENABLE TO INTERVENTION -CARDIAC ABLATION FOR ATRIAL FIBRILLATION 03/24/20 -MULTIPLE COLONOSCOPIES -PORT LEFT CHEST (ROSA WHITESIDE,MED STUDENT) Physical Exam Vital Signs Vital Signs - First Documented 02/15/21 20:40 Temp 36.2 Pulse 76 Resp 18 B/P (MAP) 162/93 (116) Pulse Ox 94 O2 Delivery Room Air (TADEO BLOOD MD) Vital Signs Capillary Refill : (ROSA WHITESIDE,MED STUDENT) Height, Weight, BMI Height: 6'2.00" Weight: 230lbs. 0.0oz. 104.440945xl; 22.00 BMI Method:Stated General Appearance: no apparent distress HEENT: PERRL/EOMI, normal ENT inspection Neck: full range of motion Respiratory: chest non-tender, normal breath sounds, no respiratory distress Cardiovascular: normal peripheral pulses Gastrointestinal: non tender, soft Extremities: normal range of motion Neurologic/Psychiatric: no motor/sensory deficits, alert, oriented x 3 Crainal Nerves: normal hearing, PERRL, abnormal speech Motor/Sensory: no motor deficit, no sensory deficit Skin: normal color, warm/dry (ROSA WHITESIDE,MED STUDENT) Stroke NIH Stroke Scale Assessment Select: Initial Level of Consciousness: 0=Alert (0), Level of Consciousness- Questions: 0=Answers both month/age (0), LOC Commands: 0=Performs both tasks (0), Gaze: Normal (0), Visual [place]: 0=No visual loss (0), Facial Movement (Facial Paresis): 0=Normal symmetrical mnt (0), Motor Function-Arms Right: 0=No drift (0), Motor Function-Arms Left: 0=No drift (0), Motor Function-Legs Right: 0=No drift (0), Motor Function-Legs Left: 0=No drift (0), Limb Ataxia: 0=Absent (0), Sensory: 0=Normal:no loss (0), Best Language: 1=Mild to moderat aphasia (1), Dysarthria: 0=Normal (0), Extinction & Inattention: 0=No abnormality (0), Total: 1 Progress/Results/Core Measures Results/Orders Lab Results Laboratory Tests Test 02/15/21 20:50 02/15/21 21:40 02/15/21 22:59 02/15/21 23:25 Range/Units White Blood Count 7.2 4.3-11.0 10^3/uL Red Blood Count 4.09 L 4.30-5.52 10^6/uL Hemoglobin 10.7 L 13.3-17.7 g/dL Hematocrit 34 L 40-54 % Mean Corpuscular Volume 84 80-99 fL Mean Corpuscular Hemoglobin 26 25-34 pg Mean Corpuscular Hemoglobin Concent 31 L 32-36 g/dL Red Cell Distribution Width 14.5 10.0-14.5 % Platelet Count 197 130-400 10^3/uL Mean Platelet Volume 9.3 9.0-12.2 fL Immature Granulocyte % (Auto) 0 % Neutrophils (%) (Auto) 82 H 42-75 % Lymphocytes (%) (Auto) 7 L 12-44 % Monocytes (%) (Auto) 11 0-12 % Eosinophils (%) (Auto) 0 0-10 % Basophils (%) (Auto) 0 0-10 % Neutrophils # (Auto) 5.9 1.8-7.8 10^3/uL Lymphocytes # (Auto) 0.5 L 1.0-4.0 10^3/uL Monocytes # (Auto) 0.8 0.0-1.0 10^3/uL Eosinophils # (Auto) 0.0 0.0-0.3 10^3/uL Basophils # (Auto) 0.0 0.0-0.1 10^3/uL Immature Granulocyte # (Auto) 0.0 0.0-0.1 10^3/uL Neutrophils % (Manual) 87 % Lymphocytes % (Manual) 5 % Monocytes % (Manual) 8 % Eosinophils % (Manual) 0 % Basophils % (Manual) 0 % Band Neutrophils 0 % Elliptocytes SLIGHT Sodium Level 138 135-145 MMOL/L Potassium Level 3.6 3.6-5.0 MMOL/L Chloride Level 104 98-107 MMOL/L Carbon Dioxide Level 25 21-32 MMOL/L Anion Gap 9 5-14 MMOL/L Blood Urea Nitrogen 22 H 7-18 MG/DL Creatinine 1.20 0.60-1.30 MG/DL Estimat Glomerular Filtration Rate 60 BUN/Creatinine Ratio 18 Glucose Level 113 H 70-105 MG/DL Calcium Level 9.5 8.5-10.1 MG/DL Corrected Calcium 9.7 8.5-10.1 MG/DL Total Bilirubin 0.4 0.1-1.0 MG/DL Aspartate Amino Transf (AST/SGOT) 22 5-34 U/L Alanine Aminotransferase (ALT/SGPT) 25 0-55 U/L Alkaline Phosphatase 58 40-136 U/L C-Reactive Protein High Sensitivity 5.71 H 0.00-0.50 MG/DL Total Protein 6.7 6.4-8.2 GM/DL Albumin 3.7 3.2-4.5 GM/DL Thyroid Stimulating Hormone (TSH) 0.80 0.35-4.94 UIU/ML Free Thyroxine 1.03 0.70-1.48 NG/DL Glucometer 111 H 70-110 MG/DL Urine Color YELLOW Urine Clarity SL CLOUDY Urine pH 6.0 5-9 Urine Specific Carl[place] 1.010 L 1.016-1.022 Urine Protein NEGATIVE NEGATIVE Urine Glucose (UA) NEGATIVE NEGATIVE Urine Ketones NEGATIVE NEGATIVE Urine Nitrite NEGATIVE NEGATIVE Urine Bilirubin NEGATIVE NEGATIVE Urine Urobilinogen 0.2 < = 1.0 MG/DL Urine Leukocyte Esterase TRACE H NEGATIVE Urine RBC (Auto) 3+ H NEGATIVE Urine RBC 2-5 H /HPF Urine WBC 2-5 /HPF Urine Squamous Epithelial Cells RARE /HPF Urine Crystals NONE /LPF Urine Bacteria TRACE /HPF Urine Casts PRESENT /LPF Urine Hyaline Casts 0-2 H /LPF Urine Mucus NEGATIVE /LPF Urine Culture Indicated NO Influenza Type A (RT-PCR) Not Detected Not Detecte Influenza Type B (RT-PCR) Not Detected Not Detecte SARS-CoV-2 RNA (RT-PCR) Negative Not Detecte Test 02/16/21 00:00 Range/Units Urine Opiates Screen NEGATIVE NEGATIVE Urine Oxycodone Screen NEGATIVE NEGATIVE Urine Methadone Screen NEGATIVE NEGATIVE Urine Propoxyphene Screen NEGATIVE NEGATIVE Urine Barbiturates Screen NEGATIVE NEGATIVE Ur Tricyclic Antidepressants Screen NEGATIVE NEGATIVE Urine Phencyclidine Screen NEGATIVE NEGATIVE Urine Amphetamines Screen NEGATIVE NEGATIVE Urine Methamphetamines Screen NEGATIVE NEGATIVE Urine Benzodiazepines Screen NEGATIVE NEGATIVE Urine Cocaine Screen NEGATIVE NEGATIVE Urine Cannabinoids Screen NEGATIVE NEGATIVE (TADEO BLOOD MD) My Orders Orders - TADEO BLOOD MD Ua Culture If Indicated (02/15/21 20:41) Cbc With Automated Diff (02/15/21 20:47) Comprehensive Metabolic Panel (02/15/21 20:47) Hs C Reactive Protein (02/15/21 20:47) Ed Iv/Invasive Line Start (02/15/21 20:47) Bladder Scan (02/15/21 20:47) Thyroid Stimulating Hormone (02/15/21 20:49) Free T4 (Free Thyroxine) (02/15/21 20:49) Manual Differential (02/15/21 20:50) Ns Iv 1000 Ml (Sodium Chloride 0.9%) (02/15/21 21:15) Ct Head Wo-R/O Stroke (02/15/21 21:09) Accucheck Stat ONCE (02/15/21 21:29) Ekg Tracing (02/15/21 21:29) Monitor-Rhythm Ecg Trace Only (02/15/21 21:29) Ct Angio Head/Neck (02/15/21 22:37) Iohexol Injection (Omnipaque 350 Mg/Ml 1 (02/15/21 23:30) Received Contrast (Hold Metformin- Contr (02/15/21 23:30) Sodium Chloride Flush (Catheter Flush Sy (02/15/21 23:30) Ns (Ivpb) (Sodium Chloride 0.9% Ivpb Bag (02/15/21 23:30) Covid 19 Inhouse Test (02/15/21 23:19) Influenza A And B By Pcr (02/15/21 23:19) (TADEO BLOOD MD) Medications Given in ED Current Medications Medications Dose Ordered Sig/Silvana Route Start Time Stop Time Status Last Admin Dose Admin Iohexol 100 ml ONCE ONCE IV 02/15/21 23:30 02/15/21 23:31 DC 02/15/21 23:25 75 ML Sodium Chloride 10 ml NEEDED PRN IV 02/15/21 23:30 02/15/21 23:25 10 ML Sodium Chloride 100 ml ONCE ONCE IV 02/15/21 23:30 02/15/21 23:31 DC 02/15/21 23:25 80 ML (TADEO BLOOD MD) Vital Signs/I&O 02/15/21 20:40 Temp 36.2 Pulse 76 Resp 18 B/P (MAP) 162/93 (116) Pulse Ox 94 O2 Delivery Room Air (TADEO BLOOD MD) Progress Progress Note : Progress Note Patient was seen and examined. NIH stroke score was only 1. Last known well time was greater than 24 hours prior to arrival. Patient therefore was not a candidate for thrombolytic therapy. Etiology of symptoms was uncertain but stroke was not completely ruled out. CT of the head revealed no abnormalities. This was followed with CT angiogram of the head and neck. Consultation with [facility] stroke neurology with Dr. Novoa was sought at 2200. Based on the presentation her impression was this case for likely represented encephalopathy than stroke. She recommended MRI of the brain with and without contrast. Urine was clear of infection. I discussed the situation with patient and his . Recommendation was for admission to this facility with MRI in the morning. Use of anticoagulant such as Lovenox and Eliquis was held due to risk of potential bleeding if MRI were to show any evidence of stroke or other brain pathology. If MRI is negative, anticoagulation may resume. Consideration for transfer to a facility with neurology services was discussed. Unfortunately [facility] was on transfer diversion and [facility] in [place] did not have neurology consultation tonight. A more reasonable course of action seem to be to obtain MRI locally as that would be likely as fast as transfer given the current diversion of regional facilities and inability to perform long distance transfers at this hour. (TADEO BLODO MD) Initial ECG Impression Date: Feb 15, 2021 Initial ECG Impression Time: 21:54 Initial ECG Rate: 74 Initial ECG Rhythm: A Fib/Flutter Comment Rate controlled atrial flutter with no ST elevation or depression. No axis deviation. (TADEO BLOOD MD) Diagnostic Imaging Diagonstic Imaging: CT Plain Films/CT/US/NM/MRI: head Comments CT head viewed by me and report reviewed. See report below: NAME: SARA IRIZARRY [facility] REC#: [id number] PT STATUS: REG ER : 1955 PHYSICIAN: TADEO BLOOD MD ADMIT DATE: 02/15/21/ER Signed Date of Exam:02/15/21 CT HEAD WO-R/O STROKE PROCEDURE: CT head w/o, r/o stroke. TECHNIQUE: Multiple contiguous axial images were obtained through the brain without the use of intravenous contrast. Auto Exposure Controls were utilized during the CT exam to meet ALARA standards for radiation dose reduction. INDICATION: 65-year-old male, neuro deficit, altered mental status. Non-localized symptoms. CORRELATION: 03/20/2020. FINDINGS: There are diffuse atrophic changes with prominence of the ventricles and sulci. There are scattered areas of decreased attenuation, nonspecific but likely changes of chronic small vessel ischemic disease. There is otherwise normal franco-white differentiation. No abnormal areas of attenuation to suggest edema from ischemia. There is no midline shift or mass effect. No evidence for acute intracranial hemorrhage or abnormal extra-axial fluid collection. Bony calvarium is intact. Paranasal sinuses are clear. Mastoid air cells also appear clear. IMPRESSION: 1. No CT evidence for acute intracranial abnormality. 2. Age-related atrophic changes with changes of small vessel ischemic disease. Dictated by: Dictated on workstation # [id number] Dict: 02/15/[id number] Trans: 02/15/212353 [facility] [id number] Interpreted by: JOE CORONADO DO Electronically signed by: JOE CORONADO DO 02/15/21 4806 Diagonstic Imaging: CT Plain Films/CT/US/NM/MRI: other (Angiogram head and neck) Comments CT angiogram head and neck viewed by me and report reviewed. See report below: NAME: SARA IRIZARRY [facility] REC#: [id number] PT STATUS: REG ER : 1955 PHYSICIAN: TADEO BLOOD MD ADMIT DATE: 02/15/21/ER Signed Date of Exam:02/15/21 CT ANGIO HEAD/NECK PROCEDURE: CT angiography of the head and CT angiography of the neck with and without contrast. TECHNIQUE: Contiguous noncontrast images were obtained from the skull base through the vertex. After intravenous contrast administration, helical CT angiography of the neck was performed. Source data was reformatted into 3D MIP projections. Delayed post contrast acquisition was also obtained. Auto Exposure Controls were utilized during the CT exam to meet ALARA standards for radiation dose reduction. INDICATION: 65-year-old male, altered mental status. COMPARISON: None FINDINGS: CTA NECK: Aorta: Aortic arch is limited in evaluation with artifact present. Does appear relatively normal, with standard three vessel branching pattern. Right Common/Internal/External Carotid Artery: Patent and without significant stenosis. Left Common/Internal/External Carotid Artery: Patent and without significant stenosis. Vertebral arteries: Codominant. Patent and without significant stenosis. Non-vascular: There is rather significant fibrosis and soft tissue thickening along the mediastinal region of the right upper lung field. Extends below the hilum. Emphysematous changes of the lung apices. There is presence of a left-sided Pnvjqk-a-Pujs catheter tip extending below the area imaged. The airway is patent. CTA HEAD: Anterior Circulation: The intracranial internal carotid arteries are patent. The bilateral middle cerebral arteries are patent and without stenosis. The anterior cerebral arteries are patent and without stenosis. Posterior Circulation: The bilateral intracranial segments of the vertebral arteries are patent. The basilar artery is patent and without stenosis. The posterior cerebral arteries are patent. Post Contrast Head: No concerning enhancement on delayed post-contrast imaging. IMPRESSION: 1. Negative CTA of the head. 2. Negative CTA of the neck. 3. Likely fibrosis of the upper mediastina right right upper lobe. May very well be owing to prior radiation treatment. Clinical correlation regarding cancer history/treatment is recommended. Dictated by: Dictated on workstation # [id number] Dict: 02/15/[id number] Trans: 02/16/215 DO Interpreted by: JOE CORONDAO DO Electronically signed by: JOE CORONADO DO 02/16/215 (TADEO BLOOD MD) Departure Communication (Admissions) Time/Spoke to Admitting Phy: 00:56 Dr. Stuart (TADEO BLOOD MD) Impression Primary Impression: Encephalopathy Disposition: ADMITTED INPATIENT Condition: Stable Admissions Decision to Admit Reason: Admit from ER (General) Decision to Admit/Date: Feb 16, 2021 Time/Decision to Admit Time: 00:56 (TADEO BLOOD MD) Departure-Patient Inst. Referrals: ELLIE MITTAL DO (PCP/Family) Primary Care Physician Medical Student Attestation and Attending Note: I have personally interviewed and examined this patient along with Romaine Whiteside, MS 4. I have reviewed student documentation including history, physical, and assessments. I agree with the documentation except where otherwise noted. Exam: General: Alert, oriented, slightly agitated, well developed HEENT: Normocephalic and atraumatic Heart: Regular rate and rhythm without murmur Lungs: Clear to auscultation bilaterally with normal effort Abdomen: Soft, nontender, nondistended, normal bowel sounds Neuropsych: Alert, oriented, no focal motor deficits. Difficulty with speech. Patient attempts to speak in the form of computer language and mathematics. He does not read during the NIH scoring test. Skin: Warm and dry without rashes (TADEO BLOOD MD) ROSA WHITESIDE,MED STUDENT Feb 15, 2021 21:48 TADEO BLOOD MD Feb 16, 2021 01:44
[2021-02-15 21:49] LABS: FREE T4 (FREE THYROXINE) 1.03 NG/DL (0.70-1.48)
--- NOTE | 2021-02-15 21:51 | Diagnostic Imaging Report ---
PROCEDURE: CT head w/o, r/o stroke. TECHNIQUE: Multiple contiguous axial images were obtained through the brain without the use of intravenous contrast. Auto Exposure Controls were utilized during the CT exam to meet ALARA standards for radiation dose reduction. INDICATION: 65-year-old male, neuro deficit, altered mental status. Non-localized symptoms. CORRELATION: 03/20/2020. FINDINGS: There are diffuse atrophic changes with prominence of the ventricles and sulci. There are scattered areas of decreased attenuation, nonspecific but likely changes of chronic small vessel ischemic disease. There is otherwise normal franco-white differentiation. No abnormal areas of attenuation to suggest edema from ischemia. There is no midline shift or mass effect. No evidence for acute intracranial hemorrhage or abnormal extra-axial fluid collection. Bony calvarium is intact. Paranasal sinuses are clear. Mastoid air cells also appear clear. IMPRESSION: 1. No CT evidence for acute intracranial abnormality. 2. Age-related atrophic changes with changes of small vessel ischemic disease. Dictated by: Dictated on workstation # [id number]
[2021-02-15 23:07] LABS: BILIRUBIN,URINE NEGATIVE (NEGATIVE); CLARITY,URINE SL CLOUDY; COLOR,URINE YELLOW; GLUCOSE, URINE (UA) NEGATIVE (NEGATIVE); KETONES,URINE NEGATIVE (NEGATIVE); LEUKOCYTE ESTERASE ,URINE TRACE (NEGATIVE); NITRITE,URINE NEGATIVE (NEGATIVE); PROTEIN,URINE NEGATIVE (NEGATIVE)
[2021-02-15 23:16] LABS: BACTERIA,URINE TRACE /HPF; HYALINE CASTS, URINE 0-2 /LPF; SQUAMOUS EPITHELIAL CELL,UR RARE /HPF
[2021-02-15] MEDS ORDERED: CATHETER FLUSH 10 ML SYR IV PRN (23:30)
[2021-02-15] MEDS ORDERED: HOLD METFORMIN - RECEIVED CONTRAST 20 ML VIAL IV SCH (23:30)
[2021-02-15] MEDS ORDERED: IOHEXOL 350 MG/ML 100 ML (OMNIPAQUE 350) VIAL IV ONE (23:30)
[2021-02-15] MEDS ORDERED: NS 100 ML (IVPB) BAG IV ONE (23:30)
[2021-02-16] VITALS (7 sets, daily range): BP systolic 117–181; BP diastolic 72–94
--- NOTE | 2021-02-16 00:08 | Diagnostic Imaging Report ---
PROCEDURE: CT angiography of the head and CT angiography of the neck with and without contrast. TECHNIQUE: Contiguous noncontrast images were obtained from the skull base through the vertex. After intravenous contrast administration, helical CT angiography of the neck was performed. Source data was reformatted into 3D MIP projections. Delayed post contrast acquisition was also obtained. Auto Exposure Controls were utilized during the CT exam to meet ALARA standards for radiation dose reduction. INDICATION: 65-year-old male, altered mental status. COMPARISON: None FINDINGS: CTA NECK: Aorta: Aortic arch is limited in evaluation with artifact present. Does appear relatively normal, with standard three vessel branching pattern. Right Common/Internal/External Carotid Artery: Patent and without significant stenosis. Left Common/Internal/External Carotid Artery: Patent and without significant stenosis. Vertebral arteries: Codominant. Patent and without significant stenosis. Non-vascular: There is rather significant fibrosis and soft tissue thickening along the mediastinal region of the right upper lung field. Extends below the hilum. Emphysematous changes of the lung apices. There is presence of a left-sided Zofvpj-o-Njgw catheter tip extending below the area imaged. The airway is patent. CTA HEAD: Anterior Circulation: The intracranial internal carotid arteries are patent. The bilateral middle cerebral arteries are patent and without stenosis. The anterior cerebral arteries are patent and without stenosis. Posterior Circulation: The bilateral intracranial segments of the vertebral arteries are patent. The basilar artery is patent and without stenosis. The posterior cerebral arteries are patent. Post Contrast Head: No concerning enhancement on delayed post-contrast imaging. IMPRESSION: 1. Negative CTA of the head. 2. Negative CTA of the neck. 3. Likely fibrosis of the upper mediastina right right upper lobe. May very well be owing to prior radiation treatment. Clinical correlation regarding cancer history/treatment is recommended. Dictated by: Dictated on workstation # [id number]
[2021-02-16] MEDS ORDERED: LORazepam INJ 2 MG/ML (ATIVAN) VIAL IVP ONE (02:00)
[2021-02-16 03:13] LABS: AMPHETAMINE SCREEN, URINE NEGATIVE (NEGATIVE); BARBITURATE SCREEN URINE NEGATIVE (NEGATIVE); BENZODIAZEPINES SCREEN URINE NEGATIVE (NEGATIVE); CANNABINOID SCREEN, URINE NEGATIVE (NEGATIVE); COCAINE SCREEN URINE NEGATIVE (NEGATIVE); METHADONE STAT NEGATIVE (NEGATIVE); METHAMPHETAMINE SCREEN URINE S NEGATIVE (NEGATIVE); OPIATE SCREEN URINE NEGATIVE (NEGATIVE); OXYCODONE STAT NEGATIVE (NEGATIVE); PROPOXYPHENE STAT NEGATIVE (NEGATIVE); TRICYCLIC ANTIDEPRESSANTS SCRE NEGATIVE (NEGATIVE)
[2021-02-16] MEDS ORDERED: HALOPERIDOL 5 MG/ML (HALDOL) VIAL IM PRN (03:15)
[2021-02-16] MEDS ORDERED: LORazepam INJ 2 MG/ML (ATIVAN) VIAL IV PRN (03:15)
[2021-02-16] MEDS ORDERED: HALOPERIDOL 2 MG (HALDOL) TABLET PO PRN (03:15)
[2021-02-16] MEDS: LEVOTHYROXINE 100 MCG (LEVOTHROID) TAB PO SCH (06:20)
[2021-02-16] MEDS: inSUlin ASPART (NovoLOG) 1 UNIT/0.01 ML (CHARGE PER UNIT) SC SCH ×4 (06:20→20:57)
[2021-02-16 06:34] LABS: HEMATOCRIT 32 % (40-54); HEMOGLOBIN 9.9 g/dL (13.3-17.7); MEAN CORPUSCULAR HGB CONC 31 g/dL (32-36); MONOCYTES # (AUTO) 0.9 10^3/uL (0.0-1.0)
[2021-02-16 06:36] LABS: BASOPHILS % (AUTO) 1 % (0-10); EOSINOPHILS % (AUTO) 0 % (0-10); LYMPHOCYTES # (AUTO) 0.6 10^3/uL (1.0-4.0); LYMPHOCYTES % (AUTO) 10 % (12-44); MEAN CORPUSCULAR HEMOGLOBIN 26 pg (25-34); MEAN CORPUSCULAR VOLUME 83 fL (80-99); MONOCYTES % (AUTO) 15 % (0-12); NEUTROPHILS # (AUTO) 4.5 10^3/uL (1.8-7.8); NEUTROPHILS % (AUTO) 74 % (42-75); PLATELET COUNT 169 10^3/uL (130-400)
[2021-02-16 06:43] LABS: POTASSIUM 3.4 MMOL/L (3.6-5.0)
[2021-02-16 06:44] LABS: CALCIUM 8.4 MG/DL (8.5-10.1)
[2021-02-16 06:49] LABS: CREATININE SERUM 0.86 MG/DL (0.60-1.30)
[2021-02-16] MEDS: meTOprolol TARTRATE 25 MG (LOPRESSOR) TABLET PO SCH ×2 (09:32→20:05)
[2021-02-16] MEDS: AMIODARONE 200 MG (CORDARONE) TAB PO SCH ×2 (09:32→20:05)
[2021-02-16] MEDS ORDERED: LORazepam INJ 2 MG/ML (ATIVAN) VIAL IVP PRN (11:00)
--- NOTE | 2021-02-16 13:02 | History & Physical-Hospitalist ---
JOSEPHNEGIN 02/16/21 1302: History of Present Illness HPI/Chief Complaint Geo Hernandez is a 65y/o M who presents with altered mental status. provided history. She states that pt was diagnosed with a UTI 3 days ago and started on levofloxacin. The AMS began the day after he started taking the medication. Reports that she first noticed the pt acting strange 2 days ago when he went into his office to work on the computer. When she asked what he was working on he said spreadsheets and algebraic equations. She says that he normal dislikes math. Yesterday he then told her he was working on a phone application but he just kept pushing on the same area over and over again. The strange behavior continued when he then went and worked with stuff in his gun case for 3 hours she said. Later he then had a fall. reports that she eventually grew oli rned and brought him into the ER. She says that he had taken all his scheduled doses of the Levofloxacin and the last dose was taken before he was brought into the ER. Now pt is making abnormal hand gestures and hardly talking but was able to answer what medication he was allergic to. Mostly he will shake his head yes or no when asked questions and will give thumbs up. Source: family Date Seen 02/16/21 Time Seen by a Provider: 08:40 Attending Physician Taylor Stuart DO PCP Brett Galan DO Referring Physician Date of Admission Feb 16, 2021 at 01:42 Home Medications & Allergies Home Medications Reviewed patient Home Medication Reconciliation performed by pharmacy medication reconciliations resource technician and/or nursing. Patients Allergies have been reviewed. Allergies Allergies Coded Allergies chlorthalidone (Verified Allergy, Unknown, 12/20/20) DIZZINESS Past Rojgcix-Rvbzpq-Ccjoag Hx Patient Social History Marrital Status: Tobacco Use?: No Smoking Status: Former Smoker Use of E-Cig and/or Vaping dev: No Substance use?: No Alcohol Use?: No Pt feels they are or have been: No Immunizations Up To Date Date of Influenza Vaccine: Apr 21, 2014 First/Initial COVID19 Vaccinat: Second COVID19 Vaccination Rodo: Tetanus Booster (TDap): Unknown Hepatitis A: No Hepatitis B: No PED Vaccines UTD: No Date of Pneumonia Vaccine: Jun 15, 2009 Seasonal Allergies Seasonal Allergies: Yes Current Status Advance Directives: Yes Communicates: Verbally Primary Language: Icelandic Preferred Spoken Language: Icelandic Is interpretation needed?: No Sensory deficits: Vision impairment Past Medical History Surgeries: Abdominal, Bowel Surgery, Cardiac, Coronary Stent, Thyroidectomy COPD Currently Using CPAP: Yes (PT USES CPAP AT HOME ) Currently Using BIPAP: No Atrial Fibrillation, Deep Vein Thrombosis, Hypertension, Irregular Heartbeat Sexually Transmitted Disease: No HIV/AIDS: No Prostate Problems, Renal Failure, UTI-Chronic Polyps Hypothyroidsim Lung Did You Recieve Any Treatments: Yes What Type of Treatment Did You: Chemotherapy, Radiation Blood Disorders: No Adverse Reaction/Blood Tranf: No Family Medical History COPD SOCIAL HISTORY: -ETOH--DENIES -DRUGS--DENIES -SMOKING--SMOKED 1 PPD--QUIT A FEW YEARS AGO PAST SURGICAL HISTORY: -COLON RESECTION FOR MULTIPLE BENIGN POLYPS, REQUIRED COLOSTOMY AND LATER TAKEDOWN -THYROIDECTOMY FOR BENIGN GOITER -CARDIAC CATH 03/21/20--NO INTERVENTION. SLOW FLOW IN ALL VESSELS. SMALL FIRST DIAGONAL ARTERY HAS MODERATE TO SEVERE OSTIAL DISEASE--NOT AMENABLE TO INTERVENTION -CARDIAC ABLATION FOR ATRIAL FIBRILLATION 03/24/20 -MULTIPLE COLONOSCOPIES -PORT LEFT CHEST Review of Systems EENTM: No throat pain Respiratory: No short of breath Cardiovascular: No chest pain, No palpitations Psychiatric/Neurological: Denies Numbness Physical Exam Physical Exam Vital Signs Vital Signs - First Documented 02/15/21 20:40 Temp 36.2 Pulse 76 Resp 18 B/P (MAP) 162/93 (116) Pulse Ox 94 O2 Delivery Room Air Capillary Refill : Less Than 3 Seconds Height, Weight, BMI Height: 6'2.00" Weight: 230lbs. 0.0oz. [id number]; 26.65 BMI Method:Stated General Appearance: WD/WN Neck: Full Range of Motion, Normal Inspection, Non Tender Respiratory: Lungs Clear, Normal Breath Sounds Cardiovascular: Regular Rate, Rhythm, No Murmur Gastrointestinal: Non Tender, Soft Extremity: No Pedal Edema Neurologic/Psychiatric: Other (Hands were shaking. Pt was constantly moving hands (Pointing, giving a thumbs up and other general hand/finger movements)) Results Results/Procedures Labs Laboratory Tests 02/15/21 20:50 02/16/21 06:19 Patient resulted labs reviewed. Assessment/Plan Admission Diagnosis 1. encephlapathy Assessment and Plan Assessment- 1.Encephlapathy- due to levofloxacin side effects 2.UTI 3.Diabetes Plan- Encephlapathy due to levofloxacin seems likely due to timing of AMS. Levofloxacin stopped. Brain MRI w/o contrast ordered. Ativan was ordered due to pt being not able to hold still. Head CT was reviewed. CONNIE DUNN MD 02/16/21 5537: Past Qdpvbni-Hyhrkm-Uescam Hx Family Medical History No Pertinent Family Hx Review of Systems Constitutional: no symptoms reported Physical Exam Physical Exam HEENT: PERRL/EOMI, Pharynx Normal Respiratory: No Respiratory Distress Cardiovascular: No Edema Gastrointestinal: Normal Bowel Sounds Extremity: Normal Inspection, Non Tender Neurologic/Psychiatric: Alert, Disoriented, Other (Tremulous, disoriented) Skin: Normal Color, Warm/Dry Results Results/Procedures Imaging: Reviewed Imaging Report Assessment/Plan Admission Diagnosis Admission Status: Observation Assessment and Plan Acute encephalopathy Adverse effect of medication Toxic psychosis Likley due to Levaquin, discontinued CT Head negative for acute pathology, chronic small vessel disease MRI Brain without acute abnormalities, chronic small vessel disease Electrolytes normal Urine toxicology negative UA negative TSH and T4 normal Continue to monitor UTI Resolved UA on arrival without evidence of UTI Levaquin stopped, no further antibiotics indicated HTN Hypothyroid BPH COPD Paroxysmal AFib Continue home meds DVT prophylaxis: already receiving therapeutic anticoagulation Diagnosis/Problems Diagnosis/Problems (1) Acute encephalopathy Status: Acute (2) Toxic psychosis, with hallucinations Status: Acute (3) Adverse effects of medication Status: Acute (4) UTI (urinary tract infection) Status: Acute (5) BPH (benign prostatic hyperplasia) Status: Chronic (6) COPD (chronic obstructive pulmonary disease) Status: Chronic (7) Hypothyroidism Status: Chronic (8) HTN (hypertension) Status: Chronic (9) History of lung cancer Status: Chronic Supervisory-Addendum Brief Verification & Attestation Participated in pt care: history, MDM, physical Personally performed: exam, history, MDM, supervision of care Care discussed with: Medical Student Procedures: n/a Results interpretation: Verified all documentation A medical student performed and documented this service in my presence. I reviewed and verified all information documented by the medical student and made modifications to such information, when appropriate. I personally performed the physical exam and medical decision making. NEGIN RUIZ Feb 16, 2021 13:02 CONNIE DUNN MD Feb 16, 2021 17:17
[2021-02-16] MEDS ORDERED: GADOBUTROL 10 MMOL/10 ML (GADAVIST) VIAL IV ONE (13:15)
[2021-02-16] MEDS ORDERED: LORA10TA7 PO (14:21)
[2021-02-16] MEDS ORDERED: ASPI-1238 PO (14:21)
[2021-02-16] MEDS ORDERED: LEVO500T80 PO (14:21)
[2021-02-16] MEDS ORDERED: APIX5TAB PO (14:21)
[2021-02-16] MEDS ORDERED: FLUT9.9S NSEACH (14:21)
--- NOTE | 2021-02-16 14:37 | Diagnostic Imaging Report ---
PROCEDURE: MR imaging of the brain with and without contrast. TECHNIQUE: Multiplanar, multisequence MR imaging of the brain was performed with and without contrast. INDICATION: Confusion, encephalopathy. COMPARISON: No prior MRI brain study is available for comparison. FINDINGS: There is some prominence to the ventricles and sulci consistent with cerebral atrophy. There are periventricular and subcortical white matter signal foci consistent with chronic microvascular ischemia. Study is somewhat compromised due to patient motion. No acute intra-axial or extra-axial hemorrhage is detected. No diffusion restriction is identified to suggest acute ischemia. The normal expected flow-voids within the carotid siphons are seen. Corpus callosum is unremarkable. Sella and parasellar structures are unremarkable. No abnormal enhancement is identified following contrast administration. IMPRESSION: Limited by motion artifact. There are changes of chronic microvascular ischemia and cerebral atrophy. No acute intracranial process is detected. Dictated by: Dictated on workstation # [id number]
[2021-02-16] MEDS ORDERED: TAMSULOSIN 0.4 MG (FLOMAX) CAP PO SCH (18:00)
[2021-02-16] MEDS: APIXABAN 5 MG (ELIQUIS) TABLET PO SCH (20:05)
[2021-02-16] MEDS: RT--FLUTICASONE/SALMETEROL 232-14 (AIRDUO RespiCLICK) IH SCH (21:01)
[2021-02-17 04:16] VITALS: BP 136/72
[2021-02-17] MEDS: inSUlin ASPART (NovoLOG) 1 UNIT/0.01 ML (CHARGE PER UNIT) SC SCH ×2 (05:27→10:07)
[2021-02-17] MEDS: LEVOTHYROXINE 100 MCG (LEVOTHROID) TAB PO SCH (06:29)
[2021-02-17] MEDS: RT--FLUTICASONE/SALMETEROL 232-14 (AIRDUO RespiCLICK) IH SCH (07:04)
[2021-02-17] MEDS: AMIODARONE 200 MG (CORDARONE) TAB PO SCH (07:57)
[2021-02-17] MEDS: APIXABAN 5 MG (ELIQUIS) TABLET PO SCH (07:57)
[2021-02-17] MEDS: meTOprolol TARTRATE 25 MG (LOPRESSOR) TABLET PO SCH (07:58)
[2021-02-17 08:00] VITALS: BP 148/88
[2021-02-17 08:43] LABS: HEMATOCRIT 35 % (40-54); HEMOGLOBIN 10.7 g/dL (13.3-17.7); MEAN CORPUSCULAR HEMOGLOBIN 26 pg (25-34); MEAN CORPUSCULAR HGB CONC 30 g/dL (32-36); MEAN CORPUSCULAR VOLUME 85 fL (80-99); PLATELET COUNT 184 10^3/uL (130-400); WHITE BLOOD COUNT 4.1 10^3/uL (4.3-11.0)
[2021-02-17] MEDS ORDERED: UMECLIDINIUM BROMIDE (INCRUSE ELLIPTA) 7'S IH SCH (09:00)
[2021-02-17 09:07] LABS: CALCIUM 8.7 MG/DL (8.5-10.1); CREATININE SERUM 0.91 MG/DL (0.60-1.30); MAGNESIUM 1.7 MG/DL (1.6-2.4); POTASSIUM 3.3 MMOL/L (3.6-5.0)
[2021-02-17] MEDS ORDERED: KCL 20 MEQ TAB (K-DUR) PO ONE (11:15)
[2021-02-17] MEDS: MAGNESIUM 1 GM/100 ML IVPB 100 ML IV SCH ×2 (11:32→12:33)
[2021-02-17 11:55] VITALS: BP 125/79
--- NOTE | 2021-02-17 13:07 | Progress Note - Hospitalist ---
NEGIN RUIZ 02/17/21 1307: Subjective HPI/CC On Admission Time Seen by Provider: 08:10 Subjective/Events-last exam Pt reports that he is doing better today. Says that he doesn't remember anything from yesterday. Talking normally and is no longer making any abnormal hand movements. Review of Systems General: No Chills, No Other (fever) Pulmonary: No Cough, No Other (SOB) Cardiovascular: No: Chest Pain, Palpitations Gastrointestinal: Constipation; No: Abdominal Pain Neurological: No: Weakness, Numbness Objective Exam Vital Signs Vital Signs Date Time Temp Pulse Resp B/P (MAP) Pulse Ox O2 Delivery O2 Flow Rate FiO2 02/17/21 12:52 51 02/17/21 11:55 36.3 20 125/79 (94) 97 Room Air Capillary Refill : Less Than 3 Seconds General Appearance: No Apparent Distress, WD/WN Respiratory: Chest Non Tender, Lungs Clear Cardiovascular: Regular Rate, Rhythm, No Murmur Gastrointestinal: Non Tender, Soft Extremity: Normal Inspection, No Pedal Edema Neurologic/Psychiatric: Alert, Oriented x3, No Motor/Sensory Deficits, Normal Mood/Affect Results/Procedures Lab Laboratory Tests 02/17/21 08:35 Patient resulted labs reviewed. Imaging: Reviewed Imaging Report Assessment/Plan Assessment and Plan Assess & Plan/Chief Complaint Assessment- 1.Encephlapathy- due to levofloxacin side effects 2.Diabetes 3.anemia Plan- Pt no longer has an AMS. He will be discharged today. Pt was instructed to avoid any fluoroquinolones in the future. Instructed to follow up on his anemia with PCP. Pt understood and agreed with plan. CONNIE DUNN MD 02/20/21 1006: NEGIN RUIZ Feb 17, 2021 13:07 CONNIE DUNN MD Feb 20, 2021 10:06
[2021-02-17 15:15] VITALS: BP 125/79
--- NOTE | 2021-02-20 10:12 | Discharge Summary ---
Discharge Summary Hospital Course Was the Problem List Reviewed?: Yes Problems/Dx: (1) Acute encephalopathy Status: Acute (2) Toxic psychosis, with hallucinations Status: Acute (3) Adverse effects of medication Status: Acute Qualifiers: Qualified Codes: T50.905A - Adverse effect of unspecified drugs, medicaments and biological substances, initial encounter (4) UTI (urinary tract infection) Status: Acute (5) BPH (benign prostatic hyperplasia) Status: Chronic (6) COPD (chronic obstructive pulmonary disease) Status: Chronic (7) Hypothyroidism Status: Chronic (8) HTN (hypertension) Status: Chronic (9) History of lung cancer Status: Chronic Hospital Course Date of Admission: Feb 16, 2021 at 01:42 Admission Diagnosis : Acute psychosis Family Physician/Provider: Ellie Galan DO Date of Discharge: 02/17/21 Discharge Diagnosis: Acute psychosis due to adverse effect of medication Hospital Course: Geo Hernandez is a 65 year old male who presented with altered mental status and was admitted with acute psychosis. His workup was unrevealing for a cause. He was recently started on Levaquin which coincided with his symptoms. This has been known to cause psychosis in rare cases. This was discontinued and his symptoms resolved. His UA showed no evidence of ongoing UTI. He was discharged home in stable condition. He should follow up with his PCP. Labs and Pending Lab Test: Home Meds Active Reported Loratadine 10 Mg Tablet 10 Mg PO HS Aspirin EC (Aspirin) 81 Mg Tablet.dr 81 Mg PO DAILY Eliquis (Apixaban) 5 Mg Tablet 5 Mg PO BID Miralax (Polyethylene Glycol 3350) 17 Gm Powd.pack 17 Gm PO DAILY PRN Mucinex D ER 1,200-120 mg Tab (Guaifenesin/Pseudoephedrne HCl) 1 Each Tab.er.12h 1 Each PO Q12H PRN Amiodarone HCl 200 Mg Tablet 400 Mg PO DAILY TAKES 2 (200MG)TABS Flomax (Tamsulosin HCl) 0.4 Mg Cap 0.8 Mg PO 1800 TAKES 30 MINUTES AFTER EVENING MEAL TAKES 2 (0.4MG) CAPS Atorvastatin Calcium 10 Mg Tablet 10 Mg PO DAILY Metoprolol Tartrate 25 Mg Tablet 12.5 Mg PO BID TAKES OF A 25MG TAB Montelukast Sodium 10 Mg Tablet 10 Mg PO HS Metformin HCl 500 Mg Tablet 500 Mg PO BID Levothyroxine Sodium 100 Mcg Tablet 100 Mcg PO DAILY Ventolin Hfa (Albuterol Sulfate) 1 Puff Puff 2 Puff INH Q4H PRN Symbicort 160-4.5 Mcg Inhaler (Budesonide/Formoterol Fumarate) 10.2 Gm Hfa.aer.ad 2 Puff IH BID Spiriva Respimat 2.5MCG/ACTUATION (Tiotropium [place]) 4 Gm Mist.inhal 2 Puff IH DAILY Assessment/Pt Instructions Stop Levaquin. Take other medications as prescribed. Follow up with your PCP. Return with worsening symptoms. Discharge Planning: <30 minutes discharge planning Discharge Instructions Discharge Diet: No Restrictions Activity as Tolerated: Yes Discharge Physical Examination Vital Signs Vital Signs Date Time Temp Pulse Resp B/P (MAP) Pulse Ox O2 Delivery O2 Flow Rate FiO2 02/17/21 15:15 36.3 51 20 125/79 97 Room Air General Appearance: No Apparent Distress, WD/WN Respiratory: Lungs Clear, Normal Breath Sounds, No Respiratory Distress Cardiovascular: Regular Rate, Rhythm, No Edema, No Murmur Gastrointestinal: Normal Bowel Sounds, Non Tender, Soft Extremity: Normal Inspection, Non Tender, No Pedal Edema Skin: Normal Color, Warm/Dry Neurologic/Psychiatric: Alert, Oriented x3, No Motor/Sensory Deficits, Normal Mood/Affect Allergies: Coded Allergies: levofloxacin (Verified Allergy, Severe, PSYCHOSIS, 02/17/21) chlorthalidone (Verified Allergy, Unknown, 12/20/20) DIZZINESS Copy Copies To 1: ELLIE GALAN DO Discharge Summary Date of Admission Feb 16, 2021 at 01:42 Date of Discharge Feb 17, 2021 at 14:20 Discharge Date: Feb 17, 2021 Discharge Time: 14:20 Admission Diagnosis Acute psychosis Discharge Diagnosis Acute psychosis due to adverse effect of medication (1) Acute encephalopathy Status: Acute (2) Toxic psychosis, with hallucinations Status: Acute (3) Adverse effects of medication Status: Acute Qualifiers: Qualified Codes: T50.905A - Adverse effect of unspecified drugs, medicaments and biological substances, initial encounter (4) UTI (urinary tract infection) Status: Acute (5) BPH (benign prostatic hyperplasia) Status: Chronic (6) COPD (chronic obstructive pulmonary disease) Status: Chronic (7) Hypothyroidism Status: Chronic (8) HTN (hypertension) Status: Chronic (9) History of lung cancer Status: Chronic CONNIE DUNN MD Feb 20, 2021 10:12
== END 2021-02-17 14:20 | disposition other institution (70) ==
LOC: EDUNIT# 20:35 → ER 20:37 → 4TH 02-16 01:42
PROVIDERS: ADMIT Internal Medicine; ATTEND Internal Medicine
DX: G93.40 Encephalopathy, unspecified (principal); F28 Other psychotic disorder not due to a substance or known physiological condition; T50.905A Adverse effect of unspecified drugs, medicaments and biological substances, initial encounter; J30.2 Other seasonal allergic rhinitis; J44.9 Chronic obstructive pulmonary disease, unspecified; I10 Essential (primary) hypertension; E03.9 Hypothyroidism, unspecified; I48.92 Unspecified atrial flutter; E11.9 Type 2 diabetes mellitus without complications; I48.0 Paroxysmal atrial fibrillation; N40.0 Benign prostatic hyperplasia without lower urinary tract symptoms; I82.409 Acute embolism and thrombosis of unspecified deep veins of unspecified lower extremity; Z85.118 Personal history of other malignant neoplasm of bronchus and lung; Z79.899 Other long term (current) drug therapy; Z79.890 Hormone replacement therapy; Z87.891 Personal history of nicotine dependence; Z79.84 Long term (current) use of oral hypoglycemic drugs
CPT/HCPCS: 36415; 51702; 70450; 70496; 70498; 70553; 80048; 80053; 80306; 81000; 82947; 83735; 84439; 84443; 85007; 85025; 85027; 86141; 87636; 93005; 93041; 94640; 94760; G0378

== ENCOUNTER 2021-02-18 09:07 | Observation (INO) | payer MEDICARE, OTHER ==
[~2021-02-18] VITALS: Ht 187 cm; Wt 91.0 kg
[~2021-02-18 09:07] MED LIST changes: +ASPI-1238 PO; +FLUT9.9S NSEACH; +LEVO500T80 PO; +LORA10TA7 PO
[2021-02-18] MEDS ORDERED: NS IV 500 ML 500 ML IV ONE (09:45)
[2021-02-18 09:57] LABS: BASOPHILS % (AUTO) 0 % (0-10); EOSINOPHILS % (AUTO) 0 % (0-10); HEMATOCRIT 34 % (40-54); HEMOGLOBIN 10.5 g/dL (13.3-17.7); LYMPHOCYTES # (AUTO) 0.8 10^3/uL (1.0-4.0); LYMPHOCYTES % (AUTO) 10 % (12-44); MEAN CORPUSCULAR HEMOGLOBIN 26 pg (25-34); MEAN CORPUSCULAR HGB CONC 31 g/dL (32-36); MEAN CORPUSCULAR VOLUME 84 fL (80-99); MEAN PLATELET VOLUME 9.5 fL (9.0-12.2); MONOCYTES # (AUTO) 0.8 10^3/uL (0.0-1.0); MONOCYTES % (AUTO) 11 % (0-12); NEUTROPHILS # (AUTO) 5.8 10^3/uL (1.8-7.8); NEUTROPHILS % (AUTO) 78 % (42-75); PLATELET COUNT 203 10^3/uL (130-400); WHITE BLOOD COUNT 7.5 10^3/uL (4.3-11.0)
[2021-02-18 10:02] LABS: ALBUMIN 3.6 GM/DL (3.2-4.5); POTASSIUM 3.5 MMOL/L (3.6-5.0)
[2021-02-18 10:03] LABS: CALCIUM 8.5 MG/DL (8.5-10.1)
[2021-02-18 10:04] LABS: TOTAL PROTEIN 6.1 GM/DL (6.4-8.2)
[2021-02-18 10:05] LABS: FIBRIN DEGRADATION PRODUCTS 0.82 UG/ML (0.00-0.49); INR 1.1 (0.8-1.4); PROTHROMBIN TIME PATIENT 14.9 SEC (12.2-14.7)
[2021-02-18 10:06] LABS: BILIRUBIN,TOTAL 0.4 MG/DL (0.1-1.0)
[2021-02-18 10:08] LABS: CREATININE SERUM 1.07 MG/DL (0.60-1.30)
[2021-02-18 10:11] LABS: MAGNESIUM 1.9 MG/DL (1.6-2.4)
[2021-02-18 10:22] LABS: BILIRUBIN,URINE NEGATIVE (NEGATIVE); CLARITY,URINE CLEAR; COLOR,URINE YELLOW; GLUCOSE, URINE (UA) NEGATIVE (NEGATIVE); KETONES,URINE NEGATIVE (NEGATIVE); LEUKOCYTE ESTERASE ,URINE NEGATIVE (NEGATIVE); NITRITE,URINE NEGATIVE (NEGATIVE); PROTEIN,URINE NEGATIVE (NEGATIVE)
[2021-02-18 10:43] LABS: BACTERIA,URINE NEGATIVE /HPF; SQUAMOUS EPITHELIAL CELL,UR RARE /HPF
--- NOTE | 2021-02-18 10:43 | ED Neurological Problem ---
General Chief Complaint: Altered Mental Status Stated Complaint: AMS Nursing Triage Note: ARRIVED VIA AMB TO ROOM 05. STATES HE WAS SEEN SAT NIGHT AND ADMITTED FOR AMS AFTER TAKING LEVAQUIN FOR A UTI. DICHARGED YESTERDAY AND WAS ACTING NORMAL UNTIL YESTERDAY EVENING. TODAY HE IS TALING NON STOP ABOUT MULTIPLE THINGS. Source: patient Exam Limitations: no limitations History of Present Illness Date Seen by Provider: Feb 18, 2021 Time Seen by Provider: 09:30 Initial Comments Here with report of altered mental status. states that he is talking inappropriately. He is talking and responding and following commands well but has word conversation that seems to be more politically driven and not related to any of the current subjects that he is on. Patient denies any pain. No fevers. Previous evaluation for this a few days ago found the patient to be on Levaquin for UTI and that was subsequently stopped. He had CT that was negative for acute pathology and MRI done as well that was also negative for acute pathology. Today he is oriented to self and place and seems to be oriented to time but is disorganized in speech and thought. This is not patient's normal baseline. Patient and family report that he was in bed all night last night as normal but patient reports that he did not sleep at all. Timing/Duration: 4-6 hours Severity: moderate Associated Symptoms: No confusion, No fatigue, No fever/chills; insomnia; No nausea/vomiting, No paresthesia, No seizures, No sleepy, No slurred speech, No tingling in legs/feet, No weakness Allergies and Home Medications Allergies Coded Allergies: levofloxacin (Verified Allergy, Severe, PSYCHOSIS, 02/17/21) chlorthalidone (Verified Allergy, Unknown, 12/20/20) DIZZINESS Home Medications Albuterol Sulfate 1 Puff Puff, 2 PUFF INH Q4H PRN for SHORTNESS OF BREATH, (Reported) Amiodarone HCl 200 Mg Tablet, 400 MG PO DAILY, (Reported) TAKES 2 (200MG)TABS Apixaban 5 Mg Tablet, 5 MG PO BID, (Reported) Aspirin 81 Mg Tablet.dr, 81 MG PO DAILY, (Reported) Atorvastatin Calcium 10 Mg Tablet, 10 MG PO DAILY, (Reported) Budesonide/Formoterol Fumarate 10.2 Gm Hfa.aer.ad, 2 PUFF IH BID, (Reported) Fluticasone Propionate 9.9 Ml [place].susp, 1-2 SPRAY NSEACH BID PRN for CONGESTION, (Reported) 1 SPRAY EACH NARE DAILY Guaifenesin/Pseudoephedrne HCl 1 Each Tab.er.12h, 1 EACH PO Q12H PRN for CONGESTION, (Reported) Levothyroxine Sodium 100 Mcg Tablet, 100 MCG PO DAILY, (Reported) Loratadine 10 Mg Tablet, 10 MG PO HS, (Reported) Metformin HCl 500 Mg Tablet, 500 MG PO BID, (Reported) Metoprolol Tartrate 25 Mg Tablet, 12.5 MG PO BID, (Reported) TAKES OF A 25MG TAB Montelukast Sodium 10 Mg Tablet, 10 MG PO HS, (Reported) Polyethylene Glycol 3350 17 Gm Powd.pack, 17 GM PO DAILY PRN for CONSTIPATION- 2ND LINE, (Reported) Tamsulosin HCl 0.4 Mg Cap, 0.8 MG PO 1800, (Reported) TAKES 30 MINUTES AFTER EVENING MEAL TAKES 2 (0.4MG) CAPS Tiotropium Vina 4 Gm Mist.inhal, 2 PUFF IH DAILY, (Reported) Patient Home Medication List Home Medication List Reviewed: Yes Review of Systems Review of Systems Constitutional: see HPI; No chills, No fever Ears, Nose, Mouth, Throat: denies nose pain, denies throat pain Respiratory: No cough, No short of breath Cardiovascular: No chest pain, No edema Gastrointestinal: No abdominal pain, No nausea, No vomiting Genitourinary: no symptoms reported Musculoskeletal: no symptoms reported Skin: no symptoms reported Psychiatric/Neurological: See HPI, Cognitive Dysfunction; Denies Weakness All Other Systems Reviewed Negative Unless Noted: Yes Past Mpmcuzh-Sbmhrw-Mcibmb Hx Patient Social History Tobacco Use?: No Smoking Status: Former Smoker Substance use?: No Alcohol Use?: No Immunizations Up To Date Tetanus Booster (TDap): Unknown PED Vaccines UTD: No Seasonal Allergies Seasonal Allergies: Yes Past Medical History Surgeries: Yes (COLON RESECTION/COLOSTOMY/TAKEDOWN;PORT L CHEST;C- SCOPES;CARDIAC ABLATION) Abdominal, Bowel Surgery, Cardiac, Coronary Stent, Thyroidectomy Respiratory: Yes (NON-SMALL CELL LUNG CANCER) COPD Currently Using CPAP: Yes (PT USES CPAP AT HOME ) Currently Using BIPAP: No Cardiac: Yes (DVT L ARM 09/2019 POST PORT PLACEMENT;AFIB/FLUTTER-S/P ABLATION 03/24/20) Atrial Fibrillation, Deep Vein Thrombosis, Hypertension, Irregular Heartbeat Neurological: No Reproductive Disorders: No Sexually Transmitted Disease: No HIV/AIDS: No Genitourinary: Yes (TURP) Prostate Problems, Renal Failure, UTI-Chronic Gastrointestinal: Yes (COLON RESECTION/COLOSTOMY/TAKEDOWN FOR BENIGN POLYPS) Polyps Musculoskeletal: No Endocrine: Yes (THYROIDECTOMY FOR BENIGN DISEASE) Hypothyroidsim HEENT: No Cancer: Yes (NON-SMALL CELL LUNG CANCER DX 07/2019--HAS BEEN ON IMMUNOTHERAPY) Lung Did You Recieve Any Treatments: Yes What Type of Treatment Did You: Chemotherapy, Radiation Psychosocial: No Integumentary: No Blood Disorders: No Adverse Reaction/Blood Tranf: No Family Medical History Reviewed Nursing Family Hx No Pertinent Family Hx SOCIAL HISTORY: -ETOH--DENIES -DRUGS--DENIES -SMOKING--SMOKED 1 PPD--QUIT A FEW YEARS AGO PAST SURGICAL HISTORY: -COLON RESECTION FOR MULTIPLE BENIGN POLYPS, REQUIRED COLOSTOMY AND LATER TAKEDOWN -THYROIDECTOMY FOR BENIGN GOITER -CARDIAC CATH 03/21/20--NO INTERVENTION. SLOW FLOW IN ALL VESSELS. SMALL FIRST DIAGONAL ARTERY HAS MODERATE TO SEVERE OSTIAL DISEASE--NOT AMENABLE TO INTERVENTION -CARDIAC ABLATION FOR ATRIAL FIBRILLATION 03/24/20 -MULTIPLE COLONOSCOPIES -PORT LEFT CHEST Physical Exam Vital Signs Vital Signs - First Documented 02/18/21 09:15 Temp 36.2 Pulse 69 Resp 16 B/P (MAP) 171/102 (125) Pulse Ox 98 O2 Delivery Room Air Capillary Refill : Less Than 3 Seconds Height, Weight, BMI Height: 6'2.00" Weight: 230lbs. 0.0oz. [id number]; 26.00 BMI Method:Stated General Appearance: WD/WN, no apparent distress HEENT: PERRL/EOMI, normal ENT inspection, TMs normal, pharynx normal Neck: full range of motion, supple Respiratory: lungs clear, normal breath sounds Cardiovascular: regular rate, rhythm, no murmur Gastrointestinal: non tender, soft Back: normal inspection, no CVA tenderness, no vertebral tenderness Extremities: non-tender, normal inspection Neurologic/Psychiatric: alert, oriented x 3, other (Disorganized speech and thought. Redirectable. Answers questions and follows commands.) Crainal Nerves: normal hearing, normal speech, PERRL Motor/Sensory: no motor deficit, no sensory deficit Skin: normal color, warm/dry Stroke NIH Stroke Scale Assessment Gaze: Normal (0), Total: Progress/Results/Core Measures Results/Orders Lab Results Laboratory Tests Test 02/18/21 09:22 02/18/21 10:16 Range/Units White Blood Count 7.5 4.3-11.0 10^3/uL Red Blood Count 4.07 L 4.30-5.52 10^6/uL Hemoglobin 10.5 L 13.3-17.7 g/dL Hematocrit 34 L 40-54 % Mean Corpuscular Volume 84 80-99 fL Mean Corpuscular Hemoglobin 26 25-34 pg Mean Corpuscular Hemoglobin Concent 31 L 32-36 g/dL Red Cell Distribution Width 14.4 10.0-14.5 % Platelet Count 203 130-400 10^3/uL Mean Platelet Volume 9.5 9.0-12.2 fL Immature Granulocyte % (Auto) 1 % Neutrophils (%) (Auto) 78 H 42-75 % Lymphocytes (%) (Auto) 10 L 12-44 % Monocytes (%) (Auto) 11 0-12 % Eosinophils (%) (Auto) 0 0-10 % Basophils (%) (Auto) 0 0-10 % Neutrophils # (Auto) 5.8 1.8-7.8 10^3/uL Lymphocytes # (Auto) 0.8 L 1.0-4.0 10^3/uL Monocytes # (Auto) 0.8 0.0-1.0 10^3/uL Eosinophils # (Auto) 0.0 0.0-0.3 10^3/uL Basophils # (Auto) 0.0 0.0-0.1 10^3/uL Immature Granulocyte # (Auto) 0.1 0.0-0.1 10^3/uL Prothrombin Time 14.9 H 12.2-14.7 SEC INR Comment 1.1 0.8-1.4 Activated Partial Thromboplast Time 32 24-35 SEC D-Dimer 0.82 H 0.00-0.49 UG/ML Sodium Level 142 135-145 MMOL/L Potassium Level 3.5 L 3.6-5.0 MMOL/L Chloride Level 106 98-107 MMOL/L Carbon Dioxide Level 24 21-32 MMOL/L Anion Gap 12 5-14 MMOL/L Blood Urea Nitrogen 14 7-18 MG/DL Creatinine 1.07 0.60-1.30 MG/DL Estimat Glomerular Filtration Rate 69 BUN/Creatinine Ratio 13 Glucose Level 119 H 70-105 MG/DL Calcium Level 8.5 8.5-10.1 MG/DL Corrected Calcium 8.8 8.5-10.1 MG/DL Magnesium Level 1.9 1.6-2.4 MG/DL Total Bilirubin 0.4 0.1-1.0 MG/DL Aspartate Amino Transf (AST/SGOT) 23 5-34 U/L Alanine Aminotransferase (ALT/SGPT) 21 0-55 U/L Alkaline Phosphatase 58 40-136 U/L C-Reactive Protein High Sensitivity 2.25 H 0.00-0.50 MG/DL Total Protein 6.1 L 6.4-8.2 GM/DL Albumin 3.6 3.2-4.5 GM/DL TSH [place] Testing 1.45 0.35-4.94 UIU/ML Urine Color YELLOW Urine Clarity CLEAR Urine pH 6.0 5-9 Urine Specific [place] <=1.005 1.016-1.022 Urine Protein NEGATIVE NEGATIVE Urine Glucose (UA) NEGATIVE NEGATIVE Urine Ketones NEGATIVE NEGATIVE Urine Nitrite NEGATIVE NEGATIVE Urine Bilirubin NEGATIVE NEGATIVE Urine Urobilinogen 0.2 < = 1.0 MG/DL Urine Leukocyte Esterase NEGATIVE NEGATIVE Urine RBC (Auto) NEGATIVE NEGATIVE Urine RBC NONE /HPF Urine WBC NONE /HPF Urine Squamous Epithelial Cells RARE /HPF Urine Crystals NONE /LPF Urine Bacteria NEGATIVE /HPF Urine Casts NONE /LPF Urine Mucus NEGATIVE /LPF Urine Culture Indicated NO My Orders Orders - MISAEL TAMAYO MD Cbc With Automated Diff (02/18/21 09:43) Comprehensive Metabolic Panel (02/18/21 09:43) Hs C Reactive Protein (02/18/21 09:43) Fibrin Degradation Products (02/18/21 09:43) Magnesium (02/18/21 09:43) Protime With Inr (02/18/21 09:43) Partial Thromboplastin Time (02/18/21 09:43) Ua Culture If Indicated (02/18/21 09:43) Ed Iv/Invasive Line Start (02/18/21 09:43) Ns Iv 500 Ml (Sodium Chloride 0.9%) (02/18/21 09:45) Chest 1 View, Ap/Pa Only (02/18/21 09:53) Haloperidol Injection (Haldol Injectio (02/18/21 11:45) Thyroid Analyzer (02/18/21 11:57) Medications Given in ED Current Medications Medications Dose Ordered Sig/Silvana Route Start Time Stop Time Status Last Admin Dose Admin Haloperidol Lactate 2.5 mg ONCE ONCE IV 02/18/21 11:45 02/18/21 11:46 DC 02/18/21 11:48 2.5 MG Sodium Chloride 500 ml @ 0 mls/hr Q0M ONCE IV 02/18/21 09:45 02/18/21 09:46 DC 02/18/21 10:07 500 MLS/HR Vital Signs/I&O 02/18/21 09:15 Temp 36.2 Pulse 69 Resp 16 B/P (MAP) 171/102 (125) Pulse Ox 98 O2 Delivery Room Air Blood Pressure Mean: 125 Progress Progress Note : Progress Note Seen and evaluated. Reviewed previous visit including CT of the head, CT angiogram of head and neck and MRI brain as well as labs. We will repeat labs and give normal saline 500 mL bolus. Patient does not exhibit signs of stroke but does appear to have some delirium and this may be related to insomnia and still affect from the Levaquin as well. TPA not indicated for this patient with 0 stroke scale. Last known well time as well outside the window as well as last normal time was last night. Monitor patient. 1147: I did discuss the case with Dr. Dawkins, previous admitting physician. We reviewed the case currently. We will go ahead and give Haldol 2.5 mg IV now. Patient has become slightly more excited and is intermittently crying. Still has the repetitive questioning starting all sentences with "why do you think". 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 We did discuss urinary retention as a cause of d elirium. We were going to do bladder scan but the nurse did straight cath the patient to collect urine sample and drained the bladder completely. You probably did have about 500 mL of urine at that time. Patient has not improved during the stay. We will see how he does after Haldol. Consideration for [facility]. This does appear to be acute psychosis and delirium and may be secondary to medication effect. Monitor patient. 1310: Patient still with abnormal mental status and seems to be acutely psychotic with delirium. He is redirectable. I did discuss the case with Dr. Dawkins. He accepts patient for admission, observation status. Requested Manriquez catheter due to concerns of urinary retention as a cause for the delirium. This is reasonable. 1420: Bed received. Patient and family agree with admission and Manriquez catheter. Admit, observation status to medical floor. Departure Communication (Admissions) Time/Spoke to Admitting Phy: 13:10 Impression Primary Impression: Acute psychosis Disposition: ADMITTED INPATIENT Condition: Stable Admissions Decision to Admit Reason: Admit from ER (General) Decision to Admit/Date: Feb 18, 2021 Time/Decision to Admit Time: 13:10 Departure-Patient Inst. Referrals: ELLIE MITTAL DO (PCP/Family) Primary Care Physician MISAEL TAMAYO MD Feb 18, 2021 10:43
--- NOTE | 2021-02-18 11:12 | Diagnostic Imaging Report ---
INDICATION: Lung cancer and altered mental status. AP view of the chest is obtained with comparison made to study of 12/20/2020. Similar to the previous study, increased density is seen in the apical and medial aspects of the right upper chest. This likely represents scarring. No pneumothorax or new infiltrate is identified. Left anterior chest wall port remains in stable position. IMPRESSION: Stable increased density and architectural distortion in the upper and medial right hemithorax. Overall, there has been no significant change. Dictated by: Dictated on workstation # [id number]
[2021-02-18] MEDS ORDERED: HALOPERIDOL 5 MG/ML (HALDOL) VIAL IV ONE (11:45)
[2021-02-18] MEDS ORDERED: ONDANSETRON 4 MG/2 ML (SDV) Z0FRAN IV PRN (15:30)
[2021-02-18 15:35] VITALS: BP 178/81
[2021-02-18] MEDS ORDERED: ANTACID SUSP 30 ML UDC (MYLANTA) PO PRN (18:45)
[2021-02-18] MEDS ORDERED: polyethylene glycoL POWDER 17 GM (MIRALAX) PACK PO PRN (18:45)
[2021-02-18 19:30] VITALS: BP 212/100
[2021-02-18] MEDS: LORATADINE (CLARITIN) 10 MG TAB PO SCH (19:46)
[2021-02-18] MEDS: meTOprolol TARTRATE 25 MG (LOPRESSOR) TABLET PO SCH (19:46)
[2021-02-18] MEDS: MONTELUKAST 10 MG (SINGULAIR) TAB PO SCH (19:46)
[2021-02-18] MEDS: metFORMIN 500 MG (GLUCOPHAGE) TAB PO SCH (19:46)
[2021-02-18] MEDS: DOCUSATE SODIUM 100 MG (COLACE) CAP PO SCH (19:46)
[2021-02-18] MEDS: APIXABAN 5 MG (ELIQUIS) TABLET PO SCH (19:46)
[2021-02-18] MEDS: TAMSULOSIN 0.4 MG (FLOMAX) CAP PO SCH (19:47)
[2021-02-18] MEDS: ACETAMINOPHEN 325 MG TABLET PO PRN (19:47)
[2021-02-18 19:49] VITALS: BP 171/102
[2021-02-18] MEDS: MELATONIN 3 MG TABLET PO PRN (19:55)
[2021-02-18] MEDS ORDERED: RT-ALBUTEROL/IPRATROPIUM 3 ML (DUONEB) VIAL INH PRN (20:00)
[2021-02-18] MEDS: SENNOSIDES 8.6 MG (SENOKOT) TAB PO SCH (20:06)
[2021-02-18] MEDS ORDERED: hydrALAZINE (APESOLINE) 20 MG/ML VIAL IV PRN (21:45)
[2021-02-18 23:18] VITALS: BP_SYST 171; BP_SYST 181; BP_DIAS 89
[2021-02-19] MEDS: RT--FLUTICASONE/SALMETEROL 232-14 (AIRDUO RespiCLICK) IH SCH ×3 (00:14→21:38)
[2021-02-19 03:26] VITALS: BP 189/98
[2021-02-19] MEDS: LEVOTHYROXINE 100 MCG (LEVOTHROID) TAB PO SCH (05:28)
[2021-02-19 05:46] LABS: BASOPHILS % (AUTO) 1 % (0-10); EOSINOPHILS % (AUTO) 0 % (0-10); HEMATOCRIT 37 % (40-54); HEMOGLOBIN 11.5 g/dL (13.3-17.7); LYMPHOCYTES % (AUTO) 12 % (12-44); MEAN CORPUSCULAR HEMOGLOBIN 26 pg (25-34); MEAN CORPUSCULAR HGB CONC 31 g/dL (32-36); MEAN CORPUSCULAR VOLUME 82 fL (80-99); MEAN PLATELET VOLUME 9.5 fL (9.0-12.2); MONOCYTES # (AUTO) 0.9 10^3/uL (0.0-1.0); MONOCYTES % (AUTO) 11 % (0-12); NEUTROPHILS # (AUTO) 6.1 10^3/uL (1.8-7.8); NEUTROPHILS % (AUTO) 76 % (42-75); PLATELET COUNT 225 10^3/uL (130-400); WHITE BLOOD COUNT 8.1 10^3/uL (4.3-11.0)
[2021-02-19 06:08] LABS: POTASSIUM 3.5 MMOL/L (3.6-5.0)
[2021-02-19 06:09] LABS: CALCIUM 8.9 MG/DL (8.5-10.1)
[2021-02-19 06:14] LABS: CREATININE SERUM 0.86 MG/DL (0.60-1.30)
[2021-02-19 07:49] VITALS: BP 157/89
[2021-02-19] MEDS: DOCUSATE SODIUM 100 MG (COLACE) CAP PO SCH ×2 (08:08→20:54)
[2021-02-19] MEDS: metFORMIN 500 MG (GLUCOPHAGE) TAB PO SCH ×2 (08:08→17:05)
[2021-02-19] MEDS: ASPIRIN E.C. 81 MG (ECOTRIN) TAB PO SCH (08:08)
[2021-02-19] MEDS: APIXABAN 5 MG (ELIQUIS) TABLET PO SCH ×2 (08:08→20:01)
[2021-02-19] MEDS: SENNOSIDES 8.6 MG (SENOKOT) TAB PO SCH ×2 (08:08→20:54)
[2021-02-19] MEDS: meTOprolol TARTRATE 25 MG (LOPRESSOR) TABLET PO SCH (08:10)
[2021-02-19] MEDS ORDERED: AMIODARONE 200 MG (CORDARONE) TAB PO SCH (09:00)
[2021-02-19] MEDS ORDERED: hydrALAZINE (APRESOLINE) 25 MG TAB PO ONE (09:00)
[2021-02-19] MEDS: UMECLIDINIUM BROMIDE (INCRUSE ELLIPTA) 7'S IH SCH (09:17)
[2021-02-19 09:20] LABS: AMPHETAMINE SCREEN, URINE NEGATIVE (NEGATIVE); BARBITURATE SCREEN URINE NEGATIVE (NEGATIVE); BENZODIAZEPINES SCREEN URINE NEGATIVE (NEGATIVE); CANNABINOID SCREEN, URINE NEGATIVE (NEGATIVE); COCAINE SCREEN URINE NEGATIVE (NEGATIVE); METHADONE STAT NEGATIVE (NEGATIVE); METHAMPHETAMINE SCREEN URINE S NEGATIVE (NEGATIVE); OPIATE SCREEN URINE NEGATIVE (NEGATIVE); OXYCODONE STAT NEGATIVE (NEGATIVE); PROPOXYPHENE STAT NEGATIVE (NEGATIVE); TRICYCLIC ANTIDEPRESSANTS SCRE NEGATIVE (NEGATIVE)
[2021-02-19 09:22] LABS: ABG OXYGEN SATURATION 97 % (94-100); ABG PCO2 33 MMHG (35-45); ABG PH 7.43 (7.37-7.43); ABG PO2 85 MMHG (79-93); ABG TCO2 22.7 MMOL/L (21.0-31.0); ALLENS TEST YES-POS; INSPIRED O2 ROOM AIR; PATIENT TEMP 36.8; VENTILATOR NO
[2021-02-19 09:25] LABS: AMMONIA 22 UMOL/L (11-32)
[2021-02-19 11:16] VITALS: BP 133/60
--- NOTE | 2021-02-19 11:45 | Consultation-Cardiology ---
HPI-Cardiology Cardiology Consultation Date of Consultation 02/19/21 Date of Admission Time Seen by Provider: 11:40 Indication: Change in mental status HPI 65 years old gentleman with history of paroxysmal atrial fibrillation, was admitted for urinary tract infection, was having confusion and delirium, treated with antibiotics and discharged on February 17, 2021. Patient return to the hospital with confusion, on my evaluation he was unable to provide any history history was obtained from his . Patient has been having worsening confusion and difficulty communicating. He appeared to be oriented and moving all extremities, continue to move his upper and lower extremities and respond to question inappropriately, he denied any chest pain, does not appear to be in distress. Home Medications & Allergies Allergies: Coded Allergies: levofloxacin (Verified Allergy, Severe, PSYCHOSIS, 02/17/21) chlorthalidone (Verified Allergy, Unknown, 12/20/20) DIZZINESS Home Medication List Reviewed: Yes JBS-Aizyhc-Tcfjdx Hx Patient Social History Marital Status: Drug of Choice: Denies Smoking Status: Former Smoker Type Used: Cigarettes 2nd Hand Smoke Exposure: No Recent Hopitalizations: No Have you traveled recently?: No Alcohol Use?: No Immunizations Up To Date Tetanus Booster (TDap): Unknown Date of Pneumonia Vaccine: Jun 15, 2009 Date of Influenza Vaccine: Apr 21, 2014 Past Medical History Discussed below Family Medical History Significant Family History: No Pertinent Family Hx Family Medical Hx Noncontributory Review of Systems-General Review of Systems Constitutional: see HPI; No chills, No fever; malaise, other (Confusion) EENTM: see HPI Respiratory: see HPI; No cough, No short of breath Cardiovascular: see HPI; No chest pain, No edema Gastrointestinal: No abdominal pain, No nausea, No vomiting Genitourinary: no symptoms reported, see HPI Musculoskeletal: no symptoms reported, see HPI Skin: no symptoms reported, see HPI All Other Systems Reviewed Negative Unless Noted: Yes Reviewed Test Results Reviewed Test Results Lab Laboratory Tests Test 02/19/21 05:10 02/19/21 09:04 02/19/21 09:10 02/19/21 11:25 Range/Units White Blood Count 8.1 4.3-11.0 10^3/uL Red Blood Count 4.46 4.30-5.52 10^6/uL Hemoglobin 11.5 L 13.3-17.7 g/dL Hematocrit 37 L 40-54 % Mean Corpuscular Volume 82 80-99 fL Mean Corpuscular Hemoglobin 26 25-34 pg Mean Corpuscular Hemoglobin Concent 31 L 32-36 g/dL Red Cell Distribution Width 14.6 H 10.0-14.5 % Platelet Count 225 130-400 10^3/uL Mean Platelet Volume 9.5 9.0-12.2 fL Immature Granulocyte % (Auto) 1 % Neutrophils (%) (Auto) 76 H 42-75 % Lymphocytes (%) (Auto) 12 12-44 % Monocytes (%) (Auto) 11 0-12 % Eosinophils (%) (Auto) 0 0-10 % Basophils (%) (Auto) 1 0-10 % Neutrophils # (Auto) 6.1 1.8-7.8 10^3/uL Lymphocytes # (Auto) 1.0 1.0-4.0 10^3/uL Monocytes # (Auto) 0.9 0.0-1.0 10^3/uL Eosinophils # (Auto) 0.0 0.0-0.3 10^3/uL Basophils # (Auto) 0.0 0.0-0.1 10^3/uL Immature Granulocyte # (Auto) 0.1 0.0-0.1 10^3/uL Sodium Level 141 135-145 MMOL/L Potassium Level 3.5 L 3.6-5.0 MMOL/L Chloride Level 107 98-107 MMOL/L Carbon Dioxide Level 21 21-32 MMOL/L Anion Gap 13 5-14 MMOL/L Blood Urea Nitrogen 10 7-18 MG/DL Creatinine 0.86 0.60-1.30 MG/DL Estimat Glomerular Filtration Rate 89 BUN/Creatinine Ratio 12 Glucose Level 120 H 70-105 MG/DL Calcium Level 8.9 8.5-10.1 MG/DL Ammonia 22 11-32 UMOL/L Troponin I < 0.028 <0.028 NG/ML Serum Alcohol < 10 <10 MG/DL Blood Gas Puncture Site LT RAD Blood Gas Patient Temperature 36.8 Arterial Blood pH 7.43 7.37-7.43 Arterial Blood Partial Pressure CO2 33 L 35-45 MMHG Arterial Blood Partial Pressure O2 85 79-93 MMHG Arterial Blood HCO3 22 L 23-27 MMOL/L Arterial Blood Total CO2 22.7 21.0-31.0 MMOL/L Arterial Blood Oxygen Saturation 97 94-100 % Arterial Blood Base Excess -2.0 -2.5-2.5 MMOL/L Milind Test YES-POS Blood Gas Ventilator Setting NO Blood Gas Inspired Oxygen ROOM AIR Physical Exam Physical Exam Vital Signs Vital Signs - First Documented 02/18/21 02/18/21 09:15 19:49 Temp 36.2 Pulse 69 Resp 16 B/P (MAP) 171/102 (125) Pulse Ox 98 O2 Delivery Room Air FiO2 21 Capillary Refill : Less Than 3 Seconds Height, Weight, BMI Height: 6'2.00" Weight: 230lbs. 0.0oz. [id number]; 26.88 BMI Method:Stated General Appearance: No Apparent Distress, WD/WN Eyes: Bilateral Eye Normal Inspection, Bilateral Eye PERRL, Bilateral Eye EOMI HEENT: PERRL/EOMI, TMs Normal, Normal ENT Inspection, Pharynx Normal, Moist Mucous Membranes Neck: Full Range of Motion, Normal Inspection, Non Tender, Supple, Carotid Bruit Respiratory: Chest Non Tender, Normal Breath Sounds, No Accessory Muscle Use, No Respiratory Distress Cardiovascular: Regular Rate, Rhythm, No Edema, No Gallop, No JVD, No Murmur, Normal Peripheral Pulses Gastrointestinal: Normal Bowel Sounds, No Organomegaly, No Pulsatile Mass, Non Tender, Soft Back: Normal Inspection, No CVA Tenderness, No Vertebral Tenderness Extremity: Normal Capillary Refill, Normal Inspection, Normal Range of Motion, Non Tender, No Calf Tenderness, No Pedal Edema Neurologic/Psychiatric: Alert, No Motor/Sensory Deficits, Other (Confused, not following command, responding inappropriately) Skin: Normal Color, Warm/Dry Lymphatic: No Adenopathy A/P-Cardiology Admission Diagnosis Acute delirium Paroxysmal atrial fibrillation Hyperlipidemia Diabetes mellitus Assessment/Plan Acute change in mental status with delirium, confusion. Undetermined etiology, work-up still in progress, differential diagnosis include medications, brain mets, CVA, encephalitis. CT and MRI were reported to be negative. Antibiotic was stopped, we will discontinue amiodarone, discussed with Dr. Dawkins regarding the need for urgent neurology evaluation, consider repeating MRI due to the artifacts. MRI impression, Limited by motion artifact. There are changes of chronic microvascular ischemia and cerebral atrophy. No acute intracranial process is detected. Paroxysmal atrial fibrillation, currently in sinus rhythm, was on amiodarone and Eliquis, DC amiodarone, maintained on Eliquis, continue to monitor. Recent UTI, received antibiotics. Hyperlipidemia maintained on statin Diabetes mellitus, followed and managed by primary care physician Hypothyroidism, maintained on replacement therapy. History of non-small lung cancer following with an oncologist at History of BPH, history of TURP. TWILA MUÑOZ MD Feb 19, 2021 11:45
--- NOTE | 2021-02-19 12:48 | History & Physical-Hospitalist ---
NEGIN RUIZ 02/19/21 1248: History of Present Illness HPI/Chief Complaint Geo Hernandez is a 65 y/o M who presents with AMS. He is unable to provide a history so information was provided by his . Pt was hospitalized with similar sxns on 02/16/21. He was talking Levaquin for UTI. The Levaquin was stopped and the next day pt was back to baseline and was discharged. reports that after the pt was discharged he was normal until later in the evening. She reports that he then began to talk much more than is normal for him. The next morning he told her that he did not sleep at all during the night. states that during the day pt continued to talk much more than normal. 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 This concerned her because he had never talked to her like this in the past. She then brought him into ER yesterday because of this abnormal behavior. does not believe pt took any more of the Levaquin. Thinks that it was disposed of when she brought all of his medications into the hospital after his 1st episode. Today pt is repeating what is being said to him and will not answer questions. He is also grabbing at nurses and other staff members. reports that pt was in the [place] and was exposed to asbestos. He does like to collect and work with guns. Denies pt having any recent exposure to pesticides or other chemicals. Pt rarely drinks alcohol. Toxicology screen negative on 02/16 and 02/18. Source: family Date Seen 02/19/21 Time Seen by a Provider: 08:35 Attending Physician Connie Dunn MD PCP Brett Galan DO Referring Physician Date of Admission Feb 18, 2021 at 14:20 Home Medications & Allergies Home Medications Reviewed patient Home Medication Reconciliation performed by pharmacy medication reconciliations broadcast technician and/or nursing. Patients Allergies have been reviewed. Allergies Allergies Coded Allergies levofloxacin (Verified Allergy, Severe, PSYCHOSIS, 02/17/21) chlorthalidone (Verified Allergy, Unknown, 12/20/20) DIZZINESS Past Pvpbgno-Vmmdyk-Pdimmb Hx Patient Social History Marrital Status: Tobacco Use?: No Smoking Status: Former Smoker Use of E-Cig and/or Vaping dev: No Substance use?: No Alcohol Use?: No Pt feels they are or have been: No Immunizations Up To Date Date of Influenza Vaccine: Apr 21, 2014 First/Initial COVID19 Vaccinat: September 12, 2020 Second COVID19 Vaccination Rodo: October 09, 2020 Tetanus Booster (TDap): Unknown Hepatitis A: No Hepatitis B: No PED Vaccines UTD: No Date of Pneumonia Vaccine: Jun 15, 2009 Seasonal Allergies Seasonal Allergies: Yes Current Status Advance Directives: Unable to obtain Advance Directive Location: Home Communicates: Verbally Primary Language: Norwegian Preferred Spoken Language: Norwegian Is interpretation needed?: No Sensory deficits: Vision impairment Implanted or Applied Medical D: None, CPAP Past Medical History Surgeries: Abdominal, Bowel Surgery, Cardiac, Coronary Stent, Thyroidectomy COPD Currently Using CPAP: Yes (PT USES CPAP AT HOME ) Currently Using BIPAP: No Atrial Fibrillation, Deep Vein Thrombosis, Hypertension, Irregular Heartbeat Sexually Transmitted Disease: No HIV/AIDS: No Prostate Problems, Renal Failure, UTI-Chronic Polyps Hypothyroidsim Lung Did You Recieve Any Treatments: Yes What Type of Treatment Did You: Chemotherapy, Radiation Blood Disorders: No Adverse Reaction/Blood Tranf: No Family Medical History Reviewed Nursing Family Hx No Pertinent Family Hx SOCIAL HISTORY: -ETOH--DENIES -DRUGS--DENIES -SMOKING--SMOKED 1 PPD--QUIT A FEW YEARS AGO PAST SURGICAL HISTORY: -COLON RESECTION FOR MULTIPLE BENIGN POLYPS, REQUIRED COLOSTOMY AND LATER TAKEDOWN -THYROIDECTOMY FOR BENIGN GOITER -CARDIAC CATH 03/21/20--NO INTERVENTION. SLOW FLOW IN ALL VESSELS. SMALL FIRST DIAGONAL ARTERY HAS MODERATE TO SEVERE OSTIAL DISEASE--NOT AMENABLE TO INTERVENTION -CARDIAC ABLATION FOR ATRIAL FIBRILLATION 03/24/20 -MULTIPLE COLONOSCOPIES -PORT LEFT CHEST Review of Systems ROS-Unable to Obtain: Pt would not answer when asked Physical Exam Physical Exam Vital Signs Vital Signs - First Documented 02/18/21 02/18/21 09:15 19:49 Temp 36.2 Pulse 69 Resp 16 B/P (MAP) 171/102 (125) Pulse Ox 98 O2 Delivery Room Air FiO2 21 Capillary Refill : Less Than 3 Seconds Height, Weight, BMI Height: 6'2.00" Weight: 230lbs. 0.0oz. 104.660592gy; 26.88 BMI Method:Stated General Appearance: No Apparent Distress, WD/WN HEENT: PERRL/EOMI; No Photophobia Respiratory: Lungs Clear, Normal Breath Sounds Cardiovascular: Regular Rate, Rhythm, No Murmur Gastrointestinal: Non Tender, Soft Extremity: Normal Inspection, No Pedal Edema Neurologic/Psychiatric: No Normal Mood/Affect Results Results/Procedures Labs Laboratory Tests 02/18/21 09:22 02/19/21 05:10 Patient resulted labs reviewed. Assessment/Plan Assessment and Plan Assessment 1.Acute psychosis 2.HTN 3.hypothyroidism 4.BPH 5.COPD 6.paroxysmal Afib Plan- Consulted with cardiology about stopping amiodarone due to potential to cause AMS. Heavy metal screen ordered. Will continue to monitor for improvement in mental status. 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 Norm as Tested, Disoriented, Other (compulsive behaviors and movements, echolalia) Results Results/Procedures Imaging: Reviewed Imaging Films, Reviewed Imaging Report Assessment/Plan Admission Diagnosis Acute psychosis Admission Status: Observation Assessment and Plan Acute psychosis Unclear etiology, previously thought to be Levaquin Bladder decompressed, no improvement with dean catheter Electrolytes normal Renal function normal Troponin normal, echo with diastolic dysfunction ABG without CO2 retention Ammonia level normal Urine tox negative x2 Alcohol negative TSH normal Hold Amiodarone, may cause hallucinations Cardiology consulted, appreciate assistance CT Head and MRI Brain without acute abnormalities No evidence of infection, UA and CXR normal Consider lumbar puncture Heavy metal screens pending Consider transfer for neurology and psychiatry evaluation if no improvement and no identifiable cause Olecranon bursitis No evidence of septic bursitits Consider ortho consult for aspiration Diagnosis/Problems Diagnosis/Problems (1) Acute psychosis Status: Acute Supervisory-Addendum Brief Verification & Attestation Participated in pt care: history, MDM, physical Personally performed: exam, history, MDM, supervision of care Care discussed with: Medical Student Procedures: n/a A medical student performed and documented this service in my presence. I reviewed and verified all information documented by the medical student and made modifications to such information, when appropriate. I personally performed the physical exam and medical decision making. NEGIN RUIZ Feb 19, 2021 12:48 CONNIE DUNN MD Feb 20, 2021 09:50
[2021-02-19] MEDS ORDERED: KCL 20 MEQ TAB (K-DUR) PO ONE (13:00)
[2021-02-19] MEDS: hydrALAZINE (APRESOLINE) 25 MG TAB PO SCH ×2 (14:06→23:25)
[2021-02-19 16:00] VITALS: BP 134/73
[2021-02-19] MEDS: TAMSULOSIN 0.4 MG (FLOMAX) CAP PO SCH (17:05)
[2021-02-19 19:57] VITALS: BP 166/94
[2021-02-19] MEDS: LORATADINE (CLARITIN) 10 MG TAB PO SCH (20:01)
[2021-02-19] MEDS: MONTELUKAST 10 MG (SINGULAIR) TAB PO SCH (20:01)
[2021-02-19] MEDS: AtorvaSTATin TABLET 10 MG TABLET PO SCH (20:01)
[2021-02-19 23:16] VITALS: BP 151/74
[2021-02-19] MEDS: ACETAMINOPHEN 325 MG TABLET PO PRN (23:25)
[2021-02-20 04:00] VITALS: BP 128/81
[2021-02-20 05:37] LABS: BASOPHILS % (AUTO) 1 % (0-10); EOSINOPHILS % (AUTO) 0 % (0-10); HEMATOCRIT 34 % (40-54); HEMOGLOBIN 10.5 g/dL (13.3-17.7); LYMPHOCYTES # (AUTO) 0.8 10^3/uL (1.0-4.0); LYMPHOCYTES % (AUTO) 12 % (12-44); MEAN CORPUSCULAR HEMOGLOBIN 26 pg (25-34); MEAN CORPUSCULAR HGB CONC 31 g/dL (32-36); MEAN CORPUSCULAR VOLUME 85 fL (80-99); MEAN PLATELET VOLUME 9.2 fL (9.0-12.2); MONOCYTES # (AUTO) 0.7 10^3/uL (0.0-1.0); MONOCYTES % (AUTO) 12 % (0-12); NEUTROPHILS # (AUTO) 4.7 10^3/uL (1.8-7.8); NEUTROPHILS % (AUTO) 75 % (42-75); PLATELET COUNT 204 10^3/uL (130-400); WHITE BLOOD COUNT 6.3 10^3/uL (4.3-11.0)
[2021-02-20 05:54] LABS: ALBUMIN 3.2 GM/DL (3.2-4.5)
[2021-02-20 05:56] LABS: CALCIUM 8.8 MG/DL (8.5-10.1)
[2021-02-20 05:57] LABS: TOTAL PROTEIN 5.7 GM/DL (6.4-8.2)
[2021-02-20 05:59] LABS: BILIRUBIN,TOTAL 0.6 MG/DL (0.1-1.0)
[2021-02-20 06:00] LABS: CREATININE SERUM 1.1 MG/DL (0.60-1.30)
[2021-02-20] MEDS: hydrALAZINE (APRESOLINE) 25 MG TAB PO SCH ×3 (06:15→22:24)
[2021-02-20] MEDS: LEVOTHYROXINE 100 MCG (LEVOTHROID) TAB PO SCH (06:16)
[2021-02-20 08:06] VITALS: BP 164/90
[2021-02-20] MEDS: ASPIRIN E.C. 81 MG (ECOTRIN) TAB PO SCH (10:01)
[2021-02-20] MEDS: metFORMIN 500 MG (GLUCOPHAGE) TAB PO SCH ×2 (10:01→16:55)
[2021-02-20] MEDS: SENNOSIDES 8.6 MG (SENOKOT) TAB PO SCH ×2 (10:01→20:25)
[2021-02-20] MEDS: APIXABAN 5 MG (ELIQUIS) TABLET PO SCH ×2 (10:01→20:24)
[2021-02-20] MEDS: DOCUSATE SODIUM 100 MG (COLACE) CAP PO SCH ×2 (10:01→21:38)
--- NOTE | 2021-02-20 10:18 | Cardiology Progress Note ---
Subjective Date Seen by Provider: Feb 20, 2021 Time Seen by Provider: 10:14 Subjective/Events-last exam Patient is in bed, confused, no change from yesterday Review of Systems General: Other (no change from baseline, unable to provide ROS) Objective-Cardiology Exam Last Set of Vital Signs Vital Signs 02/18/21 02/20/21 19:49 08:06 Temp 35.4 Pulse 66 Resp 20 B/P (MAP) 164/90 (114) Pulse Ox 93 O2 Delivery Room Air FiO2 21 I&O Intake and Output 02/20/21 00:00 Intake Total 1860 ml Output Total 1975 ml Balance -115 ml Intake Oral 1860 ml Output Urine Total 1975 ml General: Alert, Cooperative HEENT: Atraumatic Neck: Supple Lungs: Clear to Auscultation Heart: Regular Rate, Normal S1, Normal S2 Abdomen: Normal Bowel Sounds, Soft Extremities: No Clubbing, No Cyanosis Skin: No Rashes, No Breakdown Neuro: Other (confused, no focal deficit) Psych/Mental Status: Mood NL Results Lab Laboratory Tests 02/20/21 05:15 A/P-Cardiology Admission Diagnosis Acute delirium Paroxysmal atrial fibrillation Hyperlipidemia Diabetes mellitus Assessment/Plan Acute change in mental status with delirium, confusion and psychosis. Undeter mined etiology, work-up still in progress, differential diagnosis include sepsis, medications, brain mets, CVA, encephalitis. CT and MRI were reported to be negative. Antibiotics and amiodarone were discontinued. Managed by primary care physician, no change from yesterday MRI impression, Limited by motion artifact. There are changes of chronic microvascular ischemia and cerebral atrophy. No acute intracranial process is detected. Paroxysmal atrial fibrillation, currently in sinus rhythm, was on amiodarone and Eliquis, DC amiodarone, maintained on Eliquis, continue to monitor. Recent UTI, received antibiotics. Hyperlipidemia maintained on statin Diabetes mellitus, followed and managed by primary care physician Hypothyroidism, maintained on replacement therapy. History of non-small lung cancer following with an oncologist at History of BPH, history of TURP. TWILA MUÑOZ MD Feb 20, 2021 10:18
[2021-02-20] MEDS: RT--FLUTICASONE/SALMETEROL 232-14 (AIRDUO RespiCLICK) IH SCH (10:43)
[2021-02-20] MEDS: UMECLIDINIUM BROMIDE (INCRUSE ELLIPTA) 7'S IH SCH (10:43)
[2021-02-20 12:00] VITALS: BP 174/82
[2021-02-20 15:16] VITALS: BP 168/97
--- NOTE | 2021-02-20 16:22 | Progress Note - Hospitalist ---
Subjective HPI/CC On Admission Date Seen by Provider: Feb 20, 2021 Time Seen by Provider: 09:55 Subjective/Events-last exam Saw patient this morning and his participating in exam through [facility]. He remains encephalopathic. Unable to answer most question appropriately. Repeated after me at times and then would say "ramon santa" multiple times. Believes it to be 1954 when asked the year (this is the year he was born though). He then started answering questions by saying "si." I asked him if he spoke Portuguese and he again said "si." Spoke with his after the exam on the phone and she states this is how he was yesterday as well. We discussed plan going forward and my recommendation that he transfer for neurology evaluation. She requested [facility] as she trusts them from his previous cancer treatment. I discussed current issues with transfer as most tertiary centers have been on diversion and I will attempt [facility] first but that we may have to look elsewhere. Objective Exam Vital Signs Vital Signs Date Time Temp Pulse Resp B/P (MAP) Pulse Ox O2 Delivery O2 Flow Rate FiO2 02/20/21 15:16 36.1 73 18 168/97 (120) 97 Room Air 02/18/21 19:49 21 Capillary Refill : Less Than 3 Seconds General Appearance: No Apparent Distress, Obese Respiratory: Lungs Clear, No Respiratory Distress Cardiovascular: Regular Rate, Rhythm, No Murmur Neurologic/Psychiatric: Alert; No Aphasia; Disoriented Results/Procedures Lab Laboratory Tests 02/20/21 05:15 Patient resulted labs reviewed. Imaging: Reviewed Imaging Films, Reviewed Imaging Report Assessment/Plan Assessment and Plan Assess & Plan/Chief Complaint Acute encepholpathy Unclear etiology, previously thought to be Levaquin but returned after discontinuation of levaquin Bladder decompressed, no improvement with dean catheter Electrolytes normal Renal function normal Troponin normal, echo with diastolic dysfunction ABG without CO2 retention Ammonia level normal Urine tox negative x2 Alcohol negative TSH normal Hold Amiodarone, may cause hallucinations- no improvement Cardiology consulted, appreciate assistance CT Head and MRI Brain without acute abnormalities on 02/16 No evidence of infection, UA and CXR normal Consider lumbar puncture Heavy metal screens pending I have attempted transfer at [facility] in [facility], [facility], [facility], [facility], [facility], [facility], and [facility] and all have been unable to accept due to capacity I have requested to just discuss the case with [facility] and am awaiting a call back [facility] in is currently reviewing the case to see if they have the availability to take the patient I went back to room at 1615 to update his and she was no longer at bedside, attempted to call her x2 with no answer (no identifying information on voicemail so message not left) Olecranon bursitis No evidence of septic bursitits Consider ortho consult for aspiration Update: Received call at [address] Hussein at [facility]. Described case to him and he recommends holding off on antibiotics at this time as it does not sound infectious. He recommends EEG and LP for cell count and opening pressure. I inf ormed him that we do not have EEG capabilities but would get LP. I have attempted to call again with no answer so could not get consent for this. I received a call back from [facility] and they have no capacity for patient as well. Will continue to attempt to transfer patient. Discussed with house sup who will get me more transfer line numbers. Second update: Was able to connected with who agreed with trying to transfer to any facility with capabilities to care for him. I have now contacted [facility] [place] and am awaiting a call back. Updated her on the conversation I had with Dr Chao to call [facility] tomorrow if no bed available tonight. She was agreeable to this plan. LORI PAGAN MD Feb 20, 2021 16:22
[2021-02-20] MEDS: TAMSULOSIN 0.4 MG (FLOMAX) CAP PO SCH (16:55)
[2021-02-20 19:38] VITALS: BP 177/79
[2021-02-20] MEDS: AtorvaSTATin TABLET 10 MG TABLET PO SCH (20:25)
[2021-02-20] MEDS: LORATADINE (CLARITIN) 10 MG TAB PO SCH (20:25)
[2021-02-20] MEDS: MONTELUKAST 10 MG (SINGULAIR) TAB PO SCH (20:25)
[2021-02-20] MEDS: ACETAMINOPHEN 325 MG TABLET PO PRN (22:23)
[2021-02-20] MEDS: MELATONIN 3 MG TABLET PO PRN (22:24)
[2021-02-21 00:04] VITALS: BP 132/79
[2021-02-21 04:15] VITALS: BP 103/74
[2021-02-21] MEDS: LEVOTHYROXINE 100 MCG (LEVOTHROID) TAB PO SCH (06:27)
[2021-02-21] MEDS: hydrALAZINE (APRESOLINE) 25 MG TAB PO SCH ×2 (06:27→14:22)
[2021-02-21 07:09] VITALS: BP 129/78
[2021-02-21] MEDS ORDERED: DOXYCYCLINE INJECTION 100 MG in NS (IVPB) 100 ML IV SCH (09:00)
--- NOTE | 2021-02-21 09:02 | Cardiology Progress Note ---
Subjective Date Seen by Provider: Feb 21, 2021 Time Seen by Provider: 08:58 Subjective/Events-last exam Patient is laying down in bed, singing, repeating every sentence he hears. Not answering appropriately any questions Review of Systems General: Other (Unable to provide review of systems) Objective-Cardiology Exam Last Set of Vital Signs Vital Signs 02/18/21 02/21/21 19:49 07:09 Temp 36.7 Pulse 71 Resp 20 B/P (MAP) 129/78 (95) Pulse Ox 96 O2 Delivery Room Air FiO2 21 I&O Intake and Output 02/21/21 00:00 Intake Total 1340 ml Output Total 1875 ml Balance -535 ml Intake Oral 1340 ml Output Urine Total 1875 ml General: Alert, Cooperative HEENT: Atraumatic Neck: Supple Lungs: Clear to Auscultation Heart: Regular Rate, Normal S1, Normal S2 Abdomen: Normal Bowel Sounds, Soft Extremities: No Clubbing, No Cyanosis Skin: No Rashes, No Breakdown Neuro: Other (confused, no focal deficit) Psych/Mental Status: Mood NL, Other (Confused) A/P-Cardiology Admission Diagnosis Acute delirium Paroxysmal atrial fibrillation Hyperlipidemia Diabetes mellitus Assessment/Plan Acute change in mental status with delirium, confusion and psychosis. Undetermined etiology, work-up still in progress, managed by primary care team, as described in Dr. Melvin note Case was discussed with the neurologist and multiple tertiary care centers were contacted, unfortunately there are no beds available. Possible lumbar puncture, patient is maintained on aspirin and Eliquis which is discontinued on February 21, 2021 MRI impression, Limited by motion artifact. There are changes of chronic microvascular ischemia and cerebral atrophy. No acute intracranial process is detected. Paroxysmal atrial fibrillation, currently in sinus rhythm, was on amiodarone and Eliquis, DC amiodarone and Eliquis. Continue to monitor Recent UTI, received antibiotics. No further signs of infection Hyperlipidemia maintained on statin Diabetes mellitus, followed and managed by primary care physician Hypothyroidism, maintained on replacement therapy. History of non-small lung cancer following with an oncologist at History of BPH, history of TURP. TWILA MUOÑZ MD Feb 21, 2021 09:02
[2021-02-21] MEDS: SENNOSIDES 8.6 MG (SENOKOT) TAB PO SCH (09:03)
[2021-02-21] MEDS: metFORMIN 500 MG (GLUCOPHAGE) TAB PO SCH (09:03)
[2021-02-21] MEDS: DOCUSATE SODIUM 100 MG (COLACE) CAP PO SCH (09:03)
[2021-02-21] MEDS ORDERED: BISACODYL 10 MG SUPP (DULCOLAX) PR PRN (10:30)
[2021-02-21 11:23] VITALS: BP 123/80
--- NOTE | 2021-02-21 11:57 | ST Dysphagia Evaluation ---
Speech Evaluation-General Medical Diagnosis Acute Psychosis Onset Date: Feb 18, 2021 Therapy Diagnosis Therapy Diagnosis: Oropharyngeal Dysphagia Precautions Precautions: Aspiration Precautions/Isolations: Aspiration, Fall Prevention, Standard Precautions Referral Referring Physician: Dr. Lynn Medical History Pertinent Medical History: Atrial Fib, HTN, Hypothroidism Reviewed History: Yes Social History Current Living Status: Spouse Speech PLF/Current-Dysphagia Prior Level of Function Patient lived at home with his where he was independent with his daily needs. Subjective Patient was cooperative with the Bedside Dysphagia Evaluation. He was unable to answer any questions. was present and provided information needed. The patient was loudly singing repetitions of anything spoken in front of him. Cognitive Status Patient Orientation: Person, Unable to Assess Oral Motor Skills Dentition: Natural Current Food Consistancy: Regular, Thin Liquids Oral Expression Ability: Severe Impairment Voice Voice Phonatory-Based Quality: Normal Voice Pitch: Normal Voice Loudness: Moderately Soft/Quiet Face Facial Symmetry: Symmetrical Oral-Facial Assessment Oral-Facial Dentition: Normal Labial Seal Description: Normal Lingual Protrusion: Normal Lingual ROM: Normal Lingual Strength: Normal Pharynx Velopharyngeal Move.: Normal Volitional Dry Swallow: Yes Dysphagia Evaluation Consistencies Presented: Thin Liquid, Mechanical Soft, Pureed Oral phase is within normal range of function for all presented textures. Patient refused to try the regular (cracker). He is reported by nursing that no issues are noted with regular diet level. Pharyngeal phase is within normal range of function for all presented textures. Patient refused to try the regular (cracker). He is reported by nursing that no issues are noted with regular diet level. Dietary Recommendations: Regular Liquid Recommendations: Thin Swallowing Precautions: Alternate Liquids/Solids, Double Swallow, Decreased Bolus 1/2 Tsp, Decreased Rate of Oral Intake, Liquids from Straw, Small Bites and Sips, Sitting Upright 90 Degrees, Sitting 90 Degrees 30 Post Intake Dysphagia Evaluation Summary Patient is a 65 y/o male who was admitted to the hospital via ED due to altered mental status. The patient was noted this date by nursing to be choking with thin liquids. Patient was provided a styrofoam cup with a smaller straw which he was observed to have not difficulty with. The patient was also presented puree and mechanical soft without difficulty. Patient refused the regular (cracker) but nursing states he has been doing fine with the regular textured diet level. The patient is recommended to continue on the current diet level. This information was provided to his nurse. Barriers to Learning Patient's current psychosis Speech-Plan Patient/Family Goals Patient/Family Goals: Patient plans on returning to his home where he lives with his . Treatment Plan Speech Therapy Treatment Plan: Discontinue ST Treatment Duration: Feb 21, 2021 Frequency: 1 time per week Estimated Hrs Per Day: .25 hour per day Rehab Potential: Fair Barriers to Learning: Patient's current psychosis Pt/Family Agrees to Plan: Yes Safety Risks/Education Teaching Recipient: Patient, Significant Other Teaching Methods: Discussion Response to Teaching: Verbalize Understanding Education Topics Provided: Safety strategies for oral intake, diet level Time Speech Therapy Time In: 11:40 Speech Therapy Time Out: 11:55 Total Billed Time: 15 Billed Treatment Time 1, DYSEVS, DYST GARTH Garcia Feb 21, 2021 11:57
--- NOTE | 2021-02-21 13:54 | Discharge Summary ---
Diagnosis/Chief Complaint Date of Admission Feb 18, 2021 at 14:20 Date of Discharge Admission Diagnosis Acute psychosis Primary Care GalanBrett everett DO Discharge Diagnosis (1) Acute psychosis Status: Acute Discharge Summary Discharge Physical Exam Allergies: Coded Allergies: levofloxacin (Verified Allergy, Severe, PSYCHOSIS, 02/17/21) chlorthalidone (Verified Allergy, Unknown, 12/20/20) DIZZINESS Vitals & I&Os Vital Signs Date Time Temp Pulse Resp B/P (MAP) Pulse Ox O2 Delivery O2 Flow Rate FiO2 02/21/21 15:09 36.0 65 20 123/80 97 Room Air 02/18/21 19:49 21 General Appearance: No Apparent Distress, Obese Cardiovascular: Regular Rate, Rhythm, No Murmur Neurologic/Psychiatric: Alert, Disoriented Hospital Course Pt was admitted due to acute encephalopathy. He had just been discharged from [facility] when he returned on 02/18. It was at first thought to be due to outpatient Levaquin use but this was discontinued. He had a non contrast CT Head, CTA head, and MRI brain which were all unremarkable for acute findings. His electrolytes were normal. His TSH and ammonia were normal as well. UDS and alcohol level was negative x2 on both admissions. He had no evidence of infection. After manage ment here with IV fluids and labs it was deemed appropriate for transfer to facility with neurology. I contacted over 15 hospitals in the region on 02/20 and 02/21 including his 's preferred facility [facility] (4x in 2 days) to attempt transfer. I was unsuccessful on 02.20 but was able to speak with Dr Hussein of neurology at who recommended and EEG and an LP. LP was ordered with anesth esia but due to his Eliquis dose on 02/20 PM it was unable to be done. Dr Hussein recommended against IV abx at that time as well. His did recall a history of a tick bite in the last few weeks so he was started on IV doxycycline. Ultimately we were able to secure transfer to [facility] in [place], [place]. The accepted physician was Dr Santos. I discussed the case pe rsonally with Dr Moeller as well of their neurology department who accepted patient in consult. His initially declined transfer for [place] in hopes of getting in to or [facility] but after discussion with ehr regarding bed availablity and the need to be seen by a neurologist she was agreeable. He was discharged via EMS. Labs (last 24 hrs) Patient resulted labs reviewed. Imaging: Reviewed Imaging Films, Reviewed Imaging Report Discussion & Recommendations Discharge Planning: >30 minutes discharge planning Discharge Home Medications: Active Scripts Active Reported Flonase Allergy Relief (Fluticasone Propionate) 9.9 Ml [place].susp 1-2 Cushing NSEACH BID PRN 1 SPRAY EACH NARE DAILY Loratadine 10 Mg Tablet 10 Mg PO HS Aspirin EC (Aspirin) 81 Mg Tablet.dr 81 Mg PO DAILY Eliquis (Apixaban) 5 Mg Tablet 5 Mg PO BID Miralax (Polyethylene Glycol 3350) 17 Gm Powd.pack 17 Gm PO DAILY PRN Mucinex D ER 1,200-120 mg Tab (Guaifenesin/Pseudoephedrne HCl) 1 Each Tab.er.12h 1 Each PO Q12H PRN Amiodarone HCl 200 Mg Tablet 400 Mg PO DAILY TAKES 2 (200MG)TABS Flomax (Tamsulosin HCl) 0.4 Mg Cap 0.8 Mg PO 1800 TAKES 30 MINUTES AFTER EVENING MEAL TAKES 2 (0.4MG) CAPS Atorvastatin Calcium 10 Mg Tablet 10 Mg PO DAILY Metoprolol Tartrate 25 Mg Tablet 12.5 Mg PO BID TAKES OF A 25MG TAB Montelukast Sodium 10 Mg Tablet 10 Mg PO HS Metformin HCl 500 Mg Tablet 500 Mg PO BID Levothyroxine Sodium 100 Mcg Tablet 100 Mcg PO DAILY Ventolin Hfa (Albuterol Sulfate) 1 Puff Puff 2 Puff INH Q4H PRN Symbicort 160-4.5 Mcg Inhaler (Budesonide/Formoterol Fumarate) 10.2 Gm Hfa.aer.ad 2 Puff IH BID Spiriva Respimat 2.5MCG/ACTUATION (Tiotropium [place]) 4 Gm Mist.inhal 2 Puff IH DAILY Instructions to patient/family Please see electronic discharge instructions given to patient. LORI PAGAN MD Feb 21, 2021 13:54
[2021-02-21 15:09] VITALS: BP 123/80
== END 2021-02-21 15:05 | disposition short-term general hospital (02) ==
LOC: EDUNIT# 09:07 → ER 09:08 → 4TH 14:20
PROVIDERS: ADMIT Internal Medicine; ATTEND Internal Medicine
DX: F23 Brief psychotic disorder (principal); R41.82 Altered mental status, unspecified; I48.0 Paroxysmal atrial fibrillation; I10 Essential (primary) hypertension; I82.409 Acute embolism and thrombosis of unspecified deep veins of unspecified lower extremity; N40.0 Benign prostatic hyperplasia without lower urinary tract symptoms; E11.9 Type 2 diabetes mellitus without complications; E78.5 Hyperlipidemia, unspecified; N39.0 Urinary tract infection, site not specified; J44.9 Chronic obstructive pulmonary disease, unspecified; E03.9 Hypothyroidism, unspecified; Z79.01 Long term (current) use of anticoagulants; Z79.82 Long term (current) use of aspirin; Z79.899 Other long term (current) drug therapy; Z79.84 Long term (current) use of oral hypoglycemic drugs; Z79.890 Hormone replacement therapy; Z87.891 Personal history of nicotine dependence; Z90.89 Acquired absence of other organs; Z92.21 Personal history of antineoplastic chemotherapy; Z92.3 Personal history of irradiation; Z99.89 Dependence on other enabling machines and devices; Z90.79 Acquired absence of other genital organ(s)
CPT/HCPCS: 36600; 51701; 71045; 80048; 80053 ×2; 80306; 81000; 82140; 82175 ×2; 82570; 82805; 83655 ×2; 83735; 83825 ×2; 84443; 84484; 85025 ×3; 85379; 85610; 85730; 86141; 92526; 92610; 93005; 93306; 94640; 94760; 96374; 99284; G0378; G0480; 36415; 80320

== ENCOUNTER 2021-03-31 10:51 | Outpatient (CLI) | payer MEDICARE, OTHER ==
[~2021-03-31] VITALS: Ht 188 cm; Wt 90.7 kg
[2021-03-31 10:46] VITALS: BP 122/64
[2021-03-31] MEDS ORDERED: diphenhydrAMINE 50 MG/ML INJ (BENADRYL) IV PRN (11:15)
[2021-03-31] MEDS ORDERED: EPINEPHrine INJECTION 1 MG/ML AMP IM PRN (11:15)
[2021-03-31] MEDS ORDERED: CASIRIVIMAB/IMDEVIMAB 1,200 MG in NS (IVPB) 250 ML IV ONE (11:30)
[2021-03-31] MEDS ORDERED: ACETAMINOPHEN 500 MG TAB (TYLENOL) PO PRN (11:30)
[2021-03-31] MEDS ORDERED: ONDANSETRON 4 MG/2 ML (SDV) Z0FRAN IV PRN (11:30)
[2021-03-31 12:20] VITALS: BP 133/67
== END 2021-03-31 12:41 ==
LOC: INFUSION 10:51
PROVIDERS: ATTEND Internal Medicine
DX: Z23 Encounter for immunization (principal); U07.1 COVID-19

== ENCOUNTER 2021-05-18 16:51 | Inpatient (IN) | payer MEDICARE, OTHER ==
[~2021-05-18] VITALS: Ht 188 cm; Wt 85.9 kg
[2021-05-18 17:15] LABS: BILIRUBIN,URINE NEGATIVE (NEGATIVE); CLARITY,URINE CLOUDY; COLOR,URINE DARK YELLOW; GLUCOSE, URINE (UA) NEGATIVE (NEGATIVE); KETONES,URINE NEGATIVE (NEGATIVE); LEUKOCYTE ESTERASE ,URINE 2+ (NEGATIVE); NITRITE,URINE POSITIVE (NEGATIVE); PROTEIN,URINE TRACE (NEGATIVE)
--- NOTE | 2021-05-18 17:16 | ED GU-Male ---
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 He believes he is either broken a rib or has a kidney stone. No nausea. He does have lung cancer diagnosed about a year ago treated with radiation and chemotherapy. He recently had an extended hospital stay here in [facility] then a senior behavioral care unit for a psychosis that was attributed to dementia. The states that [facility] and the [facility] behavioral unit believe this to represent dementia though the believes it was related to a recent prescription for Levaquin. He seems back to baseline now. He states that he is chronically short of breath and wheezy and does not feel any worse today than on any other day. No fevers. Timing/Duration: constant Severity/Quality: moderate Location: right flank Radiation: none Activities at Onset: none Prior Genitourinary Problems: none Associated Symptoms: denies symptoms Allergies and Home Medications Allergies Coded Allergies: levofloxacin (Verified Allergy, Severe, PSYCHOSIS, 03/31/21) chlorthalidone (Verified Allergy, Unknown, 03/31/21) DIZZINESS Patient Home Medication List Home Medication List Reviewed: Yes Albuterol Sulfate (Ventolin Hfa) 1 Puff Puff, 2 PUFF INH Q4H PRN for SHORTNESS OF BREATH, (Reported) Entered as Reported by: BREN THORNE on 04/06/20 1247 Amiodarone HCl (Amiodarone HCl) 200 Mg Tablet, 400 MG PO DAILY, (Reported) Entered as Reported by: BREN THORNE on 12/21/20 1054 Apixaban (Eliquis) 5 Mg Tablet, 5 MG PO BID, (Reported) Entered as Reported by: BREN THORNE on 02/16/21 1421 Aspirin (Aspirin EC) 81 Mg Tablet.dr, 81 MG PO DAILY, (Reported) Entered as Reported by: BREN THORNE on 02/16/21 1421 Atorvastatin Calcium (Atorvastatin Calcium) 10 Mg Tablet, 10 MG PO DAILY, (Reported) Entered as Reported by: BREN THORNE on 12/21/20 1054 Budesonide/Formoterol Fumarate (Symbicort 160-4.5 Mcg Inhaler) 10.2 Gm Hfa.aer.ad, 2 PUFF IH BID, (Reported) Entered as Reported by: MARA MCNALLY on 03/21/201830 Fluticasone Propionate (Flonase Allergy Relief) 9.9 Ml [place].susp, 1-2 SPRAY NSEACH BID PRN for CONGESTION, (Reported) Entered as Reported by: BREN THORNE on 02/16/21 142 Guaifenesin/Pseudoephedrne HCl (Mucinex D ER 1,200-120 mg Tab) 1 Each Tab.er.12h, 1 EACH PO Q12H PRN for CONGESTION, (Reported) Entered as Reported by: BREN THORNE on 12/21/20 105 Levothyroxine Sodium (Levothyroxine Sodium) 100 Mcg Tablet, 100 MCG PO DAILY, (Reported) Entered as Reported by: BREN THORNE on 04/12/20 1009 Loratadine (Loratadine) 10 Mg Tablet, 10 MG PO HS, (Reported) Entered as Reported by: BREN THORNE on 02/16/21 1421 Metformin HCl (Metformin HCl) 500 Mg Tablet, 500 MG PO BID, (Reported) Entered as Reported by: BREN THORNE on 12/21/20 1054 Metoprolol Tartrate (Metoprolol Tartrate) 25 Mg Tablet, 12.5 MG PO BID, (Reported) Entered as Reported by: BREN THORNE on 12/21/20 1054 Montelukast Sodium (Montelukast Sodium) 10 Mg Tablet, 10 MG PO HS, (Reported) Entered as Reported by: BREN THORNE on 12/21/20 1054 Polyethylene Glycol 3350 (Miralax) 17 Gm Powd.pack, 17 GM PO DAILY PRN for CONSTIPATION-2ND LINE, (Reported) Entered as Reported by: BREN THORNE on 12/21/20 1054 Tamsulosin HCl (Flomax) 0.4 Mg Cap, 0.8 MG PO 1800, (Reported) Entered as Reported by: BREN THORNE on 12/21/20 105 Tiotropium [place] (Spiriva Respimat 2.5MCG/ACTUATION) 4 Gm Mist.inhal, 2 PUFF IH DAILY, (Reported) Entered as Reported by: MARA MCNALLY on 03/21/20 1831 Review of Systems Review of Systems Constitutional: see HPI; No chills, No fever EENTM: see HPI Respiratory: see HPI, cough (chronic and unchanged), dyspnea on exertion (chronic and unchanged) Cardiovascular: no symptoms reported Genitourinary: no symptoms reported Musculoskeletal: no symptoms reported Skin: no symptoms reported Psychiatric/Neurological: No Symptoms Reported Endocrine: No Symptoms Reported Hematologic/Lymphatic: No Symptoms Reported Past Wrifgff-Apirsm-Xjvyyo Hx Immunizations Up To Date Tetanus Booster (TDap): Unknown PED Vaccines UTD: No Seasonal Allergies Seasonal Allergies: Yes Past Medical History Surgeries: Yes (COLON RESECTION/COLOSTOMY/TAKEDOWN;PORT L CHEST;C- SCOPES;CARDIAC ABLATION) Abdominal, Bowel Surgery, Cardiac, Coronary Stent, Thyroidectomy Respiratory: Yes (NON-SMALL CELL LUNG CANCER) COPD Currently Using CPAP: Yes (PT USES CPAP AT HOME ) Currently Using BIPAP: No Cardiac: Yes (DVT L ARM 09/2019 POST PORT PLACEMENT;AFIB/FLUTTER-S/P ABLATION 03/24/20) Atrial Fibrillation, Deep Vein Thrombosis, Hypertension, Irregular Heartbeat Neurological: No Reproductive Disorders: No Sexually Transmitted Disease: No HIV/AIDS: No Genitourinary: Yes (TURP) Prostate Problems, Renal Failure, UTI-Chronic Gastrointestinal: Yes (COLON RESECTION/COLOSTOMY/TAKEDOWN FOR BENIGN POLYPS) Polyps Musculoskeletal: No Endocrine: Yes (THYROIDECTOMY FOR BENIGN DISEASE) Hypothyroidsim HEENT: No Cancer: Yes (NON-SMALL CELL LUNG CANCER DX 07/2019--HAS BEEN ON IMMUNOTHERAPY) Lung Did You Recieve Any Treatments: Yes What Type of Treatment Did You: Chemotherapy, Radiation Psychosocial: No Integumentary: No Blood Disorders: No Adverse Reaction/Blood Tranf: No Family Medical History No Pertinent Family Hx SOCIAL HISTORY: -ETOH--DENIES -DRUGS--DENIES -SMOKING--SMOKED 1 PPD--QUIT A FEW YEARS AGO PAST SURGICAL HISTORY: -COLON RESECTION FOR MULTIPLE BENIGN POLYPS, REQUIRED COLOSTOMY AND LATER TAKEDOWN -THYROIDECTOMY FOR BENIGN GOITER -CARDIAC CATH 03/21/20--NO INTERVENTION. SLOW FLOW IN ALL VESSELS. SMALL FIRST DIAGONAL ARTERY HAS MODERATE TO SEVERE OSTIAL DISEASE--NOT AMENABLE TO INTERVENTION -CARDIAC ABLATION FOR ATRIAL FIBRILLATION 03/24/20 -MULTIPLE COLONOSCOPIES -PORT LEFT CHEST Physical Exam Vital Signs Vital Signs - First Documented 05/18/21 17:03 Temp 36.1 Pulse 63 Resp 20 B/P (MAP) 128/89 (102) Pulse Ox 100 O2 Delivery Room Air Capillary Refill : Height, Weight, BMI Height: 6'2.00" Weight: 230lbs. 0.0oz. [id number]; 26.88 BMI Method:Stated General Appearance: WD/WN, no apparent distress, thin Neck: non-tender, full range of motion Cardiovascular: no edema, no murmur Respiratory: no respiratory distress, no accessory muscle use, wheezing, other (Oxygen saturation 100% on room air) Gastrointestinal: normal bowel sounds, non tender, soft Extremities: normal range of motion, non-tender Neurologic/Psychiatric: alert, normal mood/affect, oriented x 3 Skin: normal color, warm/dry, other (The right flank is without rash or erythema) Progress/Results/Core Measures Suspected Sepsis SIRS Temperature: Pulse: Respiratory Rate: Laboratory Tests 05/18/21 17:20: White Blood Count 8.4 Blood Pressure / Mean: Laboratory Tests 05/18/21 17:20: Creatinine 1.00, Platelet Count 187, Total Bilirubin 0.6 Results/Orders Lab Results Laboratory Tests Test 05/18/21 17:05 05/18/21 17:20 Range/Units Urine Color DARK YELLOW Urine Clarity CLOUDY Urine pH 6.0 5-9 Urine Specific [place] >=1.030 1.016-1.022 Urine Protein TRACE H NEGATIVE Urine Glucose (UA) NEGATIVE NEGATIVE Urine Ketones NEGATIVE NEGATIVE Urine Nitrite POSITIVE H NEGATIVE Urine Bilirubin NEGATIVE NEGATIVE Urine Urobilinogen 1.0 < = 1.0 MG/DL Urine Leukocyte Esterase 2+ H NEGATIVE Urine RBC (Auto) NEGATIVE NEGATIVE Urine RBC NONE /HPF Urine WBC >100 H /HPF Urine Crystals PRESENT H /LPF Urine Calcium Oxalate Crystals MODERATE H /LPF Urine Bacteria FEW H /HPF Urine Casts NONE /LPF Urine Mucus MODERATE H /LPF Urine Culture Indicated YES White Blood Count 8.4 4.3-11.0 10^3/uL Red Blood Count 4.29 L 4.30-5.52 10^6/uL Hemoglobin 11.0 L 13.3-17.7 g/dL Hematocrit 35 L 40-54 % Mean Corpuscular Volume 82 80-99 fL Mean Corpuscular Hemoglobin 26 25-34 pg Mean Corpuscular Hemoglobin Concent 31 L 32-36 g/dL Red Cell Distribution Width 17.2 H 10.0-14.5 % Platelet Count 187 130-400 10^3/uL Mean Platelet Volume 9.7 9.0-12.2 fL Immature Granulocyte % (Auto) 0 % Neutrophils (%) (Auto) 79 H 42-75 % Lymphocytes (%) (Auto) 12 12-44 % Monocytes (%) (Auto) 9 0-12 % Eosinophils (%) (Auto) 0 0-10 % Basophils (%) (Auto) 0 0-10 % Neutrophils # (Auto) 6.6 1.8-7.8 10^3/uL Lymphocytes # (Auto) 1.0 1.0-4.0 10^3/uL Monocytes # (Auto) 0.7 0.0-1.0 10^3/uL Eosinophils # (Auto) 0.0 0.0-0.3 10^3/uL Basophils # (Auto) 0.0 0.0-0.1 10^3/uL Immature Granulocyte # (Auto) 0.0 0.0-0.1 10^3/uL Sodium Level 137 135-145 MMOL/L Potassium Level 3.6 3.6-5.0 MMOL/L Chloride Level 102 98-107 MMOL/L Carbon Dioxide Level 22 21-32 MMOL/L Anion Gap 13 5-14 MMOL/L Blood Urea Nitrogen 20 H 7-18 MG/DL Creatinine 1.00 0.60-1.30 MG/DL Estimat Glomerular Filtration Rate 74 BUN/Creatinine Ratio 20 Glucose Level 157 H 70-105 MG/DL Calcium Level 8.8 8.5-10.1 MG/DL Corrected Calcium 9.0 8.5-10.1 MG/DL Total Bilirubin 0.6 0.1-1.0 MG/DL Aspartate Amino Transf (AST/SGOT) 15 5-34 U/L Alanine Aminotransferase (ALT/SGPT) 12 0-55 U/L Alkaline Phosphatase 62 40-136 U/L Total Protein 6.4 6.4-8.2 GM/DL Albumin 3.8 3.2-4.5 GM/DL My Orders Orders - SAM ARGUETA STADIUM ATTENDANT Cbc With Automated Diff (05/18/21 16:54) Comprehensive Metabolic Panel (05/18/21 16:54) Ua Culture If Indicated (05/18/21 16:54) Abdomen/Kub 1view (05/18/21 16:54) Ct Abd/Pelvis Wo(Kidney Stone) (05/18/21 16:54) Ed Iv/Invasive Line Start (05/18/21 16:54) Chest Pa/Lat (2 View) (05/18/21 17:16) Urine Culture (05/18/21 17:05) Ct Chest W (05/18/21 17:48) Ceftriaxone (Rocephin) (05/18/21 18:15) Iohexol Injection (Omnipaque 350 Mg/Ml 1 (05/18/21 18:30) Received Contrast (Hold Metformin- Contr (05/18/21 18:30) Ns (Ivpb) (Sodium Chloride 0.9% Ivpb Bag (05/18/21 18:30) Medications Given in ED Current Medications Medications Dose Ordered Sig/Silvana Route Start Time Stop Time Status Last Admin Dose Admin Ceftriaxone Sodium 1000 mg/ Sterile Water 10 ml @ 200 mls/hr ONCE ONCE IV 05/18/21 18:15 05/18/21 18:17 DC 05/18/21 18:36 200 MLS/HR Iohexol 75 ml ONCE ONCE IV 05/18/21 18:30 05/18/21 18:31 DC 05/18/21 18:29 74 ML Sodium Chloride 100 ml ONCE ONCE IV 05/18/21 18:30 05/18/21 18:31 DC 05/18/21 18:29 80 ML Vital Signs/I&O 05/18/21 17:03 Temp 36.1 Pulse 63 Resp 20 B/P (MAP) 128/89 (102) Pulse Ox 100 O2 Delivery Room Air Capillary Refill : Diagnostic Imaging Diagonstic Imaging: CT Comments NAME: SARA IRIZARRY [facility] REC#: [id number] PT STATUS: REG ER : 1955 PHYSICIAN: SAM ARGUETA APRN ADMIT DATE: 05/18/21/ER Draft Date of Exam:05/18/21 CT ABD/PELVIS WO(KIDNEY STONE) PROCEDURE: CT urinary tract, rule out kidney stone. TECHNIQUE: Multiple contiguous axial images were obtained through the abdomen and pelvis without the use of intravenous contrast. Auto Exposure Controls were utilized during the CT exam to meet ALARA standards for radiation dose reduction. INDICATION: Flank pain, abdominal pain. COMPARISON: None available. FINDINGS: Right basilar pneumothorax is partially visualized. Minimal left basilar scarring and/or atelectasis. The unenhanced liver and spleen are unremarkable. A splenule is present. 3.1 cm right adrenal gland mass lesion is present with Hounsfield units of approximately 36. No internal macroscopic fat identified. The left adrenal gland is unremarkable. Sludge and/or stones are noted within the gallbladder without adjacent inflammatory stranding. The pancreas is unremarkable. Indeterminate 1.3 cm exophytic isodensity is noted arising from the inferior pole of the right kidney. Punctate sub 2 mm left renal calculus. 1.0 cm mild hyperdensity within the medial aspect of the right kidney. No evidence of hydroureteronephrosis. Mild vascular calcifications within the abdominal aorta and its branch vessels without aneurysmal dilatation of the abdominal aorta. Mural thickening of the urinary bladder, though the urinary bladder is not well-distended. The prostate gland is mildly enlarged. Small bowel containing nonobstructing left spigelian hernia is identified. Tiny fat-containing right spigelian hernia is present. Moderate amount of stool is noted throughout the colon. No bowel obstruction or pneumatosis. No CT evidence of acute appendicitis. Small left and tiny right fat-containing inguinal hernias. No significant adenopathy, free air or free fluid within the abdomen or pelvis. Scattered osseous degenerative changes without acute osseous abnormality. IMPRESSION: 1. Right basilar pneumothorax is partially visualized. Recommend radiographs of the chest for further evaluation. 2. Mural thickening of the urinary bladder. This may relate to underlying cystitis versus poor distention. Recommend correlation with urinary analysis. 3. Significant amount of stool throughout the colon, which can be seen with constipation. No bowel obstruction. 4. Cholelithiasis. 5. Indeterminate right renal lesions. Nonemergent renal ultrasound may help to further evaluate if these have not been previously evaluated. 6. Punctate nonobstructing left renal calculus. 7. Nonobstructing small bowel containing left spigelian hernia. 8. Indeterminate 3.1 cm right adrenal gland mass. This is not consistent with atypical benign adenoma given density. MRI of the abdomen versus CT of the abdomen with and without contrast using adrenal mass protocol is recommended non-emergently. Alternatively, if prior imaging is available to demonstrate multiple years of stability for this nodule, then it could be considered benign. Report was called to the [facility] at 6:02 p.m., by marylou. They were already aware of the pneumothorax. Dictated on workstation # [id number] Dict: 05/18/211736 Trans: [id number] MARYLOU [id number] Interpreted by: GIOVANNI BOWENS MD Electronically signed by: Departure Communication (Admissions) Time/Spoke to Admitting Phy: 18:47 Discussed with [facility], will admit, serial radiographs, supplemental oxygen. Not large enough for tube at this time. NAME: SARA IRIZARRY [facility] REC#: [id number] PT STATUS: REG ER : 1955 PHYSICIAN: SAM ARGUETA APRN ADMIT DATE: 05/18/21/ER Draft Date of Exam:05/18/21 CT CHEST W PROCEDURE: CT chest with contrast only. TECHNIQUE: Multiple contiguous axial images were obtained through the chest after administration of intravenous contrast. Auto Exposure Controls were utilized during the CT exam to meet ALARA standards for radiation dose reduction. INDICATION: Right-sided pneumothorax. COMPARISON: Imaging from same date. FINDINGS: Left-sided Port-A-Cath is in place with the distal tip terminating at the cavoatrial junction. No significant adenopathy within the chest. Scattered vascular calcifications without aneurysmal dilatation of the thoracic aorta. The heart is within normal limits in size. No significant pericardial effusion. No pleural effusion. No significant hiatal hernia. Moderate sized right-sided pneumothorax is present, greatest overlying the right upper lung. There is, however, no significant shift of the mediastinum. Dense consolidation with associated air bronchograms and volume loss is noted within the medial aspect of the right upper lobe. No left-sided pneumothorax. Minimal emphysematous changes within the lungs, bilaterally. The left lung is clear. 1.3 x 0.9 cm groundglass pulmonary nodule within the right lower lobe. The trachea is patent. No acute osseous abnormality with mild scattered osseous degenerative changes. See separately dictated CT of the abdomen and pelvis from same date for findings within the abdomen, itself. IMPRESSION: 1. Moderate sized right-sided pneumothorax without evidence of tension phenomenon. Etiology for this pneumothorax is uncertain based upon this examination. 2. Linear dense consolidation within the right upper lobe with associated volume loss is favored to simply relate to atelectasis. Radiographic follow-up is recommended to ensure resolution. 3. Minimal emphysema. 4. 1.3 cm groundglass right lower lobe pulmonary nodule. This is indeterminate. Follow-up CT of the chest is recommended in six months to monitor stability. 5. Additional findings as above. Dictated on workstation # [id number] Dict: 05/18/21 1833 Trans: 05/18/21 184 PJRichie [id number] Interpreted by: GIOVANNI BOWENS MD Electronically signed by: NAME: SARA IRIZARRY [facility] REC#: [id number] PT STATUS: REG ER : 1955 PHYSICIAN: SAM ARGUETA APRN ADMIT DATE: 05/18/21/ER Draft Date of Exam:05/18/21 CHEST PA/LAT (2 VIEW) INDICATION: Right flank pain. COMPARISON: 02/18/2021. TECHNIQUE: Two radiographs of the chest are obtained dated May 18, 2021. FINDINGS: Port-A-Cath is again identified with the hub overlying the left chest and the distal tip terminating near the cavoatrial junction. The cardiac silhouette is within normal limits in size. No significant pulmonary vascular congestion. The left lung is clear of focal pulmonary opacity. Moderate right-sided pneumothorax is identified, best visualized within the right apical region. No mediastinal shift. Linear interstitial densities are seen emanating from the right perihilar region, greatest within the right upper lung. No significant pleural effusion. No left pneumothorax. Mild scattered osseous degenerative changes. No acute osseous abnormality. The lungs are hyperinflated. IMPRESSION: 1. Moderate right apical pneumothorax without evidence of tension phenomenon. This is associated with right perihilar atelectasis or less likely infiltrate. Radiographic follow-up is recommended to ensure resolution. 2. Stable left-sided Port-A-Cath. 3. Background pulmonary hyperinflation. Report was called to the [facility] ER at 6:02 p.m., by marylou. Dictated on workstation # [id number] Dict: 05/18/21 1755 Trans: 05/18/21 180 PJRichie [id number] Interpreted by: GIOVANNI BOWENS MD Electronically signed by: Impression Primary Impression: Pneumothorax on right Additional Impression: UTI (urinary tract infection) Disposition: ADMITTED INPATIENT Condition: Stable Admissions Decision to Admit Reason: Admit from ER (General) Decision to Admit/Date: May 18, 2021 Time/Decision to Admit Time: 18:49 Departure-Patient Inst. Referrals: ELLIE MITTAL DO (PCP/Family) Primary Care Physician SAM ARGUETA APRN May 18, 2021 17:15
[2021-05-18 17:31] LABS: BACTERIA,URINE FEW /HPF; WBC,URINE >100 /HPF
[2021-05-18 17:32] LABS: CALCIUM OXALATE CRYSTALS,UR MODERATE /LPF
[2021-05-18 17:35] LABS: BASOPHILS % (AUTO) 0 % (0-10); EOSINOPHILS % (AUTO) 0 % (0-10); HEMATOCRIT 35 % (40-54); LYMPHOCYTES % (AUTO) 12 % (12-44); MEAN CORPUSCULAR HEMOGLOBIN 26 pg (25-34); MEAN CORPUSCULAR HGB CONC 31 g/dL (32-36); MEAN CORPUSCULAR VOLUME 82 fL (80-99); MEAN PLATELET VOLUME 9.7 fL (9.0-12.2); MONOCYTES # (AUTO) 0.7 10^3/uL (0.0-1.0); MONOCYTES % (AUTO) 9 % (0-12); NEUTROPHILS # (AUTO) 6.6 10^3/uL (1.8-7.8); NEUTROPHILS % (AUTO) 79 % (42-75); PLATELET COUNT 187 10^3/uL (130-400); WHITE BLOOD COUNT 8.4 10^3/uL (4.3-11.0)
[2021-05-18 17:50] LABS: ALBUMIN 3.8 GM/DL (3.2-4.5); BILIRUBIN,TOTAL 0.6 MG/DL (0.1-1.0); CALCIUM 8.8 MG/DL (8.5-10.1); POTASSIUM 3.6 MMOL/L (3.6-5.0); TOTAL PROTEIN 6.4 GM/DL (6.4-8.2)
--- NOTE | 2021-05-18 18:04 | Diagnostic Imaging Report ---
INDICATION: Right flank pain. COMPARISON: 02/18/2021. TECHNIQUE: Two radiographs of the chest are obtained dated May 18, 2021. FINDINGS: Port-A-Cath is again identified with the hub overlying the left chest and the distal tip terminating near the cavoatrial junction. The cardiac silhouette is within normal limits in size. No significant pulmonary vascular congestion. The left lung is clear of focal pulmonary opacity. Moderate right-sided pneumothorax is identified, best visualized within the right apical region. No mediastinal shift. Linear interstitial densities are seen emanating from the right perihilar region, greatest within the right upper lung. No significant pleural effusion. No left pneumothorax. Mild scattered osseous degenerative changes. No acute osseous abnormality. The lungs are hyperinflated. IMPRESSION: 1. Moderate right apical pneumothorax without evidence of tension phenomenon. This is associated with right perihilar atelectasis or less likely infiltrate. Radiographic follow-up is recommended to ensure resolution. 2. Stable left-sided Port-A-Cath. 3. Background pulmonary hyperinflation. Report was called to the [place] ER at 6:02 p.m., by wes. Dictated by: Dictated on workstation # [id number]
--- NOTE | 2021-05-18 18:07 | Diagnostic Imaging Report ---
INDICATION: Flank pain, abdominal pain. COMPARISON: CT from same date. TECHNIQUE: Two radiographs of the abdomen dated May 18, 2021. FINDINGS: Moderate amount of stool is noted throughout the colon, including extending into the rectal vault. No dilated loops of small bowel. No differential air-fluid levels. No free air. No suspicious calcifications overlying the renal shadows. Mild scattered osseous degenerative changes without acute osseous abnormality. IMPRESSION: Moderate amount of stool throughout the colon, likely related to constipation. No definite evidence of bowel obstruction. Dictated by: Dictated on workstation # [id number]
[2021-05-18] MEDS ORDERED: cefTRIAXone 1,000 MG in WATER (STERILE) FOR INJECTION 10 ML IV ONE (18:15)
--- NOTE | 2021-05-18 18:20 | Diagnostic Imaging Report ---
PROCEDURE: CT urinary tract, rule out kidney stone. TECHNIQUE: Multiple contiguous axial images were obtained through the abdomen and pelvis without the use of intravenous contrast. Auto Exposure Controls were utilized during the CT exam to meet ALARA standards for radiation dose reduction. INDICATION: Flank pain, abdominal pain. COMPARISON: None available. FINDINGS: Right basilar pneumothorax is partially visualized. Minimal left basilar scarring and/or atelectasis. The unenhanced liver and spleen are unremarkable. A splenule is present. 3.1 cm right adrenal gland mass lesion is present with Hounsfield units of approximately 36. No internal macroscopic fat identified. The left adrenal gland is unremarkable. Sludge and/or stones are noted within the gallbladder without adjacent inflammatory stranding. The pancreas is unremarkable. Indeterminate 1.3 cm exophytic isodensity is noted arising from the inferior pole of the right kidney. Punctate sub 2 mm left renal calculus. 1.0 cm mild hyperdensity within the medial aspect of the right kidney. No evidence of hydroureteronephrosis. Mild vascular calcifications within the abdominal aorta and its branch vessels without aneurysmal dilatation of the abdominal aorta. Mural thickening of the urinary bladder, though the urinary bladder is not well-distended. The prostate gland is mildly enlarged. Small bowel containing nonobstructing left spigelian hernia is identified. Tiny fat-containing right spigelian hernia is present. Moderate amount of stool is noted throughout the colon. No bowel obstruction or pneumatosis. No CT evidence of acute appendicitis. Small left and tiny right fat-containing inguinal hernias. No significant adenopathy, free air or free fluid within the abdomen or pelvis. Scattered osseous degenerative changes without acute osseous abnormality. IMPRESSION: 1. Right basilar pneumothorax is partially visualized. Recommend radiographs of the chest for further evaluation. 2. Mural thickening of the urinary bladder. This may relate to underlying cystitis versus poor distention. Recommend correlation with urinary analysis. 3. Significant amount of stool throughout the colon, which can be seen with constipation. No bowel obstruction. 4. Cholelithiasis. 5. Indeterminate right renal lesions. Nonemergent renal ultrasound may help to further evaluate if these have not been previously evaluated. 6. Punctate nonobstructing left renal calculus. 7. Nonobstructing small bowel containing left spigelian hernia. 8. Indeterminate 3.1 cm right adrenal gland mass. This is not consistent with atypical benign adenoma given density. MRI of the abdomen versus CT of the abdomen with and without contrast using adrenal mass protocol is recommended non-emergently. Alternatively, if prior imaging is available to demonstrate multiple years of stability for this nodule, then it could be considered benign. Report was called to the [place] ER at 6:02 p.m., by wes. They were already aware of the pneumothorax. Dictated by: Dictated on workstation # [id number]
[2021-05-18] MEDS ORDERED: IOHEXOL 350 MG/ML 100 ML (OMNIPAQUE 350) VIAL IV ONE (18:30)
[2021-05-18] MEDS ORDERED: NS 100 ML (IVPB) BAG IV ONE (18:30)
[2021-05-18] MEDS: HOLD METFORMIN - RECEIVED CONTRAST 20 ML VIAL IV SCH ×2 (18:30→22:08)
--- NOTE | 2021-05-18 18:42 | Diagnostic Imaging Report ---
PROCEDURE: CT chest with contrast only. TECHNIQUE: Multiple contiguous axial images were obtained through the chest after administration of intravenous contrast. Auto Exposure Controls were utilized during the CT exam to meet ALARA standards for radiation dose reduction. INDICATION: Right-sided pneumothorax. COMPARISON: Imaging from same date. FINDINGS: Left-sided Port-A-Cath is in place with the distal tip terminating at the cavoatrial junction. No significant adenopathy within the chest. Scattered vascular calcifications without aneurysmal dilatation of the thoracic aorta. The heart is within normal limits in size. No significant pericardial effusion. No pleural effusion. No significant hiatal hernia. Moderate sized right-sided pneumothorax is present, greatest overlying the right upper lung. There is, however, no significant shift of the mediastinum. Dense consolidation with associated air bronchograms and volume loss is noted within the medial aspect of the right upper lobe. No left-sided pneumothorax. Minimal emphysematous changes within the lungs, bilaterally. The left lung is clear. 1.3 x 0.9 cm groundglass pulmonary nodule within the right lower lobe. The trachea is patent. No acute osseous abnormality with mild scattered osseous degenerative changes. See separately dictated CT of the abdomen and pelvis from same date for findings within the abdomen, itself. IMPRESSION: 1. Moderate sized right-sided pneumothorax without evidence of tension phenomenon. Etiology for this pneumothorax is uncertain based upon this examination. 2. Linear dense consolidation within the right upper lobe with associated volume loss is favored to simply relate to atelectasis. Radiographic follow-up is recommended to ensure resolution. 3. Minimal emphysema. 4. 1.3 cm groundglass right lower lobe pulmonary nodule. This is indeterminate. Follow-up CT of the chest is recommended in six months to monitor stability. 5. Additional findings as above. Dictated by: Dictated on workstation # [id number]
[2021-05-18 20:00] VITALS: BP 162/80
[2021-05-18] MEDS ORDERED: fentaNYL INJ 100 MCG/2 ML AMP IV PRN (20:15)
[2021-05-18] MEDS ORDERED: CATHETER FLUSH 10 ML SYR IV PRN (20:15)
[2021-05-18 20:19] VITALS: BP 128/89
[2021-05-18] MEDS ORDERED: RT-ALBUTEROL/IPRATROPIUM 3 ML (DUONEB) VIAL INH PRN (21:00)
[2021-05-18] MEDS: RT-ALBUTEROL/IPRATROPIUM 3 ML (DUONEB) VIAL INH SCH (21:57)
[2021-05-18] MEDS: CATHETER FLUSH 10 ML SYR IV SCH (22:09)
[2021-05-19] VITALS: BP 122/66
[2021-05-19] MEDS: RT-ALBUTEROL/IPRATROPIUM 3 ML (DUONEB) VIAL INH SCH ×3 (02:39→11:07)
[2021-05-19 04:00] VITALS: BP 126/69
--- NOTE | 2021-05-19 07:17 | Diagnostic Imaging Report ---
INDICATION: Followup pneumothorax. COMPARISON: 05/18/2021 FINDINGS: Single frontal radiographic view of the chest was obtained and demonstrates persistent, but otherwise diminished small right apical pneumothorax. Linear opacity is also again identified within the right apex. There is more nodular appearing opacity more centrally. This does raise concern for perihilar obstructive mass. This however has been assessed on recent CT of the chest. Continued followup is recommended. Left lung remains clear. There is no pneumothorax on the left. There is no large effusion on either side. Cardiac silhouette and pulmonary vasculature are within normal. Left-sided subclavian Port-A-Cath is noted with tip in the low SVC. IMPRESSION: 1. Persistent, but diminished small right apical pneumothorax. 2. Linear opacity of the right upper lung extending to the hilum where there is more nodular area. Again, this does raise concern for obstructive perihilar region. This however has been assessed on recent CT chest. Continued followup is recommended. Dictated by: Dictated on workstation # [id number]
--- NOTE | 2021-05-19 07:26 | History & Physical-Surgical ---
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 He described it as sharp, constant, 6/10, it radiated across his right rib cage anteriorly. Laying down seemed to make it better, moving around makes it worse, he denies having shortness of breath, new cough, or any associated symptoms. This morning he is resting comfortably he sating in mid 90s on room air he says his pain is about a 2/10 without narcotics since admission, it is about the size of his hand in mid thorax on the right lateral side. He denies feeling short of breath, he has no nausea, or vomiting, he last took his eliquis yesterday morning, he denies changes in bowel habits, or urinary habits. Date of Admission May 18, 2021 at 18:09 Date Seen by a Provider: May 19, 2021 Time Seen by a Provider: 06:50 I consulted on this patient on 05/19/21 07:21 Attending Physician Brain Escobar DO Admitting Physician Brett Galan DO Consult Allergies and Home Medications Allergies Coded Allergies: levofloxacin (Verified Allergy, Severe, PSYCHOSIS, 03/31/21) chlorthalidone (Verified Allergy, Unknown, 03/31/21) DIZZINESS Patient Home Medication List Home Medication List Reviewed: Yes Albuterol Sulfate (Ventolin Hfa) 1 Puff Puff, 2 PUFF INH Q4H PRN for SHORTNESS OF BREATH, (Reported) Entered as Reported by: BREN THORNE on 04/06/20 1247 Amiodarone HCl (Amiodarone HCl) 200 Mg Tablet, 400 MG PO DAILY, (Reported) Entered as Reported by: BREN THORNE on 12/21/20 1054 Apixaban (Eliquis) 5 Mg Tablet, 5 MG PO BID, (Reported) Entered as Reported by: BREN THORNE on 02/16/21 1421 Aspirin (Aspirin EC) 81 Mg Tablet.dr, 81 MG PO DAILY, (Reported) Entered as Reported by: BREN THORNE on 02/16/21 1421 Atorvastatin Calcium (Atorvastatin Calcium) 10 Mg Tablet, 10 MG PO DAILY, (Reported) Entered as Reported by: BREN THORNE on 12/21/20 1054 Budesonide/Formoterol Fumarate (Symbicort 160-4.5 Mcg Inhaler) 10.2 Gm Hfa.aer.ad, 2 PUFF IH BID, (Reported) Entered as Reported by: MARA MCNALLY on 03/21/20 1831 Fluticasone Propionate (Flonase Allergy Relief) 9.9 Ml [place].susp, 1-2 SPRAY N SEACH BID PRN for CONGESTION, (Reported) Entered as Reported by: BREN THORNE on 02/16/21 1421 Guaifenesin/Pseudoephedrne HCl (Mucinex D ER 1,200-120 mg Tab) 1 Each Tab.er.12h, 1 EACH PO Q12H PRN for CONGESTION, (Reported) Entered as Reported by: BRNE THORNE on 12/21/20 1054 Levothyroxine Sodium (Levothyroxine Sodium) 100 Mcg Tablet, 100 MCG PO DAILY, (Reported) Entered as Reported by: BREN THORNE on 04/12/20 1009 Loratadine (Loratadine) 10 Mg Tablet, 10 MG PO HS, (Reported) Entered as Reported by: BREN THORNE on 02/16/21 1421 Metformin HCl (Metformin HCl) 500 Mg Tablet, 500 MG PO BID, (Reported) Entered as Reported by: BREN THORNE on 12/21/20 1054 Metoprolol Tartrate (Metoprolol Tartrate) 25 Mg Tablet, 12.5 MG PO BID, (Reported) Entered as Reported by: BREN THORNE on 12/21/20 1054 Montelukast Sodium (Montelukast Sodium) 10 Mg Tablet, 10 MG PO HS, (Reported) Entered as Reported by: BREN THORNE on 12/21/20 1054 Polyethylene Glycol 3350 (Miralax) 17 Gm Powd.pack, 17 GM PO DAILY PRN for CONSTIPATION-2ND LINE, (Reported) Entered as Reported by: BREN THORNE on 12/21/20 105 Tamsulosin HCl (Flomax) 0.4 Mg Cap, 0.8 MG PO 1800, (Reported) Entered as Reported by: BREN THORNE on 12/21/20 1054 Tiotropium Neversink (Spiriva Respimat 2.5MCG/ACTUATION) 4 Gm Mist.inhal, 2 PUFF IH DAILY, (Reported) Entered as Reported by: MARA MCNALLY on 03/21/20 183 Past Bkfwxid-Ozkdgf-Gxyzyy Hx Patient Social History Tobacco Use?: Yes (previous, quit "few years ago") Tobacco type used: Cigarettes Smoking Status: Former Smoker Smokeless Tobacco Frequency: Former User Substance use?: No Alcohol Use?: No Pt feels they are or have been: No Immunizations Up To Date Date of Influenza Vaccine: Apr 21, 2014 First/Initial COVID19 Vaccinat: September 12, 2020 Second COVID19 Vaccination Rodo: October 09, 2020 Tetanus Booster (TDap): Unknown Hepatitis A: No Hepatitis B: No PED Vaccines UTD: No Date of Pneumonia Vaccine: Jun 15, 2009 Seasonal Allergies Seasonal Allergies: Yes Current Status Advance Directives: No Communicates: Verbally Primary Language: Bolivian Preferred Spoken Language: Bolivian Is interpretation needed?: No Implanted or Applied Medical D: Central venous access Past Medical History Surgeries: Abdominal (colectomy, ostomy creation, ostomy reversal), Bowel Surgery, Cardiac (cardiac ablation), Coronary Stent, Prostatectomy (TURP), Thyroidectomy COPD Currently Using CPAP: Yes (PT USES CPAP AT HOME ) Currently Using BIPAP: No Atrial Fibrillation, Deep Vein Thrombosis, Hypertension, Irregular Heartbeat Sexually Transmitted Disease: No HIV/AIDS: No Prostate Problems, Renal Failure, UTI-Chronic Polyps Hypothyroidsim Lung Did You Recieve Any Treatments: Yes What Type of Treatment Did You: Chemotherapy, Radiation Violent Behavior (Recent episode of psychosis, nonviolent) Blood Disorders: No Adverse Reaction/Blood Tranf: No Family Medical History No Pertinent Family Hx SOCIAL HISTORY: -ETOH--DENIES -DRUGS--DENIES -SMOKING--SMOKED 1 PPD--QUIT A FEW YEARS AGO PAST SURGICAL HISTORY: -COLON RESECTION FOR MULTIPLE BENIGN POLYPS, REQUIRED COLOSTOMY AND LATER TAKEDOWN -THYROIDECTOMY FOR BENIGN GOITER -CARDIAC CATH 03/21/20--NO INTERVENTION. SLOW FLOW IN ALL VESSELS. SMALL FIRST DIAGONAL ARTERY HAS MODERATE TO SEVERE OSTIAL DISEASE--NOT AMENABLE TO INTERVENTION -CARDIAC ABLATION FOR ATRIAL FIBRILLATION 03/24/20 -MULTIPLE COLONOSCOPIES -PORT LEFT CHEST Review of Systems Constitutional: No chills, No diaphoresis, No fever EENTM: blurred vision; No hoarseness Respiratory: cough Cardiovascular: chest pain (right thorax); No palpitations (at this time) Gastrointestinal: No abdominal pain; constipation; No diarrhea Genitourinary: No dysuria, No hematuria Musculoskeletal: No back pain, No muscle pain Skin: No change in color, No dryness Psychiatric/Neurological: Denies Anxiety, Denies Depressed Physical Exam Vital Signs Vital Signs - First Documented 05/18/21 05/18/21 17:03 20:19 Temp 36.1 Pulse 63 Resp 20 B/P (MAP) 128/89 (102) Pulse Ox 100 O2 Delivery Room Air FiO2 21 Capillary Refill : Less Than 3 Seconds Height, Weight, BMI Height: 6'2.00" Weight: 230lbs. 0.0oz. [id number]; 24.30 BMI Method:Stated General Appearance: No Apparent Distress, Chronically ill Eyes: Bilateral Eye Normal Inspection, Bilateral Eye PERRL, Bilateral Eye EOMI HEENT: Pharynx Normal, Moist Mucous Membranes; No Scleral Icterus (L), No Scleral Icterus (R) Neck: Normal Inspection, Non Tender, Supple Respiratory: Lungs Clear, No Accessory Muscle Use, No Respiratory Distress, Wheezing Cardiovascular: Regular Rate, Rhythm, No Murmur Gastrointestinal: No Organomegaly, No Pulsatile Mass, Non Tender, Soft Rectal: Deferred Back: Normal Inspection, No CVA Tenderness, No Vertebral Tenderness Extremity: Normal Capillary Refill, No Pedal Edema Neurologic/Psychiatric: Alert, Oriented x3, manager metrology II-XII Norm as Tested Skin: Normal Color, Warm/Dry Lymphatic: No Adenopathy (cervical, axilla, groin) Data Review Labs Laboratory Tests 05/18/21 17:05: Urine Color DARK YELLOW, Urine Clarity CLOUDY, Urine pH 6.0, Urine Specific [place] >=1.030, Urine Protein TRACEH, Urine Glucose (UA) NEGATIVE, Urine Ketones NEGATIVE, Urine Nitrite POSITIVEH, Urine Bilirubin NEGATIVE, Urine Urobilinogen 1.0, Urine Leukocyte Esterase 2+H, Urine RBC (Auto) NEGATIVE, Urine RBC NONE, Urine WBC >100H, Urine Crystals PRESENTH, Urine Calcium Oxalate Crystals MODERATEH, Urine Bacteria FEWH, Urine Casts NONE, Urine Mucus MODERATEH , Urine Culture Indicated YES 05/18/21 17:20: White Blood Count 8.4, Red Blood Count 4.29L, Hemoglobin 11.0L, Hematocrit 35L, Mean Corpuscular Volume 82, Mean Corpuscular Hemoglobin 26, Mean Corpuscular Hemoglobin Concent 31L, Red Cell Distribution Width 17.2H, Platelet Count 187, Mean Platelet Volume 9.7, Immature Granulocyte % (Auto) 0, Neutrophils (%) (Auto) 79H, Lymphocytes (%) (Auto) 12, Monocytes (%) (Auto) 9, Eosinophils (%) (Auto) 0, Basophils (%) (Auto) 0, Neutrophils # (Auto) 6.6, Lymphocytes # (Auto) 1.0, Monocytes # (Auto) 0.7, Eosinophils # (Auto) 0.0, Basophils # (Auto) 0.0, Immature Granulocyte # (Auto) 0.0, Sodium Level 137, Potassium Level 3.6, Chloride Level 102, Carbon Dioxide Level 22, Anion Gap 13, Blood Urea Nitrogen 20H, Creatinine 1.00, Estimat Glomerular Filtration Rate 74, BUN/Creatinine Ra ron 20, Glucose Level 157H, Calcium Level 8.8, Corrected Calcium 9.0, Total Bilirubin 0.6, Aspartate Amino Transf (AST/SGOT) 15, Alanine Aminotransferase (ALT/SGPT) 12, Alkaline Phosphatase 62, Total Protein 6.4, Albumin 3.8 Radiology Date of Exam:05/19/21 CHEST 1 VIEW, AP/PA ONLY INDICATION: Followup pneumothorax. COMPARISON: 05/18/2021 FINDINGS: Single frontal radiographic view of the chest was obtained and demonstrates persistent, but otherwise diminished small right apical pneumothorax. Linear opacity is also again identified within the right apex. There is more nodular appearing opacity more centrally. This does raise concern for perihilar obstructive mass. This however has been assessed on recent CT of the chest. Continued followup is recommended. Left lung remains clear. There is no pneumothorax on the left. There is no large effusion on either side. Cardiac silhouette and pulmonary vasculature are within normal. Left-sided subclavian Port-A-Cath is noted with tip in the low SVC. IMPRESSION: 1. Persistent, but diminished small right apical pneumothorax. 2. Linear opacity of the right upper lung extending to the hilum where there is more nodular area. Again, this does raise concern for obstructive perihilar region. This however has been assessed on recent CT chest. Continued followup is recommended. Dictated by: Dictated on workstation # [id number] Dict: 05/19/21 0707 Trans: 05/19/2144 CVB [id number] Interpreted by: CONRADO ARANDA MD Electronically signed by: CONRADO ARANDA MD 05/19/21 0844 Date of Exam:05/18/21 CT CHEST W PROCEDURE: CT chest with contrast only. TECHNIQUE: Multiple contiguous axial images were obtained through the chest after administration of intravenous contrast. Auto Exposure Controls were utilized during the CT exam to meet ALARA standards for radiation dose reduction. INDICATION: Right-sided pneumothorax. COMPARISON: Imaging from same date. FINDINGS: Left-sided Port-A-Cath is in place with the distal tip terminating at the cavoatrial junction. No significant adenopathy within the chest. Scattered vascular calcifications without aneurysmal dilatation of the thoracic aorta. The heart is within normal limits in size. No significant pericardial effusion. No pleural effusion. No significant hiatal hernia. Moderate sized right-sided pneumothorax is present, greatest overlying the right upper lung. There is, however, no significant shift of the mediastinum. Dense consolidation with associated air bronchograms and volume loss is noted within the medial aspect of the right upper lobe. No left-sided pneumothorax. Minimal emphysematous changes within the lungs, bilaterally. The left lung is clear. 1.3 x 0.9 cm groundglass pulmonary nodule within the right lower lobe. The trachea is patent. No acute osseous abnormality with mild scattered osseous degenerative changes. See separately dictated CT of the abdomen and pelvis from same date for findings within the abdomen, itself. IMPRESSION: 1. Moderate sized right-sided pneumothorax without evidence of tension phenomenon. Etiology for this pneumothorax is uncertain based upon this examination. 2. Linear dense consolidation within the right upper lobe with associated volume loss is favored to simply relate to atelectasis. Radiographic follow-up is recommended to ensure resolution. 3. Minimal emphysema. 4. 1.3 cm groundglass right lower lobe pulmonary nodule. This is indeterminate. Follow-up CT of the chest is recommended in six months to monitor stability. 5. Additional findings as above. Dictated by: Dictated on workstation # [id number] Dict: 05/18/21 1833 Trans: 05/18/21 1854 [id number] Interpreted by: GIOVANNI BOWENS MD Electronically signed by: GIOVANNI BOWENS MD 05/18/21 1854 Signed Date of Exam:05/18/21 CHEST PA/LAT (2 VIEW) INDICATION: Right flank pain. COMPARISON: 02/18/2021. TECHNIQUE: Two radiographs of the chest are obtained dated May 18, 2021. FINDINGS: Port-A-Cath is again identified with the hub overlying the left chest and the distal tip terminating near the cavoatrial junction. The cardiac silhouette is within normal limits in size. No significant pulmonary vascular congestion. The left lung is clear of focal pulmonary opacity. Moderate right-sided pneumothorax is identified, best visualized within the right apical region. No mediastinal shift. Linear interstitial densities are seen emanating from the right perihilar region, greatest within the right upper lung. No significant pleural effusion. No left pneumothorax. Mild scattered osseous degenerative changes. No acute osseous abnormality. The lungs are hyperinflated. IMPRESSION: 1. Moderate right apical pneumothorax without evidence of tension phenomenon. This is associated with right perihilar atelectasis or less likely infiltrate. Radiographic follow-up is recommended to ensure resolution. 2. Stable left-sided Port-A-Cath. 3. Background pulmonary hyperinflation. Report was called to the [place] [facility] at 6:02 p.m., by wes. Dictated by: Dictated on workstation # [id number] Dict: 05/18/215 Trans: 05/18/211806 PJE [id number] Interpreted by: GIOVANNI BOWENS MD Electronically signed by: GIOVANNI BOWENS MD 05/18/211806 Date of Exam:05/18/21 CT ABD/PELVIS WO(KIDNEY STONE) PROCEDURE: CT urinary tract, rule out kidney stone. TECHNIQUE: Multiple contiguous axial images were obtained through the abdomen and pelvis without the use of intravenous contrast. Auto Exposure Controls were utilized during the CT exam to meet ALARA standards for radiation dose reduction. INDICATION: Flank pain, abdominal pain. COMPARISON: None available. FINDINGS: Right basilar pneumothorax is partially visualized. Minimal left basilar scarring and/or atelectasis. The unenhanced liver and spleen are unremarkable. A splenule is present. 3.1 cm right adrenal gland mass lesion is present with Hounsfield units of approximately 36. No internal macroscopic fat identified. The left adrenal gland is unremarkable. Sludge and/or stones are noted within the gallbladder without adjacent inflammatory stranding. The pancreas is unremarkable. Indeterminate 1.3 cm exophytic isodensity is noted arising from the inferior pole of the right kidney. Punctate sub 2 mm left renal calculus. 1.0 cm mild hyperdensity within the medial aspect of the right kidney. No evidence of hydroureteronephrosis. Mild vascular calcifications within the abdominal aorta and its branch vessels without aneurysmal dilatation of the abdominal aorta. Mural thickening of the urinary bladder, though the urinary bladder is not well-distended. The prostate gland is mildly enlarged. Small bowel containing nonobstructing left spigelian hernia is identified. Tiny fat-containing right spigelian hernia is present. Moderate amount of stool is noted throughout the colon. No bowel obstruction or pneumatosis. No CT evidence of acute appendicitis. Small left and tiny right fat-containing inguinal hernias. No significant adenopathy, free air or free fluid within the abdomen or pelvis. Scattered osseous degenerative changes without acute osseous abnormality. IMPRESSION: 1. Right basilar pneumothorax is partially visualized. Recommend radiographs of the chest for further evaluation. 2. Mural thickening of the urinary bladder. This may relate to underlying cystitis versus poor distention. Recommend correlation with urinary analysis. 3. Significant amount of stool throughout the colon, which can be seen with constipation. No bowel obstruction. 4. Cholelithiasis. 5. Indeterminate right renal lesions. Nonemergent renal ultrasound may help to further evaluate if these have not been previously evaluated. 6. Punctate nonobstructing left renal calculus. 7. Nonobstructing small bowel containing left spigelian hernia. 8. Indeterminate 3.1 cm right adrenal gland mass. This is not consistent with atypical benign adenoma given density. MRI of the abdomen versus CT of the abdomen with and without contrast using adrenal mass protocol is recommended non-emergently. Alternatively, if prior imaging is available to demonstrate multiple years of stability for this nodule, then it could be considered benign. Report was called to the [place] ER at 6:02 p.m., by wes. They were already aware of the pneumothorax. Dictated by: Dictated on workstation # [id number] Dict: 05/18/217 Trans: 05/18/211854 [id number] Interpreted by: GIOVANNI BOWENS MD Electronically signed by: GIOVANNI BOWENS MD 05/18/211854 Date of Exam:05/18/21 ABDOMEN/KUB 1VIEW INDICATION: Flank pain, abdominal pain. COMPARISON: CT from same date. TECHNIQUE: Two radiographs of the abdomen dated May 18, 2021. FINDINGS: Moderate amount of stool is noted throughout the colon, including extending into the rectal vault. No dilated loops of small bowel. No differential air-fluid levels. No free air. No suspicious calcifications overlying the renal shadows. Mild scattered osseous degenerative changes without acute osseous abnormality. IMPRESSION: Moderate amount of stool throughout the colon, likely related to constipation. No definite evidence of bowel obstruction. Dictated by: Dictated on workstation # [id number] Dict: 05/18/211800 Trans: 05/18/211806 [id number] Interpreted by: GIOVANNI BOWENS MD Electronically signed by: GIOVANNI BOWENS MD 05/18/211806 Assessment/Plan Assessment/Plan Assessment/Plan Pneumothorax history of right apical squamous cancer of the lung UTI history of afib hypothyroid BPH High flow oxygen, pain control, breathing treatments, medicine is following appreciate there input patient has been on room air sating in mid 90s, chest x-ray this morning showed decreasing pneumo, plan to repeat imaging this afternoon, if no worsening will discharge home BRAIN ESCOBAR DO 05/19/21 1035: History of Present Illness History of Present Illness Reason for visit/HPI Chief complaint right flank pain Patient is a 66-year-old male with squamous cell cancer of the right lung. He has undergone chemoradiation. Patient was having some right-sided sharp pain that was constant yesterday's 1 to the emergency department for further evaluation. Patient states the pain moves across the chest little bit. This is better now. Patient was found to have a pneumothorax of the right side small to moderate. Patient with COPD which his breathing has not worsened. He denies any trauma. He had a repeat chest x-ray this morning which demonstrated the pneumothorax to be slightly improved. Patient with no other complaints at this time. Denies any nausea vomiting fever sweats chills shortness of breath or chest pain. Allergies and Home Medications Allergies Coded Allergies: levofloxacin (Verified Allergy, Severe, PSYCHOSIS, 03/31/21) chlorthalidone (Verified Allergy, Unknown, 03/31/21) DIZZINESS Patient Home Medication List Home Medication List Reviewed: Yes Albuterol Sulfate (Ventolin Hfa) 1 Puff Puff, 2 PUFF INH Q4H PRN for SHORTNESS OF BREATH, (Reported) Entered as Reported by: BREN THORNE on 04/06/20 1247 Amiodarone HCl (Amiodarone HCl) 200 Mg Tablet, 400 MG PO DAILY, (Reported) Entered as Reported by: BREN THORNE on 12/21/20 1054 Apixaban (Eliquis) 5 Mg Tablet, 5 MG PO BID, (Reported) Entered as Reported by: BREN THORNE on 02/16/21 1421 Aspirin (Aspirin EC) 81 Mg Tablet.dr, 81 MG PO DAILY, (Reported) Entered as Reported by: BREN THORNE on 02/16/21 142 Atorvastatin Calcium (Atorvastatin Calcium) 10 Mg Tablet, 10 MG PO DAILY, (Reported) Entered as Reported by: BREN THORNE on 12/21/20 1054 Budesonide/Formoterol Fumarate (Symbicort 160-4.5 Mcg Inhaler) 10.2 Gm Hfa.aer.ad, 2 PUFF IH BID, (Reported) Entered as Reported by: MARA MCNALLY on 03/21/20 1831 Fluticasone Propionate (Flonase Allergy Relief) 9.9 Ml [place].susp, 1-2 SPRAY NSEACH BID PRN for CONGESTION, (Reported) Entered as Reported by: BREN THORNE on 02/16/21 1421 Guaifenesin/Pseudoephedrne HCl (Mucinex D ER 1,200-120 mg Tab) 1 Each Tab.er.12h, 1 EACH PO Q12H PRN for CONGESTION, (Reported) Entered as Reported by: BREN THORNE on 12/21/20 1054 Levothyroxine Sodium (Levothyroxine Sodium) 100 Mcg Tablet, 100 MCG PO DAILY, (Reported) Entered as Reported by: BREN THORNE on 04/12/20 1009 Loratadine (Loratadine) 10 Mg Tablet, 10 MG PO HS, (Reported) Entered as Reported by: BREN THORNE on 02/16/21 1421 Metformin HCl (Metformin HCl) 500 Mg Tablet, 500 MG PO BID, (Reported) Entered as Reported by: BREN THORNE on 12/21/20 1054 Metoprolol Tartrate (Metoprolol Tartrate) 25 Mg Tablet, 12.5 MG PO BID, (Reported) Entered as Reported by: BREN THORNE on 12/21/20 1054 Montelukast Sodium (Montelukast Sodium) 10 Mg Tablet, 10 MG PO HS, (Reported) Entered as Reported by: BREN THORNE on 12/21/20 1054 Polyethylene Glycol 3350 (Miralax) 17 Gm Powd.pack, 17 GM PO DAILY PRN for CONSTIPATION-2ND LINE, (Reported) Entered as Reported by: BREN THORNE on 12/21/20 1054 Tamsulosin HCl (Flomax) 0.4 Mg Cap, 0.8 MG PO 1800, (Reported) Entered as Reported by: BREN THORNE on 12/21/20 1054 Tiotropium Neversink (Spiriva Respimat 2.5MCG/ACTUATION) 4 Gm Mist.inhal, 2 PUFF IH DAILY, (Reported) Entered as Reported by: MARA MCNALLY on 03/21/20 1831 Past Hphmtsf-Mphuxv-Bhegca Hx Past Medical History Surgeries: Abdominal (colectomy, ostomy creation, ostomy reversal), Bowel Surgery, Cardiac (cardiac ablation), Coronary Stent, Prostatectomy (TURP), Thyroidectomy Violent Behavior (Recent episode of psychosis, nonviolent) Family Medical History Reviewed Nursing Family Hx No Pertinent Family Hx Review of Systems Constitutional: No chills, No diaphoresis, No fever EENTM: blurred vision; No hoarseness Respiratory: cough Cardiovascular: chest pain (right thorax); No palpitations (at this time) Gastrointestinal: No abdominal pain; constipation; No diarrhea Genitourinary: No dysuria, No hematuria Musculoskeletal: No back pain, No muscle pain Skin: No change in color, No dryness Psychiatric/Neurological: Denies Anxiety, Denies Depressed All Other Systems Reviewed Negative Unless Noted: Yes (Negative excepted noted.) Physical Exam General Appearance: No Apparent Distress, Chronically ill HEENT: PERRL/EOMI, Moist Mucous Membranes Neck: Normal Inspection, Non Tender, Supple Respiratory: Chest Non Tender, No Accessory Muscle Use, No Respiratory Distress Cardiovascular: Regular Rate, Rhythm, No JVD Gastrointestinal: Non Tender, Soft Rectal: Deferred Back: Normal Inspection, No CVA Tenderness, No Vertebral Tenderness Extremity: Normal Capillary Refill, Non Tender Neurologic/Psychiatric: Alert, Oriented x3, Normal Mood/Affect Skin: Normal Color, Warm/Dry Lymphatic: No Adenopathy (cervical, axilla, groin) Assessment/Plan Assessment/Plan Admission Diagonsis Right Pneumothorax history of right apical squamous cancer of the lung UTI history of afib hypothyroid BPH Admission Status: Observation Assessment/Plan Right Pneumothorax history of right apical squamous cancer of the lung UTI history of afib hypothyroid BPH High flow oxygen, pain control, breathing treatments, medicine is following appreciate there input patient has been on room air sating in mid 90s, he is asymptomatic at this time. chest x-ray this morning showed decreasing pneumo, plan to repeat imaging this afternoon, if no worsening will discharge home, patient explained plan and agrees. he also understands possibility of worsening pneumothorax after discharge or recurrence. Supervisory-Addendum Brief Verification & Attestation Participated in pt care: history, MDM, physical Personally performed: exam, history, MDM, supervision of care Care discussed with: Medical Student Procedures: n/a Results interpretation: Verified all documentation Verification and Attestation of Medical Student E/M Service A medical student performed and documented this service in my presence. I reviewed and verified all information documented by the medical student and made modifications to such information, when appropriate. I personally performed the physical exam and medical decision making. Brain Escobar, May 19, 2021,10:39 WESLY WYATT MED STUDENT May 19, 2021 07:26 BRAIN ESCOBAR DO May 19, 2021 10:35
[2021-05-19] MEDS: CATHETER FLUSH 10 ML SYR IV SCH (07:52)
[2021-05-19 07:56] VITALS: BP 125/90
--- NOTE | 2021-05-19 08:15 | Consultation - Hospitalist ---
HPI History of Present Illness: HPI/Chief Complaint Is a 66-year-old male known to me from previous admissions who presented to the emergency department due to flank pain. Onset of symptoms was yesterday morning and he thought that he may have had a broken rib. He denies any falls. He does have a history of lung cancer though and has been treated with radiation, chemotherapy, and immunotherapy. He was found to have a urinary tract infection but did not meet sepsis criteria he was incidentally found to have a right-sided pneumothorax. He denies any respiratory symptoms. He does have a history of COPD but he has no more shortness of breath or cough than normal. He has a history of recurrent UTIs and follows with Dr. Avtar aldrich BPH and urinary retention. Source: patient Date Seen 05/19/21 Attending Physician Javan Joshua DO PCP Brett Galan DO Referring Physician Date of Admission May 18, 2021 at 18:09 Home Medications & Allergies Home Medications Reviewed patient Home Medication Reconciliation performed by pharmacy medication reconciliations tablet technician and/or nursing. Patients Allergies have been reviewed. Allergies Allergies Coded Allergies levofloxacin (Verified Allergy, Severe, PSYCHOSIS, 03/31/21) chlorthalidone (Verified Allergy, Unknown, 03/31/21) DIZZINESS Past Bjretfw-Sfvpew-Lswfet Hx Patient Social History Tobacco Use?: Yes (previous, quit "few years ago") Tobacco type used: Cigarettes Smoking Status: Former Smoker Smokeless Tobacco Frequency: Former User Substance use?: No Alcohol Use?: No Pt feels they are or have been: No Immunizations Up To Date Date of Influenza Vaccine: Apr 21, 2014 First/Initial COVID19 Vaccinat: September 12, 2020 Second COVID19 Vaccination Rodo: October 09, 2020 Tetanus Booster (TDap): Unknown Hepatitis A: No Hepatitis B: No PED Vaccines UTD: No Date of Pneumonia Vaccine: Jun 15, 2009 Seasonal Allergies Seasonal Allergies: Yes Current Status Advance Directives: No Communicates: Verbally Primary Language: Uzbek Preferred Spoken Language: Uzbek Is interpretation needed?: No Implanted or Applied Medical D: Central venous access Past Medical History Surgeries: Abdominal (colectomy, ostomy creation, ostomy reversal), Bowel Surgery, Cardiac (cardiac ablation), Coronary Stent, Prostatectomy (TURP), Thyroidectomy COPD Currently Using CPAP: Yes (PT USES CPAP AT HOME ) Currently Using BIPAP: No Atrial Fibrillation, Deep Vein Thrombosis, Hypertension, Irregular Heartbeat Sexually Transmitted Disease: No HIV/AIDS: No Prostate Problems, Renal Failure, UTI-Chronic Polyps Hypothyroidsim Lung Did You Recieve Any Treatments: Yes What Type of Treatment Did You: Chemotherapy, Radiation Violent Behavior (Recent episode of psychosis, nonviolent) Blood Disorders: No Adverse Reaction/Blood Tranf: No Family Medical History No Pertinent Family Hx SOCIAL HISTORY: -ETOH--DENIES -DRUGS--DENIES -SMOKING--SMOKED 1 PPD--QUIT A FEW YEARS AGO PAST SURGICAL HISTORY: -COLON RESECTION FOR MULTIPLE BENIGN POLYPS, REQUIRED COLOSTOMY AND LATER TAKEDOWN -THYROIDECTOMY FOR BENIGN GOITER -CARDIAC CATH 03/21/20--NO INTERVENTION. SLOW FLOW IN ALL VESSELS. SMALL FIRST DIAGONAL ARTERY HAS MODERATE TO SEVERE OSTIAL DISEASE--NOT AMENABLE TO INTERVENTION -CARDIAC ABLATION FOR ATRIAL FIBRILLATION 03/24/20 -MULTIPLE COLONOSCOPIES -PORT LEFT CHEST Review of Systems Constitutional: No chills, No fever Respiratory: No cough; short of breath (chronic) Cardiovascular: No chest pain, No edema; Hx of Intervention; No syncope Gastrointestinal: No abdominal pain, No nausea, No vomiting Genitourinary: see HPI Musculoskeletal: see HPI Skin: no symptoms reported Psychiatric/Neurological: Tremors (chronic) Physical Exam Physical Exam Vital Signs Vital Signs - First Documented 05/18/21 05/18/21 17:03 20:19 Temp 36.1 Pulse 63 Resp 20 B/P (MAP) 128/89 (102) Pulse Ox 100 O2 Delivery Room Air FiO2 21 Capillary Refill : Less Than 3 Seconds Height, Weight, BMI Height: 6'2.00" Weight: 230lbs. 0.0oz. 104.250469iw; 24.30 BMI Method:Stated General Appearance: No Apparent Distress, Chronically ill HEENT: PERRL/EOMI, Moist Mucous Membranes; No Scleral Icterus (L), No Scleral Icterus (R) Neck: Normal Inspection, Supple Respiratory: Lungs Clear, No Respiratory Distress, Other (on Room air) Cardiovascular: Regular Rate, Rhythm, No JVD, No Murmur Gastrointestinal: Normal Bowel Sounds, Non Tender, Soft Extremity: Normal Capillary Refill, No Calf Tenderness, No Pedal Edema Neurologic/Psychiatric: Alert, Oriented x3, Normal Mood/Affect, Other (tremors, upper extremities worse than lower) Skin: Normal Color, Warm/Dry Results Results/Procedures Labs Laboratory Tests 05/18/21 17:20 Patient resulted labs reviewed. Imaging: Reviewed Imaging Report Imaging [facility]. [place], [place] NAME: SARA IRIZARRY [facility] REC#: [id number] PT STATUS: REG ER : 1955 PHYSICIAN: SAM ARGUETA APRN ADMIT DATE: 05/18/21/ER Signed Date of Exam:05/18/21 ABDOMEN/KUB 1VIEW INDICATION: Flank pain, abdominal pain. COMPARISON: CT from same date. TECHNIQUE: Two radiographs of the abdomen dated May 18, 2021. FINDINGS: Moderate amount of stool is noted throughout the colon, including extending into the rectal vault. No dilated loops of small bowel. No differential air-fluid levels. No free air. No suspicious calcifications overlying the renal shadows. Mild scattered osseous degenerative changes without acute osseous abnormality. IMPRESSION: Moderate amount of stool throughout the colon, likely related to constipation. No definite evidence of bowel obstruction. Dictated by: Dictated on workstation # [id number] Dict: 05/18/211800 Trans: 05/18/211806 [facility] [id number] Interpreted by: GIOVANNI BOWENS MD Electronically signed by: GIOVANNI BOWENS MD 05/18/211806 [facility] [place], [place] NAME: SARA IRIZARRY [facility] REC#: [id number] PT STATUS: REG ER : 1955 PHYSICIAN: SAM ARGUETA APRN ADMIT DATE: 05/18/21/ER Signed Date of Exam:05/18/21 CT ABD/PELVIS WO(KIDNEY STONE) PROCEDURE: CT urinary tract, rule out kidney stone. TECHNIQUE: Multiple contiguous axial images were obtained through the abdomen and pelvis without the use of intravenous contrast. Auto Exposure Controls were utilized during the CT exam to meet ALARA standards for radiation dose reduction. INDICATION: Flank pain, abdominal pain. COMPARISON: None available. FINDINGS: Right basilar pneumothorax is partially visualized. Minimal left basilar scarring and/or atelectasis. The unenhanced liver and spleen are unremarkable. A splenule is present. 3.1 cm right adrenal gland mass lesion is present with Hounsfield units of approximately 36. No internal macroscopic fat identified. The left adrenal gland is unremarkable. Sludge and/or stones are noted within the gallbladder without adjacent inflammatory stranding. The pancreas is unremarkable. Indeterminate 1.3 cm exophytic isodensity is noted arising from the inferior pole of the right kidney. Punctate sub 2 mm left renal calculus. 1.0 cm mild hyperdensity within the medial aspect of the right kidney. No evidence of hydroureteronephrosis. Mild vascular calcifications within the abdominal aorta and its branch vessels without aneurysmal dilatation of the abdominal aorta. Mural thickening of the urinary bladder, though the urinary bladder is not well-distended. The prostate gland is mildly enlarged. Small bowel containing nonobstructing left spigelian hernia is identified. Tiny fat-containing right spigelian hernia is present. Moderate amount of stool is noted throughout the colon. No bowel obstruction or pneumatosis. No CT evidence of acute appendicitis. Small left and tiny right fat-containing inguinal hernias. No significant adenopathy, free air or free fluid within the abdomen or pelvis. Scattered osseous degenerative changes without acute osseous abnormality. IMPRESSION: 1. Right basilar pneumothorax is partially visualized. Recommend radiographs of the chest for further evaluation. 2. Mural thickening of the urinary bladder. This may relate to underlying cystitis versus poor distention. Recommend correlation with urinary analysis. 3. Significant amount of stool throughout the colon, which can be seen with constipation. No bowel obstruction. 4. Cholelithiasis. 5. Indeterminate right renal lesions. Nonemergent renal ultrasound may help to further evaluate if these have not been previously evaluated. 6. Punctate nonobstructing left renal calculus. 7. Nonobstructing small bowel containing left spigelian hernia. 8. Indeterminate 3.1 cm right adrenal gland mass. This is not consistent with atypical benign adenoma given density. MRI of the abdomen versus CT of the abdomen with and without contrast using adrenal mass protocol is recommended non-emergently. Alternatively, if prior imaging is available to demonstrate multiple years of stability for this nodule, then it could be considered benign. Report was called to the [place] [facility] at 6:02 p.m., by wes. They were already aware of the pneumothorax. Dictated by: Dictated on workstation # [id number] Dict: 11/11/02 1736 Trans: 05/18/211854 PJE [id number] Interpreted by: GIOVANNI BOWENS MD Electronically signed by: GIOVANNI BOWENS MD 05/18/211854 [facility] [facility]. [place], [place] NAME: SARA IRIZARRY [facility] REC#: [id number] PT STATUS: REG ER : 1955 PHYSICIAN: SAM ARGUETA APRN ADMIT DATE: 05/18/21/ER Signed Date of Exam:05/18/21 CHEST PA/LAT (2 VIEW) INDICATION: Right flank pain. COMPARISON: 02/18/2021. TECHNIQUE: Two radiographs of the chest are obtained dated May 18, 2021. FINDINGS: Port-A-Cath is again identified with the hub overlying the left chest and the distal tip terminating near the cavoatrial junction. The cardiac silhouette is within normal limits in size. No significant pulmonary vascular congestion. The left lung is clear of focal pulmonary opacity. Moderate right-sided pneumothorax is identified, best visualized within the right apical region. No mediastinal shift. Linear interstitial densities are seen emanating from the right perihilar region, greatest within the right upper lung. No significant pleural effusion. No left pneumothorax. Mild scattered osseous degenerative changes. No acute osseous abnormality. The lungs are hyperinflated. IMPRESSION: 1. Moderate right apical pneumothorax without evidence of tension phenomenon. This is associated with right perihilar atelectasis or less likely infiltrate. Radiographic follow-up is recommended to ensure resolution. 2. Stable left-sided Port-A-Cath. 3. Background pulmonary hyperinflation. Report was called to the [place] [facility] at 6:02 p.m., by wes. Dictated by: Dictated on workstation # [id number] Dict: 05/18/211754 Trans: 05/18/211806 PJE [id number] Interpreted by: GIOVANNI BOWENS MD Electronically signed by: GIOVANNI BOWENS MD 05/18/211806 [facility] [facility] [place], [place] NAME: SARA IRIZARRY [facility] REC#: [id number] PT STATUS: REG ER : 1955 PHYSICIAN: SAM ARGUETA APRN ADMIT DATE: 05/18/21/ER Signed Date of Exam:05/18/21 CT CHEST W PROCEDURE: CT chest with contrast only. TECHNIQUE: Multiple contiguous axial images were obtained through the chest after administration of intravenous contrast. Auto Exposure Controls were utilized during the CT exam to meet ALARA standards for radiation dose reduction. INDICATION: Right-sided pneumothorax. COMPARISON: Imaging from same date. FINDINGS: Left-sided Port-A-Cath is in place with the distal tip terminating at the cavoatrial junction. No significant adenopathy within the chest. Scattered vascular calcifications without aneurysmal dilatation of the thoracic aorta. The heart is within normal limits in size. No significant pericardial effusion. No pleural effusion. No significant hiatal hernia. Moderate sized right-sided pneumothorax is present, greatest overlying the right upper lung. There is, however, no significant shift of the mediastinum. Dense consolidation with associated air bronchograms and volume loss is noted within the medial aspect of the right upper lobe. No left-sided pneumothorax. Minimal emphysematous changes within the lungs, bilaterally. The left lung is clear. 1.3 x 0.9 cm groundglass pulmonary nodule within the right lower lobe. The trachea is patent. No acute osseous abnormality with mild scattered osseous degenerative changes. See separately dictated CT of the abdomen and pelvis from same date for findings within the abdomen, itself. IMPRESSION: 1. Moderate sized right-sided pneumothorax without evidence of tension phenomenon. Etiology for this pneumothorax is uncertain based upon this examination. 2. Linear dense consolidation within the right upper lobe with associated volume loss is favored to simply relate to atelectasis. Radiographic follow-up is recommended to ensure resolution. 3. Minimal emphysema. 4. 1.3 cm groundglass right lower lobe pulmonary nodule. This is indeterminate. Follow-up CT of the chest is recommended in six months to monitor stability. 5. Additional findings as above. Dictated by: Dictated on workstation # [id number] Dict: 05/18/211832 Trans: 05/18/211853 [facility] [id number] Interpreted by: GIOVANNI BOWENS MD Electronically signed by: GIOVANNI BOWENS MD 05/18/211853 Assessment/Plan Assessment and Plan Assess & Plan/Chief Complaint Right sided pneumothorax COPD History of Lung cancer Improved this AM Has left sided port, denies any recent interventions Management per primary On room air, doing well, denies pain Follows with [facility] for cancer MAT protocol UTI Urinary retention BPH s/p TURP Continue Rocephin Await cultures Follows with Dr Avtar Hitchcock HTN Continue home meds as able Rate well controlled BP well controlled DVT ppx: Home anticoagulation when med rec done Thank you for this consult, hospitalist will round prn. Please call for any questions. RX sent to pharmacy for UTI should patient discahrge. Diagnosis/Problems Diagnosis/Problems (1) Pneumothorax on right Status: Acute (2) UTI (urinary tract infection) Status: Acute (3) History of lung cancer Status: Chronic (4) BPH (benign prostatic hyperplasia) Status: Chronic (5) HTN (hypertension) Status: Chronic (6) Hypothyroidism Status: Chronic (7) COPD (chronic obstructive pulmonary disease) Status: Chronic (8) Urinary retention Status: Acute LORI PAGAN MD May 19, 2021 08:15
[2021-05-19] MEDS ORDERED: cefTRIAXone 1,000 MG/SWFI 10 ML IV PUSH IV SCH ×2 (09:00)
--- NOTE | 2021-05-19 10:40 | Diagnostic Imaging Report ---
INDICATION: Pneumothorax. TIME OF EXAM: 10:23 AM Correlation is made with prior chest from earlier the same day. Heart size stable. The right apical pneumothorax remains stable in size and small. The areas of linear opacity in the right upper lobe extending towards right hilum appears stable. Left lung is clear. There is no effusion. Left sided chest wall port has tip overlying SVC right atrial junction. IMPRESSION: Stable chest with stable small right apical pneumothorax when compared with study earlier the same morning. Dictated by: Dictated on workstation # [id number]
[2021-05-19 10:57] VITALS: BP 136/83
[2021-05-19 12:00] VITALS: BP 136/83
[2021-05-19] MEDS ORDERED: CEPH500T PO (12:02)
== END 2021-05-19 13:45 | disposition home or self-care (01) | DRG 200 ==
LOC: EDUNIT# 16:51 → ER 16:53 → CSD 18:09
PROVIDERS: ADMIT Surgery; ATTEND Surgery
DX: J93.83 Other pneumothorax (principal); N39.0 Urinary tract infection, site not specified; I48.0 Paroxysmal atrial fibrillation; R33.9 Retention of urine, unspecified; E03.9 Hypothyroidism, unspecified; N40.0 Benign prostatic hyperplasia without lower urinary tract symptoms; J44.9 Chronic obstructive pulmonary disease, unspecified; Z92.3 Personal history of irradiation; Z92.21 Personal history of antineoplastic chemotherapy; Z85.118 Personal history of other malignant neoplasm of bronchus and lung; Z88.1 Allergy status to other antibiotic agents; Z79.82 Long term (current) use of aspirin; Z79.890 Hormone replacement therapy; Z79.84 Long term (current) use of oral hypoglycemic drugs; Z79.899 Other long term (current) drug therapy; Z95.5 Presence of coronary angioplasty implant and graft; Z87.891 Personal history of nicotine dependence; Z86.718 Personal history of other venous thrombosis and embolism
CPT/HCPCS: 36415; 36556; 71045; 71046; 71260; 74018; 74176; 80053; 81000; 85025; 87077; 87088; 87186; 94640; 94760

== ENCOUNTER 2021-05-30 06:21 | Outpatient (CLI) | payer MEDICARE, OTHER ==
[~2021-05-30] VITALS: Ht 188 cm; Wt 85.9 kg
[~2021-05-30 06:21] MED LIST changes: +CEPH500T PO
== END 2021-05-30 15:28 | disposition home or self-care (01) ==
LOC: PREOP 06:21
PROVIDERS: ATTEND Specialist
DX: Z01.818 Encounter for other preprocedural examination (principal)

== ENCOUNTER 2021-06-02 10:23 | Day surgery (SDC) | payer MEDICARE, OTHER ==
[~2021-06-02] VITALS: Ht 188 cm; Wt 85.9 kg
[2021-06-02] MEDS ORDERED: LIDOCAINE PF 1% 2 ML VIAL IR PRN (10:45)
[2021-06-02] MEDS ORDERED: TIMOLOL MALEATE 0.5% 5 ML (TIMOPTIC) BTL OU PRN (10:45)
[2021-06-02] MEDS ORDERED: MOXIFLOXACIN OPHTH SOLN 5 MG/ML 0.3 ML SYRINGE OP ONE (10:45)
[2021-06-02] MEDS ORDERED: POVIDONE (BETADINE) OPHTH SOLN 5% 30 ML OP ONE (10:45)
[2021-06-02] MEDS: TETRACAINE 0.5% OPHTH SOLN 4 ML BTL (SINGLE DOSE ONLY) OU PRN ×4 (10:54→11:36)
[2021-06-02] MEDS: TROPICAMIDE 1% OPH SOLN (MYDRIACYL) 15 ML BTL OP SCH ×3 (11:08→11:36)
[2021-06-02] MEDS: PHENYLEPHRINE 10% OPHTH (NEO-SYN) 5 ML BTL OU SCH ×3 (11:08→11:36)
--- NOTE | 2021-06-02 12:24 | Ophthalmologist Pre-Op Note ---
Pre-Operative Progress Note H&P Reviewed The H&P was reviewed, patient examined and no changes noted. Date H&P Reviewed: Jun 02, 2021 Time H&P Reviewed: 12:24 Pre-Op Dx Cataract, Right Eye COLT VILLEDA MD Jun 02, 2021 12:24
[2021-06-02] MEDS ORDERED: MIDAZOLAM 2 MG/2 ML (VERSED) VIAL ONE (12:27)
[2021-06-02] MEDS ORDERED: acetaZOLAMIDE ER 500 MG CAP (DIAMOX SEQUELS) PO ONE (12:30)
--- NOTE | 2021-06-02 12:48 | Ophthalmology Operative Report ---
Cataract removal/placement IOL PREOPERATIVE DIAGNOSIS: Cataract Right Eye POSTOPERATIVE DIAGNOSIS: Cataract Right Eye PROCEDURE: Cataract removal and placement of posterior chamber implant, right eye SURGEON: Shemar Villeda ANESTHESIA: Topical with sedation COMPLICATIONS: None ESTIMATED BLOOD LOSS: Minimal DESCRIPTION OF PROCEDURE: After proper informed consent was obtained, the patient, a 66 male, was taken to the Operating Room and the right eye was anesthetized with tetracaine. The right eye was then prepped and draped in the usual manner. A wire lid speculum was placed. A paracentesis was made at the left hand position. Preservative free lidocaine was injected into the anterior chamber followed by viscoelastic. A clear corneal incision was made in the temporal position. A capsulorrhexis was preformed and the central nuclear and cortical material were removed. The posterior capsule was polished and Wilber 16.0 AU00T0 IOL was placed into the capsular bag. The residual viscoelastic was aspirated and balanced saline solution was injected into the anterior chamber. The wound was checked and found to be water tight. The patient tolerated the procedure well without complications. SHEMAR VILLEDA MD Jun 02, 2021 12:47
[2021-06-02 12:55] VITALS: BP 143/87
[2021-06-02 12:58] VITALS: BP 148/87
[2021-06-02] MEDS ORDERED: FUROSEMIDE 40 MG/4 ML INJ (LASIX) ONE (12:58)
[2021-06-02] MEDS ORDERED: KETOROLAC 30 MG/ML VIAL ONE (12:58)
--- NOTE | 2021-06-02 14:10 | Anesthesia-General Post-Op ---
MAC Patient Condition Mental Status/LOC: Same as Preop Cardiovascular: Satisfactory Nausea/Vomiting: Absent Respiratory: Satisfactory Pain: Controlled Complications: Absent Post Op Complications Complications None Follow Up Care/Instructions Patient Instructions None needed. Anesthesiology Discharge Order Discharge Order Patient was seen after the procedure and he was doing well, no complaints, stable vital signs, no apparent adverse anesthesia problems. OBI OTERO DO Jun 02, 2021 14:10
== END 2021-06-02 12:57 | disposition home or self-care (01) ==
LOC: SDC 10:23
PROVIDERS: ATTEND Specialist
DX: H25.11 Age-related nuclear cataract, right eye (principal); I10 Essential (primary) hypertension; J45.909 Unspecified asthma, uncomplicated; Z79.01 Long term (current) use of anticoagulants; Z79.82 Long term (current) use of aspirin; Z79.899 Other long term (current) drug therapy; Z87.891 Personal history of nicotine dependence
CPT/HCPCS: 66984; V2632

== ENCOUNTER 2021-06-16 10:15 | Day surgery (SDC) | payer MEDICARE, OTHER ==
[~2021-06-16] VITALS: Ht 188 cm; Wt 85.9 kg
[~2021-06-16 10:15] MED LIST changes: -AMIO200T6 PO; +AMIO200T65 PO; -LEVO500T80 PO; +LEVO500T81 PO; +MONT-40 PO; -MONT10TA32 PO
[2021-06-16] MEDS: TETRACAINE 0.5% OPHTH SOLN 4 ML BTL (SINGLE DOSE ONLY) OU PRN ×4 (10:29→10:48)
[2021-06-16] MEDS ORDERED: LIDOCAINE PF 1% 2 ML VIAL IR PRN (10:30)
[2021-06-16] MEDS ORDERED: TIMOLOL MALEATE 0.5% 5 ML (TIMOPTIC) BTL OU PRN (10:30)
[2021-06-16] MEDS ORDERED: POVIDONE (BETADINE) OPHTH SOLN 5% 30 ML OP ONE (10:30)
[2021-06-16] MEDS: PHENYLEPHRINE 10% OPHTH (NEO-SYN) 5 ML BTL OU SCH ×3 (10:38→10:48)
[2021-06-16] MEDS: TROPICAMIDE 1% OPH SOLN (MYDRIACYL) 15 ML BTL OP SCH ×3 (10:38→10:48)
[2021-06-16 10:40] VITALS: BP 151/80
--- NOTE | 2021-06-16 10:47 | Ophthalmologist Pre-Op Note ---
Pre-Operative Progress Note H&P Reviewed The H&P was reviewed, patient examined and no changes noted. Date H&P Reviewed: Jun 16, 2021 Time H&P Reviewed: 10:47 Pre-Op Dx Cataract, Left Eye COLT VILLEDA MD Jun 16, 2021 10:47
[2021-06-16] MEDS ORDERED: MIDAZOLAM 2 MG/2 ML (VERSED) VIAL ONE (10:58)
--- NOTE | 2021-06-16 11:14 | Ophthalmology Operative Report ---
Cataract removal/placement IOL PREOPERATIVE DIAGNOSIS: Cataract Left Eye POSTOPERATIVE DIAGNOSIS: Cataract Left Eye PROCEDURE: Cataract removal and placement of posterior chamber implant, left eye SURGEON: Shemar Villeda ANESTHESIA: Topical with sedation COMPLICATIONS: None ESTIMATED BLOOD LOSS: Minimal DESCRIPTION OF PROCEDURE: After proper informed consent was obtained, the patient, a 66 male, was taken to the Operating Room and the left eye was anesthetized with tetracaine. The left eye was then prepped and draped in the usual manner. A wire lid speculum was placed. A paracentesis was made at the left hand position. Preservative free lidocaine was injected into the anterior chamber followed by viscoelastic. A clear corneal incision was made in the temporal position. A capsulorrhexis was preformed and the central nuclear and cortical material were removed. The posterior capsule was polished and an Wilber 17.0 AU00T0 was placed into the capsular bag. The residual viscoelastic was aspirated and balanced saline solution was injected into the anterior chamber. The wound was checked and found to be water tight. The patient tolerated the procedure well without complications. SHEMAR VILLEDA MD Jun 16, 2021 11:14
[2021-06-16 11:27] VITALS: BP 169/93
[2021-06-16] MEDS ORDERED: acetaZOLAMIDE ER 500 MG CAP (DIAMOX SEQUELS) PO ONE (11:30)
--- NOTE | 2021-06-16 12:41 | Anesthesia-General Post-Op ---
MAC Patient Condition Mental Status/LOC: Same as Preop Cardiovascular: Satisfactory Nausea/Vomiting: Absent Respiratory: Satisfactory Pain: Controlled Complications: Absent Post Op Complications Complications None Follow Up Care/Instructions Patient Instructions None needed. Anesthesiology Discharge Order Discharge Order Patient is doing well, no complaints, stable vital signs, no apparent adverse anesthesia problems. No complications reported per nursing. YINA RUTLEDGE CRNA Jun 16, 2021 12:41
== END 2021-06-16 11:27 | disposition home or self-care (01) ==
LOC: SDC 10:15
PROVIDERS: ATTEND Specialist
DX: H25.12 Age-related nuclear cataract, left eye (principal); I10 Essential (primary) hypertension; J44.9 Chronic obstructive pulmonary disease, unspecified; Z87.891 Personal history of nicotine dependence; Z85.118 Personal history of other malignant neoplasm of bronchus and lung; Z80.0 Family history of malignant neoplasm of digestive organs
CPT/HCPCS: 66984; V2632

== ENCOUNTER → 2021-07-03 | Outpatient (CLI) | payer MEDICARE, OTHER ==
--- NOTE | 2021-07-03 12:32 | Diagnostic Imaging Report ---
INDICATION: Left-sided chest pain PA and lateral chest Left subclavian Port-A-Cath tip projects over the SVC. There is some scarring and/or atelectasis at the right apex. Lungs are clear. There are no effusions or pneumothoraces. IMPRESSION: No acute abnormalities in the chest. Dictated by: Dictated on workstation # [id number]
== END ==
LOC: RAD 11:52
PROVIDERS: ATTEND Internal Medicine
DX: J93.9 Pneumothorax, unspecified (principal); H66.92 Otitis media, unspecified, left ear
CPT/HCPCS: 71046

== ENCOUNTER 2021-08-16 14:14 | Emergency (ER) | payer MEDICARE, OTHER ==
[~2021-08-16] VITALS: Ht 187.9 cm; Wt 89.4 kg
[2021-08-16] MEDS ORDERED: NS IV 1000 ML 1,000 ML IV STA (14:51)
--- NOTE | 2021-08-16 14:51 | ED General ---
General Chief Complaint: Trauma-Non Activation Stated Complaint: SYNCOPE Nursing Triage Note: PT BROUGHT IN BY [facility] FROM HOME WITH COMPLAINT OF SYNCOPE AND FALL. PT PASSED OUT AND HIT HEAD. IS ON ELIQUIS AND ASA DAILY. PT STATES HIS BP HAS BEEN LOW TODAY AND YESTERDAY AND HAS NOT TAKEN BP MEDICATION. Source of Information: Patient Exam Limitations: No Limitations History of Present Illness Date Seen by Provider: Aug 16, 2021 Time Seen by Provider: 14:36 Initial Comments Sara is a 66-year-old male who presents to the emergency department from home after syncopal episode this afternoon. He states that he woke up yesterday noticed that his blood pressure was low. He states that he did not take his blood pressure medicine. He has a history of atrial fibrillation status post electrical cardioversion a couple of times. He is on amiodarone. His most recent visit with his air brake adjuster, Dr. Beckman at [place] was in December of last year. He states that he continue to take his blood pressure throughout yesterday and today and noticed that it was intermittently very low at one point down to the 70s systolic. He was sitting in a chair got up felt dizzy and passed out onto a hard floor with a throw rug on it. He states he did hit his head. He is on Eliquis, he did not take his morning dose this morning. He denies any chest pain, shortness of breath more than usual, recent fevers or chills. He is COVID vaccinated with a booster and has had Covid infection. He denies any abdominal pain, nausea, vomiting or diarrhea. He tends to be constipated he states. He did injure his right arm with an abrasion. No other recent skips or misses in his medications. He lives at home with his . No history of congestive heart failure. He is being treated for lung cancer from . All other review of systems reviewed and negative except as stated. Timing/Duration: 1-2 Days Severity: Moderate Modifying Factors: worse with Movement Associated Systoms: Syncope Allergies and Home Medications Allergies Coded Allergies: levofloxacin (Verified Allergy, Severe, PSYCHOSIS, 03/31/21) chlorthalidone (Verified Allergy, Unknown, 03/31/21) DIZZINESS Patient Home Medication List Home Medication List Reviewed: Yes Albuterol Sulfate (Ventolin Hfa) 1 Puff Puff, 2 PUFF INH Q4H PRN for SHORTNESS OF BREATH, (Reported) Entered as Reported by: BREN THORNE on 04/06/20 1247 Amiodarone HCl (Amiodarone HCl) 200 Mg Tablet, 400 MG PO DAILY, (Reported) Entered as Reported by: BREN THORNE on 12/21/20 1054 Apixaban (Eliquis) 5 Mg Tablet, 5 MG PO BID, (Reported) Entered as Reported by: BREN THORNE on 02/16/21 1421 Aspirin (Aspirin EC) 81 Mg Tablet.dr, 81 MG PO DAILY, (Reported) Entered as Reported by: BREN THORNE on 02/16/21 1421 Atorvastatin Calcium (Atorvastatin Calcium) 10 Mg Tablet, 10 MG PO DAILY, (Reported) Entered as Reported by: BREN THORNE on 12/21/20 1054 Budesonide/Formoterol Fumarate (Symbicort 160-4.5 Mcg Inhaler) 10.2 Gm Hfa.aer.ad, 2 PUFF IH BID, (Reported) Entered as Reported by: MARA MCNALLY on 03/21/20 1831 Fluticasone Propionate (Flonase Allergy Relief) 9.9 Ml [place].susp, 1-2 SPRAY NSEACH BID PRN for CONGESTION, (Reported) Entered as Reported by: BREN THORNE on 02/16/21 1421 Guaifenesin/Pseudoephedrne HCl (Mucinex D ER 1,200-120 mg Tab) 1 Each Tab.er.12h, 1 EACH PO Q12H PRN for CONGESTION, (Reported) Entered as Reported by: BREN THORNE on 12/21/20 1054 Levothyroxine Sodium (Levothyroxine Sodium) 100 Mcg Tablet, 100 MCG PO DAILY, (Reported) Entered as Reported by: BREN THORNE on 04/12/20 1009 Metformin HCl (Metformin HCl) 500 Mg Tablet, 500 MG PO BID, (Reported) Entered as Reported by: BREN THORNE on 12/21/20 1054 Metoprolol Tartrate (Metoprolol Tartrate) 25 Mg Tablet, 12.5 MG PO BID, (Reported) Entered as Reported by: BREN THORNE on 12/21/20 1054 Montelukast Sodium (Montelukast Sodium) 10 Mg Tablet, 10 MG PO HS, (Reported) Entered as Reported by: BREN THORNE on 12/21/20 1054 Polyethylene Glycol 3350 (Miralax) 17 Gm Powd.pack, 17 GM PO DAILY PRN for CONSTIPATION-2ND LINE, (Reported) Entered as Reported by: BREN THORNE on 12/21/20 1054 Tamsulosin HCl (Flomax) 0.4 Mg Cap, 0.8 MG PO 1800, (Reported) Entered as Reported by: BREN THORNE on 12/21/20 1054 Tiotropium [place] (Spiriva Respimat 2.5MCG/ACTUATION) 4 Gm Mist.inhal, 2 PUFF IH DAILY, (Reported) Entered as Reported by: MARA MCNALLY on 03/21/20 183 Review of Systems Review of Systems Constitutional: see HPI EENTM: no symptoms reported Respiratory: short of breath (chronic) Cardiovascular: no symptoms reported Gastrointestinal: no symptoms reported Genitourinary: no symptoms reported Musculoskeletal: no symptoms reported Skin: other (abrasion) Psychiatric/Neurological: Other (syncope) All Other Systems Reviewed Negative Unless Noted: Yes Past Ogytcru-Qazdvq-Bzncjn Hx Patient Social History Tobacco Use?: No Use of E-Cig and/or Vaping dev: No Substance use?: No Alcohol Use?: No Pt feels they are or have been: No Immunizations Up To Date Tetanus Booster (TDap): Unknown PED Vaccines UTD: No First/Initial COVID19 Vaccinat: September 12, 2020 Second COVID19 Vaccination Rodo: October 09, 2020 Seasonal Allergies Seasonal Allergies: Yes Past Medical History Surgery/Hospitalization HX: LUNG CA WITH CHEMO AND RADIATION [place], A-FIB, COPD Surgeries: Yes (COLON RESECTION/COLOSTOMY/TAKEDOWN;PORT L CHEST;C- SCOPES;CARDIAC ABLATION) Abdominal, Bowel Surgery, Cardiac, Coronary Stent, Prostatectomy, Thyroidectomy Respiratory: Yes (NON-SMALL CELL LUNG CANCER) COPD Currently Using CPAP: Yes (PT USES CPAP AT HOME ) Currently Using BIPAP: No Cardiac: Yes (DVT L ARM 09/2019 POST PORT PLACEMENT;AFIB/FLUTTER-S/P ABLATION 03/24/20) Atrial Fibrillation, Deep Vein Thrombosis, Hypertension, Irregular Heartbeat Neurological: No Reproductive Disorders: No Sexually Transmitted Disease: No HIV/AIDS: No Genitourinary: Yes (TURP) Prostate Problems, Renal Failure, UTI-Chronic Gastrointestinal: Yes (COLON RESECTION/COLOSTOMY/TAKEDOWN FOR BENIGN POLYPS) Polyps Musculoskeletal: No Endocrine: Yes (THYROIDECTOMY FOR BENIGN DISEASE) Hypothyroidsim HEENT: No Cancer: Yes (NON-SMALL CELL LUNG CANCER DX 07/2019--HAS BEEN ON IMMUNOTHERAPY) Lung Did You Recieve Any Treatments: Yes What Type of Treatment Did You: Chemotherapy, Radiation Psychosocial: No Violent Behavior Integumentary: No Blood Disorders: No Adverse Reaction/Blood Tranf: No Family Medical History No Pertinent Family Hx SOCIAL HISTORY: -ETOH--DENIES -DRUGS--DENIES -SMOKING--SMOKED 1 PPD--QUIT A FEW YEARS AGO PAST SURGICAL HISTORY: -COLON RESECTION FOR MULTIPLE BENIGN POLYPS, REQUIRED COLOSTOMY AND LATER TAKEDOWN -THYROIDECTOMY FOR BENIGN GOITER -CARDIAC CATH 03/21/20--NO INTERVENTION. SLOW FLOW IN ALL VESSELS. SMALL FIRST DIAGONAL ARTERY HAS MODERATE TO SEVERE OSTIAL DISEASE--NOT AMENABLE TO INTERVENTION -CARDIAC ABLATION FOR ATRIAL FIBRILLATION 03/24/20 -MULTIPLE COLONOSCOPIES -PORT LEFT CHEST Physical Exam Vital Signs Vital Signs - First Documented 08/16/21 14:19 Temp 35.9 Pulse 109 Resp 13 B/P (MAP) 115/77 (90) Pulse Ox 98 O2 Delivery Room Air Capillary Refill : Less Than 3 Seconds Height, Weight, BMI Height: 6'2.00" Weight: 230lbs. 0.0oz. 104.969452ga; 25.00 BMI Method:Stated General Appearance: No Apparent Distress, WD/WN Eyes: Bilateral Eye Normal Inspection, Bilateral Eye PERRL, Bilateral Eye EOMI HEENT: PERRL/EOMI, TMs Normal Neck: Normal Inspection Respiratory: Lungs Clear, Normal Breath Sounds, No Accessory Muscle Use, No Respiratory Distress, Other (decreased BS throughout) Cardiovascular: Tachycardia, Other (distal pulses intact) Gastrointestinal: Normal Bowel Sounds, Non Tender, Soft Extremity: Normal Capillary Refill, Normal Inspection, Normal Range of Motion, Non Tender, No Calf Tenderness Neurologic/Psychiatric: Alert, Oriented x3, No Motor/Sensory Deficits, Normal Mood/Affect, service engineer II-XII Norm as Tested Skin: Normal Color, Warm/Dry, Other (abrasion dorsal aspect of right forearm) Procedures/Interventions Patient Education: Explained Benefits, Explained Risks, Pt. Ack. Understanding Agreement on procedure with pt: Yes Breath Sounds per Auscultation: Clear Heart Sounds per Auscultation: Irregular Airway Exam: Mouth opens >2 fingers, Neck Full Range of Motion, Visulation of Uvula Sedation Adminstration Time: 16:30 Total Time spent in CS 25 min successful electrical cardioversion Re-examination Time: 16:58 Re-examination Awake, alert, normal mentation; wanting a sip of water Additional Procedures: cardioversion/defib Progress Patient consented for electrical cardioversion, due to symptommatic atrial flutter/hypotension. after re-evaluation, sedated with etomidate, electrically cardioverted with 200J, required 2 shocks. monitored after. EKG repeated and shows sinus rhythm at 69 bpm, no ectopy is noted. 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 Progress/Results/Core Measures Suspected Sepsis SIRS Temperature: Pulse: 109 Respiratory Rate: 13 Laboratory Tests 08/16/21 14:27: White Blood Count 7.0 Blood Pressure 115 /77 Mean: 90 Laboratory Tests 08/16/21 14:27: Creatinine 0.85, Platelet Count 198 Results/Orders Lab Results Laboratory Tests Test 08/16/21 14:27 08/16/21 15:31 Range/Units White Blood Count 7.0 4.3-11.0 10^3/uL Red Blood Count 4.29 L 4.30-5.52 10^6/uL Hemoglobin 11.1 L 13.3-17.7 g/dL Hematocrit 35 L 40-54 % Mean Corpuscular Volume 81 80-99 fL Mean Corpuscular Hemoglobin 26 25-34 pg Mean Corpuscular Hemoglobin Concent 32 32-36 g/dL Red Cell Distribution Width 16.2 H 10.0-14.5 % Platelet Count 198 130-400 10^3/uL Mean Platelet Volume 10.2 9.0-12.2 fL Immature Granulocyte % (Auto) 0 % Neutrophils (%) (Auto) 80 H 42-75 % Lymphocytes (%) (Auto) 10 L 12-44 % Monocytes (%) (Auto) 10 0-12 % Eosinophils (%) (Auto) 0 0-10 % Basophils (%) (Auto) 0 0-10 % Neutrophils # (Auto) 5.6 1.8-7.8 X 10^3 Lymphocytes # (Auto) 0.7 L 1.0-4.0 X 10^3 Monocytes # (Auto) 0.7 0.0-1.0 X 10^3 Eosinophils # (Auto) 0.0 0.0-0.3 10^3/uL Basophils # (Auto) 0.0 0.0-0.1 10^3/uL Immature Granulocyte # (Auto) 0.0 0.0-0.1 10^3/uL Sodium Level 137 135-145 MMOL/L Potassium Level 3.2 L 3.6-5.0 MMOL/L Chloride Level 103 98-107 MMOL/L Carbon Dioxide Level 23 21-32 MMOL/L Anion Gap 11 5-14 MMOL/L Blood Urea Nitrogen 14 7-18 MG/DL Creatinine 0.85 0.60-1.30 MG/DL Estimat Glomerular Filtration Rate 95 BUN/Creatinine Ratio 16 Glucose Level 193 H 70-105 MG/DL Calcium Level 8.9 8.5-10.1 MG/DL Troponin I < 0.028 <0.028 NG/ML B-Type Natriuretic Peptide 292.3 H <100.0 PG/ML Urine Color YELLOW Urine Clarity CLEAR Urine pH 6.0 5-9 Urine Specific [place] 1.025 H 1.016-1.022 Urine Protein 1+ H NEGATIVE Urine Glucose (UA) NEGATIVE NEGATIVE Urine Ketones TRACE H NEGATIVE Urine Nitrite NEGATIVE NEGATIVE Urine Bilirubin NEGATIVE NEGATIVE Urine Urobilinogen 1.0 < = 1.0 MG/DL Urine Leukocyte Esterase NEGATIVE NEGATIVE Urine RBC (Auto) NEGATIVE NEGATIVE Urine RBC NONE /HPF Urine WBC 2-5 /HPF Urine Squamous Epithelial Cells 0-2 /HPF Urine Renal Epithelial Cells NONE /HPF Urine Crystals NONE /LPF Urine Bacteria NEGATIVE /HPF Urine Casts PRESENT /LPF Urine Hyaline Casts 0-2 H /LPF Urine Mucus LARGE H /LPF Urine Culture Indicated NO My Orders Orders - CLIVE GONZALEZ MD Ed Iv/Invasive Line Start (08/16/21 14:44) Ekg Tracing (08/16/21 14:44) Chest 1 View, Ap/Pa Only (08/16/21 14:44) Ct Head Wo (08/16/21 14:44) Cbc With Automated Diff (08/16/21 14:44) Basic Metabolic Panel (08/16/21 14:44) Bnp [place] (08/16/21 14:44) Troponin I Alan (08/16/21 14:44) Urinalysis (08/16/21 14:44) Ns Iv 1000 Ml (Sodium Chloride 0.9%) (08/16/21 14:51) Etomidate Injection (Amidate Injection) (08/16/21 16:30) Apixaban Tablet (Eliquis Tablet) (08/16/21 16:30) Apixaban Tablet (Eliquis Tablet) (08/16/21 16:18) Etomidate Injection (Amidate Injection) (08/16/21 16:18) Ekg Tracing (08/16/21 16:42) Medications Given in ED Current Medications Medications Dose Ordered Sig/Silvana Route Start Time Stop Time Status Last Admin Dose Admin Apixaban 5 mg ONCE ONCE PO 08/16/21 16:30 08/16/21 16:31 DC 08/16/21 16:28 5 MG Etomidate 20 mg ONCE ONCE IV 08/16/21 16:30 08/16/21 16:31 DC 08/16/21 16:35 20 MG Vital Signs/I&O 08/16/21 08/16/21 08/16/21 08/16/21 14:19 16:27 16:28 16:28 Temp 35.9 Pulse 109 65 112 Resp 13 11 B/P (MAP) 115/77 (90) 108/80 Pulse Ox 98 99 O2 Delivery Room Air Room Air Room Air Capillary Refill : Less Than 3 Seconds Blood Pressure Mean: 90 Progress Note #1: Time: 14:50 Progress Note Patient may be in a slow a flutter, no evidence of STEMI on his EKG. We will give him a little fluid bolus and see if this improves his rate. Basic laboratory studies pending. Progress Note #2: Time: 16:03 Progress Note Discussed with Dr Garcia. He is reviewing the EKG; Called back and concurs that this is a slower atrial flutter likely a 2-1. Recommends electrical cardioversion. Monitor for a couple of hours post cardioversion and then discharge of asymptomatic and normal. Otherwise his offer was for IV amiodarone infusion in the ICU overnight and digoxin. I discussed this with the patient and his , the patient agrees to electrical cardioversion as they are really worried about the weather and their ability to get home tomorrow. Patient's heart rate remains about 115. Blood pressure is 105 systolic. I did discuss with him the missed dose of Eliquis this morning, he assures me that he is otherwise faithfully compliant with his anticoagulant. I did let Dr. Garcia know as well and he believes that he would be safe to electrically cardiovert at this time. I am going to go ahead and give him a dose of his Eliquis here now. ECG Initial ECG Impression Date: Aug 16, 2021 Initial ECG Impression Time: 14:36 Initial ECG Rate: 114 Initial ECG Rhythm: S.Tach Initial ECG Intervals TN 142 QRS 159 QTc 527 Comment Right bundle branch block, left anterior fascicular block;; patient may be in a 2-1 a flutter. Diagnostic Imaging Comments [facility], [place] NAME: SARA IRIZARRY [facility] REC#: [id number] PT STATUS: REG ER : 1955 PHYSICIAN: CLIVE GONZALEZ MD ADMIT DATE: 08/16/21/ER Signed Date of Exam:08/16/21 CT HEAD WO PROCEDURE: CT head without contrast. TECHNIQUE: Multiple contiguous axial images were obtained through the brain without the use of intravenous contrast. Auto Exposure Controls were utilized during the CT exam to meet ALARA standards for radiation dose reduction. INDICATION: Head injury from a fall, anticoagulation The ventricles are normal in size, shape and position. There are no masses or hemorrhages. There are no extra-axial fluid collections. IMPRESSION: Negative CT head Dictated by: Dictated on workstation # [id number] Dict: 08/16/21 1509 Trans: 08/16/21 1509 [facility] [id number] Interpreted by: MISAEL BAILEY MD Electronically signed by: MISAEL BAILEY MD 08/16/21 1509 [facility], [place] NAME: SARA IRIZARRY [facility] REC#: [id number] PT STATUS: REG ER : 1955 PHYSICIAN: CLIVE GONZALEZ MD ADMIT DATE: 08/16/21/ER Signed Date of Exam:08/16/21 CHEST 1 VIEW, AP/PA ONLY EXAMINATION: Chest, 1 view. HISTORY: Hypotension. Syncopal episode. COMPARISON: 07/03/2021. FINDINGS: A left port is stable in configuration. Soft tissue thickening is seen in the right apex, similar to prior exams and likely representing atelectasis. A small amount of volume loss is seen in the right hemithorax. No new focal consolidations. No large pleural effusion or pneumothorax is seen. The cardiomediastinal silhouette is normal in size and contour. No acute osseous abnormality is seen. IMPRESSION: 1. No focal consolidation or pleural effusion. 2. Stable right apical scarring with volume loss in the right hemithorax. Dictated by: Dictated on workstation # [id number] Dict: 08/16/21 1501 Trans: 08/16/21 1509 [id number] Interpreted by: STUART ORO DO Electronically signed by: STUART ORO DO 08/16/21 1509 Departure Impression Primary Impression: Atrial flutter with rapid ventricular response Disposition: HOME, SELF-CARE Condition: Stable Departure-Patient Inst. Decision time for Depature: 16:38 Referrals: ELLIE MITTAL DO (PCP/Family) Primary Care Physician Patient Instructions: Atrial Flutter (DC) Add. Discharge Instructions: Please drink plenty of fluids to stay well-hydrated. Continue your daily medications as prescribed. Please do not skip your blood thinner, Eliquis. Please follow-up with Dr. Beckman's office with a phone call to let him know that you required cardioversion today at the hospital. They may want to see you fairly soon for a follow-up as your last visit was in December. Come back to the emergency department for any new, concerning or emergent complaints. CLIVE GONZALEZ MD Aug 16, 2021 14:50
--- NOTE | 2021-08-16 15:05 | Diagnostic Imaging Report ---
EXAMINATION: Chest, 1 view. HISTORY: Hypotension. Syncopal episode. COMPARISON: 07/03/2021. FINDINGS: A left port is stable in configuration. Soft tissue thickening is seen in the right apex, similar to prior exams and likely representing atelectasis. A small amount of volume loss is seen in the right hemithorax. No new focal consolidations. No large pleural effusion or pneumothorax is seen. The cardiomediastinal silhouette is normal in size and contour. No acute osseous abnormality is seen. IMPRESSION: 1. No focal consolidation or pleural effusion. 2. Stable right apical scarring with volume loss in the right hemithorax. Dictated by: Dictated on workstation # [id number]
--- NOTE | 2021-08-16 15:11 | Diagnostic Imaging Report ---
PROCEDURE: CT head without contrast. TECHNIQUE: Multiple contiguous axial images were obtained through the brain without the use of intravenous contrast. Auto Exposure Controls were utilized during the CT exam to meet ALARA standards for radiation dose reduction. INDICATION: Head injury from a fall, anticoagulation The ventricles are normal in size, shape and position. There are no masses or hemorrhages. There are no extra-axial fluid collections. IMPRESSION: Negative CT head Dictated by: Dictated on workstation # [id number]
[2021-08-16 15:21] LABS: BASOPHILS % (AUTO) 0 % (0-10); EOSINOPHILS % (AUTO) 0 % (0-10); HEMATOCRIT 35 % (40-54); HEMOGLOBIN 11.1 g/dL (13.3-17.7); LYMPHOCYTES # (AUTO) 0.7 X 10^3 (1.0-4.0); LYMPHOCYTES % (AUTO) 10 % (12-44); MEAN CORPUSCULAR HEMOGLOBIN 26 pg (25-34); MEAN CORPUSCULAR HGB CONC 32 g/dL (32-36); MEAN CORPUSCULAR VOLUME 81 fL (80-99); MEAN PLATELET VOLUME 10.2 fL (9.0-12.2); MONOCYTES # (AUTO) 0.7 X 10^3 (0.0-1.0); MONOCYTES % (AUTO) 10 % (0-12); NEUTROPHILS # (AUTO) 5.6 X 10^3 (1.8-7.8); NEUTROPHILS % (AUTO) 80 % (42-75); PLATELET COUNT 198 10^3/uL (130-400)
[2021-08-16 15:24] LABS: CHLORIDE 103 MMOL/L (98-107); POTASSIUM 3.2 MMOL/L (3.6-5.0); SODIUM 137 MMOL/L (135-145)
[2021-08-16 15:26] LABS: CALCIUM 8.9 MG/DL (8.5-10.1); GLUCOSE 193 MG/DL (70-105)
[2021-08-16 15:27] LABS: CARBON DIOXIDE 23 MMOL/L (21-32)
[2021-08-16 15:30] LABS: CREATININE SERUM 0.85 MG/DL (0.60-1.30); GFR ESTIMATED 95
[2021-08-16 15:31] LABS: BUN/CREATININE RATIO 16
[2021-08-16 15:38] LABS: BILIRUBIN,URINE NEGATIVE (NEGATIVE); CLARITY,URINE CLEAR; COLOR,URINE YELLOW; GLUCOSE, URINE (UA) NEGATIVE (NEGATIVE); KETONES,URINE TRACE (NEGATIVE); LEUKOCYTE ESTERASE ,URINE NEGATIVE (NEGATIVE); NITRITE,URINE NEGATIVE (NEGATIVE); PROTEIN,URINE 1+ (NEGATIVE)
[2021-08-16 15:45] LABS: BACTERIA,URINE NEGATIVE /HPF; HYALINE CASTS, URINE 0-2 /LPF; SQUAMOUS EPITHELIAL CELL,UR 0-2 /HPF
[2021-08-16] MEDS ORDERED: APIXABAN 5 MG (ELIQUIS) TABLET ONE (16:18)
[2021-08-16] MEDS ORDERED: ETOMIDATE IV SOLN 20 MG/10 ML VIAL ONE (16:18)
[2021-08-16] MEDS ORDERED: ETOMIDATE IV SOLN 20 MG/10 ML VIAL IV ONE (16:30)
[2021-08-16] MEDS ORDERED: APIXABAN 5 MG (ELIQUIS) TABLET PO ONE (16:30)
[2021-08-16 18:23] VITALS: BP 118/78
== END 2021-08-16 18:23 | disposition home or self-care (01) ==
LOC: EDUNIT# 14:14 → ER 14:25
DX: S50.811A Abrasion of right forearm, initial encounter (principal); I48.92 Unspecified atrial flutter; J44.9 Chronic obstructive pulmonary disease, unspecified; I48.91 Unspecified atrial fibrillation; I10 Essential (primary) hypertension; E03.9 Hypothyroidism, unspecified; Z86.718 Personal history of other venous thrombosis and embolism; Z79.01 Long term (current) use of anticoagulants; Z79.82 Long term (current) use of aspirin; Z79.890 Hormone replacement therapy; Z79.899 Other long term (current) drug therapy; W22.8XXA Striking against or struck by other objects, initial encounter
CPT/HCPCS: 36415; 70450; 71045; 80048; 81000; 83880; 84484; 85025; 92960; 93005; 93041; 96361; 96374; 99291

== ENCOUNTER → 2021-08-23 | Outpatient (CLI) | payer MEDICARE, OTHER ==
[~2021-08-23] MED LIST changes: +GADOTERATE 0.5 MMOL/ML (CLARISCAN) 20 ML VIAL IV ONE
--- NOTE | 2021-08-23 17:34 | Diagnostic Imaging Report ---
PROCEDURE: MR imaging of the brain with and without contrast. TECHNIQUE: Multiplanar, multisequence MR imaging of the brain was performed with and without contrast. INDICATION: Primary cancer of lung involving the right upper lobe COMPARISON: 02/16/2021 Ventricles and sulci are prominent without evidence of restricted diffusion to indicate infarct. Very mild T2 prolongation is seen within cerebral white matter similar to previous study, however, there is no evidence of abnormal mass effect or shift of midline structures. No hemorrhage is identified. Flow voids are seen in the expected locations at the [place] of [place]. There is no abnormal contrast enhancement. IMPRESSION: Stable MRI of the brain without evidence of acute abnormality or intracranial metastasis. Dictated by: Dictated on workstation # [id number]
== END ==
LOC: RAD 14:00
DX: C34.11 Malignant neoplasm of upper lobe, right bronchus or lung (principal)
CPT/HCPCS: 70553

== ENCOUNTER 2021-09-29 10:13 | Emergency (ER) | payer MEDICARE, OTHER ==
[~2021-09-29] VITALS: Ht 188 cm; Wt 86.2 kg
[~2021-09-29 10:13] MED LIST changes: -GADOTERATE 0.5 MMOL/ML (CLARISCAN) 20 ML VIAL IV ONE
[2021-09-29 10:44] LABS: BASOPHILS % (AUTO) 1 % (0-10); EOSINOPHILS % (AUTO) 0 % (0-10); HEMATOCRIT 39 % (40-54); HEMOGLOBIN 12.2 g/dL (13.3-17.7); LYMPHOCYTES # (AUTO) 1.2 10^3/uL (1.0-4.0); LYMPHOCYTES % (AUTO) 18 % (12-44); MEAN CORPUSCULAR HEMOGLOBIN 25 pg (25-34); MEAN CORPUSCULAR HGB CONC 31 g/dL (32-36); MEAN CORPUSCULAR VOLUME 81 fL (80-99); MONOCYTES # (AUTO) 0.7 10^3/uL (0.0-1.0); MONOCYTES % (AUTO) 11 % (0-12); NEUTROPHILS # (AUTO) 4.6 10^3/uL (1.8-7.8); NEUTROPHILS % (AUTO) 70 % (42-75); PLATELET COUNT 203 10^3/uL (130-400); WHITE BLOOD COUNT 6.6 10^3/uL (4.3-11.0)
[2021-09-29] MEDS ORDERED: LACTATED RINGERS 1,000 ML IV ONE ×2 (10:45→12:45)
[2021-09-29 10:48] LABS: ALBUMIN 3.7 GM/DL (3.2-4.5); POTASSIUM 3.4 MMOL/L (3.6-5.0)
[2021-09-29 10:49] LABS: CALCIUM 9.2 MG/DL (8.5-10.1)
[2021-09-29 10:50] LABS: INR 1.3 (0.8-1.4); PROTHROMBIN TIME PATIENT 16.3 SEC (12.2-14.7)
[2021-09-29 10:51] LABS: TOTAL PROTEIN 6.2 GM/DL (6.4-8.2)
[2021-09-29 10:52] LABS: BILIRUBIN,TOTAL 0.7 MG/DL (0.1-1.0)
[2021-09-29 10:54] LABS: CREATININE SERUM 0.89 MG/DL (0.60-1.30)
[2021-09-29 10:57] LABS: MAGNESIUM 1.8 MG/DL (1.6-2.4)
--- NOTE | 2021-09-29 11:13 | Diagnostic Imaging Report ---
EXAMINATION: Chest, 1 view. HISTORY: Chest pain. COMPARISON: 08/16/2021. FINDINGS: Heart size and pulmonary vasculature are normal. A left-sided port catheter is unchanged. The lungs are clear without consolidation, pleural effusion, or pneumothorax. Degenerative changes of the thoracic spine. Osseous structures are otherwise intact. IMPRESSION: No acute radiographic abnormality in the chest. Dictated by: Dictated on workstation # [id number]
[2021-09-29 11:19] LABS: FREE T4 (FREE THYROXINE) 1.26 NG/DL (0.70-1.48)
--- NOTE | 2021-09-29 14:13 | ED General ---
General Chief Complaint: Dizziness/Syncope Stated Complaint: DIZZINESS/HYPOTENSION Nursing Triage Note: PT TO ROOM 09 [facility]IA [facility] WITH C/O SYNCOPE X2 HOURS [employer]. PT REPORTS BLOOD PRESSURES WERE LOW AT HOME. Source of Information: Patient Exam Limitations: No Limitations History of Present Illness Date Seen by Provider: Sep 29, 2021 Time Seen by Provider: 10:18 Initial Comments This 66-year-old gentleman presents to the emergency room via EMS with complaints of lightheadedness and low blood pressure. He reports his blood pressures at home were in the 80s over 50s. Symptoms started this morning. He did not have complete syncope. He has a recent history of atrial fibrillation requiring electrocardioversion. He also notes having a colonoscopy on Saturday. He is afebrile and denies symptoms of acute infection. He also reports tachycardia in the 110s which is unusual for him. Allergies and Home Medications Allergies Coded Allergies: levofloxacin (Verified Allergy, Severe, PSYCHOSIS, 03/31/21) chlorthalidone (Verified Allergy, Unknown, 03/31/21) DIZZINESS Patient Home Medication List Home Medication List Reviewed: Yes Albuterol Sulfate (Ventolin Hfa) 1 Puff Puff, 2 PUFF INH Q4H PRN for SHORTNESS OF BREATH, (Reported) Entered as Reported by: BREN THORNE on 04/06/20 1247 Amiodarone HCl (Amiodarone HCl) 200 Mg Tablet, 400 MG PO DAILY, (Reported) Entered as Reported by: BREN THORNE on 12/21/20 1054 Apixaban (Eliquis) 5 Mg Tablet, 5 MG PO BID, (Reported) Entered as Reported by: BREN THORNE on 02/16/21 1421 Aspirin (Aspirin EC) 81 Mg Tablet.dr, 81 MG PO DAILY, (Reported) Entered as Reported by: BREN THORNE on 02/16/21 1421 Atorvastatin Calcium (Atorvastatin Calcium) 10 Mg Tablet, 10 MG PO DAILY, (Reported) Entered as Reported by: BREN THORNE on 12/21/20 1054 Budesonide/Formoterol Fumarate (Symbicort 160-4.5 Mcg Inhaler) 10.2 Gm Hfa.aer.ad, 2 PUFF IH BID, (Reported) Entered as Reported by: MARA MCNALLY on 03/21/20 1831 Fluticasone Propionate (Flonase Allergy Relief) 9.9 Ml [place].susp, 1-2 SPRAY NSEACH BID PRN for CONGESTION, (Reported) Entered as Reported by: BREN THORNE on 02/16/21 1421 Guaifenesin/Pseudoephedrne HCl (Mucinex D ER 1,200-120 mg Tab) 1 Each Tab.er.12h, 1 EACH PO Q12H PRN for CONGESTION, (Reported) Entered as Reported by: BREN THORNE on 12/21/20 1054 Levothyroxine Sodium (Levothyroxine Sodium) 100 Mcg Tablet, 100 MCG PO DAILY, (Reported) Entered as Reported by: BREN THORNE on 04/12/20 1009 Metformin HCl (Metformin HCl) 500 Mg Tablet, 500 MG PO BID, (Reported) Entered as Reported by: BREN THORNE on 12/21/20 1054 Metoprolol Tartrate (Metoprolol Tartrate) 25 Mg Tablet, 12.5 MG PO BID, (Reported) Entered as Reported by: BREN THORNE on 12/21/20 1054 Montelukast Sodium (Montelukast Sodium) 10 Mg Tablet, 10 MG PO HS, (Reported) Entered as Reported by: BREN THORNE on 12/21/20 1054 Polyethylene Glycol 3350 (Miralax) 17 Gm Powd.pack, 17 GM PO DAILY PRN for CONSTIPATION-2ND LINE, (Reported) Entered as Reported by: BREN THORNE on 12/21/20 1054 Tamsulosin HCl (Flomax) 0.4 Mg Cap, 0.8 MG PO 1800, (Reported) Entered as Reported by: BREN THORNE on 12/21/20 1054 Tiotropium [place] (Spiriva Respimat 2.5MCG/ACTUATION) 4 Gm Mist.inhal, 2 PUFF IH DAILY, (Reported) Entered as Reported by: MARA MCNALLY on 03/21/20 1831 Review of Systems Review of Systems Constitutional: no symptoms reported EENTM: no symptoms reported Respiratory: no symptoms reported Cardiovascular: see HPI Gastrointestinal: no symptoms reported Genitourinary: no symptoms reported Musculoskeletal: no symptoms reported Skin: no symptoms reported Psychiatric/Neurological: No Symptoms Reported Hematologic/Lymphatic: No Symptoms Reported Immunological/Allergic: no symptoms reported Past Wtrsfsr-Flkghk-Cqohgj Hx Patient Social History Tobacco Use?: No Smoking Status: Former Smoker Smokeless Tobacco Frequency: Never a User Use of E-Cig and/or Vaping dev: No Use of E-Cig and/or Vaping [place]: Never a User Substance use?: No Alcohol Use?: No Pt feels they are or have been: No Immunizations Up To Date Tetanus Booster (TDap): Unknown PED Vaccines UTD: No First/Initial COVID19 Vaccinat: September 12, 2020 Second COVID19 Vaccination Rodo: October 09, 2020 Seasonal Allergies Seasonal Allergies: Yes Past Medical History Surgery/Hospitalization HX: LUNG CA WITH CHEMO AND RADIATION [place], A-FIB, COPD Surgeries: Yes (COLON RESECTION/COLOSTOMY/TAKEDOWN;PORT L CHEST;C- SCOPES;CARDIAC ABLATION) Abdominal, Bowel Surgery, Cardiac, Coronary Stent, Prostatectomy, Thyroidectomy Respiratory: Yes (NON-SMALL CELL LUNG CANCER) COPD Currently Using CPAP: Yes (PT USES CPAP AT HOME ) Currently Using BIPAP: No Cardiac: Yes (DVT L ARM 09/2019 POST PORT PLACEMENT;AFIB/FLUTTER-S/P ABLATION 03/24/20) Atrial Fibrillation, Deep Vein Thrombosis, Hypertension, Irregular Heartbeat Neurological: No Reproductive Disorders: No Sexually Transmitted Disease: No HIV/AIDS: No Genitourinary: Yes (TURP) Prostate Problems, Renal Failure, UTI-Chronic Gastrointestinal: Yes (COLON RESECTION/COLOSTOMY/TAKEDOWN FOR BENIGN POLYPS) Polyps Musculoskeletal: No Endocrine: Yes (THYROIDECTOMY FOR BENIGN DISEASE, prediabetes) Hypothyroidsim HEENT: No Cancer: Yes (NON-SMALL CELL LUNG CANCER DX 07/2019--HAS BEEN ON IMMUNOTHERAPY) Lung Did You Recieve Any Treatments: Yes What Type of Treatment Did You: Chemotherapy, Radiation Psychosocial: No Integumentary: No Blood Disorders: No Adverse Reaction/Blood Tranf: No Family Medical History No Pertinent Family Hx SOCIAL HISTORY: -ETOH--DENIES -DRUGS--DENIES -SMOKING--SMOKED 1 PPD--QUIT A FEW YEARS AGO PAST SURGICAL HISTORY: -COLON RESECTION FOR MULTIPLE BENIGN POLYPS, REQUIRED COLOSTOMY AND LATER TAKEDOWN -THYROIDECTOMY FOR BENIGN GOITER -CARDIAC CATH 03/21/20--NO INTERVENTION. SLOW FLOW IN ALL VESSELS. SMALL FIRST DIAGONAL ARTERY HAS MODERATE TO SEVERE OSTIAL DISEASE--NOT AMENABLE TO INTERVENTION -CARDIAC ABLATION FOR ATRIAL FIBRILLATION 03/24/20 -MULTIPLE COLONOSCOPIES -PORT LEFT CHEST Physical Exam Vital Signs Vital Signs - First Documented 09/29/21 09/29/21 10:13 14:25 Temp 36.2 Pulse 110 Resp 17 B/P (MAP) 118/101 (107) Pulse Ox 97 O2 Delivery Room Air Capillary Refill : Less Than 3 Seconds Height, Weight, BMI Height: 6'2.00" Weight: 230lbs. 0.0oz. 104.649370wd; 24.00 BMI Method:Stated General Appearance: No Apparent Distress, WD/WN HEENT: PERRL/EOMI, Normal ENT Inspection Neck: Normal Inspection; No JVD Respiratory: Lungs Clear, Normal Breath Sounds, No Accessory Muscle Use Cardiovascular: Regular Rate, Rhythm, No Edema, No Murmur Gastrointestinal: Non Tender, Soft Extremity: Normal Inspection, No Pedal Edema Neurologic/Psychiatric: Alert, Oriented x3, No Motor/Sensory Deficits, Normal Mood/Affect Skin: Normal Color, Warm/Dry Procedures/Interventions Patient Education: Explained Benefits, Explained Risks, Pt. Ack. Understanding Breath Sounds per Auscultation: Clear Heart Sounds per Auscultation: Irregular Airway Exam: Mouth opens >2 fingers, Neck Full Range of Motion, Visulation of Uvula Sedation Adminstration Time: 1630 Re-examination Time: 1658 Progress/Results/Core Measures Suspected Sepsis SIRS Temperature: Pulse: 110 Respiratory Rate: 17 Laboratory Tests 09/29/21 10:18: White Blood Count 6.6 Blood Pressure 118 /101 Mean: 107 Laboratory Tests 09/29/21 10:18: Creatinine 0.89, INR Comment 1.3, Platelet Count 203, Total Bilirubin 0.7 Results/Orders Lab Results Laboratory Tests Test 09/29/21 10:18 Range/Units White Blood Count 6.6 4.3-11.0 10^3/uL Red Blood Count 4.82 4.30-5.52 10^6/uL Hemoglobin 12.2 L 13.3-17.7 g/dL Hematocrit 39 L 40-54 % Mean Corpuscular Volume 81 80-99 fL Mean Corpuscular Hemoglobin 25 25-34 pg Mean Corpuscular Hemoglobin Concent 31 L 32-36 g/dL Red Cell Distribution Width 15.9 H 10.0-14.5 % Platelet Count 203 130-400 10^3/uL Mean Platelet Volume 10.0 9.0-12.2 fL Immature Granulocyte % (Auto) 1 % Neutrophils (%) (Auto) 70 42-75 % Lymphocytes (%) (Auto) 18 12-44 % Monocytes (%) (Auto) 11 0-12 % Eosinophils (%) (Auto) 0 0-10 % Basophils (%) (Auto) 1 0-10 % Neutrophils # (Auto) 4.6 1.8-7.8 10^3/uL Lymphocytes # (Auto) 1.2 1.0-4.0 10^3/uL Monocytes # (Auto) 0.7 0.0-1.0 10^3/uL Eosinophils # (Auto) 0.0 0.0-0.3 10^3/uL Basophils # (Auto) 0.0 0.0-0.1 10^3/uL Immature Granulocyte # (Auto) 0.0 0.0-0.1 10^3/uL Prothrombin Time 16.3 H 12.2-14.7 SEC INR Comment 1.3 0.8-1.4 Activated Partial Thromboplast Time 32 24-35 SEC Sodium Level 141 135-145 MMOL/L Potassium Level 3.4 L 3.6-5.0 MMOL/L Chloride Level 105 98-107 MMOL/L Carbon Dioxide Level 22 21-32 MMOL/L Anion Gap 14 5-14 MMOL/L Blood Urea Nitrogen 15 7-18 MG/DL Creatinine 0.89 0.60-1.30 MG/DL Estimat Glomerular Filtration Rate 93 BUN/Creatinine Ratio 17 Glucose Level 99 70-105 MG/DL Calcium Level 9.2 8.5-10.1 MG/DL Corrected Calcium 9.4 8.5-10.1 MG/DL Magnesium Level 1.8 1.6-2.4 MG/DL Total Bilirubin 0.7 0.1-1.0 MG/DL Aspartate Amino Transf (AST/SGOT) 16 5-34 U/L Alanine Aminotransferase (ALT/SGPT) 17 0-55 U/L Alkaline Phosphatase 54 40-136 U/L Myoglobin 60.3 10.0-92.0 NG/ML Troponin I < 0.028 <0.028 NG/ML B-Type Natriuretic Peptide 159.6 H <100.0 PG/ML Total Protein 6.2 L 6.4-8.2 GM/DL Albumin 3.7 3.2-4.5 GM/DL Thyroid Stimulating Hormone (TSH) 0.39 0.35-4.94 UIU/ML Free Thyroxine 1.26 0.70-1.48 NG/DL My Orders Orders - TADEO BLOOD MD Ekg Tracing (09/29/21 10:20) Lactated Ringers (Lr 1000 Ml Iv Solution (09/29/21 10:45) Bnp Alan (09/29/21 10:36) Cbc With Automated Diff (09/29/21 10:36) Magnesium (09/29/21 10:36) Chest 1 View, Ap/Pa Only (09/29/21 10:36) Comprehensive Metabolic Panel (09/29/21 10:36) Myoglobin Serum (09/29/21 10:36) Protime With Inr (09/29/21 10:36) Partial Thromboplastin Time (09/29/21 10:36) O2 (09/29/21 10:36) Monitor-Rhythm Ecg Trace Only (09/29/21 10:36) Ed Iv/Invasive Line Start (09/29/21 10:36) Troponin I Alan (09/29/21 10:36) Thyroid Stimulating Hormone (09/29/21 10:36) Free T4 (Free Thyroxine) (09/29/21 10:36) Lactated Ringers (Lr 1000 Ml Iv Solution (09/29/21 12:45) Orthostatic Vital Signs (Adult (09/29/21 14:15) Orthostatic Vital Signs (Adult (09/29/21 14:15) Medications Given in ED Vital Signs/I&O 09/29/21 09/29/21 10:13 14:25 Temp 36.2 Pulse 110 73 Resp 17 14 B/P (MAP) 118/101 (107) 172/89 Pulse Ox 97 O2 Delivery Room Air Room Air Capillary Refill : Less Than 3 Seconds Blood Pressure Mean: 107 Progress Note : Progress Note Work-up was relatively unremarkable, but patient was found to have orthostatic hypotension. He received 2 L of IV fluid did have some improvement. See dis charge instructions for further discussion. ECG Initial ECG Impression Date: Sep 29, 2021 Initial ECG Impression Time: 10:18 Initial ECG Rate: 111 Initial ECG Rhythm: S.Tach Comment Apparent sinus tachycardia with no acute ST elevation to suggest acute ischemia when compared with prior. Right bundle branch block. No axis deviation. Diagnostic Imaging Diagonstic Imaging: Xray Plain Films/CT/US/NM/MRI: chest Comments NAME: SARA IRIZARRY [facility] REC#: [id number] PT STATUS: REG ER : 1955 PHYSICIAN: TADEO BLOOD MD ADMIT DATE: 09/29/21/ER Signed Date of Exam:09/29/21 CHEST 1 VIEW, AP/PA ONLY EXAMINATION: Chest, 1 view. HISTORY: Chest pain. COMPARISON: 08/16/2021. FINDINGS: Heart size and pulmonary vasculature are normal. A left-sided port catheter is unchanged. The lungs are clear without consolidation, pleural effusion, or pneumothorax. Degenerative changes of the thoracic spine. Osseous structures are otherwise intact. IMPRESSION: No acute radiographic abnormality in the chest. Dictated by: Dictated on workstation # [id number] Dict: 09/29/21 1110 Trans: 09/29/21 1118 [id number] Interpreted by: MARCOS BAILEY DO Electronically signed by: MARCOS BAILEY DO 09/29/21 1118 Departure Impression Primary Impression: Lightheadedness Additional Impressions: Orthostatic hypotension Atrial fibrillation Qualified Codes: I48.91 - Unspecified atrial fibrillation Disposition: 01 HOME, SELF-CARE Condition: Improved Departure-Patient Inst. Decision time for Depature: 14:12 Referrals: ELLIE MITTAL DO (PCP/Family) Primary Care Physician Patient Instructions: Orthostatic Hypotension Add. Discharge Instructions: Follow-up with your primary care provider and apartment leasing agent as soon as possible. Drink plenty of clear liquids to stay well-hydrated. Sit up and stand up carefully and slowly to prevent syncope (passing out) as you get up. If you are feeling lightheaded as if you could lose consciousness, please sit or lie down in a safe place as quickly as possible. Call with questions or concerns. Return to the ER if you have worsening symptoms All discharge instructions reviewed with patient and/or family. Voiced understanding. TADEO BLOOD MD Sep 29, 2021 14:13
[2021-09-29 14:25] VITALS: BP 172/89
== END 2021-09-29 14:25 | disposition home or self-care (01) ==
LOC: EDUNIT# 10:13 → ER 10:14
DX: I95.1 Orthostatic hypotension (principal); I48.91 Unspecified atrial fibrillation; Z87.891 Personal history of nicotine dependence
CPT/HCPCS: 36415; 71045; 80053; 83735; 83874; 83880; 84439; 84443; 84484; 85025; 85610; 85730; 93005; 93041; 96360; 96361

== ENCOUNTER 2021-11-13 10:20 | Inpatient (IN) | payer MEDICARE, OTHER ==
[~2021-11-13] VITALS: Ht 188 cm; Wt 83.1 kg
[2021-11-13] MEDS ORDERED: CEFEPIME INJECTION 1,000 MG in NS (IVPB) 50 ML IV ONE (10:30)
[2021-11-13] MEDS ORDERED: VANCOMYCIN INJECTION 1,750 MG in NS IV 500 ML 500 ML IV ONE (10:30)
[2021-11-13] MEDS ORDERED: NS IV 1000 ML 1,000 ML IV SCH ×2 (10:30)
[2021-11-13 10:52] LABS: BASOPHILS % (AUTO) 0 % (0-10); EOSINOPHILS % (AUTO) 0 % (0-10); HEMATOCRIT 39 % (40-54); LYMPHOCYTES # (AUTO) 0.5 10^3/uL (1.0-4.0); LYMPHOCYTES % (AUTO) 5 % (12-44); MEAN CORPUSCULAR HEMOGLOBIN 25 pg (25-34); MEAN CORPUSCULAR HGB CONC 31 g/dL (32-36); MEAN CORPUSCULAR VOLUME 81 fL (80-99); MEAN PLATELET VOLUME 9.6 fL (9.0-12.2); MONOCYTES # (AUTO) 0.7 10^3/uL (0.0-1.0); MONOCYTES % (AUTO) 7 % (0-12); NEUTROPHILS # (AUTO) 9.4 10^3/uL (1.8-7.8); NEUTROPHILS % (AUTO) 88 % (42-75); PLATELET COUNT 273 10^3/uL (130-400); WHITE BLOOD COUNT 10.6 10^3/uL (4.3-11.0)
--- NOTE | 2021-11-13 10:57 | ED General ---
General Stated Complaint: HIGH HR, LOW BP, SORE THROAT Source of Information: Patient Exam Limitations: No Limitations History of Present Illness Date Seen by Provider: November 13, 2021 Time Seen by Provider: 10:33 Initial Comments Patient presents the ER by private conveyance from home with spouse and chief complaint that for the past 1 week he has spiked a temperature between 101 101 F in the afternoon. He usually takes couple Tylenol it goes away. He has a history of right-sided lung cancer no longer on chemo or radiation therapy. No surgery. The oncologist at [facility] is following him with MRI for a hazy, g roundglass area in same area as the previous cancer. He is not having any pain or more productive cough. He has COPD and quit smoking 10 years ago. His is concerned he might have a urinary tract infection. He has had COVID as well as he has had 3 vaccinations for COVID-19. He denies shortness of breath, diarrhea, constipation, dysuria, hesitancy. He has had TURP for prostatism. Follows with urologist in [place]. He is on Eliquis for atrial fibrillation. He endorses a sore throat. His tonsils were out when he was a kid. Allergies and Home Medications Allergies Coded Allergies: levofloxacin (Verified Allergy, Severe, PSYCHOSIS, 03/31/21) chlorthalidone (Verified Allergy, Unknown, 03/31/21) DIZZINESS Patient Home Medication List Home Medication List Reviewed: Yes Albuterol Sulfate (Ventolin Hfa) 1 Puff Puff, 2 PUFF INH Q4H PRN for SHORTNESS OF BREATH, (Reported) Entered as Reported by: BREN THORNE on 04/06/20 1247 Amiodarone HCl (Amiodarone HCl) 200 Mg Tablet, 400 MG PO DAILY, (Reported) Entered as Reported by: BREN THORNE on 12/21/20 1054 Apixaban (Eliquis) 5 Mg Tablet, 5 MG PO BID, (Reported) Entered as Reported by: BREN THORNE on 02/16/21 1421 Aspirin (Aspirin EC) 81 Mg Tablet.dr, 81 MG PO DAILY, (Reported) Entered as Reported by: BREN THORNE on 02/16/21 1421 Atorvastatin Calcium (Atorvastatin Calcium) 10 Mg Tablet, 10 MG PO DAILY, (Reported) Entered as Reported by: BREN THORNE on 12/21/20 1054 Budesonide/Formoterol Fumarate (Symbicort 160-4.5 Mcg Inhaler) 10.2 Gm Hfa.aer.ad, 2 PUFF IH BID, (Reported) Entered as Reported by: MARA MCNALLY on 03/21/201830 Fluticasone Propionate (Flonase Allergy Relief) 9.9 Ml [place].susp, 1-2 SPRAY NSEACH BID PRN for CONGESTION, (Reported) Entered as Reported by: BREN THORNE on 02/16/21 1421 Guaifenesin/Pseudoephedrne HCl (Mucinex D ER 1,200-120 mg Tab) 1 Each Tab.er.12h, 1 EACH PO Q12H PRN for CONGESTION, (Reported) Entered as Reported by: BREN THORNE on 12/21/20 105 Levothyroxine Sodium (Levothyroxine Sodium) 100 Mcg Tablet, 100 MCG PO DAILY, (Reported) Entered as Reported by: BREN THORNE on 04/12/20 1009 Metformin HCl (Metformin HCl) 500 Mg Tablet, 500 MG PO BID, (Reported) Entered as Reported by: BREN THORNE on 12/21/20 105 Metoprolol Tartrate (Metoprolol Tartrate) 25 Mg Tablet, 12.5 MG PO BID, (Reported) Entered as Reported by: BREN THORNE on 12/21/20 105 Montelukast Sodium (Montelukast Sodium) 10 Mg Tablet, 10 MG PO HS, (Reported) Entered as Reported by: BREN THORNE on 12/21/20 105 Polyethylene Glycol 3350 (Miralax) 17 Gm Powd.pack, 17 GM PO DAILY PRN for CONSTIPATION-2ND LINE, (Reported) Entered as Reported by: BREN THORNE on 12/21/20 105 Tamsulosin HCl (Flomax) 0.4 Mg Cap, 0.8 MG PO 1800, (Reported) Entered as Reported by: BREN THORNE on 12/21/20 105 Tiotropium [place] (Spiriva Respimat 2.5MCG/ACTUATION) 4 Gm Mist.inhal, 2 PUFF IH DAILY, (Reported) Entered as Reported by: MARA MCNALLY on 03/21/201830 Review of Systems Review of Systems Constitutional: No chills, No diaphoresis EENTM: No ear discharge, No ear pain Respiratory: cough; No phlegm, No short of breath, No wheezing Gastrointestinal: No abdominal pain, No constipation, No diarrhea, No nausea, No vomiting Genitourinary: No discharge, No dysuria Musculoskeletal: No back pain, No joint pain All Other Systems Reviewed Negative Unless Noted: Yes Past Woqjnpn-Aupizo-Acivby Hx Patient Social History Tobacco Use?: No Smoking Status: Former Smoker (Quit smoking cigarettes 10 years ago) Use of E-Cig and/or Vaping dev: No Substance use?: No Immunizations Up To Date Tetanus Booster (TDap): Unknown PED Vaccines UTD: No First/Initial COVID19 Vaccinat: September 12, 2020 Second COVID19 Vaccination Rodo: October 09, 2020 Seasonal Allergies Seasonal Allergies: Yes Past Medical History Surgery/Hospitalization HX: LUNG CA WITH CHEMO AND RADIATION [place], A-FIB, COPD Surgeries: Yes (COLON RESECTION/COLOSTOMY/[place]KED[place];PORT L CHEST;C- SCOPES;CARDIAC ABLATION) Abdominal, Bowel Surgery, Cardiac, Coronary Stent, Prostatectomy, Thyroidectomy Respiratory: Yes (NON-SMALL CELL LUNG CANCER) COPD Currently Using CPAP: Yes (PT USES CPAP AT HOME ) Currently Using BIPAP: No Cardiac: Yes (DVT L ARM 09/2019 POST PORT PLACEMENT;AFIB/FLUTTER-S/P ABLATION 03/24/20) Atrial Fibrillation, Deep Vein Thrombosis, Hypertension, Irregular Heartbeat Neurological: No Reproductive Disorders: No Sexually Transmitted Disease: No HIV/AIDS: No Genitourinary: Yes (TURP) Prostate Problems, Renal Failure, UTI-Chronic Gastrointestinal: Yes (COLON RESECTION/COLOSTOMY/TAKEDOWN FOR BENIGN POLYPS) Polyps Musculoskeletal: No Endocrine: Yes (THYROIDECTOMY FOR BENIGN DISEASE, prediabetes) Hypothyroidsim HEENT: No Cancer: Yes (NON-SMALL CELL LUNG CANCER DX 07/2019--HAS BEEN ON IMMUNOTHERAPY) Lung Did You Recieve Any Treatments: Yes What Type of Treatment Did You: Chemotherapy, Radiation Psychosocial: No Integumentary: No Blood Disorders: No Adverse Reaction/Blood Tranf: No Family Medical History No Pertinent Family Hx SOCIAL HISTORY: -ETOH--DENIES -DRUGS--DENIES -SMOKING--SMOKED 1 PPD--QUIT A FEW YEARS AGO PAST SURGICAL HISTORY: -COLON RESECTION FOR MULTIPLE BENIGN POLYPS, REQUIRED COLOSTOMY AND LATER TAKEDOWN -THYROIDECTOMY FOR BENIGN GOITER -CARDIAC CATH 03/21/20--NO INTERVENTION. SLOW FLOW IN ALL VESSELS. SMALL FIRST DIAGONAL ARTERY HAS MODERATE TO SEVERE OSTIAL DISEASE--NOT AMENABLE TO INTERVENTION -CARDIAC ABLATION FOR ATRIAL FIBRILLATION 03/24/20 -MULTIPLE COLONOSCOPIES -PORT LEFT CHEST Physical Exam-Suspected Sepsis Physical Exam Vital Signs Vital Signs - First Documented 11/13/21 10:27 Temp 36.2 Pulse 123 Resp 26 B/P (MAP) 117/79 (92) Pulse Ox 98 O2 Delivery Room Air Capillary Refill : Height, Weight, BMI Height: 6'2.00" Weight: 230lbs. 0.0oz. 104.451375nh; 24.00 BMI Method:Stated General Appearance: No Apparent Distress, Chronically ill Eyes: Bilateral Eye Normal Inspection, Bilateral Eye PERRL, Bilateral Eye EOMI HEENT: PERRL/EOMI, TMs Normal, Other (Retropharynx is erythematous, mildly injected without swelling, exudate or phlegm.) Neck: Full Range of Motion, Normal Inspection, Non Tender, Supple Respiratory: Lungs Clear, Normal Breath Sounds, No Accessory Muscle Use, No Respiratory Distress Cardiovascular: Regular Rate, Rhythm, No Edema, Normal Peripheral Pulses Gastrointestinal: Normal Bowel Sounds, Non Tender, Soft Extremity: Normal Capillary Refill, Normal Inspection, Normal Range of Motion Neurologic/Psychiatric: Alert, Oriented x3, No Motor/Sensory Deficits, insurance administrative assistant II- XII Norm as Tested Skin: normal color, warm/dry Focused Exam Sepsis Stage: Sepsis Possible Source: Unknown Lactate Level 11/13/21 10:40: Lactic Acid Level 1.45 Time of Focused Exam: 12:00 Respiratory: Lungs Clear, Normal Breath Sounds, No Accessory Muscle Use, No Respiratory Distress Cardiovascular: Regular Rate, Rhythm, No Edema, Normal Peripheral Pulses Capillary Refill: Less Than 3 Seconds Peripheral Pulses: 2+ Dorsalis Pedis (R), 2+ Left Dors-Pedis (L) Skin: normal color, warm/dry Lactic Acid Level Within 3hrs of presentation: Admin fluids, Admin ABX, Blood cultures prior to ABX's, Focus exam, Lactate level Procedures/Interventions Patient Education: Explained Benefits, Explained Risks, Pt. Ack. Understanding Breath Sounds per Auscultation: Clear Heart Sounds per Auscultation: Irregular Airway Exam: Mouth opens >2 fingers, Neck Full Range of Motion, Visulation of Uvula Sedation Adminstration Time: 1630 Re-examination Time: 1658 Progress/Results/Core Measures Suspected Sepsis SIRS Temperature: Pulse: Respiratory Rate: Laboratory Tests 11/13/21 10:40: White Blood Count 10.6 Blood Pressure / Mean: 11/13/21 10:40: Lactic Acid Level 1.45 Laboratory Tests 11/13/21 10:40: Creatinine 0.96, INR Comment 1.4, Platelet Count 273, Total Bilirubin 0.6 Results/Orders Lab Results Laboratory Tests Test 11/13/21 10:40 11/13/21 10:41 11/13/21 10:45 11/13/21 11:35 Range/Units White Blood Count 10.6 4.3-11.0 10^3/uL Red Blood Count 4.77 4.30-5.52 10^6/uL Hemoglobin 12.0 L 13.3-17.7 g/dL Hematocrit 39 L 40-54 % Mean Corpuscular Volume 81 80-99 fL Mean Corpuscular Hemoglobin 25 25-34 pg Mean Corpuscular Hemoglobin Concent 31 L 32-36 g/dL Red Cell Distribution Width 16.2 H 10.0-14.5 % Platelet Count 273 130-400 10^3/uL Mean Platelet Volume 9.6 9.0-12.2 fL Immature Granulocyte % (Auto) 0 % Neutrophils (%) (Auto) 88 H 42-75 % Lymphocytes (%) (Auto) 5 L 12-44 % Monocytes (%) (Auto) 7 0-12 % Eosinophils (%) (Auto) 0 0-10 % Basophils (%) (Auto) 0 0-10 % Neutrophils # (Auto) 9.4 H 1.8-7.8 10^3/uL Lymphocytes # (Auto) 0.5 L 1.0-4.0 10^3/uL Monocytes # (Auto) 0.7 0.0-1.0 10^3/uL Eosinophils # (Auto) 0.0 0.0-0.3 10^3/uL Basophils # (Auto) 0.0 0.0-0.1 10^3/uL Immature Granulocyte # (Auto) 0.0 0.0-0.1 10^3/uL Neutrophils % (Manual) 88 % Lymphocytes % (Manual) 5 % Monocytes % (Manual) 2 % Eosinophils % (Manual) 1 % Basophils % (Manual) 1 % Band Neutrophils 3 % Blood Morphology Comment NORMAL Prothrombin Time 17.5 H 12.2-14.7 SEC INR Comment 1.4 0.8-1.4 Activated Partial Thromboplast Time 39 H 24-35 SEC Sodium Level 139 135-145 MMOL/L Potassium Level 3.5 L 3.6-5.0 MMOL/L Chloride Level 101 98-107 MMOL/L Carbon Dioxide Level 27 21-32 MMOL/L Anion Gap 11 5-14 MMOL/L Blood Urea Nitrogen 17 7-18 MG/DL Creatinine 0.96 0.60-1.30 MG/DL Estimat Glomerular Filtration Rate 86 BUN/Creatinine Ratio 18 Glucose Level 139 H 70-105 MG/DL Lactic Acid Level 1.45 0.50-2.00 MMOL/L Calcium Level 9.1 8.5-10.1 MG/DL Corrected Calcium 9.2 8.5-10.1 MG/DL Magnesium Level 2.1 1.6-2.4 MG/DL Total Bilirubin 0.6 0.1-1.0 MG/DL Aspartate Amino Transf (AST/SGOT) 20 5-34 U/L Alanine Aminotransferase (ALT/SGPT) 25 0-55 U/L Alkaline Phosphatase 78 40-136 U/L Total Protein 7.1 6.4-8.2 GM/DL Albumin 3.9 3.2-4.5 GM/DL Thyroid Stimulating Hormone (TSH) 0.19 L 0.35-4.94 UIU/ML B-Type Natriuretic Peptide 120.6 H <100.0 PG/ML Influenza Type A (RT-PCR) Not Detected Not Detecte Influenza Type B (RT-PCR) Not Detected Not Detecte SARS-CoV-2 RNA (RT-PCR) Not Detected Not Detecte Group A Streptococcus Screen NEGATIVE NEGATIVE Urine Color YELLOW Urine Clarity CLEAR Urine pH 6.5 5-9 Urine Specific [place] 1.010 L 1.016-1.022 Urine Protein NEGATIVE NEGATIVE Urine Glucose (UA) NEGATIVE NEGATIVE Urine Ketones NEGATIVE NEGATIVE Urine Nitrite NEGATIVE NEGATIVE Urine Bilirubin NEGATIVE NEGATIVE Urine Urobilinogen 1.0 < = 1.0 MG/DL Urine Leukocyte Esterase NEGATIVE NEGATIVE Urine RBC (Auto) NEGATIVE NEGATIVE Urine RBC RARE /HPF Urine WBC 0-2 /HPF Urine Squamous Epithelial Cells NONE /HPF Urine Crystals NONE /LPF Urine Bacteria NEGATIVE /HPF Urine Casts PRESENT /LPF Urine Hyaline Casts RARE /LPF Urine Mucus NEGATIVE /LPF Urine Culture Indicated CULTURE PENDING My Orders Orders - HUNG MISHRAid 19 Inhouse Test (11/13/21 10:26) Influenza A And B By Pcr (11/13/21 10:26) Rapid Strep A Screen (11/13/21 10:26) Ua Culture If Indicated (11/13/21 10:26) Cbc With Automated Diff (11/13/21 10:26) Comprehensive Metabolic Panel (11/13/21 10:26) Blood Culture (11/13/21 10:26) Sputum Culture (11/13/21 10:26) Urine Culture (11/13/21 10:26) Protime With Inr (11/13/21 10:) Partial Thromboplastin Time (11/13/21 10:26) Chest 1 View, Ap/Pa Only (11/13/21 10:26) Ed Iv/Invasive Line Start (11/13/21 10:26) Ed Iv/Invasive Line Start (11/13/21 10:26) Vital Signs Adult Sepsis Patie Q15M (11/13/21 10:26) O2 (11/13/21 10:26) Remove Rings In Anticipation O (11/13/21 10:26) Lactic Acid Analyzer (11/13/21 10:26) Ns Iv 1000 Ml (Sodium Chloride 0.9%) (11/13/21 10:30) Cefepime Injection (Maxipime Injection) (11/13/21 10:30) Vancomycin Injection (Vancomycin Injecti (11/13/21 10:30) Ed Iv/Invasive Line Start (11/13/21 10:26) Ns Iv 1000 Ml (Sodium Chloride 0.9%) (11/13/21 10:30) Ekg Tracing (11/13/21 10:32) Manual Differential (11/13/21 10:40) Diltiazem Injection (Cardizem Injection) (11/13/21 14:15) Ed Admission (Communication) (11/13/21 14:24) Medications Given in ED Current Medications Medications Dose Ordered Sig/Silvana Route Start Time Stop Time Status Last Admin Dose Admin Cefepime HCl 1000 mg/Sodium Chloride 50 ml @ 100 mls/hr ONCE ONCE IV 11/13/21 10:30 11/13/21 10:59 DC 11/13/21 11:15 100 MLS/HR Diltiazem HCl 10 mg ONCE ONCE IVP 11/13/21 14:15 11/13/21 14:16 DC 11/13/21 14:40 10 MG Vancomycin HCl 1750 mg/Sodium Chloride 500 ml @ 258 mls/hr ONCE ONCE IV 11/13/21 10:30 11/13/21 12:26 DC 11/13/21 12:07 258 MLS/HR Vital Signs/I&O 11/13/21 11/13/21 11/13/21 11/13/21 10:27 16:25 16:30 16:36 Temp 36.2 Pulse 123 109 108 114 Resp 26 20 20 B/P (MAP) 117/79 (92) 122/92 Pulse Ox 98 98 97 O2 Delivery Room Air Room Air 11/13/21 11/13/21 11/13/21 16:37 17:00 18:00 Pulse 107 105 Resp 11 18 B/P (MAP) 125/92 136/92 Pulse Ox 97 94 97 O2 Delivery Room Air Room Air Room Air Capillary Refill : Progress Note #1: Time: 10:56 Progress Note Septic work-up, cefepime and vancomycin as the sources not entirely clear. We did put him on a little oxygen. COVID, flu, strep swab and urine sample. Progress Note #2: Time: 14:26 Progress Note Cardizem 10 mg IV given. He has received his 2 L fluid bolus. ECG Initial ECG Impression Date: November 13, 2021 Initial ECG Impression Time: 10:41 Initial ECG Rate: 115 Initial ECG Rhythm: A Fib/Flutter Initial ECG Intervals: QT (456) Initial ECG Impression: Atrial Fibrillation Comment Atrial fibrillation with arrival branch block and tachycardia 115. Diagnostic Imaging Diagonstic Imaging: Xray Plain Films/CT/US/NM/MRI: chest Comments [facility] [place] NAME: SARA IRIZARRY [facility] REC#: [id number] PT STATUS: REG ER : 1955 PHYSICIAN: HUNG MISHRA MD ADMIT DATE: 11/13/21/ER Draft Date of Exam:11/13/21 CHEST 1 VIEW, AP/PA ONLY INDICATION: Sepsis and dyspnea. TECHNIQUE: AP view of the chest is obtained with comparison made to study of 09/29/2021. FINDINGS: Abnormal increased density and volume loss is noted in the right upper lobe with increase in linear atelectasis extending laterally from the right hilum. Otherwise, there is mild blunting of left costophrenic sulcus. No other pulmonary infiltrate or other lesion is identified. Left anterior chest wall port remains in stable position. IMPRESSION: Volume loss in right upper lobe which may be related to previous therapy. There has been mild increase in right perihilar atelectasis without other significant change noted. Dictated on workstation # [id number] Dict: 11/13/21 1057 Trans: 11/13/21 1101 [id number] Interpreted by: MIKKI ROBERTO MD Electronically signed by: Reviewed: Reviewed by Me Departure Communication (Admissions) Time/Spoke to Admitting Phy: 14:[address] Lynn and she agrees with ICU placement with a Cardizem drip. Time/Spoke to Consulting Phy: 14:05 Discussed the case with Dr. Reed and he is happy to consult for cardiology Impression Primary Impression: Atrial fibrillation with rapid ventricular response Additional Impressions: Sepsis Qualified Codes: A41.9 - Sepsis, unspecified organism Viral upper respiratory tract infection with cough Disposition: ADMITTED INPATIENT Condition: Stable Admissions Decision to Admit Reason: Admit from ER (General) Decision to Admit/Date: November 13, 2021 Time/Decision to Admit Time: 14:00 Departure-Patient Inst. Referrals: ELLIE MITTAL DO (PCP/Family) Primary Care Physician HUNG MISHRA November 13, 2021 10:57
--- NOTE | 2021-11-13 11:01 | Diagnostic Imaging Report ---
INDICATION: Sepsis and dyspnea. TECHNIQUE: AP view of the chest is obtained with comparison made to study of 09/29/2021. FINDINGS: Abnormal increased density and volume loss is noted in the right upper lobe with increase in linear atelectasis extending laterally from the right hilum. Otherwise, there is mild blunting of left costophrenic sulcus. No other pulmonary infiltrate or other lesion is identified. Left anterior chest wall port remains in stable position. IMPRESSION: Volume loss in right upper lobe which may be related to previous therapy. There has been mild increase in right perihilar atelectasis without other significant change noted. Dictated by: Dictated on workstation # [id number]
[2021-11-13 11:06] LABS: ALBUMIN 3.9 GM/DL (3.2-4.5); POTASSIUM 3.5 MMOL/L (3.6-5.0)
[2021-11-13 11:07] LABS: CALCIUM 9.1 MG/DL (8.5-10.1); INR 1.4 (0.8-1.4); PROTHROMBIN TIME PATIENT 17.5 SEC (12.2-14.7)
[2021-11-13 11:08] LABS: TOTAL PROTEIN 7.1 GM/DL (6.4-8.2)
[2021-11-13 11:10] LABS: BILIRUBIN,TOTAL 0.6 MG/DL (0.1-1.0)
[2021-11-13 11:12] LABS: CREATININE SERUM 0.96 MG/DL (0.60-1.30)
[2021-11-13 11:34] LABS: BAND NEUTROPHILS 3 %; BASOPHILS % (MANUAL) 1 %; EOSINOPHILS % (MANUAL) 1 %; LYMPHOCYTES % (MANUAL) 5 %; MONOCYTES % (MANUAL) 2 %; NEUTROPHILS % (MANUAL) 88 %
[2021-11-13 11:35] LABS: RBC MORPH NORMAL
[2021-11-13 11:44] LABS: BILIRUBIN,URINE NEGATIVE (NEGATIVE); CLARITY,URINE CLEAR; COLOR,URINE YELLOW; GLUCOSE, URINE (UA) NEGATIVE (NEGATIVE); KETONES,URINE NEGATIVE (NEGATIVE); LEUKOCYTE ESTERASE ,URINE NEGATIVE (NEGATIVE); NITRITE,URINE NEGATIVE (NEGATIVE); PH,URINE 6.5 (5-9); PROTEIN,URINE NEGATIVE (NEGATIVE)
[2021-11-13 12:07] LABS: BACTERIA,URINE NEGATIVE /HPF; HYALINE CASTS, URINE RARE /LPF; RBC,URINE RARE /HPF; WBC,URINE 0-2 /HPF
[2021-11-13] MEDS ORDERED: RT-ALBUTEROL/IPRATROPIUM 3 ML (DUONEB) VIAL INH PRN (15:15)
--- NOTE | 2021-11-13 15:23 | Tele-ICU Progress Note ---
Subjective Date Seen by a Provider: November 13, 2021 Time Seen by a Provider: 14:00 Subjective/Events-last exam This virtual visit was conducted using real time audio/video. Thank you for asking us to see this patient for afib/RVR and possible sepsis. Recent events: Pt c/o Temp 100-101 during afternoons x 1 week. PMH: NSCCA R lung, s/p chemo, RT. No surgery. COPD/home CPAP, afib w ablation 03/24/2020, CAD/stent, HL, HTN, DM, hypothy., DVT. SH: smoking history: Quit x 10 years. FH: Non-contributory ROS: as in HPI PE: VSS. 123 irreg O2 sat 98% on RA. HEENT: No obvious masses, adenopathy or JVD. Chest: clear to auscultation. CV: Irreg. S1 S2 No murmur or added sounds. Abd: Non-tender. Bowel sounds Y. : Unremarkable. Manriquez N. [employer]SEMBLER PIANO/psychiatric: Grossly intact. No obvious focal findings. Extremities: No edema. Capillary refill < 3 seconds. Skin: unremarkable. Results: Decreased Hb 12.0, K 3.5. CXR: Hyperinflated, no infilts. UA neg. Available chart/ vitals / labs / images reviewed. Video assessment done using teleICU camera, rest of exam as per RN. A/P: Critical Care: critically ill patient. Cont.abx, Cardizem IV. Will add Duonebs w COPD history. Replace K. Consider Lovenox. Discussed with KATTY Renteria Asked RN to reach out to eICU if any questions or concerns later. Time spent with patient/coordination of care with other health professionals (mins):30 Sepsis Event Evaluation Height, Weight, BMI Height: 6'2.00" Weight: 230lbs. 0.0oz. 104.724184cm; 24.00 BMI Method:Stated Focused Exam Lactate Level 11/13/21 10:40: Lactic Acid Level 1.45 Exam Exam Patient acknowledged, consented, and participated in this virtual visit which was conducted using real time audio/video Vital Signs Date Time Temp Pulse Resp B/P (MAP) Pulse Ox O2 Delivery O2 Flow Rate FiO2 11/13/21 10:27 36.2 123 26 117/79 (92) 98 Room Air Height & Weight Height: 6'2.00" Weight: 230lbs. 0.0oz. 104.782399ed; 24.00 BMI Method:Stated General Appearance: No Apparent Distress, Chronically ill HEENT: PERRL/EOMI, TMs Normal, Other (Retropharynx is erythematous, mildly injected without swelling, exudate or phlegm.) Neck: Full Range of Motion, Normal Inspection, Non Tender, Supple Respiratory: Lungs Clear, Normal Breath Sounds, No Accessory Muscle Use, No Respiratory Distress Cardiovascular: Regular Rate, Rhythm, No Edema, Normal Peripheral Pulses Capillary Refill: Less Than 3 Seconds Peripheral Pulses: 2+ Dorsalis Pedis (R), 2+ Left Dors-Pedis (L) Extremity: Normal Capillary Refill, Normal Inspection, Normal Range of Motion Neurologic/Psychiatric: Alert, Oriented x3, No Motor/Sensory Deficits, phytopathology teacher II- XII Norm as Tested Results Lab Laboratory Tests 11/13/21 10:40 Assessment/Plan Assessment/Plan See free text Critical Care: Critically Ill Patient REGI RUBIO MD November 13, 2021 15:23
[2021-11-13] MEDS ORDERED: PATIENT MAY USE OWN MEDS, ALL PO SCH (15:45)
[2021-11-13] MEDS ORDERED: ACETAMINOPHEN 325 MG TABLET PO PRN (15:45)
[2021-11-13] MEDS ORDERED: MELATONIN 3 MG TABLET PO PRN (15:45)
[2021-11-13] MEDS ORDERED: ONDANSETRON 4 MG/2 ML (SDV) Z0FRAN IV PRN (15:45)
--- NOTE | 2021-11-13 16:01 | History & Physical-Hospitalist ---
History of Present Illness HPI/Chief Complaint Patient is 66-year-old male with past medical history of atrial fibrillation, hypertension, lung cancer in remission, COPD who presented to the emergency department due to cough and intermittent fever. He states for about a week he has had a fever in the afternoons. He has had a little bit of a sore throat and a mild cough with this. He was swabbed for COVID flu and strep and all of these were negative in the emergency department incidentally he was found to be in A. fib with RVR with a rate in the 120's. His states that his heart rate was that high at home and also had a soft blood pressure which was concerning to her. They incidentally complain of dysphagia as well though. He states this has been going on for months and at times he will have difficulty swallowing. He has never had an endoscopy. He did have chest radiation due to his cancer. And he will also at times have emesis immediately following eating with no prodromal nausea. Source: patient Date Seen 11/13/21 Time Seen by a Provider: 15:56 Attending Physician Tisha Lynn MD PCP Brett Galan DO Referring Physician Date of Admission November 13, 2021 at 14:26 Home Medications & Allergies Home Medications Reviewed patient Home Medication Reconciliation performed by pharmacy medication reconciliations video technician and/or nursing. Patients Allergies have been reviewed. Allergies Allergies Coded Allergies levofloxacin (Verified Allergy, Severe, PSYCHOSIS, 03/31/21) chlorthalidone (Verified Allergy, Unknown, 03/31/21) DIZZINESS Past Jmlieio-Reiaxg-Ymahug Hx Patient Social History Marrital Status: Employed/Student: retired Tobacco Use?: No Smoking Status: Former Smoker (Quit smoking cigarettes 10 years ago) Use of E-Cig and/or Vaping dev: No Substance use?: No Alcohol Use?: No Immunizations Up To Date Date of Influenza Vaccine: Apr 21, 2014 First/Initial COVID19 Vaccinat: September 12, 2020 Second COVID19 Vaccination Rodo: October 09, 2020 Tetanus Booster (TDap): Unknown Hepatitis A: No Hepatitis B: No PED Vaccines UTD: No Date of Pneumonia Vaccine: Jun 15, 2009 Seasonal Allergies Seasonal Allergies: Yes Current Status Advance Directives: No Communicates: Verbally Primary Language: Tongan Preferred Spoken Language: Tongan Past Medical History Surgeries: Abdominal, Bowel Surgery, Cardiac, Coronary Stent, Prostatectomy, Thyroidectomy COPD Currently Using CPAP: Yes (PT USES CPAP AT HOME ) Currently Using BIPAP: No Atrial Fibrillation, Deep Vein Thrombosis, Hypertension, Irregular Heartbeat Sexually Transmitted Disease: No HIV/AIDS: No Prostate Problems, Renal Failure, UTI-Chronic Polyps Hypothyroidsim Lung Did You Recieve Any Treatments: Yes What Type of Treatment Did You: Chemotherapy, Radiation Blood Disorders: No Adverse Reaction/Blood Tranf: No Family Medical History No Pertinent Family Hx SOCIAL HISTORY: -ETOH--DENIES -DRUGS--DENIES -SMOKING--SMOKED 1 PPD--QUIT A FEW YEARS AGO PAST SURGICAL HISTORY: -COLON RESECTION FOR MULTIPLE BENIGN POLYPS, REQUIRED COLOSTOMY AND LATER TAKEDOWN -THYROIDECTOMY FOR BENIGN GOITER -CARDIAC CATH 03/21/20--NO INTERVENTION. SLOW FLOW IN ALL VESSELS. SMALL FIRST DIAGONAL ARTERY HAS MODERATE TO SEVERE OSTIAL DISEASE--NOT AMENABLE TO INTERVENTION -CARDIAC ABLATION FOR ATRIAL FIBRILLATION 03/24/20 -MULTIPLE COLONOSCOPIES -PORT LEFT CHEST Review of Systems Constitutional: No chills; fever EENTM: see HPI Respiratory: cough; No phlegm; short of breath Cardiovascular: no symptoms reported Gastrointestinal: see HPI Genitourinary: no symptoms reported Musculoskeletal: no symptoms reported Skin: no symptoms reported Psychiatric/Neurological: No Symptoms Reported Physical Exam Physical Exam Vital Signs Vital Signs - First Documented 11/13/21 11/14/21 10:27 07:53 Temp 36.2 Pulse 123 Resp 26 B/P (MAP) 117/79 (92) Pulse Ox 98 O2 Delivery Room Air O2 Flow Rate 0.00 Capillary Refill : Less Than 3 Seconds Height, Weight, BMI Height: 6'2.00" Weight: 230lbs. 0.0oz. 104.019304dg; 24.00 BMI Method:Stated General Appearance: No Apparent Distress, WD/WN HEENT: PERRL/EOMI, Pharynx Normal, Moist Mucous Membranes; No Pharyngeal Erythema, No Scleral Icterus (L), No Scleral Icterus (R) Neck: Normal Inspection, Supple Respiratory: Lungs Clear, No Accessory Muscle Use, No Respiratory Distress Cardiovascular: No JVD, No Murmur, Irregularly Irregular, Tachycardia Gastrointestinal: Normal Bowel Sounds, Non Tender, Soft Neurologic/Psychiatric: Alert, Oriented x3, Normal Mood/Affect Skin: Normal Color, Warm/Dry Results Results/Procedures Labs Laboratory Tests 11/13/21 10:40 11/14/21 04:15 Patient resulted labs reviewed. Imaging: Reviewed Imaging Report Imaging [facility] [place], [place] NAME: SARA IRIZARRY [facility] REC#: [id number] PT STATUS: REG ER : 1955 PHYSICIAN: HUNG MISHRA MD ADMIT DATE: 11/13/21/ER Draft Date of Exam:11/13/21 CHEST 1 VIEW, AP/PA ONLY INDICATION: Sepsis and dyspnea. TECHNIQUE: AP view of the chest is obtained with comparison made to study of 09/29/2021. FINDINGS: Abnormal increased density and volume loss is noted in the right upper lobe with increase in linear atelectasis extending laterally from the right hilum. Otherwise, there is mild blunting of left costophrenic sulcus. No other pulmonary infiltrate or other lesion is identified. Left anterior chest wall port remains in stable position. IMPRESSION: Volume loss in right upper lobe which may be related to previous therapy. There has been mild increase in right perihilar atelectasis without other significant change noted. Dictated on workstation # [id number] Dict: 11/13/21 1057 Trans: 11/13/21 1101 [id number] [id number] Interpreted by: MIKKI ROBERTO MD Electronically signed by: Assessment/Plan Admission Diagnosis A-fib with RVR Admission Status: Observation Assessment and Plan A-fib with RVR HTN HLD Rate up to 120 on arrival Remained 110s despite cardizem bolus admit to ICU for cardizem gtt Cardiology consulted, appreciate recs Continue home meds Check TSH and BNP Dysphagia Lung Cancer-s/p radation Will consult speech therapy for evaluation Denies symptoms of reflux May need EGD as an outpatient to rule out stricture DVT ppx: COntinue home eliquis Diagnosis/Problems Diagnosis/Problems (1) Atrial fibrillation with rapid ventricular response Status: Acute (2) Viral upper respiratory tract infection with cough Status: Acute (3) History of lung cancer Status: Chronic (4) Hypothyroidism Status: Chronic Qualifiers: Hypothyroidism type: acquired Qualified Codes: E03.9 - Hypothyroidism, unspecified (5) HTN (hypertension) Status: Chronic Qualifiers: Hypertension type: primary hypertension Qualified Codes: I10 - Essential (primary) hypertension (6) COPD (chronic obstructive pulmonary disease) Status: Chronic Qualifiers: COPD type: chronic bronchitis Chronic bronchitis type: simple Qualified Codes: J41.0 - Simple chronic bronchitis Copy Copies To 1: BRETT GALAN KATELYN M MD November 13, 2021 16:01
--- NOTE | 2021-11-13 16:20 | Consultation-Cardiology ---
HPI-Cardiology Cardiology Consultation Date of Consultation 11/13/21 Date of Admission Time Seen by Provider: 16:15 Indication: Atrial fibrillation HPI 66-year-old gentleman with paroxysmal atrial fibrillation, flutter, maintained on amiodarone and Eliquis. Had an episode of dizziness and lightheadedness. Came into the emergency room, noted to be in atrial fibrillation with rapid ventricular response. He reported that for the last week he has been having low-grade fever around noon for which he takes Tylenol. No chest pain. No syncope. Home Medications & Allergies Allergies: Coded Allergies: levofloxacin (Verified Allergy, Severe, PSYCHOSIS, 03/31/21) chlorthalidone (Verified Allergy, Unknown, 03/31/21) DIZZINESS Home Medication List Reviewed: Yes [id number] Hx Patient Social History Marital Status: Employed/Student: retired Drug of Choice: Denies Smoking Status: Former Smoker (Quit smoking cigarettes 10 years ago) Type Used: Cigarettes 2nd Hand Smoke Exposure: No Recent Hopitalizations: No Have you traveled recently?: No Alcohol Use?: No Immunizations Up To Date Tetanus Booster (TDap): Unknown Date of Pneumonia Vaccine: Jun 15, 2009 Date of Influenza Vaccine: Apr 21, 2014 Past Medical History Discussed below Family Medical History Significant Family History: No Pertinent Family Hx Family Medical Hx Noncontributory Review of Systems-General Review of Systems Constitutional: No chills; fever, malaise EENTM: see HPI Respiratory: cough; No phlegm; short of breath Cardiovascular: see HPI; No chest pain, No edema, No Hx of Intervention; palpitations; No syncope, No vascular heart diseas, No other Gastrointestinal: see HPI Genitourinary: no symptoms reported, see HPI Musculoskeletal: no symptoms reported, see HPI Skin: no symptoms reported, see HPI Psychiatric/Neurological: No Symptoms Reported, See HPI All Other Systems Reviewed Negative Unless Noted: Yes Reviewed Test Results Reviewed Test Results Lab Laboratory Tests Test 11/13/21 10:40 11/13/21 10:41 11/13/21 10:45 11/13/21 11:35 Range/Units White Blood Count 10.6 4.3-11.0 10^3/uL Red Blood Count 4.77 4.30-5.52 10^6/uL Hemoglobin 12.0 L 13.3-17.7 g/dL Hematocrit 39 L 40-54 % Mean Corpuscular Volume 81 80-99 fL Mean Corpuscular Hemoglobin 25 25-34 pg Mean Corpuscular Hemoglobin Concent 31 L 32-36 g/dL Red Cell Distribution Width 16.2 H 10.0-14.5 % Platelet Count 273 130-400 10^3/uL Mean Platelet Volume 9.6 9.0-12.2 fL Immature Granulocyte % (Auto) 0 % Neutrophils (%) (Auto) 88 H 42-75 % Lymphocytes (%) (Auto) 5 L 12-44 % Monocytes (%) (Auto) 7 0-12 % Eosinophils (%) (Auto) 0 0-10 % Basophils (%) (Auto) 0 0-10 % Neutrophils # (Auto) 9.4 H 1.8-7.8 10^3/uL Lymphocytes # (Auto) 0.5 L 1.0-4.0 10^3/uL Monocytes # (Auto) 0.7 0.0-1.0 10^3/uL Eosinophils # (Auto) 0.0 0.0-0.3 10^3/uL Basophils # (Auto) 0.0 0.0-0.1 10^3/uL Immature Granulocyte # (Auto) 0.0 0.0-0.1 10^3/uL Neutrophils % (Manual) 88 % Lymphocytes % (Manual) 5 % Monocytes % (Manual) 2 % Eosinophils % (Manual) 1 % Basophils % (Manual) 1 % Band Neutrophils 3 % Blood Morphology Comment NORMAL Prothrombin Time 17.5 H 12.2-14.7 SEC INR Comment 1.4 0.8-1.4 Activated Partial Thromboplast Time 39 H 24-35 SEC Sodium Level 139 135-145 MMOL/L Potassium Level 3.5 L 3.6-5.0 MMOL/L Chloride Level 101 98-107 MMOL/L Carbon Dioxide Level 27 21-32 MMOL/L Anion Gap 11 5-14 MMOL/L Blood Urea Nitrogen 17 7-18 MG/DL Creatinine 0.96 0.60-1.30 MG/DL Estimat Glomerular Filtration Rate 86 BUN/Creatinine Ratio 18 Glucose Level 139 H 70-105 MG/DL Lactic Acid Level 1.45 0.50-2.00 MMOL/L Calcium Level 9.1 8.5-10.1 MG/DL Corrected Calcium 9.2 8.5-10.1 MG/DL Total Bilirubin 0.6 0.1-1.0 MG/DL Aspartate Amino Transf (AST/SGOT) 20 5-34 U/L Alanine Aminotransferase (ALT/SGPT) 25 0-55 U/L Alkaline Phosphatase 78 40-136 U/L Total Protein 7.1 6.4-8.2 GM/DL Albumin 3.9 3.2-4.5 GM/DL B-Type Natriuretic Peptide 120.6 H <100.0 PG/ML Influenza Type A (RT-PCR) Not Detected Not Detecte Influenza Type B (RT-PCR) Not Detected Not Detecte SARS-CoV-2 RNA (RT-PCR) Not Detected Not Detecte Group A Streptococcus Screen NEGATIVE NEGATIVE Urine Color YELLOW Urine Clarity CLEAR Urine pH 6.5 5-9 Urine Specific [place] 1.010 L 1.016-1.022 Urine Protein NEGATIVE NEGATIVE Urine Glucose (UA) NEGATIVE NEGATIVE Urine Ketones NEGATIVE NEGATIVE Urine Nitrite NEGATIVE NEGATIVE Urine Bilirubin NEGATIVE NEGATIVE Urine Urobilinogen 1.0 < = 1.0 MG/DL Urine Leukocyte Esterase NEGATIVE NEGATIVE Urine RBC (Auto) NEGATIVE NEGATIVE Urine RBC RARE /HPF Urine WBC 0-2 /HPF Urine Squamous Epithelial Cells NONE /HPF Urine Crystals NONE /LPF Urine Bacteria NEGATIVE /HPF Urine Casts PRESENT /LPF Urine Hyaline Casts RARE /LPF Urine Mucus NEGATIVE /LPF Urine Culture Indicated CULTURE PENDING Physical Exam Physical Exam Vital Signs Vital Signs - First Documented 11/13/21 10:27 Temp 36.2 Pulse 123 Resp 26 B/P (MAP) 117/79 (92) Pulse Ox 98 O2 Delivery Room Air Capillary Refill : Less Than 3 Seconds Height, Weight, BMI Height: 6'2.00" Weight: 230lbs. 0.0oz. 104.053262mm; 24.00 BMI Method:Stated General Appearance: No Apparent Distress, WD/WN Eyes: Bilateral Eye Normal Inspection, Bilateral Eye PERRL, Bilateral Eye EOMI HEENT: PERRL/EOMI, Pharynx Normal, Moist Mucous Membranes; No Pharyngeal Erythema, No Scleral Icterus (L), No Scleral Icterus (R) Neck: Normal Inspection, Supple Respiratory: Lungs Clear, No Accessory Muscle Use, No Respiratory Distress Cardiovascular: No JVD, No Murmur, Irregularly Irregular, Tachycardia Gastrointestinal: Normal Bowel Sounds, Non Tender, Soft Extremity: Normal Capillary Refill, Normal Inspection, Normal Range of Motion Neurologic/Psychiatric: Alert, Oriented x3, Normal Mood/Affect Skin: Normal Color, Warm/Dry A/P-Cardiology Admission Diagnosis Paroxysmal atrial fibrillation Tachycardia Coronary artery disease Fever Assessment/Plan Paroxysmal atrial fibrillation, back in atrial fibrillation while on amiodarone and Eliquis. Continue on current medication and starting Cardizem drip. Will consider cardioversion. Continue to monitor at this time. History of paroxysmal atrial flutter, had ablation done by Dr. Quintero for atrial flutter in March 2020. Low-grade fever, mild leukocytosis, managed by medical team. Questionable underlying infection History of non-small cell lung cancer, currently in remission. Following with [facility] Coronary artery disease, small vessel disease with slow flow in the coronary system by cardiac catheterization in [address] Quintero. Hypertension, monitor blood pressure Hyperlipidemia. TWILA MUÑOZ MD November 13, 2021 16:20
[2021-11-13 16:25] VITALS: BP 122/92
[2021-11-13] MEDS ORDERED: KCL 20 MEQ TAB (K-DUR) PO NR (16:30)
[2021-11-13] MEDS: dilTIAZem DRIP PRE-MIX 125 ML IV SCH (17:02)
[2021-11-13] MEDS: APIXABAN 5 MG (ELIQUIS) TABLET PO SCH (20:09)
[2021-11-13] MEDS: MONTELUKAST 10 MG (SINGULAIR) TAB PO SCH (20:09)
[2021-11-13] MEDS: AMIODARONE 200 MG (CORDARONE) TAB PO SCH (20:10)
[2021-11-14] MEDS: dilTIAZem DRIP PRE-MIX 125 ML IV SCH ×4 (00:30→23:14)
[2021-11-14 04:26] LABS: BASOPHILS % (AUTO) 0 % (0-10); EOSINOPHILS % (AUTO) 0 % (0-10); HEMATOCRIT 33 % (40-54); HEMOGLOBIN 10.3 g/dL (13.3-17.7); LYMPHOCYTES # (AUTO) 0.8 10^3/uL (1.0-4.0); LYMPHOCYTES % (AUTO) 11 % (12-44); MEAN CORPUSCULAR HEMOGLOBIN 25 pg (25-34); MEAN CORPUSCULAR HGB CONC 31 g/dL (32-36); MEAN CORPUSCULAR VOLUME 80 fL (80-99); MEAN PLATELET VOLUME 9.1 fL (9.0-12.2); MONOCYTES # (AUTO) 0.7 10^3/uL (0.0-1.0); MONOCYTES % (AUTO) 10 % (0-12); NEUTROPHILS # (AUTO) 5.5 10^3/uL (1.8-7.8); NEUTROPHILS % (AUTO) 78 % (42-75); PLATELET COUNT 229 10^3/uL (130-400); WHITE BLOOD COUNT 7.1 10^3/uL (4.3-11.0)
[2021-11-14 04:39] LABS: POTASSIUM 3.4 MMOL/L (3.6-5.0)
[2021-11-14 04:40] LABS: CALCIUM 8.2 MG/DL (8.5-10.1)
[2021-11-14 04:44] LABS: CREATININE SERUM 0.73 MG/DL (0.60-1.30)
[2021-11-14] MEDS: LEVOTHYROXINE 100 MCG (LEVOTHROID) TAB PO SCH (06:14)
[2021-11-14] MEDS ORDERED: ADENOSINE 6 MG/2 ML (ADENOCARD) VIAL IV ONE ×2 (07:45→07:50)
[2021-11-14] MEDS: AMIODARONE 200 MG (CORDARONE) TAB PO SCH ×2 (08:23→20:33)
[2021-11-14] MEDS: APIXABAN 5 MG (ELIQUIS) TABLET PO SCH ×2 (08:23→20:33)
--- NOTE | 2021-11-14 08:53 | Cardiology Progress Note ---
Subjective Date Seen by Provider: November 14, 2021 Time Seen by Provider: 08:52 Subjective/Events-last exam Patient was seen at bedside, laying down comfortably, feeling better today. Review of Systems General: No Chills, No Night Sweats; Fatigue; No Malaise, No Appetite, No Other HEENT: No Head Aches, No Visual Changes, No Eye Pain, No Ear Pain, No Dysphasia, No Sinus Congestion, No Post Nasal Drip, No Sore Throat, No Other Pulmonary: No Dyspnea, No Cough, No Pleuritic Chest Pain, No Other Cardiovascular: No: Chest Pain, Palpitations, Orthopnea, Paroxysmal Noc. Dyspnea, Edema, Lt Headedness, Other Focused Exam Lactate Level 11/13/21 10:40: Lactic Acid Level 1.45 Time of Focused Exam: 12:00 Objective-Cardiology Exam Last Set of Vital Signs Vital Signs 11/14/21 11/14/21 11/14/21 11/14/21 06:00 07:00 07:53 08:00 Temp 36.0 Pulse 113 Resp 20 B/P (MAP) 129/90 Pulse Ox 93 O2 Delivery Room Air O2 Flow Rate 0.00 I&O Intake and Output 11/14/21 00:00 Intake Total 3150 ml Output Total 650 ml Balance 2500 ml Intake Oral 600 ml IV Total 2550 ml Output Urine Total 650 ml # Bowel Movements 1 Daily Weight Change No General: Alert, Oriented X3, Cooperative HEENT: Atraumatic, PERRLA Neck: Supple, No JVD, No Thyromegaly Lungs: Clear to Auscultation, Normal Air Movement Heart: Normal S1, Normal S2, No Murmurs, Other (Tachycardic) Abdomen: Normal Bowel Sounds, Soft, No Tenderness, No Hepatosplenomegaly, No Masses Extremities: No Clubbing, No Cyanosis, No Edema, Normal Pulses, No Tenderness/Swelling Skin: No Rashes, No Breakdown, No Significant Lesion Neuro: Normal Gait, Normal Speech, Strength at 5/5 X4 Ext, Normal Tone, Sensation Intact Psych/Mental Status: Mental Status NL, Mood NL Results Lab Laboratory Tests 11/13/21 10:40 11/14/21 04:15 A/P-Cardiology Admission Diagnosis Paroxysmal atrial fibrillation Tachycardia Coronary artery disease Fever Assessment/Plan Paroxysmal atrial fibrillation, back in atrial fibrillation while on amiodarone and Eliquis. This morning patient was in regular rhythm, tachycardic, adenosine 6 mg was given and it showed underlying atrial flutter I will continue on Cardizem drip, adding beta-blockers Continue on anticoagulation Planning for electrical cardioversion tomorrow morning if he did not convert spontaneously. History of paroxysmal atrial flutter, had ablation done by Dr. Quintero for atrial flutter in March 2020. Low-grade fever, mild leukocytosis, managed by medical team. Questionable underlying infection History of non-small cell lung cancer, currently in remission. Following with [facility] Coronary artery disease, small vessel disease with slow flow in the coronary system by cardiac catheterization [place] [address] Quintero. Hypertension, monitor blood pressure Hyperlipidemia. TWILA MUÑOZ MD November 14, 2021 08:53
--- NOTE | 2021-11-14 09:02 | Tele-ICU Progress Note ---
Subjective Date Seen by a Provider: November 14, 2021 Time Seen by a Provider: 07:20 Subjective/Events-last exam This virtual visit was conducted using real time audio/video. Thank you for asking us to see this patient for afib/RVR and possible sepsis. Recent events: Pt c/o Temp 100-101 during afternoons x 1 week. PMH: NSCCA R lung, s/p chemo, RT. No surgery. COPD/home CPAP, afib w ablation 03/24/2020, CAD/stent, HL, HTN, DM, hypothy., DVT. SH: smoking history: Quit x 10 years. FH: Non-contributory ROS: as in HPI PE: VSS. 115 irreg a flutter. O2 sat 95% on RA. HEENT: No obvious masses, adenopathy or JVD. Chest: clear to auscultation. CV: Irreg. S1 S2 No murmur or added sounds. Abd: Non-tender. Bowel sounds Y. : Unremarkable. 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 No obvious focal findings. Extremities: No edema. Capillary refill < 3 seconds. Skin: unremarkable. Results: Decreased Hb 10.3, . CXR: Hyperinflated, no infilts. UA neg. Available chart/ vitals / labs / images reviewed. Video assessment done using teleICU camera, rest of exam as per RN. A/P: Critical Care: critically ill patient. Cont.abx, Cardizem IV, eliquis,statin, amiodarone, synthroid. Duonebs PRN w COPD history. Possible cardioversion 11/15. Discussed with KATTY Murcia Asked RN to reach out to eICU if any questions or c oncerns later. Time spent with patient/coordination of care with other health professionals (mins):15 Sepsis Event Evaluation Height, Weight, BMI Height: 6'2.00" Weight: 230lbs. 0.0oz. 104.948626zv; 23.99 BMI Method:Stated Focused Exam Lactate Level 11/13/21 10:40: Lactic Acid Level 1.45 Time of Focused Exam: 12:00 Exam Exam Patient acknowledged, consented, and participated in this virtual visit which was conducted using real time audio/video Vital Signs Date Time Temp Pulse Resp B/P (MAP) Pulse Ox O2 Delivery O2 Flow Rate FiO2 11/14/21 08:00 36.0 11/14/21 07:53 Room Air 0.00 11/14/21 07:00 113 11/14/21 06:00 111 20 129/90 93 Room Air 11/14/21 05:00 111 20 122/80 96 Room Air 11/14/21 04:15 96 Room Air 11/14/21 04:00 111 17 137/81 93 Room Air 11/14/21 03:00 106 16 115/80 92 Room Air 11/14/21 02:00 109 18 132/59 93 Room Air 11/14/21 01:00 108 20 117/81 92 Room Air 11/14/21 01:00 108 11/14/21 00:00 110 19 122/79 Room Air 11/14/21 00:00 95 Room Air 11/13/21 23:00 110 20 136/86 Room Air 11/13/21 22:42 36.5 11/13/21 22:00 107 22 133/80 Room Air 11/13/21 21:00 104 22 156/93 97 Room Air 11/13/21 20:00 105 20 109/78 99 Room Air 11/13/21 20:00 98 Room Air 11/13/21 19:58 36.7 11/13/21 19:00 103 16 117/82 93 Room Air 11/13/21 19:00 103 11/13/21 18:00 105 18 136/92 97 Room Air 11/13/21 17:00 107 11 125/92 94 Room Air 11/13/21 16:37 97 Room Air 11/13/21 16:36 114 11/13/21 16:30 108 20 97 11/13/21 16:25 109 20 122/92 98 Room Air 11/13/21 10:27 36.2 123 26 117/79 (92) 98 Room Air I & O 11/14/21 07:00 Intake Total 3850 ml Output Total 1650 ml Balance 2200 ml Height & Weight Height: 6'2.00" Weight: 230lbs. 0.0oz. 104.005889ab; 23.99 BMI Method:Stated General Appearance: No Apparent Distress, Chronically ill HEENT: PERRL/EOMI, TMs Normal, Other (Retropharynx is erythematous, mildly injected without swelling, exudate or phlegm.) Neck: Full Range of Motion, Normal Inspection, Non Tender, Supple Respiratory: Lungs Clear, Normal Breath Sounds, No Accessory Muscle Use, No Respiratory Distress Cardiovascular: Regular Rate, Rhythm, No Edema, Normal Peripheral Pulses Capillary Refill: Less Than 3 Seconds Peripheral Pulses: 2+ Dorsalis Pedis (R), 2+ Left Dors-Pedis (L) Extremity: Normal Capillary Refill, Normal Inspection, Normal Range of Motion Neurologic/Psychiatric: Alert, Oriented x3, No Motor/Sensory Deficits, 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 Critical Care: Critically Ill Patient REGI RUBIO MD November 14, 2021 09:02
--- NOTE | 2021-11-14 09:02 | Progress Note - Hospitalist ---
Subjective HPI/CC On Admission Date Seen by Provider: November 14, 2021 Time Seen by Provider: 08:59 Patient is 66-year-old male with past medical history of atrial fibrillation, hypertension, lung cancer in remission, COPD who presented to the emergency department due to cough and intermittent fever. He states for about a week he has had a fever in the afternoons. He has had a little bit of a sore throat and a mild cough with this. He was swabbed for COVID flu and strep and all of these were negative in the emergency department incidentally he was found to be in A. fib with RVR with a rate in the 120's. His states that his heart rate was that high at home and also had a soft blood pressure which was concerning to her. They incidentally complain of dysphagia as well though. He states this has been going on for months and at times he will have difficulty swallowing. He has never had an endoscopy. He did have chest radiation due to his cancer. And he will also at times have emesis immediately following eating with no prodromal nausea. Subjective/Events-last exam Pt reports doing well. No completes. Dr Reed had just seen and is planning to administer adenosine to see underlying rhythm as he is still tachycardiac on cardizem gtt. Focused Exam Lactate Level 11/13/21 10:40: Lactic Acid Level 1.45 Time of Focused Exam: 12:00 Objective Exam Vital Signs Vital Signs Date Time Temp Pulse Resp B/P (MAP) Pulse Ox O2 Delivery O2 Flow Rate FiO2 11/14/21 08:00 36.0 11/14/21 07:53 Room Air 0.00 11/14/21 07:00 113 11/14/21 06:00 20 129/90 93 Capillary Refill : Less Than 3 Seconds General Appearance: No Apparent Distress, WD/WN Respiratory: Lungs Clear, No Respiratory Distress Cardiovascular: No Murmur, Irregularly Irregular, Tachycardia Neurologic/Psychiatric: Alert, Oriented x3 Results/Procedures Lab Laboratory Tests 11/13/21 10:40 11/14/21 04:15 Patient resulted labs reviewed. Imaging: Reviewed Imaging Report Assessment/Plan Assessment and Plan Assess & Plan/Chief Complaint A-fib with RVR HTN HLD Remained 110s on cardizem gtt Cardiology consulted, appreciate recs Adenosine this AM to assess underlying rhythm Continue home meds TSH low, will decrease dose of Synthroid Echo with preserved EF Dysphagia Lung Cancer-s/p radation Consult speech therapy for evaluation Denies symptoms of reflux May need EGD as an outpatient to rule out stricture DVT ppx: Continue home eliquis Critical Care Critically Ill Patient Diagnosis/Problems Diagnosis/Problems (1) Atrial fibrillation with rapid ventricular response Status: Acute (2) Viral upper respiratory tract infection with cough Status: Acute (3) History of lung cancer Status: Chronic (4) Hypothyroidism Status: Chronic Qualifiers: Hypothyroidism type: acquired Qualified Codes: E03.9 - Hypothyroidism, unspecified (5) HTN (hypertension) Status: Chronic Qualifiers: Hypertension type: primary hypertension Qualified Codes: I10 - Essential (primary) hypertension (6) COPD (chronic obstructive pulmonary disease) Status: Chronic Qualifiers: COPD type: chronic bronchitis Chronic bronchitis type: simple Qualified Codes: J41.0 - Simple chronic bronchitis LORI PAGAN MD November 14, 2021 09:02
[2021-11-14] MEDS ORDERED: meTOprolol 5 MG/5 ML (LOPRESSOR) VIAL IV NR (09:11)
[2021-11-14] MEDS ORDERED: KCL 20 MEQ TAB (K-DUR) PO NR (10:44)
--- NOTE | 2021-11-14 12:21 | ST Dysphagia Evaluation ---
Speech Evaluation-General Medical Diagnosis Atrial Fibrillation with Rapid Ventricular Response Onset Date: November 13, 2021 Therapy Diagnosis Therapy Diagnosis: Intact Oropharyngeal Swallow Precautions Precautions: Fall, Aspiration Precautions/Isolations: Aspiration, Fall Prevention, Standard Precautions Referral Referring Physician: Dr. Tisha Lynn Reason for Referral: Evaluation/Treatment Medical History Pertinent Medical History: Atrial Fib, HTN, Hypothroidism Current History The patient is a 66 year-old male with a past medical history of lung cancer (treated with chemotherapy and radiation, 2019), COPD, atrial fibrillation, DVT, and HTN, who presented to [facility] with a chief complaint of a fever and sore throat. CXR: 11/13/21: Volume loss in right upper lobe which may be related to previous therapy. There has been mild increase in right perihilar atelectasis without other significant change noted. Speech PLF/Current-Dysphagia Prior Level of Function The patient (and the patient's , who is present at bedside) reported he consumes a regular diet with thin liquids at home. The patient denied avoiding specific consistencies secondary to swallowing concerns or difficulties. Subjective The patient was seated upright in his bed, awake and alert upon entrance to his room by the clinician. The patient greeted the clinician appropriately and was agreeable to participation in the clinical bedside swallowing evaluation. The patient's is at bedside and remains with the patient throughout the evaluation. Per patient, "Sometimes I feel a tickle like feeling where my tonsil used to be when I am eating. It starts the minute I put the food in my mouth, I don't even swallow it yet." Additionally, the patient's reports the patient "coughs and coughs when he starts to eat." The patient denied odynophagia, a globus sensation, frequent episodes of emesis, the presence of s/s of suspected aspiration with thin liquid consistencies, avoidance of specific consistencies due to the described sensation, or frequent diagnoses of pneumonia. The patient's adds throughout the evaluation, "He makes the weirdest sounds when he is eating." Cognitive Status Patient Orientation: Person, Place, Time, Situation Oral Motor Skills Dentition: Natural (The patient reported sparse dentition, however, states he consumes solid consistencies regardless.) Current Food Consistancy: Regular, Thin Liquids Ability to Follow Directions: Excellent Oral Expression Ability: No Impairment Voice Voice Phonatory-Based Quality: Normal Voice Pitch: Normal Voice Loudness: Normal Face Facial Symmetry: Symmetrical Oral-Facial Assessment Oral-Facial Dentition: Normal Labial Seal Description: Normal Smile: Normal Puff Cheeks: Normal Lingual Protrusion: Normal Lingual ROM: Normal Lingual Strength: Normal Volitional Dry Swallow: Yes Voluntary Cough: Yes Can Clear Throat Volitionally: Yes Productive Cough: Yes Productive Throat Clear: Yes Dysphagia Evaluation Consistencies Presented: Regular, Thin Liquid, Pureed The patient does not display any deficits with the oral phase of the swallowing function. The patient does not display any deficits throughout the pharyngeal phase of the swallowing function. The patient does not demonstrate any s/s of suspected aspiration with multiple, large straw drinks of thin liquid, multiple large teaspoons of puree, or a saltine cracker. The patient denied the described sensation near his tonsil region and the patient's stated he did not make any of the "weird" noises throughout the study. The patient's SpO2% remained stable at 97% throughout the swallow evaluation. Dietary Recommendations: Regular Liquid Recommendations: Thin Recommendations: - Continue a regular consistency diet with thin liquids, as tolerated. - Fully upright and alert for P.O. intake. - Small bites and sips, only. - Alternate bites and sips on a 1:1 ratio. - Cease P.O. intake during periods of respiratory fatigue. - Monitor for s/s of suspected aspiration. If demonstrated, contact speech pathology. - Consider referral for completion of a modified barium swallow and a barium swallow as an outpatient due to the patient's history of radiation therapy to the chest region. Speech pathology discussed the results and recommendations extensively with the patient and the patient's on this date. As overt s/s of suspected aspiration were not demonstrated throughout the assessment, acute in-depth evaluation of the oropharyngeal swallow function is not necessary at this time. However, secondary to the 's report of "he makes some strange sounds when we are eating, like a grunt" and the patient's statement of "sometimes I feel like I have a little tickle where my tonsil used to be," extensive investigation into the complete swallow function (esophagus included) would be appropriate. The patient agrees with the recommendations and discussion and all questions were answered within the scope of the clinician's practice. The recommendations were shared with the assigned RN, Twin, following completion of the study. Dysphagia Evaluation Summary The patient demonstrated an intact oropharyngeal swallow function. The patient did display intermittent respiratory fatigue throughout the oropharyngeal swallow evaluation, therefore, the importance of pacing himself throughout P.O. intake and ceasing P.O. intake during periods of fatigue were discussed, as well as, overall respiratory and swallowing anatomy. Due to the patient's prior radiation treatment, detailed investigation into the oropharyngeal-esophageal swallowing function would be appropriate and recommended. A recommendation for consideration of a referral for a modified barium swallow and barium swallow were provided by the clinician on an outpatient basis. Speech-Plan Treatment Plan Speech Therapy Treatment Plan: Discontinue ST Treatment Duration: November 14, 2021 Frequency: 1 time per week Estimated Hrs Per Day: .25 hour per day Rehab Potential: Good Pt/Family Agrees to Plan: Yes Safety Risks/Education Teaching Recipient: Patient, Family Teaching Methods: Discussion Response to Teaching: Verbalize Understanding Education Topics Provided: Results, Recommendations, Modified Barium Swallow Education Time Speech Therapy Time In: 11:36 Speech Therapy Time Out: 12:02 Total Billed Time: 26 Billed Treatment Time 1, [facility]AN[facility] November 14, 2021 12:21
[2021-11-14] MEDS: meTOprolol 5 MG/5 ML (LOPRESSOR) VIAL IV SCH ×3 (12:45→23:14)
[2021-11-14] MEDS ORDERED: CYAN500T8 PO (13:49)
[2021-11-14] MEDS ORDERED: GUAI1TBM19 PO (13:49)
[2021-11-14] MEDS ORDERED: VIT D PO (13:49)
[2021-11-14] MEDS ORDERED: FLUT1BLS10 INH (13:49)
[2021-11-14] MEDS ORDERED: VIT C PO (13:49)
[2021-11-14] MEDS ORDERED: ZINC PO (13:49)
[2021-11-14] MEDS ORDERED: LIOT5TAB10 PO (13:49)
[2021-11-14] MEDS ORDERED: DOCU100C37 PO (13:49)
[2021-11-14] MEDS ORDERED: ATOR20TA66 PO (13:49)
[2021-11-14] MEDS ORDERED: CHOL100055 PO (13:52)
[2021-11-14] MEDS: MONTELUKAST 10 MG (SINGULAIR) TAB PO SCH (20:33)
[2021-11-15 04:12] LABS: BASOPHILS % (AUTO) 1 % (0-10); EOSINOPHILS % (AUTO) 0 % (0-10); HEMATOCRIT 36 % (40-54); HEMOGLOBIN 11.3 g/dL (13.3-17.7); LYMPHOCYTES % (AUTO) 13 % (12-44); MEAN CORPUSCULAR HEMOGLOBIN 25 pg (25-34); MEAN CORPUSCULAR HGB CONC 31 g/dL (32-36); MEAN CORPUSCULAR VOLUME 81 fL (80-99); MEAN PLATELET VOLUME 9.3 fL (9.0-12.2); MONOCYTES # (AUTO) 0.8 10^3/uL (0.0-1.0); MONOCYTES % (AUTO) 10 % (0-12); NEUTROPHILS # (AUTO) 5.9 10^3/uL (1.8-7.8); NEUTROPHILS % (AUTO) 76 % (42-75); PLATELET COUNT 313 10^3/uL (130-400); WHITE BLOOD COUNT 7.8 10^3/uL (4.3-11.0)
[2021-11-15 04:20] LABS: POTASSIUM 3.8 MMOL/L (3.6-5.0)
[2021-11-15 04:22] LABS: CALCIUM 8.6 MG/DL (8.5-10.1)
[2021-11-15 04:26] LABS: CREATININE SERUM 0.79 MG/DL (0.60-1.30)
[2021-11-15 04:28] LABS: MAGNESIUM 2.1 MG/DL (1.6-2.4)
[2021-11-15] MEDS: LEVOTHYROXINE 100 MCG (LEVOTHROID) TAB PO SCH (04:33)
[2021-11-15] MEDS: meTOprolol 5 MG/5 ML (LOPRESSOR) VIAL IV SCH ×2 (05:13→12:24)
[2021-11-15] MEDS: dilTIAZem DRIP PRE-MIX 125 ML IV SCH (05:13)
[2021-11-15] MEDS ORDERED: POTASSIUM CL 10MEQ/50ML IVPB 50 ML IV SCH (06:00)
[2021-11-15] MEDS ORDERED: KCL 20 MEQ TAB (K-DUR) PO SCH (06:00)
[2021-11-15] MEDS ORDERED: MAGNESIUM 1 GM/100 ML IVPB 100 ML IV SCH (06:00)
[2021-11-15] MEDS ORDERED: proPOfol 200 MG/20 ML (DIPRIVAN) VIAL IV ONE (07:57)
[2021-11-15] MEDS ORDERED: NS IV 1000 ML 1,000 ML ONE (08:07)
--- NOTE | 2021-11-15 08:33 | Anesthesia-General Post-Op ---
MAC Patient Condition Mental Status/LOC: Same as Preop Cardiovascular: Satisfactory Nausea/Vomiting: Absent Respiratory: Satisfactory Pain: Controlled Complications: Absent Post Op Complications Complications None Follow Up Care/Instructions Patient Instructions None needed. Anesthesiology Discharge Order Discharge Order Patient is doing well, no complaints, stable vital signs, no apparent adverse anesthesia problems. No complications reported per nursing. YINA RUTLEDGE CRNA November 15, 2021 08:33
--- NOTE | 2021-11-15 08:44 | Cardioversion ---
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 Electrical cardioversion was carried out with anesthesia support with propofol. 200 joules of synchronized shock was delivered through external patches which promptly restored sinus rhythm. The patient tolerated the procedure well. Conclusions: Successful electrical cardioversion and terminating atrial flutter TWILA REED MD November 15, 2021 08:44
--- NOTE | 2021-11-15 08:46 | Cardiology Progress Note ---
Subjective Date Seen by Provider: November 15, 2021 Time Seen by Provider: 08:45 Subjective/Events-last exam Patient was seen at bedside, laying down comfortably, no new complaint Review of Systems General: No Chills, No Night Sweats, No Fatigue, No Malaise, No Appetite, No Other HEENT: No Head Aches, No Visual Changes, No Eye Pain, No Ear Pain, No Dysphasia, No Sinus Congestion, No Post Nasal Drip, No Sore Throat, No Other Pulmonary: No Dyspnea, No Cough, No Pleuritic Chest Pain, No Other Cardiovascular: No: Chest Pain, Palpitations, Orthopnea, Paroxysmal Noc. Dyspnea, Edema, Lt Headedness, Other Focused Exam Lactate Level 11/13/21 10:40: Lactic Acid Level 1.45 Time of Focused Exam: 12:00 Objective-Cardiology Exam Last Set of Vital Signs Vital Signs 11/14/21 11/15/21 11/15/21 11/15/21 11/15/21 07:53 06:00 07:56 08:00 08:10 Temp 36.5 Pulse 53 Resp 13 B/P (MAP) 111/77 Pulse Ox 97 O2 Delivery Room Air O2 Flow Rate 0.00 I&O Intake and Output 11/15/21 00:00 Intake Total 3025 ml Output Total 3050 ml Balance -25 ml Intake Oral 2900 ml IV Total 125 ml Output Urine Total 3050 ml # Voids 3 # Bowel Movements 2 General: Alert, Oriented X3, Cooperative HEENT: Atraumatic, PERRLA Neck: Supple, No JVD, No Thyromegaly Lungs: Clear to Auscultation, Normal Air Movement Heart: Normal S1, Normal S2, No Murmurs, Other (Tachycardic) Abdomen: Normal Bowel Sounds, Soft, No Tenderness, No Hepatosplenomegaly, No Masses Extremities: No Clubbing, No Cyanosis, No Edema, Normal Pulses, No Tenderness/Swelling Skin: No Rashes, No Breakdown, No Significant Lesion Neuro: Normal Gait, Normal Speech, Strength at 5/5 X4 Ext, Normal Tone, Sensation Intact Psych/Mental Status: Mental Status NL, Mood NL Results Lab Laboratory Tests 11/15/21 04:04 A/P-Cardiology Admission Diagnosis Paroxysmal atrial fibrillation Tachycardia Coronary artery disease Fever Assessment/Plan Paroxysmal atrial fibrillation, back in atrial fibrillation while on amiodarone and Eliquis. Patient went to atrial flutter on November 14, 2021, borderline tachycardic Reported that he did not miss or skip any of his doses of oral anticoagulation. I proceeded with electrical cardioversion and it was successful in terminating atrial fibrillation. I had a long discussion with the patient, patient has underlying pulmonary dise ase, there is an increased chance with the long-term use of amiodarone with pulmonary fibrosis, I will stop amiodarone and use Multaq. Okay for discharge and follow-up as an outpatient History of paroxysmal atrial flutter, had ablation done by Dr. Quintero for atrial flutter in March 2020. Low-grade fever, mild leukocytosis, managed by medical team. Questionable underlying infection History of non-small cell lung cancer, currently in remission. Following with [facility] Coronary artery disease, small vessel disease with slow flow in the coronary system by cardiac catheterization in [address] Quintero. Hypertension, monitor blood pressure Hyperlipidemia. TWILA MUÑOZ MD November 15, 2021 08:46
[2021-11-15] MEDS ORDERED: DRONEDARONE 400 MG TABLET PO SCH (09:00)
[2021-11-15] MEDS ORDERED: NS IV 1000 ML 1,000 ML IV ONE (10:00)
[2021-11-15] MEDS: APIXABAN 5 MG (ELIQUIS) TABLET PO SCH (10:11)
--- NOTE | 2021-11-15 10:40 | Discharge Summary ---
Diagnosis/Chief Complaint Date of Admission November 13, 2021 at 14:26 Date of Discharge Admission Diagnosis A-fib with RVR Primary Care Brett Galan DO Discharge Diagnosis (1) Atrial fibrillation with rapid ventricular response Status: Acute (2) Viral upper respiratory tract infection with cough Status: Acute (3) History of lung cancer Status: Chronic (4) Hypothyroidism Status: Chronic (5) HTN (hypertension) Status: Chronic (6) COPD (chronic obstructive pulmonary disease) Status: Chronic Discharge Summary Procedures/Consulations Cardiology- Dr Reed Discharge Physical Exam Allergies: Coded Allergies: levofloxacin (Verified Allergy, Severe, PSYCHOSIS, 03/31/21) chlorthalidone (Verified Allergy, Unknown, 03/31/21) DIZZINESS Vitals & I&Os Vital Signs Date Time Temp Pulse Resp B/P (MAP) Pulse Ox O2 Delivery O2 Flow Rate FiO2 11/15/21 13:00 64 11/15/21 13:00 12 119/79 95 Room Air 11/15/21 11:56 36.7 11/14/21 07:53 0.00 General Appearance: No Apparent Distress, WD/WN Neurologic/Psychiatric: Alert, Oriented x3 Hospital Course Patient was admitted to the hospital due to atrial flutter with rapid ventricular rate. He was admitted to the ICU on a Cardizem drip. Cardiology was consulted and he was given adenosine to confirm arrhythmia. This revealed an underlying atrial flutter. He was cardioverted the morning of November 16 and converted to sinus rhythm. Due to his lung disease Dr. Reed switched him from amiodarone to Multaq. He was discharged home in stable and improved condition to follow-up with his primary care physician Dr. 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 Gallardo. Labs (last 24 hrs) Microbiology 11/13/21 Urine Culture - Final, Complete NO GROWTH 11/13/21 Blood Culture - Preliminary, Resulted No growth 11/13/21 Throat Culture - Final, Complete No Beta Strep isolated Patient resulted labs reviewed. Pending Labs Imaging: Reviewed Imaging Report Discussion & Recommendations Discharge Planning: >30 minutes discharge planning Discharge Home Medications: Active Scripts Active Multaq (Dronedarone HCl) 400 Mg Tablet 400 Mg PO BID Reported Vitamin D3 (Cholecalciferol (Vitamin D3)) 250 Mcg (52386 Unit) Capsule 250 Mcg PO HS Docusate Sodium 100 Mg Capsule 200 Mg PO HS TAKES 2 (100MG) CAPS Vitamin B-12 (Cyanocobalamin (Vitamin B-12)) 500 Mcg Tablet 500 Mcg PO DAILY [Vit C/Vit D3/Zinc] 1 Ea PO HS Wixela 500-50 Inhub (Fluticasone Propion/Salmeterol) 500 Mcg-50 Mcg/Dose Blst.w.dev 1 Puff INH BID Atorvastatin Calcium 20 Mg Tablet 10 Mg PO HS TAKES OF A 20MG TAB Liothyronine Sodium 5 Mcg Tablet 5 Mcg PO DAILY Mucinex Dm ER 1,200-60 mg Tab (Guaifenesin/Dextromethorphan) 1,200 Mg-60 Mg Tbmp.12hr 1 Each PO Q12H Flonase Allergy Relief (Fluticasone Propionate) 9.9 Ml [place]enton.susp 1-2 [place]enton NSEACH BID Eliquis (Apixaban) 5 Mg Tablet 5 Mg PO BID Montelukast Sodium 10 Mg Tablet 10 Mg PO HS Levothyroxine Sodium 100 Mcg Tablet 100 Mcg PO DAILY Ventolin Hfa (Albuterol Sulfate) 1 Puff Puff 2 Puff INH Q4H PRN Spiriva Respimat 2.5MCG/ACTUATION (Tiotropium [place]) 4 Gm Mist.inhal 2 Puff IH DAILY Instructions to patient/family Please see electronic discharge instructions given to patient. Problem Qualifiers (1) Hypothyroidism: Hypothyroidism type: acquired Qualified Codes: E03.9 - Hypothyroidism, unspecified (2) HTN (hypertension): Hypertension type: primary hypertension Qualified Codes: I10 - Essential (primary) hypertension (3) COPD (chronic obstructive pulmonary disease): COPD type: chronic bronchitis Chronic bronchitis type: simple Qualified Codes: J41.0 - Simple chronic bronchitis LORI PAGAN MD November 15, 2021 10:40
--- NOTE | 2021-11-15 10:45 | Discharge Inst-Simple/Standard ---
Discharge Inst-Standard Discharge Medications New, Converted or Re-Newed RX: Transmitted to Pharmacy Patient Instructions/Follow Up Plan of Care/Instructions/FU: Please continue to take your medications as written. Please follow up with your primary care doctor to follow up this hospital stay. Activity as Tolerated: Yes Discharge Diet: Cardiac Diet Return to The Hospital For: Chest pain, shortness of breath, weakness, confusion, if you feel you are getting worse. LORI PAGAN MD November 15, 2021 10:45
[2021-11-15] MEDS ORDERED: DRON400T6 PO (13:06)
--- NOTE | 2021-11-15 17:49 | Physician Query Clarification ---
Physician Query-General Query to Physician: Clinical Validation Clarification : Ava Lynn Sepsis has been documented in the medical record. After study, do you consider Sepsis a clinically valid diagnosis? If not clinic ally valid, please document "Sepsis, ruled out" on the progress notes and/or discharge summary. 1. No, Sepsis not clinically valid/ruled out 2. Yes, Sepsis is a clinically valid diagnosis 3. Other, with explanation of the clinical findings 4. Clinically undetermined, no explanation for the clinical findings Additional information: Cancer Hx, Viral URI, Admission VS/LABS: HR 123, RR 26, BP 117/79, SpO2 98% on RA, T 36.2 WBC 10.6, with bands 3 , lactic acid 1.45, blood culture x2 no growth, urine culture no growth, throat culture, Treatment ER: Vancomycin IV, normal saline 2 L, diltiazem IV added Cefepime ABX only one dose each given Please remember a lack of response to the above will prompt a phone page by [facility]/coding staff. In responding to this query, please exercise your independent professional judgment. The purpose of this communication is to more accurately reflect the c omplexity of your patients condition. The fact that a question is asked does not imply that any particular answer is desired or expected. Thank you for timely response to this clarification. Mimi Berg MSN, RN Clinical Technology Manager PH PHYSICIAN RESPONSE: Based on the clinical findings in the record, please respond to the query above on this document as an addendum. Physician Response: Physician Response 1 If you have questions please contact: Laborer [employer]: Ext: Thank you for your time and cooperation. Clinical Technology Manager/Laborer [employer] This is a permanent part of the medical record MIMI BERG November 15, 2021 17:49 LORI LYNN MD November 16, 2021 13:25
== END 2021-11-15 15:18 | disposition home or self-care (01) | DRG 310 ==
LOC: EDUNIT# 10:20 → ER 10:21 → ICU 14:26 → OBSVTOIN 14:26
PROVIDERS: ADMIT Family Medicine; ATTEND Family Medicine
PROC: 5A2204Z Restoration of Cardiac Rhythm, Single (ICD-10-PCS; principal; 2021-11-13)
DX: I48.91 Unspecified atrial fibrillation (principal); J06.9 Acute upper respiratory infection, unspecified; Z20.822 Contact with and (suspected) exposure to COVID-19; Z87.891 Personal history of nicotine dependence; Z85.118 Personal history of other malignant neoplasm of bronchus and lung; Z92.21 Personal history of antineoplastic chemotherapy; Z92.3 Personal history of irradiation; J44.9 Chronic obstructive pulmonary disease, unspecified; Z86.718 Personal history of other venous thrombosis and embolism; I10 Essential (primary) hypertension; E03.9 Hypothyroidism, unspecified; Z79.82 Long term (current) use of aspirin; Z79.84 Long term (current) use of oral hypoglycemic drugs; Z79.899 Other long term (current) drug therapy; R13.10 Dysphagia, unspecified; I25.10 Atherosclerotic heart disease of native coronary artery without angina pectoris; Z95.5 Presence of coronary angioplasty implant and graft; E11.9 Type 2 diabetes mellitus without complications; E78.5 Hyperlipidemia, unspecified; I48.92 Unspecified atrial flutter; I48.0 Paroxysmal atrial fibrillation; D72.829 Elevated white blood cell count, unspecified; R50.9 Fever, unspecified
CPT/HCPCS: 36415; 71045; 80048; 80053; 81000; 83605; 83735; 83880; 84443; 85007; 85025; 85027; 85610; 85730; 87040; 87088; 87430; 87636; 93005; 93306

== ENCOUNTER → 2021-12-22 | Outpatient (CLI) | payer MEDICARE, OTHER ==
[~2021-12-22] MED LIST changes: +ATOR20TA66 PO; +CHOL100055 PO; +CYAN500T8 PO; +DOCU100C37 PO; +FLUT1BLS10 INH; +GUAI1TBM19 PO; +LIOT5TAB10 PO; +VIT C PO; +VIT D PO; +ZINC PO
--- NOTE | 2021-12-22 11:37 | Diagnostic Imaging Report ---
INDICATION: Dysphagia. This study was performed in conjunction with speech pathology. Video fluoroscopy was performed during the swallowing of barium in multiple consistencies. A total of 0.7 minutes of fluoroscopic time was utilized. The patient ingested thin liquid as well as applesauce and cracker consistencies. The oral phase is unremarkable. There is normal epiglottic tilt and laryngeal elevation. No laryngeal penetration or aspiration was observed. No significant vallecular or piriform sinus residue was detected. IMPRESSION: Unremarkable modified barium swallow. Dictated by: Dictated on workstation # [id number]
== END ==
LOC: RAD 10:30
PROVIDERS: ATTEND Internal Medicine
DX: J96.90 Respiratory failure, unspecified, unspecified whether with hypoxia or hypercapnia (principal)
CPT/HCPCS: 74230

== ENCOUNTER 2022-01-10 09:35 | Emergency (ER) | payer MEDICARE, OTHER ==
[2022-01-10 10:18] LABS: BASOPHILS % (AUTO) 0 % (0-10); EOSINOPHILS % (AUTO) 0 % (0-10); HEMATOCRIT 38 % (40-54); HEMOGLOBIN 11.9 g/dL (13.3-17.7); LYMPHOCYTES # (AUTO) 0.9 10^3/uL (1.0-4.0); LYMPHOCYTES % (AUTO) 13 % (12-44); MEAN CORPUSCULAR HEMOGLOBIN 26 pg (25-34); MEAN CORPUSCULAR HGB CONC 32 g/dL (32-36); MEAN CORPUSCULAR VOLUME 83 fL (80-99); MEAN PLATELET VOLUME 9.3 fL (9.0-12.2); MONOCYTES # (AUTO) 0.7 10^3/uL (0.0-1.0); MONOCYTES % (AUTO) 9 % (0-12); NEUTROPHILS # (AUTO) 5.7 10^3/uL (1.8-7.8); NEUTROPHILS % (AUTO) 78 % (42-75); PLATELET COUNT 190 10^3/uL (130-400); WHITE BLOOD COUNT 7.3 10^3/uL (4.3-11.0)
[2022-01-10 10:23] LABS: POTASSIUM 3.9 MMOL/L (3.6-5.0)
[2022-01-10 10:24] LABS: CALCIUM 8.7 MG/DL (8.5-10.1)
[2022-01-10 10:28] LABS: CREATININE SERUM 0.85 MG/DL (0.60-1.30)
[2022-01-10 10:30] LABS: MAGNESIUM 2.2 MG/DL (1.6-2.4)
[2022-01-10] MEDS ORDERED: LACTATED RINGERS 1,000 ML IV ONE (10:45)
[2022-01-10 10:52] LABS: FREE T4 (FREE THYROXINE) 1.02 NG/DL (0.70-1.48)
[2022-01-10] MEDS ORDERED: ADENOSINE 6 MG/2 ML (ADENOCARD) VIAL IV ONE ×2 (11:58→12:00)
[2022-01-10] MEDS ORDERED: morphine INJ 10 MG/ML 1ML (SYR OR VIAL) IVP STA (12:04)
--- NOTE | 2022-01-10 12:09 | Consultation-Cardiology ---
HPI-Cardiology Cardiology Consultation Date of Consultation 01/10/22 Date of Admission Time Seen by Provider: 12:06 Indication: Atrial flutter HPI 66-year-old gentleman with paroxysmal atrial fibrillation, atrial flutter, hypertension and hyperlipidemia. Came into the emergency room when he started feeling palpitation, felt his heart racing and he was borderline hypotensive. H e is short of breath. Denied any chest pain. No syncope or near syncopal episodes Home Medications & Allergies Allergies: Coded Allergies: levofloxacin (Verified Allergy, Severe, PSYCHOSIS, 03/31/21) chlorthalidone (Verified Allergy, Unknown, 03/31/21) DIZZINESS Home Medication List Reviewed: Yes SIT-Wuxjzr-Eeyihz Hx Patient Social History Marital Status: Employed/Student: retired Drug of Choice: Denies Type Used: Cigarettes 2nd Hand Smoke Exposure: No Recent Hopitalizations: No Have you traveled recently?: No Alcohol Use?: No Immunizations Up To Date Tetanus Booster (TDap): Unknown Date of Pneumonia Vaccine: Jun 15, 2009 Date of Influenza Vaccine: Apr 21, 2014 Past Medical History Discussed below Family Medical History Significant Family History: No Pertinent Family Hx Family Medical Hx Noncontributory Review of Systems-General Review of Systems Constitutional: no symptoms reported, see HPI EENTM: see HPI, no symptoms reported Respiratory: no symptoms reported, see HPI, dyspnea on exertion Cardiovascular: see HPI, palpitations Gastrointestinal: no symptoms reported, see HPI Genitourinary: no symptoms reported, see HPI Musculoskeletal: no symptoms reported, see HPI Skin: no symptoms reported, see HPI Psychiatric/Neurological: No Symptoms Reported, See HPI Reviewed Test Results Reviewed Test Results Lab Laboratory Tests Test 01/10/22 09:55 Range/Units White Blood Count 7.3 4.3-11.0 10^3/uL Red Blood Count 4.54 4.30-5.52 10^6/uL Hemoglobin 11.9 L 13.3-17.7 g/dL Hematocrit 38 L 40-54 % Mean Corpuscular Volume 83 80-99 fL Mean Corpuscular Hemoglobin 26 25-34 pg Mean Corpuscular Hemoglobin Concent 32 32-36 g/dL Red Cell Distribution Width 17.3 H 10.0-14.5 % Platelet Count 190 130-400 10^3/uL Mean Platelet Volume 9.3 9.0-12.2 fL Immature Granulocyte % (Auto) 0 % Neutrophils (%) (Auto) 78 H 42-75 % Lymphocytes (%) (Auto) 13 12-44 % Monocytes (%) (Auto) 9 0-12 % Eosinophils (%) (Auto) 0 0-10 % Basophils (%) (Auto) 0 0-10 % Neutrophils # (Auto) 5.7 1.8-7.8 10^3/uL Lymphocytes # (Auto) 0.9 L 1.0-4.0 10^3/uL Monocytes # (Auto) 0.7 0.0-1.0 10^3/uL Eosinophils # (Auto) 0.0 0.0-0.3 10^3/uL Basophils # (Auto) 0.0 0.0-0.1 10^3/uL Immature Granulocyte # (Auto) 0.0 0.0-0.1 10^3/uL Sodium Level 141 135-145 MMOL/L Potassium Level 3.9 3.6-5.0 MMOL/L Chloride Level 106 98-107 MMOL/L Carbon Dioxide Level 25 21-32 MMOL/L Anion Gap 10 5-14 MMOL/L Blood Urea Nitrogen 15 7-18 MG/DL Creatinine 0.85 0.60-1.30 MG/DL Estimat Glomerular Filtration Rate 95 BUN/Creatinine Ratio 18 Glucose Level 96 70-105 MG/DL Calcium Level 8.7 8.5-10.1 MG/DL Magnesium Level 2.2 1.6-2.4 MG/DL Thyroid Stimulating Hormone (TSH) 0.36 0.35-4.94 UIU/ML Free Thyroxine 1.02 0.70-1.48 NG/DL Physical Exam Physical Exam Vital Signs Vital Signs - First Documented 01/10/22 09:40 Temp 36.2 Pulse 111 Resp 24 B/P (MAP) 133/85 (101) Capillary Refill : Less Than 3 Seconds Height, Weight, BMI Height: 6'2.00" Weight: 230lbs. 0.0oz. 104.943184se; 23.51 BMI Method:Stated General Appearance: No Apparent Distress, WD/WN Eyes: Bilateral Eye Normal Inspection, Bilateral Eye PERRL, Bilateral Eye EOMI HEENT: PERRL/EOMI, TMs Normal, Normal ENT Inspection, Pharynx Normal, Moist M ucous Membranes Neck: Full Range of Motion, Normal Inspection, Non Tender, Supple, Carotid Bruit Respiratory: Chest Non Tender, Normal Breath Sounds, No Accessory Muscle Use, No Respiratory Distress Cardiovascular: No Edema, No Gallop, No JVD, No Murmur, Normal Peripheral Pulses, Irregularly Irregular, Tachycardia Gastrointestinal: Normal Bowel Sounds, No Organomegaly, No Pulsatile Mass, Non Tender, Soft Back: Normal Inspection, No CVA Tenderness, No Vertebral Tenderness Extremity: Normal Capillary Refill, Normal Inspection, Normal Range of Motion, Non Tender, No Calf Tenderness, No Pedal Edema Neurologic/Psychiatric: Alert, Oriented x3, No Motor/Sensory Deficits, Normal Mood/Affect Skin: Normal Color, Warm/Dry Lymphatic: No Adenopathy A/P-Cardiology Admission Diagnosis Atrial flutter Tachycardia Hypertension Hyperlipidemia Assessment/Plan Atrial flutter with rapid ventricular response. Patient has history of paroxysmal atrial fibrillation/flutter. Has been on amiodarone in the past, started on Multaq recently. Has been tolerating it well. Came to the emergency room with atrial flutter. I did adenosine 6 mg IV which showed underlying flutter waves. I am planning to proceed with cardioversion today. Patient did not skip any doses of his anticoagulation. He is scheduled for EP evaluation later next month. During the emergency room stay patient converted to sinus rhythm History of atrial flutter ablation done by Dr. Quintero in March 2020. History of non-small cell lung cancer currently in remission COPD, shortness of breath. Stable at this time Coronary artery disease, small vessel disease with slow flow in the coronary system by cardiac catheterization in [address] Quintero Hypertension, controlled, monitor blood pressure Hyperlipidemia. Continue on current medication. TWILA MUÑOZ MD Jan 10, 2022 12:09
[2022-01-10] MEDS ORDERED: ETOMIDATE IV SOLN 20 MG/10 ML VIAL IV ONE (12:15)
--- NOTE | 2022-01-10 12:20 | ED Cardiac General ---
History of Present Illness General Chief Complaint: Cardiac/General Problems Stated Complaint: AFIB Nursing Triage Note: PT TO RM 7 BY WC WITH WITH C/O INCREASED HR, LOW BP THIS MORNING AFTER CHECKING IT AT HOME. PT HAS HX OF AFIB AND HAS BEEN CARDIOVERTED MULTIPLE TIMES PREVIOUSLY. Source: patient, family, old records Exam Limitations: no limitations History of Present Illness Date Seen by Provider: Jan 10, 2022 Time Seen by Provider: 09:39 Initial Comments This is 66-year-old gentleman with known history of atrial fibrillation and atrial flutter presents to the emergency room with complaints of tachycardia and lower than normal blood pressures this morning. He keeps a log of his blood pressure and heart rate every day and noted the change this morning. He had been admitted to the hospital in early November for atrial fibrillation with RVR. He underwent cardioversion and, to his knowledge, he has been in sinus rhythm since then until this morning. He appears to have atrial flutter on the monitor. He has experienced some lightheadedness associated with this. Allergies and Home Medications Allergies Coded Allergies: levofloxacin (Verified Allergy, Severe, PSYCHOSIS, 03/31/21) chlorthalidone (Verified Allergy, Unknown, 03/31/21) DIZZINESS Patient Home Medication List Home Medication List Reviewed: Yes Albuterol Sulfate (Ventolin Hfa) 1 Puff Puff, 2 PUFF INH Q4H PRN for SHORTNESS OF BREATH, (Reported) Entered as Reported by: BREN THORNE on 04/06/20 1247 Apixaban (Eliquis) 5 Mg Tablet, 5 MG PO BID, (Reported) Entered as Reported by: BREN THORNE on 02/16/21 1421 Atorvastatin Calcium (Atorvastatin Calcium) 20 Mg Tablet, 10 MG PO HS, (Reported) Entered as Reported by: RBEN THORNE on 11/14/21 1349 Cholecalciferol (Vitamin D3) (Vitamin D3) 250 Mcg (59513 Unit) Capsule, 250 MCG PO HS, (Reported) Entered as Reported by: BREN THORNE on 11/14/21 1352 Cyanocobalamin (Vitamin B-12) (Vitamin B-12) 500 Mcg Tablet, 500 MCG PO DAILY, (Reported) Entered as Reported by: BREN THORNE on 11/14/21 1349 Docusate Sodium (Docusate Sodium) 100 Mg Capsule, 200 MG PO HS, (Reported) Entered as Reported by: BREN THORNE on 11/14/21 1349 Dronedarone HCl (Multaq) 400 Mg Tablet, 400 MG PO BID Prescribed by: TWILA REED on 11/15/21 1306 Fluticasone Propion/Salmeterol (Wixela 500-50 Inhub) 500 Mcg-50 Mcg/Dose Blst.w.dev, 1 PUFF INH BID, (Reported) Entered as Reported by: BREN THORNE on 11/14/21 1349 Fluticasone Propionate (Flonase Allergy Relief) 9.9 Ml [place].susp, 1-2 SPRAY NSEACH BID, (Reported) Entered as Reported by: BREN THORNE on 02/16/21 1421 Guaifenesin/Dextromethorphan (Mucinex Dm ER 1,200-60 mg Tab) 1,200 Mg-60 Mg Tbmp.12hr, 1 EACH PO Q12H, (Reported) Entered as Reported by: BREN THORNE on 11/14/21 1349 Levothyroxine Sodium (Levothyroxine Sodium) 100 Mcg Tablet, 100 MCG PO DAILY, (Reported) Entered as Reported by: BREN THORNE on 04/12/20 1009 Liothyronine Sodium (Liothyronine Sodium) 5 Mcg Tablet, 5 MCG PO DAILY, (Reported) Entered as Reported by: BREN THORNE on 11/14/21 1349 Metoprolol Succinate (Toprol Xl) 25 Mg Tab.er.24h, 25 MG PO DAILY Prescribed by: TADEO ROMERO on 01/10/22 1242 Montelukast Sodium (Montelukast Sodium) 10 Mg Tablet, 10 MG PO HS, (Reported) Entered as Reported by: BREN THORNE on 12/21/20 1054 Tiotropium [place] (Spiriva Respimat 2.5MCG/ACTUATION) 4 Gm Mist.inhal, 2 PUFF IH DAILY, (Reported) Entered as Reported by: MARA MCNALLY on 03/21/20 1831 [Vit C/Vit D3/Zinc] , 1 EA PO HS, (Reported) Entered as Reported by: BREN THORNE on 11/14/21 1349 Review of Systems Review of Systems Constitutional: no symptoms reported, see HPI Musculoskeletal: no symptoms reported, see HPI Skin: no symptoms reported, see HPI Psychiatric/Neurological: No Symptoms Reported, See HPI Past Xafapzu-Yvlate-Mworio Hx Patient Social History Tobacco Use?: No Use of E-Cig and/or Vaping dev: No Substance use?: No Alcohol Use?: No Pt feels they are or have been: No Immunizations Up To Date Tetanus Booster (TDap): Unknown PED Vaccines UTD: No Influenza Vaccine Up-to-Date: No; Not Current First/Initial COVID19 Vaccinat: 09/21/20 Second COVID19 Vaccination Rodo: 10/20/20 Third COVID19 Vaccination Date: FALL 2020 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: [employer] Seasonal Allergies Seasonal Allergies: Yes Past Medical History Surgery/Hospitalization HX: LUNG CA WITH CHEMO AND RADIATION TX, A-FIB, COPD Surgeries: Yes (COLON RESECTION/COLOSTOMY/TAKEDOWN;PORT L CHEST;C- SCOPES;CARDIAC ABLATION) Abdominal, Bowel Surgery, Cardiac, Coronary Stent, Prostatectomy, Thyroidectomy Respiratory: Yes (NON-SMALL CELL LUNG CANCER) COPD Currently Using CPAP: Yes (PT USES CPAP AT HOME ) Currently Using BIPAP: No Cardiac: Yes (DVT L ARM 09/2019 POST PORT PLACEMENT;AFIB/FLUTTER-S/P ABLATION 03/24/20) Atrial Fibrillation, Deep Vein Thrombosis, Hypertension, Irregular Heartbeat Neurological: No Reproductive Disorders: No Sexually Transmitted Disease: No HIV/AIDS: No Genitourinary: Yes (TURP) Prostate Problems, Renal Failure, UTI-Chronic Gastrointestinal: Yes (COLON RESECTION/COLOSTOMY/TAKEDOWN FOR BENIGN POLYPS) Polyps Musculoskeletal: No Endocrine: Yes (THYROIDECTOMY FOR BENIGN DISEASE, prediabetes) Hypothyroidsim HEENT: No Cancer: Yes (NON-SMALL CELL LUNG CANCER DX 07/2019--HAS BEEN ON IMMUNOTHERAPY) Lung Did You Recieve Any Treatments: Yes What Type of Treatment Did You: Chemotherapy, Radiation Psychosocial: No Integumentary: No Blood Disorders: No Adverse Reaction/Blood Tranf: No Family Medical History No Pertinent Family Hx SOCIAL HISTORY: -ETOH--DENIES -DRUGS--DENIES -SMOKING--SMOKED 1 PPD--QUIT A FEW YEARS AGO PAST SURGICAL HISTORY: -COLON RESECTION FOR MULTIPLE BENIGN POLYPS, REQUIRED COLOSTOMY AND LATER TAKEDOWN -THYROIDECTOMY FOR BENIGN GOITER -CARDIAC CATH 03/21/20--NO INTERVENTION. SLOW FLOW IN ALL VESSELS. SMALL FIRST DIAGONAL ARTERY HAS MODERATE TO SEVERE OSTIAL DISEASE--NOT AMENABLE TO INTERVENTION -CARDIAC ABLATION FOR ATRIAL FIBRILLATION 03/24/20 -MULTIPLE COLONOSCOPIES -PORT LEFT CHEST Physical Exam Vital Signs Vital Signs - First Documented 01/10/22 09:40 Temp 36.2 Pulse 111 Resp 24 B/P (MAP) 133/85 (101) Capillary Refill : Less Than 3 Seconds Height, Weight, BMI Height: 6'2.00" Weight: 230lbs. 0.0oz. [id number]; 23.51 BMI Method:Stated Procedures/Interventions Patient Education: Explained Benefits, Explained Risks, Pt. Ack. Understanding Breath Sounds per Auscultation: Clear Heart Sounds per Auscultation: Irregular Airway Exam: Mouth opens >2 fingers, Neck Full Range of Motion, Visulation of Uvula Sedation Adminstration Time: 1630 Re-examination Time: 1658 Progress/Results/Core Measures Results/Orders Lab Results Laboratory Tests Test 01/10/22 09:55 Range/Units White Blood Count 7.3 4.3-11.0 10^3/uL Red Blood Count 4.54 4.30-5.52 10^6/uL Hemoglobin 11.9 L 13.3-17.7 g/dL Hematocrit 38 L 40-54 % Mean Corpuscular Volume 83 80-99 fL Mean Corpuscular Hemoglobin 26 25-34 pg Mean Corpuscular Hemoglobin Concent 32 32-36 g/dL Red Cell Distribution Width 17.3 H 10.0-14.5 % Platelet Count 190 130-400 10^3/uL Mean Platelet Volume 9.3 9.0-12.2 fL Immature Granulocyte % (Auto) 0 % Neutrophils (%) (Auto) 78 H 42-75 % Lymphocytes (%) (Auto) 13 12-44 % Monocytes (%) (Auto) 9 0-12 % Eosinophils (%) (Auto) 0 0-10 % Basophils (%) (Auto) 0 0-10 % Neutrophils # (Auto) 5.7 1.8-7.8 10^3/uL Lymphocytes # (Auto) 0.9 L 1.0-4.0 10^3/uL Monocytes # (Auto) 0.7 0.0-1.0 10^3/uL Eosinophils # (Auto) 0.0 0.0-0.3 10^3/uL Basophils # (Auto) 0.0 0.0-0.1 10^3/uL Immature Granulocyte # (Auto) 0.0 0.0-0.1 10^3/uL Sodium Level 141 135-145 MMOL/L Potassium Level 3.9 3.6-5.0 MMOL/L Chloride Level 106 98-107 MMOL/L Carbon Dioxide Level 25 21-32 MMOL/L Anion Gap 10 5-14 MMOL/L Blood Urea Nitrogen 15 7-18 MG/DL Creatinine 0.85 0.60-1.30 MG/DL Estimat Glomerular Filtration Rate 95 BUN/Creatinine Ratio 18 Glucose Level 96 70-105 MG/DL Calcium Level 8.7 8.5-10.1 MG/DL Magnesium Level 2.2 1.6-2.4 MG/DL Thyroid Stimulating Hormone (TSH) 0.36 0.35-4.94 UIU/ML Free Thyroxine 1.02 0.70-1.48 NG/DL My Orders Orders - TADEO BLOOD MD Ekg Tracing (01/10/22 09:39) Monitor-Rhythm Ecg Trace Only (01/10/22 09:40) Basic Metabolic Panel (01/10/22 10:12) Cbc With Automated Diff (01/10/22 10:12) Magnesium (01/10/22 10:12) Thyroid Stimulating Hormone (01/10/22 10:12) Free T4 (Free Thyroxine) (01/10/22 10:12) Implanted Port: Access (01/10/22 10:12) Lactated Ringers (Lr 1000 Ml Iv Solution (01/10/22 10:45) Adenosine Injection (Adenocard Injection (01/10/22 12:00) Adenosine Injection (Adenocard Injection (01/10/22 11:58) Etomidate Injection (Amidate Injection) (01/10/22 12:15) Morphine Injection (Morphine Injection (01/10/22 12:04) Ekg Tracing (01/10/22 12:38) Metoprolol Succinate (Xl) Tab (Toprol Xl (01/10/22 12:45) Medications Given in ED Current Medications Medications Dose Ordered Sig/Silvana Route Start Time Stop Time Status Last Admin Dose Admin Lactated Ringer's 1,000 ml @ 0 mls/hr Q0M ONCE IV 01/10/22 10:45 01/10/22 10:46 DC 01/10/22 10:44 1,000 MLS/HR Metoprolol Succinate 25 mg ONCE ONCE PO 01/10/22 12:45 01/10/22 12:46 DC 01/10/22 12:48 25 MG Vital Signs/I&O 01/10/22 01/10/22 09:40 13:20 Temp 36.2 36.2 Pulse 111 66 Resp 24 20 B/P (MAP) 133/85 (101) 101/78 Blood Pressure Mean: 101 Progress Progress Note : Time: 12:19 Progress Note Labs were obtained and reviewed. During initial discussion with Dr. Reed, we plan to augment his therapy with beta-sophia. However, when atrial flutter, not fibrillation, was noted and he dropped his systolic blood pressure into the 80s, plan was changed to prompt cardioversion in the emergency room. Initial ECG Impression Date: Jan 10, 2022 Initial ECG Impression Time: 09:44 Initial ECG Rate: 111 Initial ECG Rhythm: A Fib/Flutter Comment Atrial flutter with mild RVR. Right bundle branch block. No acute ischemic changes. EKG #1: EKG Time: 09:44 Rate: 111 Rhythm: A Fib/Flutter Comment Atrial flutter with mild RVR. Right axis deviation and right bundle branch block. EKG #2: EKG Time: 12:47 Rate: 65 Rhythm: Normal Sinus Comment EKG demonstrates conversion to sinus rhythm from atrial flutter with RVR. This was a spontaneous conversion. Sinus rhythm with no ST elevation or depression. Left axis deviation and right bundle branch block noted. Departure Impression Primary Impression: Atrial flutter with rapid ventricular response Additional Impressions: Hypotensive episode Paroxysmal atrial flutter Disposition: 01 HOME, SELF-CARE Condition: Improved Departure-Patient Inst. Decision time for Depature: 12:40 Referrals: ELLIE MITTAL DO (PCP/Family) Primary Care Physician Patient Instructions: Atrial Flutter Add. Discharge Instructions: Continue your medications as previously prescribed. Start Toprol-XL as prescribed tomorrow morning. Follow-up in the cardiology clinic next week. Return to the ER if you have sustained elevated heart rate, low blood pressures, or symptoms such as chest pain, shortness of breath, or lightheadedness. Call with questions or concerns. Your thyroid labs and electrolytes were normal. All discharge instructions reviewed with patient and/or family. Voiced understanding. Scripts Metoprolol Succinate (Toprol Xl) 25 Mg Tab.er.24h 25 MG PO DAILY, #30 TAB Prov: TADEO BLOOD MD 01/10/22 TADEO BLOOD MD Jan 10, 2022 12:19
[2022-01-10] MEDS ORDERED: METO-351 PO (12:42)
[2022-01-10 13:20] VITALS: BP 101/78
== END 2022-01-10 13:22 | disposition home or self-care (01) ==
LOC: EDUNIT# 09:35 → ER 09:36
DX: I48.92 Unspecified atrial flutter (principal); I95.9 Hypotension, unspecified; I45.19 Other right bundle-branch block; J44.9 Chronic obstructive pulmonary disease, unspecified; Z99.89 Dependence on other enabling machines and devices
CPT/HCPCS: 36415; 80048; 83735; 84439; 84443; 85025; 93005; 93041

== ENCOUNTER 2022-03-17 11:30 | Emergency (ER) | payer MEDICARE, OTHER ==
[~2022-03-17 11:30] MED LIST changes: +LEVO-55 PO; -LEVO500T81 PO; +METO-351 PO
--- NOTE | 2022-03-17 12:18 | ED General ---
General Chief Complaint: Respiratory Problems Stated Complaint: DIFFICULTY BREATHING Nursing Triage Note: PT AMB TO RM 10 WITH WITH C/O SOB INCREASED MORE THAN NORMAL SINCE BEFORE A WALK YESTERDAY AFTERNOON. PT THINKS AN ALLERGY HAS TRIGGERED THIS EXACERBATION Source of Information: Patient, Caregiver Exam Limitations: No Limitations (BEULAH BARRY MED STUDENT) History of Present Illness Date Seen by Provider: Mar 17, 2022 Time Seen by Provider: 12:00 Initial Comments Geo Hernandez is a 67 yo male who presented to the ED with for increasing SOA since yesterday. Pt has hx of COPD, non-small cell lung cancer, Afib, CAD, HTN, DVT, Renal failure and hypothyroidism. Pt reports he went on a walk in the [facility] yesterday and noticed he had increasing SOA after. SOA improved with sitting and use of his inhalers. In addition he also had itchy eyes, wheezing and non productive cough. Pt reports he only takes flonase for his allergies. He was taking montelukast, but stopped last winter d/t no refills on rx. Pt denies sick contacts or recent travel. He does not use oxygen or an oxygen concentrator at home, but does use CPAP nightly and he is compliant. Pt denies fever, chills, CP, N/V/D, constipation, abdominal pain, dysuria, frequency, numbness, weakness, dizziness, SCOTT or blurry vision. Upon examination in ED pt has saturations of 96% on room air. Timing/Duration: 24 Hours Severity: Mild Modifying Factors: improves with Medication (fluticasone/salmeterol, albuterol and tiotropium inhalers), improves with Rest Associated Systoms: Shortness of Air (BEULAH BARRY MED STUDENT) Allergies and Home Medications Allergies Coded Allergies: levofloxacin (Verified Allergy, Severe, PSYCHOSIS, 03/31/21) chlorthalidone (Verified Allergy, Unknown, 03/31/21) DIZZINESS Patient Home Medication List Home Medication List Reviewed: Yes (CLIVE MCKEON MD) Albuterol Sulfate (Ventolin Hfa) 1 Puff Puff, 2 PUFF INH Q4H PRN for SHORTNESS OF BREATH, (Reported) Entered as Reported by: BREN THORNE on 04/06/20 9917 Apixaban (Eliquis) 5 Mg Tablet, 5 MG PO BID, (Reported) Entered as Reported by: BREN THORNE on 02/16/21 1421 Atorvastatin Calcium (Atorvastatin Calcium) 20 Mg Tablet, 10 MG PO HS, (Reported) Entered as Reported by: BREN THORNE on 11/14/21 1349 Cholecalciferol (Vitamin D3) (Vitamin D3) 250 Mcg (12220 Unit) Capsule, 250 MCG PO HS, (Reported) Entered as Reported by: BREN THORNE on 11/14/21 1352 Cyanocobalamin (Vitamin B-12) (Vitamin B-12) 500 Mcg Tablet, 500 MCG PO DAILY, (Reported) Entered as Reported by: BREN THORNE on 11/14/21 1349 Docusate Sodium (Docusate Sodium) 100 Mg Capsule, 200 MG PO HS, (Reported) Entered as Reported by: BREN THORNE on 11/14/21 1349 Dronedarone HCl (Multaq) 400 Mg Tablet, 400 MG PO BID Prescribed by: TWILA MUÑOZ on 11/15/21 1306 Fluticasone Propion/Salmeterol (Wixela 500-50 Inhub) 500 Mcg-50 Mcg/Dose Blst.w.dev, 1 PUFF INH BID, (Reported) Entered as Reported by: BREN THORNE on 11/14/21 1349 Fluticasone Propionate (Flonase Allergy Relief) 9.9 Ml [place].susp, 1-2 SPRAY NSEACH BID, (Reported) Entered as Reported by: BREN THORNE on 02/16/21 1421 Guaifenesin/Dextromethorphan (Mucinex Dm ER 1,200-60 mg Tab) 1,200 Mg-60 Mg Tbmp.12hr, 1 EACH PO Q12H, (Reported) Entered as Reported by: BREN THORNE on 11/14/21 1349 Levothyroxine Sodium (Levothyroxine Sodium) 100 Mcg Tablet, 100 MCG PO DAILY, (Reported) Entered as Reported by: BREN THORNE on 04/12/20 1009 Liothyronine Sodium (Liothyronine Sodium) 5 Mcg Tablet, 5 MCG PO DAILY, (Reported) Entered as Reported by: BREN THORNE on 11/14/21 1349 Metoprolol Succinate (Toprol Xl) 25 Mg Tab.er.24h, 25 MG PO DAILY Prescribed by: TADEO ROMERO on 01/10/22 1242 Montelukast Sodium (Montelukast Sodium) 10 Mg Tablet, 10 MG PO HS, (Reported) Entered as Reported by: BREN THORNE on 12/21/20 1054 Tiotropium [place] (Spiriva Respimat 2.5MCG/ACTUATION) 4 Gm Mist.inhal, 2 PUFF IH DAILY, (Reported) Entered as Reported by: MARA MCNALLY on 03/21/20 1831 [Vit C/Vit D3/Zinc] , 1 EA PO HS, (Reported) Entered as Reported by: BREN THORNE on 11/14/21 1349 Review of Systems Review of Systems Constitutional: No chills, No fever, No malaise EENTM: No blurred vision, No vision loss Respiratory: cough, dyspnea on exertion, short of breath Cardiovascular: No chest pain, No palpitations Gastrointestinal: No abdominal pain, No constipation, No diarrhea, No nausea, No vomiting Genitourinary: No dysuria, No frequency Musculoskeletal: no symptoms reported Skin: No lesions, No lumps Psychiatric/Neurological: Denies Headache, Denies Numbness, Denies Paresthesia Hematologic/Lymphatic: No Symptoms Reported (BEULAH BARRY [employer] STUDENT) Past Zmjrrrz-Pqflxx-Gaewgu Hx Patient Social History Tobacco Use?: No Substance use?: No Alcohol Use?: Yes Alcohol Frequency: Rarely Pt feels they are or have been: No (EBULAH BARRY [employer] STUDENT) Immunizations Up To Date Tetanus Booster (TDap): Unknown PED Vaccines UTD: No First/Initial COVID19 Vaccinat: 09/21/20 Second COVID19 Vaccination Rodo: 10/20/20 Third COVID19 Vaccination Date: FALL 2020 (BEULAH BARRY [employer] STUDENT) Seasonal Allergies Seasonal Allergies: Yes (BEULAH BARRY [employer] STUDENT) Past Medical History Surgery/Hospitalization HX: LUNG CA WITH CHEMO AND RADIATION TX, A-FIB, COPD Surgeries: Yes (COLON RESECTION/COLOSTOMY/TAKEDOWN;PORT L CHEST;C- SCOPES;CARDIAC ABLATION) Abdominal, Bowel Surgery, Cardiac, Coronary Stent, Prostatectomy, Thyroidectomy Respiratory: Yes (NON-SMALL CELL LUNG CANCER) COPD Currently Using CPAP: Yes (PT USES CPAP AT HOME ) Currently Using BIPAP: No Cardiac: Yes (DVT L ARM 09/2019 POST PORT PLACEMENT;AFIB/FLUTTER-S/P ABLATION 03/24/20) Atrial Fibrillation, Deep Vein Thrombosis, Hypertension, Irregular Heartbeat Neurological: No Reproductive Disorders: No Sexually Transmitted Disease: No HIV/AIDS: No Genitourinary: Yes (TURP) Prostate Problems, Renal Failure, UTI-Chronic Gastrointestinal: Yes (COLON RESECTION/COLOSTOMY/TAKEDOWN FOR BENIGN POLYPS) Polyps Musculoskeletal: No Endocrine: Yes (THYROIDECTOMY FOR BENIGN DISEASE, prediabetes) Hypothyroidsim HEENT: No Cancer: Yes (NON-SMALL CELL LUNG CANCER DX 07/2019--HAS BEEN ON IMMUNOTHERAPY) Lung Did You Recieve Any Treatments: Yes What Type of Treatment Did You: Chemotherapy, Radiation Psychosocial: No Integumentary: No Blood Disorders: No Adverse Reaction/Blood Tranf: No (BEULAH ABRRY MED STUDENT) Family Medical History No Pertinent Family Hx SOCIAL HISTORY: -ETOH--DENIES -DRUGS--DENIES -SMOKING--SMOKED 1 PPD--QUIT A FEW YEARS AGO PAST SURGICAL HISTORY: -COLON RESECTION FOR MULTIPLE BENIGN POLYPS, REQUIRED COLOSTOMY AND LATER TAKEDOWN -THYROIDECTOMY FOR BENIGN GOITER -CARDIAC CATH 03/21/20--NO INTERVENTION. SLOW FLOW IN ALL VESSELS. SMALL FIRST DIAGONAL ARTERY HAS MODERATE TO SEVERE OSTIAL DISEASE--NOT AMENABLE TO INTERVENTION -CARDIAC ABLATION FOR ATRIAL FIBRILLATION 03/24/20 -MULTIPLE COLONOSCOPIES -PORT LEFT CHEST (BEULAH BARRY MED STUDENT) Physical Exam Vital Signs Vital Signs - First Documented 03/17/22 03/17/22 11:32 13:02 Temp 36.8 Pulse 70 Resp 22 B/P (MAP) 164/64 (97) Pulse Ox 96 O2 Delivery Room Air (CLIVE MCKEON MD) Vital Signs Capillary Refill : (BEULAH BARRY MED STUDENT) Height, Weight, BMI Height: 6'2.00" Weight: 230lbs. 0.0oz. [id number]; 23.51 BMI Method:Stated General Appearance: No Apparent Distress, WD/WN HEENT: PERRL/EOMI, Pharynx Normal Neck: Full Range of Motion, Supple Respiratory: Chest Non Tender, Accessory Muscle Use, Decreased Breath Sounds, Respiratory Distress, Wheezing (mild wheezing bilaterally) Cardiovascular: Regular Rate, Rhythm, No Murmur Gastrointestinal: Normal Bowel Sounds, Non Tender, Soft Extremity: Non Tender, No Pedal Edema Neurologic/Psychiatric: Alert, Oriented x3, Normal Mood/Affect, plant chief II-XII Norm as Tested Skin: Normal Color, Warm/Dry Lymphatic: No Adenopathy (BEULAH BARRY) Procedures/Interventions Patient Education: Explained Benefits, Explained Risks, Pt. Ack. Understanding Breath Sounds per Auscultation: Clear Heart Sounds per Auscultation: Irregular Airway Exam: Mouth opens >2 fingers, Neck Full Range of Motion, Visulation of Uvula Sedation Adminstration Time: 1630 Re-examination Time: 1658 (BEULAH BARRY) Progress/Results/Core Measures Suspected Sepsis SIRS Temperature: Pulse: 70 Respiratory Rate: 22 Blood Pressure 164 /64 Mean: 97 (BEULAH BARRY) Results/Orders My Orders Orders - CLIVE MCKEON MD Albuterol/Ipra Inhalation Soln (Duoneb I (03/17/22 12:30) Svn Small Volume Nebulizer (03/17/22 12:26) Montelukast Tablet (Singulair Tablet) (03/17/22 12:30) (CLIVE MCKEON MD) Medications Given in ED Current Medications Medications Dose Ordered Sig/Silvana Route Start Time Stop Time Status Last Admin Dose Admin Albuterol/ Ipratropium 3 ml ONCE ONCE INH 03/17/22 12:30 03/17/22 12:31 DC 03/17/22 13:01 3 ML Montelukast Sodium 10 mg ONCE ONCE PO 03/17/22 12:30 03/17/22 12:31 DC 03/17/22 12:59 10 MG (CLIVE MCKEON MD) Vital Signs/I&O 03/17/22 03/17/22 11:32 13:02 Temp 36.8 Pulse 70 Resp 22 B/P (MAP) 164/64 (97) Pulse Ox 96 O2 Delivery Room Air (CLIVE MCKEON MD) Vital Signs/I&O Capillary Refill : (BEULAH BARRY STUDENT) Blood Pressure Mean: 97 Progress Note : Time: 13:55 Progress Note Pt feeling much better after getting duoneb treatment. Oxygen remains at 96% on room air. No signs of respiratory distress. Lung sounds improved. (BELEW,BEULAH A MED STUDENT) Progress Note : Time: 13:58 Progress Note 67 yo male to the ER with a complaint of feeling SOB after walking around in the [place] yesterday. Off montelukast 1 year. Feels "allergy" sx of runny nose and some congestion. no productive cough or fevers. No chest pain. No abdominal complaints. Does not have a nebulizer at home. Had improvement in subjective SOB after Duoneb and moving more air. Montelukast ordered as well. Will refill this for him. No clinical or objective findings to warrant further eval/management or treatment. I do not think he warrants a course of steroids at this time. Will send home with nebulaizer. (CLIVE MCKEON MD) Departure Impression Primary Impression: Dyspnea Qualified Codes: R06.00 - Dyspnea, unspecified Additional Impression: COPD (chronic obstructive pulmonary disease) Qualified Codes: J44.9 - Chronic obstructive pulmonary disease, unspecified Disposition: 01 HOME, SELF-CARE Condition: Improved Departure-Patient Inst. Decision time for Depature: 14:00 (CLIVE MCKEON MD) Referrals: ELLIE MITTAL DO (PCP/Family) Primary Care Physician Patient Instructions: Chronic Obstructive Pulmonary Disease (COPD) (DC) Add. Discharge Instructions: Restart your Montelukast tomorrow - I have sent a prescription to your pharmacy. I have also sent a prescription to your pharmacy for Albuterol. You can use the nebulizer every 6 hours for the next couple of days to help prevent your COPD from worsening due to allergies, while the montelukast kicks in. If you have worsening Shortness of breath with fever, chills or develop a productive cough - please return to the ER for re-evaluation. FOllow up with your primary care doctor as scheduled. Scripts Albuterol Sulfate (Albuterol Sulfate) 2.5 Mg/3 Ml (0.083 %) Vial.neb 2.5 MG INH Q6H PRN for WHEEZING, #50 EA 1 Refill Prov: CLIVE MCKEON MD 03/17/22 Montelukast Sodium (Montelukast Sodium) 10 Mg Tablet 10 MG PO DAILY, #30 TAB 3 Refills Prov: CLIVE MCKEON MD 03/17/22 Verification and Attestation of Medical Student E/M Service A medical student performed and documented this service in my presence. I reviewed and verified all information documented by the medical student and made modifications to such information, when appropriate. I personally performed the physical exam and medical decision making. Clive Mckeon, Mar 17, 2022,14:04 (CLIVE MCKEON MD) Copy Copies To 1: ELLIE MITTAL [place] A MED STUDENT Mar 17, 2022 12:18 CLIVE MCKEON MD Mar 17, 2022 14:04
[2022-03-17] MEDS ORDERED: MONTELUKAST 10 MG (SINGULAIR) TAB PO ONE (12:30)
[2022-03-17] MEDS ORDERED: RT-ALBUTEROL/IPRATROPIUM 3 ML (DUONEB) VIAL INH ONE (12:30)
[2022-03-17] MEDS ORDERED: MONT-40 PO (14:02)
[2022-03-17] MEDS ORDERED: ALBU2.5V4 INH (14:02)
[2022-03-17 14:10] VITALS: BP 128/78
== END 2022-03-17 14:16 | disposition home or self-care (01) ==
LOC: EDUNIT# 11:30 → ER 11:31
DX: J44.9 Chronic obstructive pulmonary disease, unspecified (principal); Z87.891 Personal history of nicotine dependence; Z85.118 Personal history of other malignant neoplasm of bronchus and lung
CPT/HCPCS: 94640

== ENCOUNTER → 2022-08-17 | Outpatient (CLI) | payer MEDICARE, OTHER ==
[~2022-08-17] MED LIST changes: +ALBU2.5V4 INH
== END ==
LOC: CARD 11:30
PROVIDERS: ATTEND Internal Medicine Cardiovascular Disease
DX: I11.9 Hypertensive heart disease without heart failure (principal); I25.10 Atherosclerotic heart disease of native coronary artery without angina pectoris
CPT/HCPCS: 93306

== ENCOUNTER → 2022-08-21 | Outpatient (CLI) | payer MEDICARE, OTHER ==
[2022-08-21 08:55] LABS: ALBUMIN 3.7 GM/DL (3.2-4.5); BILIRUBIN,TOTAL 0.7 MG/DL (0.1-1.0); CALCIUM 9.4 MG/DL (8.5-10.1); CREATININE SERUM 0.9 MG/DL (0.60-1.30); TOTAL PROTEIN 6.7 GM/DL (6.4-8.2)
== END ==
LOC: LAB 08:21
PROVIDERS: ATTEND Internal Medicine Cardiovascular Disease
DX: C34.90 Malignant neoplasm of unspecified part of unspecified bronchus or lung (principal); I65.29 Occlusion and stenosis of unspecified carotid artery; I48.0 Paroxysmal atrial fibrillation; I10 Essential (primary) hypertension; R07.2 Precordial pain; E78.2 Mixed hyperlipidemia
CPT/HCPCS: 36415; 80053; 80061

== ENCOUNTER → 2022-09-17 | Outpatient (CLI) | payer MEDICARE, OTHER ==
[~2022-09-17] MED LIST changes: +CATHETER FLUSH 10 ML SYR IVP PRN; +REGADENOSON 0.4 MG/5 ML SYR (LEXISCAN) IV ONE
[2022-09-17 09:07] VITALS: BP 128/83
--- NOTE | 2022-09-17 11:28 | Cardiology Stress Test Report ---
Stress Test Report Date of Procedure/Referring: Date of Procedure: Sep 17, 2022 PCP Ellie Galan DO Admitting Physician Admitting Physician: Attending Physician: Sandra Reed MD Indications: HTN Baseline Heart Rate: 67 Baseline Blood Pressure: Blood Pressure Systolic: 128 Blood Pressure Diastolic: 83 Baseline Vitals Vital Signs Date Time Temp Pulse Resp B/P (MAP) Pulse Ox O2 Delivery O2 Flow Rate FiO2 09/17/22 09:07 67 128/83 (98) 98 Baseline EKG: Baseline EKG: RBBB Summary After explaining the procedure to the patient, he signed a consent and then brought to the stress nuclear laboratory. Patient received 0.4 mg Lexiscan for stress test, ECG, heart rate and blood pressure were monitored continuously. Resting and stress dose of radio tracer were injected, imaging was acquired and reviewed in short axis, horizontal long axis and vertical long axis views. TID: 1.19 SSS: 5 SDS: 0 EF: 61 Patient tolerated Lexiscan well Baseline right bundle branch block persisted during test Diaphragmatic attenuation with fixed defect involving the mid to apical inferior wall, no significant ischemia or infarction on SPECT images Normal left ventricular size, ejection fraction 61% Copy Copies To 1: ELLIE GALAN BASHAR J MD Sep 17, 2022 11:28
== END ==
LOC: CARD 06:58
PROVIDERS: ATTEND Internal Medicine Cardiovascular Disease
DX: I10 Essential (primary) hypertension (principal); I25.10 Atherosclerotic heart disease of native coronary artery without angina pectoris; R07.2 Precordial pain
CPT/HCPCS: 78452; 93017; A9502

== ENCOUNTER 2022-12-07 17:01 | Emergency (ER) | payer MEDICARE, OTHER ==
[~2022-12-07] VITALS: Ht 187 cm; Wt 88.9 kg
[~2022-12-07 17:01] MED LIST changes: -CATHETER FLUSH 10 ML SYR IVP PRN; -REGADENOSON 0.4 MG/5 ML SYR (LEXISCAN) IV ONE
--- NOTE | 2022-12-07 17:29 | ED Chest Pain ---
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 PT STATES HE HAS HX OF PNEUMOTHORAX IN HIS OTHER SIDE AND THIS FEELS SIMILAR. Source: patient Exam Limitations: no limitations (MISAEL TAMAYO MD) History of Present Illness Date Seen by Provider: December 07, 2022 Time Seen by Provider: 17:11 Initial Comments Here with complaint of acute onset left upper chest pain that started about 1/2- hour prior to arrival. States it hurts with deep breathing. Denies recent illness or injury. Does have history of lung cancer that has been treated and they are following without new onset currently. Does have history of pneumothorax on the right and patient states that it feels somewhat like that. He is currently on Eliquis for atrial fibrillation and has been taking that as directed. He did report that he had to do a breathing treatment last night and does have history of COPD. He has normal oxygen saturations currently. He has not taken anything for pain. Timing/Duration: 1/2 hour Severity/Quality: moderate, sharp, stabbing Location: other (Left lateral) Radiation: no radiation Activities at Onset: none Prior CP/Workup: cardiac cath, echocardiography ASA po PACKAGE DELIVERY DRIVER: No NTG SL PACKAGE DELIVERY DRIVER: No Associated Symptoms: No abdominal pain, No diaphoresis, No dizziness, No fever/chills, No nausea/vomiting; shortness of breath; No weakness (MISAEL TAMAYO MD) Allergies and Home Medications Allergies Coded Allergies: levofloxacin (Verified Allergy, Severe, PSYCHOSIS, 03/31/21) chlorthalidone (Verified Allergy, Unknown, 03/31/21) DIZZINESS Patient Home Medication List Home Medication List Reviewed: Yes (MISAEL TAMAYO MD) Albuterol Sulfate (Ventolin Hfa) 1 Puff Puff, 2 PUFF INH Q4H PRN for SHORTNESS OF BREATH, (Reported) Entered as Reported by: BREN THORNE on 04/06/20 1247 Albuterol Sulfate (Albuterol Sulfate) 2.5 Mg/3 Ml (0.083 %) Vial.neb, 2.5 MG INH Q6H PRN for WHEEZING Prescribed by: CLIVE GONZALEZ on 03/17/22 1402 Apixaban (Eliquis) 5 Mg Tablet, 5 MG PO BID, (Reported) Entered as Reported by: BREN THORNE on 02/16/21 1421 Atorvastatin Calcium (Atorvastatin Calcium) 20 Mg Tablet, 10 MG PO HS, (Reported) Entered as Reported by: BREN THORNE on 11/14/21 1349 Cholecalciferol (Vitamin D3) (Vitamin D3) 250 Mcg (90506 Unit) Capsule, 250 MCG PO HS, (Reported) Entered as Reported by: BREN THORNE on 11/14/21 1352 Cyanocobalamin (Vitamin B-12) (Vitamin B-12) 500 Mcg Tablet, 500 MCG PO DAILY, (Reported) Entered as Reported by: BREN THORNE on 11/14/21 1349 Docusate Sodium (Docusate Sodium) 100 Mg Capsule, 200 MG PO HS, (Reported) Entered as Reported by: BREN THORNE on 11/14/21 1349 Dronedarone HCl (Multaq) 400 Mg Tablet, 400 MG PO BID Prescribed by: TWILA MUÑOZ on 11/15/21 1306 Fluticasone Propion/Salmeterol (Wixela 500-50 Inhub) 500 Mcg-50 Mcg/Dose Blst.w.dev, 1 PUFF INH BID, (Reported) Entered as Reported by: BREN THORNE on 11/14/21 1349 Fluticasone Propionate (Flonase Allergy Relief) 9.9 Ml Qulin.susp, 1-2 SPRAY NSEACH BID, (Reported) Entered as Reported by: BREN THORNE on 02/16/21 1421 Guaifenesin/Dextromethorphan (Mucinex Dm ER 1,200-60 mg Tab) 1,200 Mg-60 Mg Tbmp.12hr, 1 EACH PO Q12H, (Reported) Entered as Reported by: BREN THORNE on 11/14/21 1349 Levothyroxine Sodium (Levothyroxine Sodium) 100 Mcg Tablet, 100 MCG PO DAILY, (Reported) Entered as Reported by: BREN THORNE on 04/12/20 1009 Liothyronine Sodium (Liothyronine Sodium) 5 Mcg Tablet, 5 MCG PO DAILY, (Reported) Entered as Reported by: BREN THORNE on 11/14/21 1349 Metoprolol Succinate (Toprol Xl) 25 Mg Tab.er.24h, 25 MG PO DAILY Prescribed by: TADEO ROMERO on 01/10/22 1242 Montelukast Sodium (Montelukast Sodium) 10 Mg Tablet, 10 MG PO HS, (Reported) Entered as Reported by: BREN THORNE on 12/21/20 1054 Montelukast Sodium (Montelukast Sodium) 10 Mg Tablet, 10 MG PO DAILY Prescribed by: CLIVE GONZALEZ on 03/17/22 1402 Tiotropium Lorenzo (Spiriva Respimat 2.5MCG/ACTUATION) 4 Gm Mist.inhal, 2 PUFF IH DAILY, (Reported) Entered as Reported by: MARA MCNALLY on 03/21/20 1831 [Vit C/Vit D3/Zinc] , 1 EA PO HS, (Reported) Entered as Reported by: BREN THORNE on 11/14/21 1349 Review of Systems Review of Systems Constitutional: see HPI; No chills, No fever EENTM: No Symptoms Reported Respiratory: Cough, Shortness of Air Cardiovascular: Chest Pain; Denies Edema, Denies Irregular Heart Rate Gastrointestinal: Denies Nausea, Denies Vomiting Genitourinary: No Symptoms Reported Musculoskeletal: no symptoms reported Skin: no symptoms reported Psychiatric/Neurological: No Symptoms Reported (MISAEL TAMAYO MD) Past Ldkdlxd-Oseyhf-Zucssm Hx Patient Social History Tobacco Use?: No Substance use?: No Substance frequency: Rarely Alcohol Use?: Yes Alcohol Frequency: Rarely Pt feels they are or have been: No (MISAEL TAMAYO MD) Immunizations Up To Date Tetanus Booster (TDap): Unknown PED Vaccines UTD: No First/Initial COVID19 Vaccinat: 09/21/20 Second COVID19 Vaccination Rodo: 10/20/20 Third COVID19 Vaccination Date: FALL 2020 (MISAEL TAMAYO MD) Seasonal Allergies Seasonal Allergies: Yes (MISAEL TAMAYO MD) Past Medical History Surgery/Hospitalization HX: LUNG CA WITH CHEMO AND RADIATION [place], A-FIB, COPD, heart ablations, pneumothorax, hx of sudden cardiac arrest Surgeries: Yes (COLON RESECTION/COLOSTOMY/TAKEDOWN;PORT L CHEST;C- SCOPES;CARDIAC ABLATION) Abdominal, Bowel Surgery, Cardiac, Coronary Stent, Prostatectomy, Thyroidectomy Respiratory: Yes (NON-SMALL CELL LUNG CANCER) COPD Currently Using CPAP: Yes (PT USES CPAP AT HOME ) Currently Using BIPAP: No Cardiac: Yes (DVT L ARM 09/2019 POST PORT PLACEMENT;AFIB/FLUTTER-S/P ABLATION 03/24/20) Atrial Fibrillation, Deep Vein Thrombosis, Hypertension, Irregular Heartbeat Neurological: No Reproductive Disorders: No Sexually Transmitted Disease: No HIV/AIDS: No Genitourinary: Yes (TURP) Prostate Problems, Renal Failure, UTI-Chronic Gastrointestinal: Yes (COLON RESECTION/COLOSTOMY/TAKEDOWN FOR BENIGN POLYPS) Polyps Musculoskeletal: No Endocrine: Yes (THYROIDECTOMY FOR BENIGN DISEASE, prediabetes) Hypothyroidsim HEENT: No Cancer: Yes (NON-SMALL CELL LUNG CANCER DX 07/2019--HAS BEEN ON IMMUNOTHERAPY) Lung Did You Recieve Any Treatments: Yes What Type of Treatment Did You: Chemotherapy, Radiation Psychosocial: No Integumentary: No Blood Disorders: No Adverse Reaction/Blood Tranf: No (MISAEL TAMAYO MD) Family Medical History Reviewed Nursing Family Hx (MISAEL TAMAYO MD) No Pertinent Family Hx SOCIAL HISTORY: -ETOH--DENIES -DRUGS--DENIES -SMOKING--SMOKED 1 PPD--QUIT A FEW YEARS AGO PAST SURGICAL HISTORY: -COLON RESECTION FOR MULTIPLE BENIGN POLYPS, REQUIRED COLOSTOMY AND LATER TAKEDOWN -THYROIDECTOMY FOR BENIGN GOITER -CARDIAC CATH 03/21/20--NO INTERVENTION. SLOW FLOW IN ALL VESSELS. SMALL FIRST DIAGONAL ARTERY HAS MODERATE TO SEVERE OSTIAL DISEASE--NOT AMENABLE TO INTERVENTION -CARDIAC ABLATION FOR ATRIAL FIBRILLATION 03/24/20 -MULTIPLE COLONOSCOPIES -PORT LEFT CHEST (MISAEL TAMAYO MD) Physical Exam Vital Signs Vital Signs - First Documented 12/07/22 12/07/22 17:10 18:26 Temp 35.3 Pulse 71 Resp 16 B/P (MAP) 121/89 (100) Pulse Ox 99 O2 Delivery Room Air (TADEO AARON MD) Vital Signs Capillary Refill : Less Than 3 Seconds (MISAEL TAMAYO MD) Height, Weight, BMI Height: 6'2.00" Weight: 230lbs. 0.0oz. 104.837847pd; 25.00 BMI Method:Stated General Appearance: No Apparent Distress, WD/WN HEENT: PERRL/EOMI, Pharynx Normal Neck: Non Tender, Supple Respiratory: Lungs Clear, Normal Breath Sounds Cardiovascular: Regular Rate, Rhythm, No Murmur Gastrointestinal: Non Tender, Soft Extremity: Normal Range of Motion, Non Tender Neurologic/Psychiatric: Alert, Oriented x3 Skin: Normal Color, Warm/Dry (MISAEL TAMAYO MD) Procedures/Interventions Patient Education: Explained Benefits, Explained Risks, Pt. Ack. Understanding Breath Sounds per Auscultation: Clear Heart Sounds per Auscultation: Irregular Airway Exam: Mouth opens >2 fingers, Neck Full Range of Motion, Visulation of Uvula Sedation Adminstration Time: 1630 Re-examination Time: 1658 (MISAEL TAMAYO MD) Progress/Results/Core Measures Results/Orders Lab Results Laboratory Tests Test 12/07/22 17:35 12/07/22 20:33 Range/Units White Blood Count 8.2 4.3-11.0 10^3/uL Red Blood Count 4.40 4.30-5.52 10^6/uL Hemoglobin 13.5 13.3-17.7 g/dL Hematocrit 40 40-54 % Mean Corpuscular Volume 91 80-99 fL Mean Corpuscular Hemoglobin 31 25-34 pg Mean Corpuscular Hemoglobin Concent 34 32-36 g/dL Red Cell Distribution Width 13.7 10.0-14.5 % Platelet Count 157 130-400 10^3/uL Mean Platelet Volume 9.3 9.0-12.2 fL Immature Granulocyte % (Auto) 0 % Neutrophils (%) (Auto) 74 42-75 % Lymphocytes (%) (Auto) 17 12-44 % Monocytes (%) (Auto) 8 0-12 % Eosinophils (%) (Auto) 0 0-10 % Basophils (%) (Auto) 1 0-10 % Neutrophils # (Auto) 6.1 1.8-7.8 10^3/uL Lymphocytes # (Auto) 1.4 1.0-4.0 10^3/uL Monocytes # (Auto) 0.7 0.0-1.0 10^3/uL Eosinophils # (Auto) 0.0 0.0-0.3 10^3/uL Basophils # (Auto) 0.0 0.0-0.1 10^3/uL Immature Granulocyte # (Auto) 0.0 0.0-0.1 10^3/uL Prothrombin Time 15.3 H 12.2-14.7 SEC INR Comment 1.2 0.8-1.4 Activated Partial Thromboplast Time 39 H 24-35 SEC D-Dimer 0.37 0.00-0.49 UG/ML Sodium Level 136 135-145 MMOL/L Potassium Level 3.9 3.6-5.0 MMOL/L Chloride Level 104 98-107 MMOL/L Carbon Dioxide Level 22 21-32 MMOL/L Anion Gap 10 5-14 MMOL/L Blood Urea Nitrogen 18 7-18 MG/DL Creatinine 0.91 0.60-1.30 MG/DL Estimat Glomerular Filtration Rate 91 BUN/Creatinine Ratio 20 Glucose Level 96 70-105 MG/DL Calcium Level 9.0 8.5-10.1 MG/DL Corrected Calcium 9.2 8.5-10.1 MG/DL Magnesium Level 2.1 1.6-2.4 MG/DL Total Bilirubin 0.7 0.1-1.0 MG/DL Aspartate Amino Transf (AST/SGOT) 21 5-34 U/L Alanine Aminotransferase (ALT/SGPT) 18 0-55 U/L Alkaline Phosphatase 50 40-136 U/L Myoglobin 126.2 H 10.0-92.0 NG/ML Troponin I < 0.028 < 0.028 <0.028 NG/ML Total Protein 6.2 L 6.4-8.2 GM/DL Albumin 3.7 3.2-4.5 GM/DL (TADEO AARON MD) My Orders Orders - TADEO AARON MD Troponin I Alan (12/07/22 20:30) (TADEO AARON MD) Medications Given in ED Current Medications Medications Dose Ordered Sig/Silvana Route Start Time Stop Time Status Last Admin Dose Admin Albuterol/ Ipratropium 3 ml ONCE ONCE INH 12/07/22 18:00 12/07/22 18:01 DC 12/07/22 18:24 3 ML Sodium Chloride 500 ml @ 0 mls/hr Q0M ONCE IV 12/07/22 17:45 12/07/22 17:46 DC 12/07/22 18:08 0 MLS/HR (TADEO AARON MD) Vital Signs/I&O 12/07/22 12/07/22 12/07/22 17:10 18:26 21:40 Temp 35.3 36.0 Pulse 71 70 Resp 16 14 B/P (MAP) 121/89 (100) 159/96 Pulse Ox 99 98 99 O2 Delivery Room Air Room Air 12/08/22 00:00 Intake Total 500 ml Balance 500 ml (TADEO AARON MD) Blood Pressure Mean: 100 Progress Progress Note : Progress Note Seen and evaluated. IV via port access using PowerPort needle to PowerPort Port-A-Cath. Labs including CBC, CMP, troponin and myoglobin ordered. We will check D-dimer. Chest x-ray ordered due to history of pneumothorax and lung cancer. No indication for aspirin at this point as patient is on Eliquis. Patient declines pain medicine. Previous heart cath results reviewed and noted below from 2019. Monitor patient. We will give normal saline 500 mL bolus. Differential diagnosis includes cardiac event, lung disease, COPD, pneumothorax, less likely but still possible with pulmonary embolus. 1745: Chest x-ray reviewed by me and shows no obvious pneumothorax or infiltrate on my interpretation pending radiology report. 1800: CBC is grossly normal on my interpretation. D-dimer is negative. Chemistries are pending. Care transferred to Dr. Aaron pending laboratory evaluation and repeat check. FINDINGS: 1.Left main: Patent. 2.LAD: Slow flow noted in all vessels. A small first diagonal artery has moderate to severe ostial disease. However diameter of this vessel is less than 1.5 mm. 3.Left circumflex artery: Mild disease noted. Slow flow noted. 4.RCA: Minimal disease. Slow flow noted. 5.Left heart catheterization: LV pressure 82/9 mmHg. LVEDP 17 mmHg. Aortic pressure 86/61 mmHg. borderline LV function with no wall motion abnormalities. No gradient across the aortic valve. 6. Aortic arch angiogram: No aortic aneurysm or dissection. Patent proximal segments of great arteries. CONCLUSIONS: 1. Small single vessel branch artery disease with diameter < 1.5mm - no suitable for PCI. 2. Slow flow noted in all three major arteries. NTG not given due to low BP. (MISAEL TAMAYO MD) Progress Note : Progress Note CBC, CMP, magnesium, troponin, D-dimer were all reviewed and interpreted by me as unremarkable. Serial troponin was also negative. I discussed results with patient. He reiterates an atypical nature of his pain with pain with inspiration and tenderness on palpation. He was offered assistance with pain control which she declined. See discharge instructions for further discussion. (TADEO AARON MD) Initial ECG Impression Date: December 07, 2022 Initial ECG Impression Time: 17:32 Initial ECG Rate: 69 Initial ECG Rhythm: Normal Sinus Comment Sinus rhythm with left axis deviation. Right bundle branch block. No evidence of ST elevation PR. Interpreted by me. (MISAEL TAMAYO MD) Diagnostic Imaging Diagonstic Imaging: Xray Plain Films/CT/US/NM/MRI: chest Comments [facility] [place], [place] NAME: SARA IRIZARRY [facility] REC#: [id number] PT STATUS: REG ER : 1955 PHYSICIAN: MISAEL TAMAYO MD ADMIT DATE: 12/07/22/ER Draft Date of Exam:12/07/22 CHEST 1 VIEW, AP/PA ONLY INDICATION: Chest pain. AP view of the chest is obtained. Comparison is made to study of 11/13/2021. FINDINGS: Predominantly right upper lobe air trapping is again noted with right paramediastinal density and linear atelectasis or scarring in the right upper lobe. There is no evidence of pneumothorax. No new infiltrate is identified. There is no significant pleural fluid. IMPRESSION: Stable chronic findings without acute abnormality detected. Dictated on workstation # [id number] Dict: 12/07/22 1751 Trans: 12/07/22 1754 [id number] Interpreted by: MIKKI ROBERTO MD Electronically signed by: (MISAEL TAMAYO MD) Departure Impression Primary Impression: Chest wall pain Disposition: 01 HOME, SELF-CARE Condition: Stable Departure-Patient Inst. Decision time for Depature: 21:31 (TADEO AARON MD) Referrals: ELLIE MITTAL DO (PCP/Family) Primary Care Physician Patient Instructions: Chest Pain That Is Not Caused by the Heart (DC) Add. Discharge Instructions: Your heart and lung work-up was unremarkable in the emergency room. Please follow-up with your primary care provider early next week. Call on Saturday for a follow-up appointment. You may take Tylenol (acetaminophen) up to 1000 mg every 6 hours as needed for pain. You may also take topical therapies such as lidocaine patches, Biofreeze, icing, etc. Monitor for rash or skin changes as this may indicate infection or shingles. Return to care if you notice the symptoms. Return to care if you have other worsening of symptoms despite following these instructions. All discharge instructions reviewed with patient and/or family. Voiced understanding. Copy Copies To 1: ELLIE MITTAL DO Copies To 2: TWILA MUÑOZ MD, TIMOTHY D MD December 07, 2022 17:29 TADEO AARON MD December 07, 2022 21:34
[2022-12-07 17:43] LABS: BASOPHILS % (AUTO) 1 % (0-10); EOSINOPHILS % (AUTO) 0 % (0-10); HEMATOCRIT 40 % (40-54); HEMOGLOBIN 13.5 g/dL (13.3-17.7); LYMPHOCYTES # (AUTO) 1.4 10^3/uL (1.0-4.0); LYMPHOCYTES % (AUTO) 17 % (12-44); MEAN CORPUSCULAR HEMOGLOBIN 31 pg (25-34); MEAN CORPUSCULAR HGB CONC 34 g/dL (32-36); MEAN CORPUSCULAR VOLUME 91 fL (80-99); MEAN PLATELET VOLUME 9.3 fL (9.0-12.2); MONOCYTES # (AUTO) 0.7 10^3/uL (0.0-1.0); MONOCYTES % (AUTO) 8 % (0-12); NEUTROPHILS # (AUTO) 6.1 10^3/uL (1.8-7.8); NEUTROPHILS % (AUTO) 74 % (42-75); PLATELET COUNT 157 10^3/uL (130-400); WHITE BLOOD COUNT 8.2 10^3/uL (4.3-11.0)
[2022-12-07] MEDS ORDERED: NS IV 500 ML 500 ML IV ONE (17:45)
[2022-12-07 17:51] LABS: INR 1.2 (0.8-1.4); PROTHROMBIN TIME PATIENT 15.3 SEC (12.2-14.7)
[2022-12-07 17:52] LABS: ALBUMIN 3.7 GM/DL (3.2-4.5); CHLORIDE 104 MMOL/L (98-107); POTASSIUM 3.9 MMOL/L (3.6-5.0); SODIUM 136 MMOL/L (135-145)
[2022-12-07 17:55] LABS: FIBRIN DEGRADATION PRODUCTS 0.37 UG/ML (0.00-0.49); GLUCOSE 96 MG/DL (70-105); TOTAL PROTEIN 6.2 GM/DL (6.4-8.2)
--- NOTE | 2022-12-07 17:55 | Diagnostic Imaging Report ---
INDICATION: Chest pain. AP view of the chest is obtained. Comparison is made to study of 11/13/2021. FINDINGS: Predominantly right upper lobe air trapping is again noted with right paramediastinal density and linear atelectasis or scarring in the right upper lobe. There is no evidence of pneumothorax. No new infiltrate is identified. There is no significant pleural fluid. IMPRESSION: Stable chronic findings without acute abnormality detected. Dictated by: Dictated on workstation # [id number]
[2022-12-07 17:56] LABS: CARBON DIOXIDE 22 MMOL/L (21-32)
[2022-12-07 17:57] LABS: BILIRUBIN,TOTAL 0.7 MG/DL (0.1-1.0)
[2022-12-07 17:58] LABS: ALKALINE PHOSPHATASE 50 U/L (40-136); CREATININE SERUM 0.91 MG/DL (0.60-1.30); GFR ESTIMATED 91
[2022-12-07 17:59] LABS: BUN/CREATININE RATIO 20
[2022-12-07] MEDS ORDERED: RT-ALBUTEROL/IPRATROPIUM 3 ML (DUONEB) VIAL INH ONE (18:00)
[2022-12-07 18:01] LABS: ALANINE AMINOTRANSFERASE 18 U/L (0-55)
[2022-12-07 18:02] LABS: MAGNESIUM 2.1 MG/DL (1.6-2.4)
[2022-12-07 21:40] VITALS: BP 159/96
== END 2022-12-07 21:44 | disposition home or self-care (01) ==
LOC: EDUNIT# 17:01 → ER 17:03
DX: R07.89 Other chest pain (principal); I48.91 Unspecified atrial fibrillation; Z87.891 Personal history of nicotine dependence; Z79.02 Long term (current) use of antithrombotics/antiplatelets; Z85.118 Personal history of other malignant neoplasm of bronchus and lung; Z99.89 Dependence on other enabling machines and devices; Z87.09 Personal history of other diseases of the respiratory system
CPT/HCPCS: 36415; 71045; 80053; 83735; 83874; 84484; 85025; 85379; 85610; 85730; 93041; 94640; 94664

== ENCOUNTER 2023-06-05 07:43 | Outpatient (RCR) | payer MEDICARE, OTHER | END 2023-06-13 | disposition home or self-care (01) | LOC: ONC 07:43 | PROVIDERS: ATTEND Radiology Radiation Oncology | DX: Z51.0 Encounter for antineoplastic radiation therapy (principal); C34.11 Malignant neoplasm of upper lobe, right bronchus or lung; I48.91 Unspecified atrial fibrillation; J44.9 Chronic obstructive pulmonary disease, unspecified; E78.00 Pure hypercholesterolemia, unspecified; I11.9 Hypertensive heart disease without heart failure; E11.9 Type 2 diabetes mellitus without complications; E03.9 Hypothyroidism, unspecified | CPT/HCPCS: 77293; 77300; 77301; 77334; 77336; 77338; 77370; 77373; 77470; 99205 ==